=== PATIENT | female | born 1940 | race African-American/Black ===

== ENCOUNTER 2016-09-25 19:53 | Observation (INO) ==
[2016-09-25] MEDS ORDERED: Ondansetron 4 MG/2 ML VIAL IV ONE (20:25)
[2016-09-25] MEDS ORDERED: *HR* Morphine 2 MG/ML SYRINGE IV ONE (20:25)
--- NOTE | 2016-09-25 22:15 | Emergency Department Note ---
Disposition Clinical Impression: Syncope Qualifiers: Syncope type: unspecified Qualified Code(s): R55 - Syncope and collapse Closed head injury Qualifiers: Encounter type: initial encounter Qualified Code(s): S09.90XA - Unspecified injury of head, initial encounter Disposition: Admitted As Inpatient Condition: Good Time of Disposition: 00:51 General Adult HPI - General Chief complaint: ED Fall Stated complaint: Left Shoulder Pain / Freq Falls Time Seen by Provider: 09/25/16 19:55 Source: patient Limitations: no limitations Nursing Notes Reviewed: Yes Vital Signs Reviewed: Yes - History of Present Illness HPI Narrative: pt was at home today and had a syncopal event. She is walking through her house and does not remember anything after that. She fell and hit her left arm. There only complaint is pain in her left arm at this time. Pain radiates from her shoulder up into her neck. She has previous shoulder issues and has had shots over the last several weeks to months. She feels that it is much worse today secondary to this fall. She denies any other symptoms at this time except for pain in left shoulder. She does not remember any preceding symptoms prior to the event today. She has never done anything like this before. She has not been ill or had any other recent medical issues at this time Onset (ago): [employer] Location: head, neck, left, upper extremity Radiation: neck Pain Severity: severe Pain Scale: 10 Quality: aching Consistency: constant Improves with: nothing Worsens with: movement Associated symptoms: Reports: headaches Treatments Prior to Arrival: none - Related Data Home Medications Medication Instructions Recorded Confirmed Albuterol Sulfate [Ventolin Hfa] 2 puff IH Q4H PRN 09/26/16 09/26/16 Amlodipine Besylate 10 mg PO DAILY 09/26/16 09/26/16 Atorvastatin [Lipitor] 40 mg PO HS 09/26/16 09/26/16 Carvedilol [Coreg] 6.25 mg PO BIDWM 09/26/16 09/26/16 Levothyroxine [Synthroid] 112 mcg PO DAILY 09/26/16 09/26/16 Omeprazole [PriLOSEC] 20 mg PO BID 09/26/16 09/26/16 Spironolactone [Aldactone] 25 mg PO DAILY 09/26/16 09/26/16 TraZODone 50 mg PO HS 09/26/16 09/26/16 Valsartan/Hydrochlorothiazide 1 tab PO DAILY 09/26/16 09/26/16 [Diovan Hct 320-25 mg Tablet] Previous Rx's Medication Instructions Recorded Ondansetron [Zofran] 4 mg PO Q8HR PRN #21 tablet 04/02/15 Aspirin 81 mg PO DAILY #30 tab.chew 04/07/15 Clopidogrel [Plavix] 75 mg PO DAILY #30 tablet 04/07/15 Hydrocodone/Acetaminophen [[place]water 1 tab PO Q6H PRN #10 tab 04/12/15 5-325 Tablet] Nitroglycerin 0.4 mg SL Q5MIN #14 tab.subl 02/21/16 DiphenhydraMINE [Benadryl] 25 mg PO Q8HR PRN #20 capsule 09/20/16 Cyclobenzaprine [Flexeril] 10 mg PO BID PRN #10 tablet 09/28/16 Docusate [Colace] 100 mg PO BID #14 capsule 09/28/16 HYDROcodone/Acet 5/325 mg [[place] 1 tab PO Q6H PRN #20 tab 09/28/16 5-325 mg] Ondansetron HCl [Zofran] 4 mg PO Q8H PRN #30 tablet 09/28/16 PredniSONE 20 mg PO DAILY #5 tablet 09/28/16 Simvastatin [Zocor] 10 mg PO DAILY #60 tablet 09/28/16 Allergies Allergy/AdvReac Type Severity Reaction Status Date / Time Iodinated Contrast Media - Allergy Swelling Verified 09/20/16 13:35 Oral and of [Iodinated Contrast Media - Lip/Tongue/Throat IV Dye] metronidazole [From Flagyl] AdvReac See Verified 09/20/16 13:35 Comments All systems ED: reviewed and negative except as stated. Cardiovascular: Denies: palpitations, dyspnea on exertion Respiratory: Denies: cough Musculoskeletal: Reports: back pain, neck pain Neurological: Reports: headache Past Medical History - Past Medical History Attestation: Yes The following information was validated with the patient. Source: patient Medical history: Reports: coronary artery disease, GERD, hyperlipidemia, hypertension, thyroid disease Surgical history: Reports: angioplasty/stent, cholecystectomy, hysterectomy Psychiatric history: Reports: no psych history [employer] history: Reports: no [employer] history - Social History Smoking Status: Never smoker Smokeless Tobacco Status: No Alcohol use: Reports: none Drug use: Reports: none Physical Exam - General Limitations: no limitations General appearance: alert - Head Head exam: atraumatic, normocephalic, normal inspection - Eye Eye exam: Present: normal appearance, PERRL, EOMI. Absent: nystagmus, miosis, mydriasis - ENT ENT exam: normal exam, normal oropharynx, mucous membranes moist - Neck Neck exam: Present: normal inspection, full ROM, trachea midline, tenderness ( Mild midline tenderness no step-off or deformity noted at this time) - Chest Chest inspection: Present: normal inspection, symmetric chest wall rise - Respiratory Respiratory exam: Present: normal lung sounds bilaterally - Cardiovascular Cardiovascular exam: Present: regular rate, normal rhythm, normal heart sounds - Abdominal Exam Abdominal exam: Present: soft, Non-Tender. Absent: tenderness, distention, guarding, rebound, rigidity, normal bowel sounds, Zimmer's sign, Rovsing's sign , tenderness at McBurney's Point, mass - Extremities Exam Extremities exam: Present: normal inspection, full ROM, normal capillary refill. Absent: tenderness, pedal edema - Back Exam Back exam: Present: normal inspection - Neurological Exam Neurological exam: Present: alert, oriented X3, CN II-XII intact - Psychiatric Psychiatric exam: Present: normal affect - Skin Skin exam: Present: warm, dry, intact, normal color Course Course Narrative: Patient seen and examined the time of arrival by EMS. See history of present illness. 75-year-old female presents emergency room today with complaint of left shoulder pain. After further discussion she describes a syncopal event at home today for which she fell. She denies any symptoms leading up to that but does not remember any of the events during that timeframe. She woke up on the floor with pain in her left shoulder. She denies any bleeding or injuries during that event. She currently has no other symptoms except for the left shoulder pain and pain up into her neck. Patient is on Plavix for previous cardiac catheterization and stenting done approximately 3 months ago. Physical exam does not show any acute signs of head trauma. She has mild tenderness in the midline aspect of the posterior aspect of the cervical spine. C-collar was placed immediately. Lungs are clear heart is regular. Patient has tenderness of the left shoulder girdle but no gross deformity or injury. Neuro motor function is intact distally to that injury and the left extremity. Palpable radial pulses are intact bilaterally. 4 range of motion of the right shoulder is noted. Chest wall shows no acute signs of tenderness no crepitus or deformity noted. Bilateral breath sounds are noted. No tenderness midline in the thoracic or lumbar spine. Abdomen soft nontender nondistended no guarding no rigidity. Patient's pelvis is stable she moves her lower extremities without deficit. Patient is concerning for syncopal event here today at home. EKG chest x-ray CT of the head and neck ordered at this time as well as plain film of the left shoulder. Laboratory workup and urinalysis ordered. Glucose was taken interns and it was normal. Patient denies any recent medication changes trauma or injury. Disposition will most likely be admission to hospital for first time syncopal event at home with unknown etiology. We will continue monitoring in the emergency room his workup and treatment course are completed. - Reevaluation(s) Reevaluation #1: Patient has negative CT imaging of the head and cervical spine. Chest x-ray is negative for acute pathology left shoulder does not show any acute bony abnormalities or fractures. Labs are coming back stable at this time. She does have a mild elevated white count but no acute infectious etiology. Patient 's creatinine and sodium are both at baseline after reviewing. Patient was discussed with the hospitalist for admission syncopal event with no known or visualized abnormalities of this time. Patient is stable and resting comfortably in the bed. Vital signs are stable throughout the course of care. EKG shows sinus rhythm and no acute abnormalities at this time. Patient's family is comfortable with this plan. Patient is in no distress this point. Hospitalist Dr. Hitchcock and I reviewed the patient's presentation symptoms medical intervention in great detail. He had no other recommendations at this time. Patient be admitted to the hospital for definitive management of what appears to be a syncopal event at home it was unwitnessed with injury to her left shoulder. Time: 00:39 Vital Signs Temperature 98.7 F 09/25/16 19:54 Pulse Rate 55 09/25/16 19:54 Respiratory Rate 14 09/25/16 19:54 Blood Pressure 156/76 09/25/16 19:54 O2 Sat by Pulse Oximetry 99 09/25/16 19:54 Temperature 97.8 F 09/28/16 14:53 Pulse Rate 57 09/28/16 14:53 Respiratory Rate 16 09/28/16 14:53 Blood Pressure 138/51 09/28/16 14:53 O2 Sat by Pulse Oximetry 98 09/28/16 14:53 Oxygen Delivery Oxygen Delivery Room Air Medical Decision Making - MDM Narrative Medical decision making narrative: Syncope, closed head injury, left shoulder pain - Medical Records Medical records reviewed: Yes I reviewed the patient's medical records. - Lab Data Lab results reviewed: Yes I reviewed the patient's lab results. Result diagrams: 09/27/16 05:53 09/27/16 05:53 - Radiology Data Radiology results reviewed: Yes I reviewed the patient's radiology results. CT imaging of the head and neck are negative for acute pathology. Chest x-ray and left shoulder plain films were also negative for acute bony abnormality or pulmonary infiltrate - EKG Data EKG #1 EKG attestation: Yes I reviewed and interpreted this EKG. EKG shows normal: sinus rhythm, axis, intervals, QRS complexes, ST-T waves Rate: bradycardia Rhythm: NSR Munday/QRS: normal When compared to previous EKG there are: no significant changes Interpretation: no acute changes, unchanged when compared to prior tracing (date ) Attestation Statement - Attestation Attestation: I examined this patient and my medical decision-making was reviewed with the Resident Physician. I agree with the documented findings, disposition and treatment plan as described.
[2016-09-25 22:16] LABS: Basophils % 0.3 %; Eosinophils # 0.1 K/mcL (0.0-0.6); Eosinophils % 1.1 %; Hematocrit 38.5 % (35.3-44.9); Hemoglobin 12.9 g/dL (11.5-15.4); Immature Granulocytes % 0.7 % (0-4); Lymphocytes # 1.9 K/mcL (0.6-4.6); Lymphocytes % 15.3 %; Mean Corpuscular HGB Conc 33.5 g/dL (31.6-35.5); Mean Corpuscular Hemoglobin 29.1 pg (28.0-33.3); Mean Corpuscular Volume 86.9 fL (83.0-100.0); Mean Platelet Volume 8.3 fL (9.4-12.4); Platelet Count 542 K/mcL (140-400); Red Blood Count 4.43 M/mcL (3.82-4.97); Red Cell Distribution Width 12.9 % (11.5-14.5); Segmented Neutrophils % 74.6 %
[2016-09-25 22:18] LABS: Neutrophils # 9.2 K/mcL (1.6-8.9)
[2016-09-25 22:21] LABS: INR 1.1; Prothrombin Time 11.7 Seconds (9.4-12.1)
[2016-09-25 22:24] LABS: Activated Partial Thrombo Time 27.2 Seconds (26.0-36.0)
[2016-09-25 22:29] LABS: Calcium 9.1 mg/dL (8.6-10.8); Potassium 4.3 mEq/L (3.5-4.5)
[2016-09-25 23:08] LABS: Bilirubin,Urine Negative (Negative); Blood,Urine Negative (Negative); Clarity,Urine Clear (Clear); Color,Urine Yellow (Yellow); Glucose,Urine (UA) Normal (Normal); Ketones,Urine Negative (Negative); Leukocyte Esterase,Urine Moderate (Negative); Nitrite,Urine Negative (Negative); Protein,Urine Negative (Neg-Trace); Specific Gravity,Urine 1.021 (1.010-1.025); Urobilinogen,Urine Normal (Normal)
[2016-09-25 23:10] LABS: Bacteria,Urine None Seen per hpf (None-Few); Hyaline Casts,Urine Few per lpf (None-Few); RBC,Urine 0-3 per hpf (0-3); Squamous Epithelial Cell,Urine Many per lpf (None-Few); WBC,Urine 15-30 per hpf (0-3)
[2016-09-26] MEDS ORDERED: Naloxone 0.4 MG/ML INJ IVP PRN (01:59)
[2016-09-26] MEDS ORDERED: Acetaminophen 325 MG TABLET PO PRN (01:59)
[2016-09-26] MEDS ORDERED: Nitroglycerin 0.4 MG TAB.SUBL SL SCH (02:15)
--- NOTE | 2016-09-26 02:17 | Internal Med History&Physical ---
Date of Encounter: 09/26/16 Time of Encounter: 02:00 Assessment and Plan (1) Syncope and collapse Current visit: Yes Status: Acute . (2) Acute shoulder pain due to trauma Current visit: Yes Status: Acute . Qualifiers: Laterality: left Qualified Code(s): M25.512 - Pain in left shoulder; G89.11 - Acute pain due to trauma (3) Acute strain of neck muscle Current visit: Yes Status: Acute . Qualifiers: Encounter type: initial encounter Qualified Code(s): S16.1XXA - Strain of muscle, fascia and tendon at neck level, initial encounter (4) Anxiety as acute reaction to exceptional stress Current visit: Yes Status: Acute . (5) Anxiety about health Current visit: Yes Status: Acute . (6) DDD (degenerative disc disease), cervical Current visit: Yes Status: Chronic . (7) HTN (hypertension) Current visit: Yes Status: Chronic . Qualifiers: Hypertension type: essential hypertension Qualified Code(s): I10 - Essential (primary) hypertension (8) Hypothyroidism Current visit: Yes Status: Chronic . Qualifiers: Hypothyroidism type: acquired Qualified Code(s): E03.9 - Hypothyroidism, unspecified (9) CAD (coronary artery disease) Current visit: Yes Status: Chronic . Qualifiers: Coronary Disease-Associated Artery/Lesion type: [place] artery [place] vs. transplanted heart: [place] heart Associated angina: without angina Qualified Code(s): I25.10 - Atherosclerotic heart disease of [place] coronary artery without angina pectoris (10) Hx of right coronary artery stent placement Current visit: Yes Status: Chronic . (11) Orthostatic lightheadedness Current visit: Yes Status: Acute . (12) Closed head injury Current visit: Yes Status: Acute . Qualifiers: Encounter type: initial encounter Qualified Code(s): S09.90XA - Unspecified injury of head, initial encounter (13) Hyponatremia with decreased serum osmolality Current visit: Yes Status: Acute . (14) UTI (urinary tract infection) Current visit: Yes Status: Acute . Qualifiers: Urinary tract infection type: acute cystitis Hematuria presence: without hematuria Qualified Code(s): N30.00 - Acute cystitis without hematuria (15) Delirium due to conditions classified elsewhere Current visit: Yes Status: Acute . (16) Multiple falls Current visit: Yes Status: Chronic . (17) Osteoarthritis of left glenohumeral joint Current visit: Yes Status: Chronic . (18) DJD of left AC (acromioclavicular) joint Current visit: Yes Status: Chronic . (19) Degenerative joint disease of spine Current visit: Yes Status: Chronic . Qualifiers: Spinal region: unspecified Spinal osteoarthritis complication: unspecified spinal osteoarthritis Qualified Code(s): M47.9 - Spondylosis, unspecified (20) Obesity (BMI 30-39.9) Current visit: Yes Status: Chronic . (21) Bradycardia, unspecified Current visit: Yes Status: Acute . Internal Medicine - H&P: HPI Chief complaint: Loss of Consciousness. Fall. Neck and shoulder pain Admitted From: Emergency Dept Plans for Post Hospital Care: Home History of present illness: Ms. Glalardo is a 75 year old female admitted to [facility] the emergency department when she presented with the complaint of left shoulder pain following a fall. She describes a very emotional reason events the day prior to her emergency room presentation. Her son who had been addicted to narcotics for many years and was finally placed facility for another trial of rehabilitation. The stress of the morning she describes as preoccupying much of her thought. She was walking through her house after returning home and suffered a syncopal event. She does not remember anything after passing out. She did not experience any feelings of holding events, chest pain, shortness of air, unilateral weakness, tremor or myoclonus or headache. When she awakened she had realized that she had not hit her left shoulder and arm as she fell. She found arm and shoulder immediately to be painful and difficult to move because of the pain. Day the pain seemed to radiate from her shoulder up into her left neck. Knowledge of previous very long history of left shoulder problems requiring periodic steroid injection therapy last week within 2 weeks of her injury. She described her pain as being severe at 10 out of 10 severity primarily in the left upper arm shoulder neck. This was constant and nothing seemed to alleviate it but any movement with exacerbated. At the time of her presentation to the emergency department she also experienced a headache was generalized. The patient acknowledged ongoing compliance with her cardiovascular medicines which included aspirin and Plavix following a PTCA with stenting procedure performed ~6 months earlier. She denied current symptoms as being reminiscent of anything related to her heart. Preliminary impression suggested a neurocardiogenic or vasovagal event and syncope. Further evaluation to rule out ACS/UA/malignant arrhythmia/CVA/TIA et al. to be pursued. Complaints are concerning most for a structural injury either to neck with nerve root impingement and radicular pain left shoulder and arm versus primary shoulder joint insult with possible rotator cuff derangement or subluxation. Further investigation will be pursued. Treatments initiated. The patient was visited and interviewed and examined. Cumulative laboratory and radiographic data base was considered and discussed. Pertinent ancillary medical records including ECW and PCI documentation was reviewed and considered. Given the patient's presenting concerns, past medical history, clinical findings and symptoms, she is admitted at this time will undergo further evaluation and disposition. Orders were written as per the computerized physician parts order and stock clerk system.......................................................................... .................... Consultative opinions will be sought as clinical circumstances justify. Pain management needs will be addressed. Laboratory and radiographic data base will be updated as appropriate. Studies include: PT/INR, APTT, Ddimer, CPK, cardiac injury panel, BNP, metabolic/ hematologic panel, mag, phos, ionized fish, thyroid/ lipid profile, A1c/ C-pep, CRP/ sed rate, UA, B12, folate, vit D panel, blood gas, lactic acid, prolactin, serologies, etc. Precautions: Aspiration, fall, seizure, delirium protocol/surveillance initiated. Telemetry with continuous hemodynamic monitoring and pulse oximetry initiated. Orthostatic vital signs. Empiric antibiotic coverage: pending diagnostics/culture data. Special studies: CT head, CT cervical spine, MRI brain, MRI cervical spine, MRI shoulder, echocardiogram, chest x-ray, telemetry, EKG. Pulmonary toilet: Incentive spirometry. PRNaerosol bronchodilator, mucolytic, antitussive, Supplemental oxygen. Corticosteroid therapyPRN. CPAP/BiPAP supplemental oxygenPRN. Aerosol Mucomyst therapyPRN. Fluid and electrolyte repletion efforts will proceed. Careful attention to fluid balance and renal recovery will be emphasized. Avoidance of nephrotoxic exposure and adverse drug drug interaction in the setting of impaired renal function will be monitored closely. Acute coronary syndrome protocol/surveillance initiated. DVT and PUD prophylaxis initiated: PPI therapy, intermittent pneumatic cuffs. Subcutaneous heparin was held due to thrombocytopenia. Early ambulation will be encouraged. Immunization updates recommended. Influenza and pneumococcal vaccinations as part of ongoing preventative healthcare recommendations strongly recommended. Smoking cessation counseling briefly addressed. Patient is a nonsmoker. Advanced care directive discussion briefly addressed. Patient does not declare any healthcare restrictions at this time. Cardiovascular risk appraisal and cardiovascular risk reduction efforts will be emphasized. Physical and occupational therapy consulted to evaluate patient's functional capacity and progress mobility as circumstances permit. Nutrition/dietary education counseling may be considered as circumstances justify. Outpatient medication schedules will be reviewed, confirmed and facilitated as appropriate. Reconciliation of home treatments including adjustments, substitutions and reintroduction into the treatment regimen will address necessary maintenance therapies for chronic pre-existing medical conditions. Plan of care has been reviewed and discussed in detail with the patient. Questions addressed. Hospital course dictated by clinical findings, treatment response and potential consultative interventions. Patient is at risk for further acute clinical decline and morbidity due to her presenting chief complaints and comorbid conditions. Condition is serious. Prognosis is guarded. CODE STATUS is full. Past Med Surg Social Fam HX - Past Medical History Source: old records reviewed Medical history: arthritis, COPD (COLIN.), coronary artery disease, GERD, GI bleed (Diverticulosis coli.), hyperlipidemia, hypertension, osteoporosis, peripheral artery disease, renal disease, thyroid disease, other (Recurrent headaches; regional pain.) Psychiatric history: anxiety, other - Past Surgical History Surgical History: angioplasty/stent, cholecystectomy, hysterectomy, TELLO/BSO, other - Social History Smoking Status: Former smoker Smokeless Tobacco Status: No Alcohol use: none Drug use: none Occupational status: retired Current living situation: Home - Independent, Home Activity Level: Independent ambulation, Mostly sedentary Recent Out of Country Travel Within the Last 8 Weeks: No Exposure or Possible Exposure to Illness During Travel: No - Family History Mother Living Status: Age at : 19 Cause of : tuberculosis Hx Family Cardiac Disorders: No Hx Family Respiratory Disorders: Yes (Teburculosis) Hx Family Cancer: No Hx Family GI Disorders: No Hx Family Endocrine Disorder: No Hx Family Neuromuscular Disorders: No Hx Family Neurologic Disorders: No Hx Family HEENT Disorders: No Hx Family Autoimmune Disorders: No Father Living Status: Age at : 80 Cause of : NC Hx Family Cardiac Disorders: Yes (Heart Attack) Hx Family Respiratory Disorders: No Hx Family Cancer: No Hx Family GI Disorders: No Hx Family Endocrine Disorder: Yes (Diabetes) Hx Family Neuromuscular Disorders: No Hx Family Neurologic Disorders: Yes (BIPOLAR) Hx Family HEENT Disorders: No Hx Family Autoimmune Disorders: No Internal Medicine - H&P: Meds Ondansetron [Zofran] 4 mg PO Q8HR PRN #21 tablet 04/02/15 [Rx] Aspirin 81 mg PO DAILY #30 tab.chew 04/07/15 [Rx] Clopidogrel [Plavix] 75 mg PO DAILY #30 tablet 04/07/15 [Rx] Hydrocodone/Acetaminophen [[place] 5-325 Tablet] 1 tab PO Q6H PRN #10 tab [Rx] Nitroglycerin 0.4 mg SL Q5MIN #14 tab.subl 02/21/16 [Rx] Amoxicillin 875 mg PO BID #20 tablet 09/20/16 [Rx] DiphenhydraMINE [Benadryl] 25 mg PO Q8HR PRN #20 capsule 09/20/16 [Rx] Albuterol Sulfate [Ventolin Hfa] 2 puff IH Q4H PRN 09/26/16 [History] Amlodipine Besylate 10 mg PO DAILY 09/26/16 [History] Atorvastatin [Lipitor] 40 mg PO HS 09/26/16 [History] Carvedilol [Coreg] 6.25 mg PO BIDWM 09/26/16 [History] Levothyroxine [Synthroid] 112 mcg PO DAILY 09/26/16 [History] Omeprazole [PriLOSEC] 20 mg PO BID 09/26/16 [History] Spironolactone [Aldactone] 25 mg PO DAILY 09/26/16 [History] TraZODone 50 mg PO HS 09/26/16 [History] Valsartan/Hydrochlorothiazide [Diovan Hct 320-25 mg Tablet] 1 tab PO DAILY 09/26 [History] Allergies Iodinated Contrast Media - Oral and [Iodinated Contrast Media - IV Dye] Allergy (Verified 09/20/16 13:35) Swelling of Lip/Tongue/Throat metronidazole [From Flagyl] Adverse Reaction (Verified 09/20/16 13:35) See Comments All Systems PM: A 10-system review of systems was performed and is negative for pertinent findings except as documented above in the HPI. - Constitutional Constitutional: as per HPI, falls, malaise, no chills, no fever(s), no night sweats - EENT Eyes: as per HPI, no change in vision, no discharge, no pain, no photophobia Ears: as per HPI, no ear discharge, no ear pain, no tinnitus Nose, mouth and throat: as per HPI, no dysphagia, no nasal discharge, no neck pain, no sore throat - Cardiovascular Cardiovascular ROS IM: as per HPI, lightheadedness, syncope, no chest pain, no diaphoresis, no dyspnea, no palpitations - Respiratory Respiratory: as per HPI, no cough, no dyspnea, no wheezing, no excessive phlegm production - Gastrointestinal Gastrointestinal: as per HPI, no abdominal pain, no diarrhea, no hematemesis, no hematochezia, no melena, no nausea, no vomiting - Genitourinary Genitourinary: as per HPI, no change in urinary stream, no dysuria, no flank pain, no hematuria Menstruation: as per HPI, post hysterectomy - Musculoskeletal Musculoskeletal ROS IM: as per HPI, arthralgias, joint swelling, limited range of motion, neck pain, stiffness, no numbness, no tingling - Integumentary Integumentary IM: as per HPI, no rash, no unusual bruising - Neurological Neurological ROS: as per HPI, dizziness, headache(s), weakness, no confusion, no convulsions, no focal weakness, no numbness, no tingling, no tremor(s) - Psychiatric Psychiatric: as per HPI - Endocrine Endocrine IM: as per HPI - Hematologic/Lymphatic Hematologic/Lymphatic: as per HPI, no easy bruising - Allergic/Immunologic Allergic/Immunologic: as per HPI - Constitutional Vitals: Temp Pulse Resp BP Pulse Ox 98.7 F 55 16 115/88 98 09/25/16 19:54 09/26/16 00:26 09/26/16 00:52 09/26/16 00:52 09/26/16 00:26 Vital Signs Temp Pulse Resp BP Pulse Ox 09/26/16 00:52 16 115/88 09/26/16 00:26 55 114/65 98 09/25/16 23:39 49 16 122/70 95 09/25/16 22:44 51 119/79 99 09/25/16 21:48 49 22 132/66 99 09/25/16 20:51 59 147/88 100 09/25/16 19:54 98.7 F 55 14 156/76 99 Intake and Output 09/25/16 09/25/16 09/26/16 15:59 23:59 07:59 Other: Weight 84.822 kg General appearance: Present: mild distress, A&O X 3, obese, answers questions appropriately - Head Head exam: Present: atraumatic, normocephalic - Eye Eye exam: Present: EOMI, PERRL, conjuntiva pink, sclera anicteric Pupils: Present: normal accommodation, PERRL - ENT ENT exam: Present: mucous membranes moist, normal oropharynx - Neck Neck exam general surgery: Present: full ROM, tenderness, supple, trachea midline. Absent: lymphadenopathy, nuchal rigidity - Expanded Neck Exam Neck exam: Present: tenderness (Cervical paraspinal musculature tenderness lower left cervical spine extending into left anterior shoulder joint.). Absent : anterior neck swelling, carotid bruit, midline deformity - Respiratory Respiratory exam: Present: chest wall tenderness, decreased breath sounds, CTAB. Absent: accessory muscle use, rales, rhonchi, wheezes - Cardiovascular Cardiovascular exam: Present: bradycardia, distant heart sounds, RRR, +S1, +S2. Absent: diastolic murmur, gallop, rubs, systolic murmur - GI/Abdominal GI/Abdominal exam: Present: normal bowel sounds, soft, no peritoneal signs. Absent: distended, tenderness - Extremities Exam Extremities exam: Present: warm, radial pulses palpable and symetrical. Absent : calf tenderness, cyanotic, pedal edema - Expanded Upper Extremities Exam Shoulder exam: Present: swelling, tenderness, tenderness over AC joint. Absent : full ROM (Greatly diminished range of motion and function of left shoulder secondary to pain) Upper Arm exam: Present: tenderness. Absent: full ROM Vascular exam: Present: normal capillary refill, radial pulse right, radial pulse left. Absent: vascular compromise - Neurological Exam Neurological exam: Present: alert, altered, CN II-XII intact, motor sensory deficit (Left shoulder diminished range of motion and surgery deficits secondary to pain), oriented X3. Absent: pronater drift, facial droop, speech deficit - Expanded Neurological Exam Neurological exam expanded: Present: protecting the airway. Absent: expressive aphasia, receptive aphasia Patient oriented to: Present: person, place, time Speech: Present: fluid speech Cranial Nerves: EOM's intact PM: Normal, gag reflex PM: Normal, nystagmus PM: Normal, tongue deviation PM: Normal Coma Scale Eye Opening: Spontaneous Coma Scale Motor Response: Obeys Commands Coma Scale Verbal Response: Oriented Coma Scale Total: 15 - Psychiatric Psychiatric exam: Present: anxious, normal affect - Skin Skin exam: Present: dry, intact Internal Med - H&P Results - Labs CBC & Chem 7: 09/27/16 05:53 09/27/16 05:53 Labs: Short CBC 09/25/16 Range/Units 21:59 WBC 12.3 H D (4.3-11.1) K/mcL Hgb 12.9 (11.5-15.4) g/dL Hct 38.5 (35.3-44.9) % Plt Count 542 H (140-400) K/mcL Neutrophils # 9.2 H (1.6-8.9) K/mcL BMP 09/25/16 Range/Units 21:59 Sodium 125 L (136-145) mEq/L Potassium 4.3 (3.5-4.5) mEq/L Chloride 93 L (98-109) mEq/L Carbon Dioxide 25 (19-29) mEq/L BUN 29 H (7-20) mg/dL Creatinine 1.65 H (0.57-1.11) mg/dL Glucose 92 (70-99) mg/dL Calcium 9.1 (8.6-10.8) mg/dL Urine 09/25/16 Range/Units 22:54 Urine Color Yellow (Yellow) Urine Clarity Clear (Clear) Urine pH 6.0 (5.0-8.0) pH Units Ur Specific [place] 1.021 (1.010-1.025) Urine Protein Negative (Neg-Trace) mg/dL Urine Glucose (UA) Normal (Normal) mg/dL Abnormal lab results WBC 12.3 K/mcL (4.3-11.1) H D 09/25/16 21:59 Plt Count 542 K/mcL (140-400) H 09/25/16 21:59 MPV 8.3 fL (9.4-12.4) L 09/25/16 21:59 Neutrophils # 9.2 K/mcL (1.6-8.9) H 09/25/16 21:59 Sodium 125 mEq/L (136-145) L 09/25/16 21:59 Chloride 93 mEq/L (98-109) L 09/25/16 21:59 BUN 29 mg/dL (7-20) H 09/25/16 21:59 Creatinine 1.65 mg/dL (0.57-1.11) H 09/25/16 21:59 Est GFR ( Amer) 37 (> 60) L 09/25/16 21:59 Est GFR (Non-Af Amer) 30 (> 60) L 09/25/16 21:59 Calculated Osmolality 265 (280-300) L 09/25/16 21:59 Ur Leukocyte Esterase Moderate (Negative) H 09/25/16 22:54 Urine Microscopic WBC 15-30 per hpf (0-3) H 09/25/16 22:54 Ur Squamous Epith Cells Many per lpf (None-Few) H 09/25/16 22:54 Laboratory Last Values WBC 12.3 K/mcL (4.3-11.1) H D 09/25/16 21:59 RBC 4.43 M/mcL (3.82-4.97) 09/25/16 21:59 Hgb 12.9 g/dL (11.5-15.4) 09/25/16 21:59 Hct 38.5 % (35.3-44.9) 09/25/16 21:59 MCV 86.9 fL (83.0-100.0) 09/25/16 21:59 MCH 29.1 pg (28.0-33.3) 09/25/16 21:59 MCHC 33.5 g/dL (31.6-35.5) 09/25/16 21:59 RDW 12.9 % (11.5-14.5) 09/25/16 21:59 Plt Count 542 K/mcL (140-400) H 09/25/16 21:59 MPV 8.3 fL (9.4-12.4) L 09/25/16 21:59 Immature Gran % 0.7 % (0-4) 09/25/16 21:59 Seg Neutrophils % 74.6 % 09/25/16 21:59 Lymphocytes % 15.3 % 09/25/16 21:59 Monocytes % 8.0 % 09/25/16 21:59 Eosinophils % 1.1 % 09/25/16 21:59 Basophils % 0.3 % 09/25/16 21:59 Neutrophils # 9.2 K/mcL (1.6-8.9) H 09/25/16 21:59 Lymphocytes # 1.9 K/mcL (0.6-4.6) 09/25/16 21:59 Monocytes # 1.0 K/mcL (0.0-1.3) 09/25/16 21:59 Eosinophils # 0.1 K/mcL (0.0-0.6) 09/25/16 21:59 Basophils # 0.0 K/mcL (0.0-0.2) 09/25/16 21:59 PT 11.7 Seconds (9.4-12.1) 09/25/16 21:59 INR 1.1 09/25/16 21:59 APTT 27.2 Seconds (26.0-36.0) 09/25/16 21:59 Sodium 125 mEq/L (136-145) L 09/25/16 21:59 Potassium 4.3 mEq/L (3.5-4.5) 09/25/16 21:59 Chloride 93 mEq/L (98-109) L 09/25/16 21:59 Carbon Dioxide 25 mEq/L (19-29) 09/25/16 21:59 BUN 29 mg/dL (7-20) H 09/25/16 21:59 Creatinine 1.65 mg/dL (0.57-1.11) H 09/25/16 21:59 Est GFR ( Amer) 37 (> 60) L 09/25/16 21:59 Est GFR (Non-Af Amer) 30 (> 60) L 09/25/16 21:59 BUN/Creatinine Ratio 18 (6-26) 09/25/16 21:59 Glucose 92 mg/dL (70-99) 09/25/16 21:59 Calculated Osmolality 265 (280-300) L 09/25/16 21:59 Calcium 9.1 mg/dL (8.6-10.8) 09/25/16 21:59 Urine Color Yellow (Yellow) 09/25/16 22:54 Urine Clarity Clear (Clear) 09/25/16 22:54 Urine pH 6.0 pH Units (5.0-8.0) 09/25/16 22:54 Ur Specific [place] 1.021 (1.010-1.025) 09/25/16 22:54 Urine Protein Negative mg/dL (Neg-Trace) 09/25/16 22:54 Urine Glucose (UA) Normal mg/dL (Normal) 09/25/16 22:54 Urine Ketones Negative mg/dL (Negative) 09/25/16 22:54 Urine Blood Negative (Negative) 09/25/16 22:54 Urine Nitrite Negative (Negative) 09/25/16 22:54 Urine Bilirubin Negative (Negative) 09/25/16 22:54 Urine Urobilinogen Normal mg/dL (Normal) 09/25/16 22:54 Ur Leukocyte Esterase Moderate (Negative) H 09/25/16 22:54 Urine Microscopic RBC 0-3 per hpf (0-3) 09/25/16 22:54 Urine Microscopic WBC 15-30 per hpf (0-3) H 09/25/16 22:54 Ur Squamous Epith Cells Many per lpf (None-Few) H 09/25/16 22:54 Urine Bacteria None Seen per hpf (None-Few) 09/25/16 22:54 Hyaline Casts Few per lpf (None-Few) 09/25/16 22:54 - Impressions Chest X-Ray 09/25/16 20:24 IMPRESSION: No acute cardiopulmonary process. D/ / Stiven Whatley MD / Stiven Whatley MD Interpreting Provider: Stiven Whatley MD Head CT 09/25/16 20:24 IMPRESSION: No acute intracranial abnormality. D/ / Rory Santana MD / Rory Santana MD Interpreting Provider: Royr Santana MD Shoulder X-Ray 09/25/16 20:25 IMPRESSION: 1. No acute fracture or dislocation. D/ : / 09/25/2016 21:26:11 Rory Santana MD / wang Interpreting Provider: Rory Santana MD Cervical Spine CT 09/25/16 20:26 IMPRESSION: No acute abnormality of the cervical spine. Moderate multilevel degenerative changes. D/ / 09/25/2016 21:26:50 Stiven Whatley MD / wang Interpreting Provider: Stiven Whatley MD - Attending Attestation My signature below is to certify that this patient is under my care and that I, or nurse practitioner, or a physician's operating room assistant, or resident physician working with me, has had a [id number] encounter with this patient. Allergies Iodinated Contrast Media - Oral and [Iodinated Contrast Media - IV Dye] Allergy (Verified 09/20/16 13:35) Swelling of Lip/Tongue/Throat metronidazole [From Flagyl] Adverse Reaction (Verified 09/20/16 13:35) See Comments Home Medications Medication Instructions Recorded Confirmed Type Hydrochlorothiazide [Microzide] 12.5 mg PO DAILY 04/05/15 04/11/15 History Levothyroxine [Synthroid] 100 mcg PO DAILY #0 04/05/15 04/11/15 History I & O 09/23/16 09/24/16 09/25/16 09/26/16 23:59 23:59 23:59 23:59 Weight 84.822 kg Medications Acetaminophen (Tylenol) 650 mg PO Q6HR PRN PRN Reason: Mild Pain (1-3) Stop: 03/28/17 02:00 Aspirin (Aspirin) 81 mg PO DAILY MARCELINO Stop: 03/28/17 09:01 Clopidogrel Bisulfate (Plavix) 75 mg PO DAILY MARCELINO Stop: 03/28/17 09:01 Diphenhydramine HCl (Benadryl) 25 mg PO Q8HR PRN PRN Reason: Cold Symptoms Stop: 03/28/17 02:06 Docusate Sodium (Colace) 100 mg PO BID MARCELINO Stop: 03/28/17 09:01 Sodium Chloride (0.9 % Sodium Chloride) 1,000 mls @ 75 mls/hr IVC .[id number] [facility] Stop: 03/28/17 02:01 Ketorolac Tromethamine (Toradol) 15 mg IVP Q6HR PRN PRN Reason: Moderate Pain (4-6) Stop: 10/01/16 02:00 Levothyroxine Sodium (Synthroid) 100 mcg PO DAILY [facility] Stop: 03/28/17 09:01 Morphine Sulfate (Morphine Sulfate) 2 mg IVP Q4HR PRN PRN Reason: Severe Pain (7-10) Stop: 03/28/17 02:00 Naloxone HCl (Narcan) 0.4 mg IVP Q2MIN PRN PRN Reason: Opioid Reversal Stop: 03/28/17 02:00 Nitroglycerin (Nitroglycerin) 0.4 mg SL Q5MIN [facility] Stop: 03/28/17 02:16 Non-Formulary Medication (Hydrochlorothiazide [Microzide]) 12.5 mg PO DAILY [facility] Stop: 03/28/17 09:01 Non-Formulary Medication (Pravastatin Sodium [Pravastatin Sodium]) 10 mg PO DAILY [facility] Stop: 03/28/17 09:01 Omeprazole (Prilosec) 20 mg PO DAILY@0630 [facility] PRN Reason: Protocol Stop: 03/28/17 06:31 Ondansetron HCl (Zofran) 4 mg IVP Q8HR PRN PRN Reason: Nausea And Vomiting Stop: 03/28/17 02:00 Prednisone (Prednisone) 20 mg PO DAILY [facility] Stop: 03/28/17 09:01 Valsartan (Diovan) 320 mg PO DAILY [facility] Stop: 03/28/17 09:01 Discontinued Medications Morphine Sulfate (Morphine Sulfate) 2 mg IV ONCE ONE Stop: 09/25/16 20:26 Last Admin: 09/25/16 20:50 Dose: 2 mg Ondansetron HCl (Zofran) 4 mg IV ONCE ONE PRN Reason: Protocol Stop: 09/25/16 20:26 Last Admin: 09/25/16 20:50 Dose: 4 mg Nursing Notes 09/25/16 22:09 Nurse Note by Akil Floyd PT HAS NOT HAD LABS DRAWN @ THIS POINT. CALLED LAB AND MADE THEM AWARE TO HAVE PHLEBO DRAW IT JUSTINA. LABS WERE ORDERED @ 2023 Initialized on 09/25/16 22:09 - END OF NOTE 09/25/16 21:48 Nurse Note by Akil Floyd C-SPINE CLEARED PER DR BUENO. C-COLLAR REMOVED. Initialized on 09/25/16 21:48 - END OF NOTE 09/25/16 20:49 Transport Report by Zach Pina Date: 09/25/16 Transport Method: Ambulatory Iodinated Contrast Media - Oral and [Iodinated Contrast Media - IV Dye] Allergy (Verified 09/20/16 13:35) Swelling of Lip/Tongue/Throat metronidazole [From Flagyl] Adverse Reaction (Verified 09/20/16 13:35) See Comments Resuscitation Status 09/25/16 20:24 CT head/brain wo con [CT] Stat Mode Of Transportation: Ambulatory Reason For Exam: syncope Exam Performed At:: [facility] Allergic to Contrast: No XR chest 1V portable [XR] Stat Mode Of Transportation: Ambulatory Reason For Exam: syncope Exam Performed At:: [facility] Additional Notes/Special Instructions: 29 ECG 12 lead ECG [ECG] Stat Mode Of Transportation: Ambulatory Reason For Exam: syncope Exam Performed At:: [facility] 09/25/16 20:25 XR shoulder complete LT [XR] Stat Mode Of Transportation: Ambulatory Reason For Exam: fall Order Doctor: Len Bueno Exam Performed At:: [facility] 09/25/16 20:26 CT cervical spine wo con [CT] Stat Mode Of Transportation: Ambulatory Reason For Exam: fall Order Doctor: Len Bueno Exam Performed At:: [facility] Oxygen: Mental Status: Fall Risk: Isolation: Nurse Required for Transport: No ___ Yes Limb Restrictions: No ___ Yes Behavioral issue/Risk for Elopement: No ___ Yes Telemetry Room Notification: Destination: MRI XRAY STRESS ULTRASOUND CT DIALYSIS ENDO OTHER: Depart Time: Nurse: Transporter: Arrive Time: Received by: ___ Return Time: Nurse: Transporter: ] Initialized on 09/25/16 20:49 - END OF NOTE 09/25/16 20:46 Nurse Note by Akil Floyd C-COLLAR WAS PLACED ON THE PT. Initialized on 09/25/16 20:46 - END OF NOTE Orders 09/25/16 20:24 Vital Signs Assessment [RC] PROTOCOL CT head/brain wo con [CT] Stat Mode Of Transportation: Ambulatory Reason For Exam: syncope Exam Performed At:: [facility] Allergic to Contrast: No XR chest 1V portable [XR] Stat Mode Of Transportation: Ambulatory Reason For Exam: syncope Exam Performed At:: [facility] Additional Notes/Special Instructions: 29 ECG 12 lead ECG [ECG] Stat Mode Of Transportation: Ambulatory Reason For Exam: syncope Exam Performed At:: [facility] 09/25/16 20:25 XR shoulder complete LT [XR] Stat Mode Of Transportation: Ambulatory Reason For Exam: fall Order Doctor: Len Bueno Exam Performed At:: [facility] Morphine [Morphine Sulfate] 2 mg IV ONCE ONE Ondansetron [Zofran] 4 mg IV ONCE ONE 09/25/16 20:26 CT cervical spine wo con [CT] Stat Mode Of Transportation: Ambulatory Reason For Exam: fall Order Doctor: Len Bueno Exam Performed At:: [facility] 09/25/16 21:59 Activated Partial Thrombo Time [COAG] Stat Comment: Specimen: Send someone from the department to collect Basic Metabolic Panel Stat Comment: Specimen: Send someone from the department to collect Complete Blood Count [HEME] Stat Comment: Specimen: Send someone from the department to collect Prothrombin Time INR [COAG] Stat Comment: Specimen: Send someone from the department to collect 09/25/16 22:54 Urinalysis reflex Microscopic [URIN] Stat Comment: Specimen: Has been collected 09/25/16 23:[address] Stat Comment: Reason for Visit: syncope evaluation 09/26/16 01:59 Peripheral IV [RC] CONT Placement to Observation Routine Physician Instructions: Reason for Visit: Syncope. Posttraumatic left shoulder pain Is VTE Prophylaxis Indicated?: Yes Vital Signs Assessment [RC] Q4H Acetaminophen [Tylenol] 650 mg PO Q6HR PRN Ketorolac [Toradol] 15 mg IVP Q6HR PRN Morphine [Morphine Sulfate] 2 mg IVP Q4HR PRN Naloxone [Narcan] 0.4 mg IVP Q2MIN PRN Ondansetron [Zofran] 4 mg IVP Q8HR PRN Resuscitation Status: Active [RES] Routine Resuscitation Status: Full Code Comment: 09/26/16 02:00 0.9 % Sodium Chloride 1,000 ml IVC 75 mls/hr Up with Assist Daily Physician Instructions: Comment: 09/26/16 02:01 Bed rest [RC] .CONT Physician Instructions: Bed rest w/bedside commode [RC] .PRN Cardiac Monitoring Med/Surg [RC] .CONT Telemetry Reason: Stroke/Syncope/TIA Continuous pulse oximetry [RC] CONT Comment: Measure intake and output [RC] QSHIFT Measure weight [RC] DAILY RT has an order or consult [RC] NOW 09/26/16 02:02 Oxygen via nasal cannula Nasal Cannula 2 lpm Comment: Titrate O2 to main O2 sat greater than: 92% 09/26/16 02:04 Consult to Occupational Therapy [CONS] Routine Comment: Evaluate, develop and implement POC Consult to Physical Therapy [CONS] Routine Comment: Evaluate, develop and implement POC 09/26/16 02:05 DiphenhydraMINE [Benadryl] 25 mg PO Q8HR PRN 09/26/16 02:09 Orthostatic Vital Signs [RC] .ONCE MR cervical spine wo con [MR] Routine Mode Of Transportation: Stretcher Reason For Exam: Posttraumatic left shoulder and neck pain Order Doctor: Hayes Hitchcock Exam Performed At:: [facility] MR head/brain wo con [MR] Routine Mode Of Transportation: Stretcher Reason For Exam: Syncope. Order Doctor: Hayes Hitchcock Exam Performed At:: [facility] MR shoulder LT wo con [MR] Routine Mode Of Transportation: Stretcher Reason For Exam: Left shoulder pain, post traumatic Order Doctor: Hayes Hitchcock Exam Performed At:: [facility] 09/26/16 02:15 Troponin I Q6H Specimen: Send someone from the department to collect Comment: Nitroglycerin 0.4 mg SL Q5MIN 09/26/16 04:00 B-Type Natriuretic Peptide AM 0400 Specimen: Send someone from the department to collect Comment: C-Reactive Protein AM 0400 Specimen: Send someone from the department to collect Comment: Creatine Kinase AM 0400 Specimen: Send someone from the department to collect Comment: Hgb A1C AM 0400 Specimen: Send someone from the department to collect Comment: Ionized Calcium AM 0400 Specimen: Send someone from the department to collect Comment: Lipid Panel AM 0400 Specimen: Send someone from the department to collect Comment: Magnesium AM 0400 Specimen: Send someone from the department to collect Comment: Phosphorous AM 0400 Specimen: Send someone from the department to collect Comment: Prolactin AM 0400 Specimen: Send someone from the department to collect Comment: Thyroid Stimulating Hormone AM 0400 Specimen: Send someone from the department to collect Comment: Venous Blood Gas AM 0400 Specimen: Send someone from the department to collect Comment: 09/26/16 06:30 Omeprazole [PriLOSEC] 20 mg PO DAILY@0630 09/26/16 08:15 Troponin I Q6H Specimen: Send someone from the department to collect Comment: 09/26/16 09:00 Aspirin 81 mg PO DAILY Clopidogrel [Plavix] 75 mg PO DAILY Docusate [Colace] 100 mg PO BID Hydrochlorothiazide [Microzide] 12.5 mg PO DAILY How will this medication be supplied?: Pharmacy to Subsitute Levothyroxine [Synthroid] 100 mcg PO DAILY Pravastatin Sodium [Pravastatin Sodium] 10 mg PO DAILY How will this medication be supplied?: Pharmacy to Subsitute PredniSONE 20 mg PO DAILY Valsartan [Diovan] 320 mg PO DAILY 09/26/16 14:15 Troponin I Q6H Specimen: Send someone from the department to collect Comment: 09/26/16 Breakfast Cardiac Diet Diet Modifications: 09/27/16 02:00 Up with Assist Daily Physician Instructions: Comment: 09/28/16 02:00 Up with Assist Daily Physician Instructions: Comment: Patient Problems (Last Updated 09/26/16 @ 00:51 by Len Bueno DO) Syncope (Acute) Closed head injury (Acute) Vital Signs Temp Pulse Resp BP Pulse Ox 09/26/16 00:52 16 115/88 09/26/16 00:26 55 114/65 98 09/25/16 23:39 49 16 122/70 95 09/25/16 22:44 51 119/79 99 09/25/16 21:48 49 22 132/66 99 09/25/16 20:51 59 147/88 100 09/25/16 19:54 98.7 F 55 14 156/76 99 Laboratory Results 09/25/16 09/25/16 09/25/16 Range/Units 21:59 21:59 21:59 WBC 12.3 H D (4.3-11.1) K/mcL RBC 4.43 (3.82-4.97) M/mcL Hgb 12.9 (11.5-15.4) g/dL Hct 38.5 (35.3-44.9) % MCV 86.9 (83.0-100.0) fL MCH 29.1 (28.0-33.3) pg MCHC 33.5 (31.6-35.5) g/dL RDW 12.9 (11.5-14.5) % Plt Count 542 H (140-400) K/mcL MPV 8.3 L (9.4-12.4) fL Immature Gran % 0.7 (0-4) % Seg Neutrophils % 74.6 % Lymphocytes % 15.3 % Monocytes % 8.0 % Eosinophils % 1.1 % Basophils % 0.3 % Neutrophils # 9.2 H (1.6-8.9) K/mcL Lymphocytes # 1.9 (0.6-4.6) K/mcL Monocytes # 1.0 (0.0-1.3) K/mcL Eosinophils # 0.1 (0.0-0.6) K/mcL Basophils # 0.0 (0.0-0.2) K/mcL PT 11.7 (9.4-12.1) Seconds INR 1.1 APTT 27.2 (26.0-36.0) Seconds Sodium 125 L (136-145) mEq/L Potassium 4.3 (3.5-4.5) mEq/L Chloride 93 L (98-109) mEq/L Carbon Dioxide 25 (19-29) mEq/L BUN 29 H (7-20) mg/dL Creatinine 1.65 H (0.57-1.11) mg/dL Est GFR ( Amer) 37 L (> 60) Est GFR (Non-Af Amer) 30 L (> 60) BUN/Creatinine Ratio 18 (6-26) Glucose 92 (70-99) mg/dL Calculated Osmolality 265 L (280-300) Calcium 9.1 (8.6-10.8) mg/dL Urine Color (Yellow) Urine Clarity (Clear) Urine pH (5.0-8.0) pH Units Ur Specific [place] (1.010-1.025) Urine Protein (Neg-Trace) mg/dL Urine Glucose (UA) (Normal) mg/dL Urine Ketones (Negative) mg/dL Urine Blood (Negative) Urine Nitrite (Negative) Urine Bilirubin (Negative) Urine Urobilinogen (Normal) mg/dL Ur Leukocyte Esterase (Negative) Urine Microscopic RBC (0-3) per hpf Urine Microscopic WBC (0-3) per hpf Ur Squamous Epith Cells (None-Few) per lpf Urine Bacteria (None-Few) per hpf Hyaline Casts (None-Few) per lpf 09/25/16 Range/Units 22:54 WBC (4.3-11.1) K/mcL RBC (3.82-4.97) M/mcL Hgb (11.5-15.4) g/dL Hct (35.3-44.9) % MCV (83.0-100.0) fL MCH (28.0-33.3) pg MCHC (31.6-35.5) g/dL RDW (11.5-14.5) % Plt Count (140-400) K/mcL MPV (9.4-12.4) fL Immature Gran % (0-4) % Seg Neutrophils % % Lymphocytes % % Monocytes % % Eosinophils % % Basophils % % Neutrophils # (1.6-8.9) K/mcL Lymphocytes # (0.6-4.6) K/mcL Monocytes # (0.0-1.3) K/mcL Eosinophils # (0.0-0.6) K/mcL Basophils # (0.0-0.2) K/mcL PT (9.4-12.1) Seconds INR APTT (26.0-36.0) Seconds Sodium (136-145) mEq/L Potassium (3.5-4.5) mEq/L Chloride (98-109) mEq/L Carbon Dioxide (19-29) mEq/L BUN (7-20) mg/dL Creatinine (0.57-1.11) mg/dL Est GFR ( Amer) (> 60) Est GFR (Non-Af Amer) (> 60) BUN/Creatinine Ratio (6-26) Glucose (70-99) mg/dL Calculated Osmolality (280-300) Calcium (8.6-10.8) mg/dL Urine Color Yellow (Yellow) Urine Clarity Clear (Clear) Urine pH 6.0 (5.0-8.0) pH Units Ur Specific [place] 1.021 (1.010-1.025) Urine Protein Negative (Neg-Trace) mg/dL Urine Glucose (UA) Normal (Normal) mg/dL Urine Ketones Negative (Negative) mg/dL Urine Blood Negative (Negative) Urine Nitrite Negative (Negative) Urine Bilirubin Negative (Negative) Urine Urobilinogen Normal (Normal) mg/dL Ur Leukocyte Esterase Moderate H (Negative) Urine Microscopic RBC 0-3 (0-3) per hpf Urine Microscopic WBC 15-30 H (0-3) per hpf Ur Squamous Epith Cells Many H (None-Few) per lpf Urine Bacteria None Seen (None-Few) per hpf Hyaline Casts Few (None-Few) per lpf Assessments/Treatments 12 lead ECG assessment Start: 09/25/16 19: 54 Freq: Status: Complete Document 03/19/17 20:01 RB (Rec: 09/25/16 20:02 RB [id number]) EKG Time EKG Completed 20:00 EKG performed by EDT EKG shown to and signed by Dr. Bueno ED Discharge Assessment Start: 09/25/16 19: 54 Freq: Status: Active Document 09/26/16 00:52 DLW (Rec: 09/26/16 00:53 DLW [id number]) ED Discharge Assessment ED Discharge Disposition Admitted ED Condition on Discharge Good Med Rec/Patient Pharmacy Completed? Yes Admitted to 3B Bed assigned 3B-54 Transported by telecommunications technician Transported with monitor oxygen IV pulse oximetry Report given to Nurse Care transferred to (name/credentials) DON RN Information relayed patient's care treatments medications given condition recent/anticipated changes Clinical Documentation Summary Provided Yes Pain Scale 0 Pain Scale Used Standard (1-10) Blood Pressure (mm Hg) 115/88 Heart rate 58 Respiratory Rate (breaths/min) 16 Oxygen Delivery Room Air Oxygen Saturation 100 Critical Care Minutes 0 ED Fall Assessment Start: 09/25/16 19: 54 Freq: Status: Complete Document 09/25/16 20:02 RB (Rec: 09/25/16 20:06 RB [id number]) Fall Assessment 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 Fall From Standing Fall Witnessed No Place Fall Occurred Home Loss of Consciousness Unknown Prolonged Down Time Unclear Symptoms Prior to Fall None Context Unknown Associated Symptoms Denies Level Of Consciousness Awake Alert Appropriate Follows Commands Patient Orientation Person Place Time Name Age Date of Day of Month Day of Week Month Year Time of Day Skin Temperature Warm Skin Moisture Dry Skin Turgor Elastic Capillary Refill < 3 Seconds Respiratory Depth Normal Respiratory Effort Normal for Patient Respiratory Pattern Regular Left Shoulder Pain Description Sharp Intensity 10 Scale Used Numeric (1 - 10) Coma Scale Eye Opening Spontaneous Coma Scale Motor Response Obeys Commands Coma Scale Verbal Response Oriented Left Arm Movement Description +4 - Full ROM, Less Than Normal Strength. Fall Precautions Acute Start: 09/26/16 01: 28 Freq: Q12H Status: Active Document 09/26/16 01:59 [id number] (Rec: 09/26/16 02:00 [id number]) [facility] Fall Risk Assessment Tool Age 70-79 years (2 points) Fall History One fall within the last 6 months before admission (5 points) Elimination, Bowel, and Urine N/A (0 pts) Medications: Includes SOLAR SALES ASSESSOR/opiates, On 1 high fall risk drug (3 antivulsants, ant-hypertensives, points) diuretics, hypnotics, Patient Care Equipment: Any equipment One present (1 point) that tethers patient (e.g. IV infusions, chest tube, indwelling Mobility Requires assistance or supervision for transfer/ ambulation (2 points) Unsteady gait (2 points) Cognition N/A (0 points) Total Fall Risk Score 15 Fall Risk Category High Risk (Greater than 13) Fall Risk Interventions Low Risk Interventions Bed in lowest position Top side rails up x 2 Secure brake on bed Use properly fitting non-skid footwear Call light and frequently needed objects within reach Encourage patients/families to call for assistance when needed Fall education including risk assessment, injury risk and routine/ Inspect environment for safety and communication risk Supervise and assist with toileting/ADLs as needed Moderate Risk Interventions Institue fall-risk tooklit ( yellow flag, yellow non-skid socks and Frequent reorientation for confused patients High Risk Interventions Remain with patient while toileting Activate bed/chair exit Move patient to room with best visual access Obtain pharmacy consult for review of medications Obtain PT consult, if pat Family History-Meaningful Use Start: 09/26/16 01: 28 Freq: .Once Status: Active Document 09/26/16 01:57 [id number] (Rec: 09/26/16 01:59 [id number] [facility] Family History-Meaningful Use Father Race Living Status Age at 80 Cause of NC Mother Living Status Age at 19 Cause of tuberculosis IV-Invasive Line Management Start: 09/26/16 01: 28 Freq: Q8H Status: Active Document 09/26/16 02:04 [id number] (Rec: 09/26/16 02:04 [id number] [facility] IV/Invasive Line Assessment Right Antecubital Date of Insertion 09/25/16 Reason for Line Insertion/Rationale for Provide Access for IV Insertion Medication(s) Provide Access for Emergency Gauge (gauge) 20 IV Catheter Type Peripheral IV Site Observation Patent Dressing Applied Dry/Intact Labs drawn from Line* No Observation Admission Assessment Start: 09/26/16 01: 28 Freq: .once Status: Active Document 09/26/16 01:49 [id number] (Rec: 09/26/16 01:55 [id number]) General Questions Date of Arrival on Unit 09/26/16 Time of Arrival on Unit 01:17 Admitted From Emergency Dept Chief Complaint syncope History Provided By Patient Orientation To Call Light Bed Phone TV Bathroom Smoking Policy Visiting Hours Procedures ID Bracelet On Emergency Contact Name Zach Gallardo Relationship to Patient Son Emergency Contact Bands applied ID band Allergy band Patient Health Portal Patient was provided information on Yes accessing patient portal Patient Requests Portal Enrollment No Reason No Portal Enrollment Patient Declines Advance Directives Advance Directives No Advance Directives Information Provided Yes Patient Rights Copy of Rights Given and Verbalizes Yes Understanding Tobacco Free [place]: Copy of AHS Yes Statement Given and Patient Verbalizes Understanding Communication Ability Preferred Language Maltese Ability to Follow Directions Excellent Able to Read Yes Able to Write Yes Learning Preferences Discussion Visual Assistive Devices Glasses Pain Assessment Do You Have Any Ongoing (Chronic) Pain Yes: l shoulder pain Problems What treatment or medications are you ibuprofen receiving for pain management Educated on Pain Scale Yes Past Medical History Medical history coronary artery disease GERD hyperlipidemia hypertension thyroid disease Female Surgical History angioplasty/stent cholecystectomy hysterectomy Psychiatric history no psych history Smoking Status Never smoker Smokeless Tobacco Status No Alcohol use none Drug use none Occupational status retired Current living situation Home - Independent Activity level Independent ambulation Recent Out of Country Travel Within the No Last 8 Weeks Exposure or Possible Exposure to Illness No During Travel Functional Assessment Employment Status Retired Eating (Feeding) Ability Independent Bathing Ability Independent Upper Body Dressing Ability Independent Lower Body Dressing Ability Independent Ambulation Ability Independent Toileting Ability Independent Bladder Continent Bowel Continent Normal Bowel Pattern Daily Date of Last Known Bowel Movement 09/25/16 Psychosocial Over Age 75 and Lives Alone or Over Age No 80 Developmentally Disabled or History of No Mental Health Problems Responsible for Care of Others No Financial Concerns No Suspected Abuse or Neglect No Patient Belongings Start: 09/26/16 01: 28 Freq: .ONCE Status: Active Document 09/26/16 01:55 [id number] (Rec: 09/26/16 01:56 [id number] [facility] Patient Belongings Patient Belongings Cell Phone Dentures, Partial Upper Pants Purse Shoes Undergarments Patient Rounding Start: 09/26/16 01: 28 Freq: Q1H Status: Active Document 09/26/16 02:03 [id number] (Rec: 09/26/16 02:03 [id number] [facility] Hourly Rounding Hourly Rounding Checked for Patient Positioning Patient Helped to Bathroom or Assisted with Bedpan or Urinal Patient Personal Items Placed Within Reach Checked Patient Pain Level Hourly Rounding Completed Yes Patient Awake Is family present? No Safety Call Light Within Reach Bed Position Low Fall Precautions Phone Within Reach Bed Brake On Side Rails Up X2 Are the Floors Free From Trip Hazards? Yes Is the Room Free From Clutter? Yes Turn and Postion Bedrest No Turn Q 2HR No Patient Position Back RT Continuous Pulse Oximetry Start: 09/25/16 19: 54 Freq: Status: Complete Document 09/25/16 20:14 DLW (Rec: 09/25/16 20:14 DLW [id number]) Saline lock insertion/management Start: 09/25/16 19: 54 Freq: Status: Complete Document 09/25/16 19:59 RB (Rec: 09/25/16 20:00 RB [id number]) IV Insertion/Site Assessment Right Antecubital IV Established SEARCH ENGINE MARKETING SPECIALIST Yes: [facility] Date of Insertion 09/25/16 Reason for IV Insertion Provide Access for IV Medication(s) Provide Access for Emergency IV Catheter Type Peripheral IV Gauge (gauge) 20 Site Observation Patent Dressing Applied Transparent Dressing Patient Tolerance Tolerated Well Sepsis Screening Start: 09/26/16 01: 28 Freq: Q8H Status: Active Document 09/26/16 02:04 [id number] (Rec: 09/26/16 02:04 [id number]) Sepsis Screening Sepsis Infection Criteria Present none Sepsis SIRS Criteria WBC > 12k or < 4k or bands > 10% Sepsis Screen No Definite Risk Sepsis Action Taken no action required Skin Risk Assessment Scale Start: 09/26/16 01: 28 Freq: Q12H Status: Active Document 09/26/16 02:05 [id number] (Rec: 09/26/16 02:05 [id number]) Skin Risk Assessment Scale Moisture Risk Rarely Moist Sensory Perception No Impairment Activity Risk Walks Frequently Mobility Risk Slightly Limited Nutrition Risk Adequate Friction & Shear Risk No Apparent Problem Skin Risk Total Score (points) 21 Triage Start: 09/25/16 19: 54 Freq: Status: Complete Document 09/25/16 19:54 RB (Rec: 09/25/16 19:59 RB [id number]) Triage Chief Complaint triage ED Fall Patient Stated Complaint Freq Falls / Left Shoulder Pain [place] 3 Onset (ago) Just 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 No Mode of arrival EMS Arrival via EMS [facility] Source patient Limitations no limitations Ebola Risk: Travel/Contact With Anyone No From Affected Area/s Has Patient Experienced Ebola Symptoms No Temperature (97.6 F-99.6 F) 98.7 F Temperature Source Oral Pulse Rate (beats/min) 55 Respiratory Rate (breaths/min) 14 Blood Pressure (mm Hg) 156/76 O2 Sat by Pulse Oximetry (95-100 %) 99 Oxygen Delivery Room Air Height 1.63 m Weight 84.822 kg Weight Measurement Method Stated by Patient Pain Scale 10 Pain Scale Used Standard (1-10) Medical history coronary artery disease GERD hyperlipidemia hypertension thyroid disease Female surgical history angioplasty/stent cholecystectomy hysterectomy Additional surgical history PMH cardiac cath with stent placement Apr 08, 2015 Psychiatric history no psych history Smoking Status Never smoker Smokeless Tobacco Status No Alcohol Use none Drug Use none Patient resides with/at Alone Safety Concerns Feels Safe At This Time Do you currently feel hopless, have No thoughts of self harm, or thoughts of harming others History of fall in last 14 days? Yes Hx Now No ASSOCIATE JUSTICE history no ASSOCIATE JUSTICE history Coma Scale Eye Opening Spontaneous Coma Scale Motor Response Obeys Commands Coma Scale Verbal Response Oriented Coma Scale Total 15 Father Family Member Living Status Hx Family Cardiac Disorders Yes: Heart Attack Hx Family Respiratory Disorders No Hx Family Cancer No Hx Family GI Disease No Hx Family Endocrine Disorder Yes: Diabetes Hx Family Neuromuscular Dysfunction No Hx Family Neurologic Problems Yes: BIPOLAR Hx Family HEENT Problems No Hx Family Autoimmune Disease Problems No Mother Family Member Living Status Hx Family Cardiac Disorders No Hx Family Respiratory Disorders Yes: Teburculosis Hx Family Cancer No Hx Family GI Disease No Hx Family Endocrine Disorder No Hx Family Neuromuscular Dysfunction No Hx Family Neurologic Problems No Hx Family HEENT Problems No Hx Family Autoimmune Disease Problems No Vital Signs Assessment Start: 09/25/16 20: 24 Freq: PROTOCOL Status: Active Document 09/25/16 20:51 DLW (Rec: 09/25/16 20:51 DLW [id number]) ED Vital Signs Pain Reported Pain Reported Pain Scale 10 Pain Scale Used Standard (1-10) Blood Pressure (mm Hg) 147/88 Pulse Rate (beats/min) 59 Pulse Oximetry (95-100 %) 100 Oxygen Delivery Room Air Document 09/25/16 21:48 DLW (Rec: 09/25/16 21:48 DLW [id number]) ED Vital Signs Pain Reported Pain Reported Pain Scale 2 Pain Scale Used Standard (1-10) Blood Pressure (mm Hg) 132/66 Pulse Rate (beats/min) 49 Respiratory Rate (breaths/min) 22 Pulse Oximetry (95-100 %) 99 Document 09/25/16 22:44 DLW (Rec: 09/25/16 22:44 DLW [id number]) ED Vital Signs Pain Reported Pain Reported Pain Scale 1 Pain Scale Used Standard (1-10) Blood Pressure (mm Hg) 119/79 Pulse Rate (beats/min) 51 Pulse Oximetry (95-100 %) 99 Oxygen Delivery Room Air Document 09/25/16 23:39 DLW (Rec: 09/25/16 23:39 DLW [id number]) ED Vital Signs Pain Reported No Pain Reported Pain Scale 0 Pain Scale Used Standard (1-10) Blood Pressure (mm Hg) 122/70 Pulse Rate (beats/min) 49 Respiratory Rate (breaths/min) 16 Pulse Oximetry (95-100 %) 95 Oxygen Delivery Room Air Document 09/26/16 00:26 DLW (Rec: 09/26/16 00:26 DLW [id number]) ED Vital Signs Pain Reported No Pain Reported Pain Scale 0 Pain Scale Used Standard (1-10) Blood Pressure (mm Hg) 114/65 Pulse Rate (beats/min) 55 Pulse Oximetry (95-100 %) 98 Oxygen Delivery Room Air Discharge Information ED Provider: Tio Jones Status: Departed Time Seen by Provider: 09/25/16 19:55 Condition: Good Triaged At: 09/25/16 19:54 Emergency Discharge Date/Time: 09/26/16 01:09 Emergency Discharge Disposition: Admitted As Inpatient Clinical Impression Syncope Closed head injury Emergency Discharge Comment: Admit Intervention Last Done ED Fall Assessment 09/25/16 20:02 Query Result Fall 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 Fall 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 Fall From Standing Fall Witnessed No Place Fall Occurred Home Fall Loss of Consciousness Unknown Fall Prolonged Down Time Unclear Symptoms Prior to Fall None Fall Context Unknown Fall Associated Symptoms Denies Level Of Consciousness Awake Alert Appropriate Follows Commands Patient Orientation Person Place Time Name Age Date of Day of Month Day of Week Month Year Time of Day Skin Temperature Warm Skin Moisture Dry Skin Turgor Elastic Capillary Refill < 3 Seconds Respiratory Depth Normal Respiratory Effort Normal for Patient Respiratory Pattern Regular Left Shoulder -Pain Description Sharp -Pain Intensity 10 -Pain Scale Used Numeric (1 - 10) Coma Scale Eye Opening Spontaneous Coma Scale Motor Response Obeys Commands Coma Scale Verbal Response Oriented Left Arm -Movement Description +4 ED Discharge Assessment 09/26/16 00:52 Query Result ED Discharge Disposition Admitted ED Condition on Discharge Good Med Rec/Patient Phamracy completed? Yes ED Admit to 3B Bed assigned 3B-54 Transported by telecommunications technician Transported with monitor oxygen IV pulse oximetry Report given to Nurse Care transferred to DON RN Information relayed patient's care treatments medications given condition recent/anticipated change Clinical Documentation Summary Provided Yes Severity scale (1-10) 0 Pain Scale Used Standard (1-10) Blood Pressure 115/88 Heart rate 58 Respiratory Rate 16 Oxygen Delivery Room Air Pulse Oximetry Reading 100 Critical Care Minutes 0 Observation Discharge Date/Time: Observation Discharge Disposition: Observation Discharge Comment: Instructions: Stand-Alone Forms: Prescriptions: Visit Report - Forms: - Referrals: Radiology Results Chest X-Ray 09/25/16 20:24 IMPRESSION: No acute cardiopulmonary process. D/ / Stiven Whatley MD / Stiven Whatley MD Interpreting Provider: Stiven Whatley MD Head CT 09/25/16 20:24 IMPRESSION: No acute intracranial abnormality. D/ / Rory Santana MD / Rory Santana MD Interpreting Provider: Rory Santana MD Shoulder X-Ray 09/25/16 20:25 IMPRESSION: 1. No acute fracture or dislocation. D/ / 09/25/2016 21:26:11 Rory Santana MD / wang Interpreting Provider: Rory Santana MD Cervical Spine CT 09/25/16 20:26
[2016-09-26] MEDS: *HR* Morphine 2 MG/ML SYRINGE IVP PRN ×4 (02:26→17:59)
[2016-09-26] MEDS: 0.9 % Sodium Chloride 1,000 ML IVC SCH ×2 (02:35→21:50)
[2016-09-26] MEDS ORDERED: Nitroglycerin 0.4 MG TAB.SUBL SL PRN (03:19)
[2016-09-26] MEDS ORDERED: Ketorolac 15 MG/ML VIAL IVP STA (03:27)
[2016-09-26 04:46] LABS: VBG HCO3 25.9 mEq/L (21-27); VBG PH 7.35 pH Units (7.32-7.42)
[2016-09-26 04:52] LABS: Ionized Calcium 1.12 mmol/L (1.15-1.35)
[2016-09-26 05:04] LABS: Chol/HDL Ratio 2.5 (0-4.9); Magnesium 2.2 mg/dL (1.6-2.6); Phosphorous 3.6 mg/dL (2.3-4.7)
[2016-09-26 05:24] LABS: Thyroid Stimulating Hormone 1.803 mcIU/mL (0.350-4.840)
[2016-09-26 06:12] LABS: Prolactin 12.33 ng/mL (5.18-26.53)
[2016-09-26] MEDS: Melatonin 3 MG TABLET PO SCH ×2 (06:30→20:53)
[2016-09-26] MEDS ORDERED: hydroCHLOROthiazide 25 MG TABLET PO SCH (09:00)
[2016-09-26] MEDS: Aspirin 81 MG TAB.CHEW PO SCH (09:54)
[2016-09-26] MEDS: Valsartan 160 MG TABLET PO SCH (09:54)
[2016-09-26] MEDS: predniSONE 20 MG TABLET PO SCH (09:54)
--- NOTE | 2016-09-26 13:05 | Electrocardiograph Report ---
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
--- NOTE | 2016-09-26 15:53 | Internal Med Progress Note ---
Date of Encounter: 09/26/16 Time of Encounter: 10:15 - Assessment and plan (1) Syncope Current Visit: Yes Status: Acute Assessment and plan: She states she was walking through Her house early in the morning plus morning and has syncopal episode. She is insistent that she passed out due to the pain in her left shoulder. She reports her only injury from her syncopal episode is pain to her right shoulder which is just worse now than it was before. Her C- spine spine CT shows no acute abnormality and chronic C1-2 advanced degenerative changes. Her head CT showed no acute intracranial abnormalities. Her MRI of her head and MR a of her head and neck are still pending as is her echocardiogram. Patient EKG showed sinus bradycardia with a rate of 55, [place] int 162, QRS 110, QTc 434. Patient denies chest pain dizziness shortness of breath. She has no history of syncope or hypotension. Echo, MRI brain, MRA brain and neck still pending Media Consultant Outside Sales labs Monitor VS Qualifiers: Syncope type: unspecified Qualified Code(s): R55 - Syncope and collapse (2) Left shoulder pain Current Visit: Yes Status: Chronic Assessment and plan: Patient reports 8-9 month history of left shoulder pain. She denies any injury. 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 Patient reports her pain is primarily over humeral head with radiation into her left lateral neck. She says the pain is constant throbbing with intermittent sharp pain. She states that she cannot lift her arm above her head, nothing makes it better, and she states that the weather actually makes it worse. She states that she has never looked out before despite continuing pain for 8-9 months, in the ED her left shoulder x-ray was negative for any acute fracture or dislocation. Patient denied to discuss outpatient orthopedic consult with Dr. Cheng, whom she prefers. PT/OT consults Out pt referral to Dr. Cheng, whom she prefers Pain control Qualifiers: Chronicity: chronic Qualified Code(s): M25.512 - Pain in left shoulder; G89.29 - Other chronic pain (3) CAD (coronary artery disease) Current Visit: Yes Status: Chronic Assessment and plan: Patient's last echo was in 2014, showed an ejection fraction of 60%. Patient was also bradycardic at that time the rate in the 40s. It appears at that time she had a heart catheter and had a drug-eluting stent placed in the mid RCA. Telemetry Continue home medications Echo still pending Pt currently denies chest pain Qualifiers: Coronary Disease-Associated Artery/Lesion type: [place] artery [place] vs. transplanted heart: [place] heart Associated angina: without angina Qualified Code(s): I25.10 - Atherosclerotic heart disease of [place] coronary artery without angina pectoris (4) DDD (degenerative disc disease), cervical Current Visit: Yes Status: Chronic Assessment and plan: Chronic. Patient's C-spine CT in the emergency department showed C1-2 advanced degenerative changes. Pain control Continue home medications (5) Obesity (BMI 30-39.9) Current Visit: Yes Status: Chronic Assessment and plan: Chronic. Lifestyle changes. (6) Hyperlipidemia Current Visit: Yes Status: Chronic Assessment and plan: Chronic. Continue home medications. Qualifiers: Hyperlipidemia type: unspecified Qualified Code(s): E78.5 - Hyperlipidemia , unspecified (7) Hypothyroidism Current Visit: Yes Status: Chronic Assessment and plan: Chronic. Continue home medications. Qualifiers: Hypothyroidism type: acquired Qualified Code(s): E03.9 - Hypothyroidism, unspecified (8) HTN (hypertension) Current Visit: No Status: Chronic Assessment and plan: Chronic. Well controlled. Continue home medications. Qualifiers: Hypertension type: essential hypertension Qualified Code(s): I10 - Essential (primary) hypertension - Time Spent With Patient less than 15 minutes - Subjective Interval history: Patient states she was walking through her house started having sharp pain in her left shoulder and does not remember anything else after that. She says she fell and hit her left arm. She has had the left shoulder pain for at least 8-9 months. Denies known injury. The only thing she remembers is the sharp pain in her shoulder. She denies feeling dizzy, chest pain, headache, nausea, or vomiting. - Constitutional Vitals: Temp Pulse Resp BP Pulse Ox 97.9 F 54 16 114/65 99 09/26/16 14:38 09/26/16 14:38 09/26/16 14:38 09/26/16 14:38 09/26/16 14:38 General appearance: Present: cooperative, mild distress, A&O X 3, pleasant, obese, answers questions appropriately - Head Head exam: Present: normal inspection - Eye Eye exam: Present: normal appearance, conjuntiva pink. Absent: nystagmus - ENT ENT exam: Present: mucous membranes moist, normal exam - Neck Neck exam general surgery: Present: normal inspection. Absent: lymphadenopathy , tenderness - Respiratory Respiratory exam: Present: CTAB. Absent: rales, rhonchi, stridor, wheezes - Cardiovascular Cardiovascular exam: Present: RRR, +S1, +S2. Absent: diastolic murmur, systolic murmur - Expanded Cardiovascular Exam Peripheral pulses: 2+: Dorsalis Pedis (L) PM, Dorsalis Pedis (R) PM - GI/Abdominal GI/Abdominal exam: Present: normal bowel sounds, soft. Absent: distended, tenderness - Extremities Exam Extremities exam: Present: normal capillary refill, tenderness, warm, radial pulses palpable and symetrical. Absent: cyanotic, full ROM, joint swelling, pedal edema - Expanded Upper Extremities Exam Shoulder exam: Present: tenderness. Absent: full ROM, normal inspection, swelling - Neurological Exam Neurological exam: Present: alert, oriented X3. Absent: no focal deficits, strengths equal and symetr throughout, facial droop, speech deficit Internal Medicine: Result - Labs CBC & Chem 7: 09/25/16 21:59 09/25/16 21:59 Labs: Cardiac Enzymes 09/26/16 09/26/16 Range/Units 04:21 11:12 Troponin I 0.01 0.01 (0-0.03) ng/mL - ABG Interpretation ABG results: PT/INR, D-dimer PT 11.7 Seconds (9.4-12.1) 09/25/16 21:59 Consult Discharge Plan - Plan Referrals: Torsten Delgado MD [Primary Care Provider] -
[2016-09-26] MEDS ORDERED: *HR* LORazepam 2 MG/ML VIAL IVP ONE (17:21)
[2016-09-26] MEDS: Ketorolac 30 MG/ML VIAL IVP PRN (21:25)
[2016-09-27] MEDS: *HR* Morphine 2 MG/ML SYRINGE IVP PRN ×4 (03:34→14:27)
[2016-09-27] MEDS: Ketorolac 30 MG/ML VIAL IVP PRN (03:45)
[2016-09-27 06:42] LABS: Basophils % 0.2 %; Eosinophils # 0.1 K/mcL (0.0-0.6); Eosinophils % 1.1 %; Hematocrit 34.4 % (35.3-44.9); Immature Granulocytes % 0.5 % (0-4); Lymphocytes # 2.3 K/mcL (0.6-4.6); Lymphocytes % 23.1 %; Mean Corpuscular HGB Conc 32.8 g/dL (31.6-35.5); Mean Corpuscular Hemoglobin 28.8 pg (28.0-33.3); Mean Corpuscular Volume 87.5 fL (83.0-100.0); Mean Platelet Volume 8.5 fL (9.4-12.4); Monocytes # 0.8 K/mcL (0.0-1.3); Monocytes % 7.4 %; Neutrophils # 6.9 K/mcL (1.6-8.9); Platelet Count 473 K/mcL (140-400); Red Blood Count 3.93 M/mcL (3.82-4.97); Red Cell Distribution Width 13.4 % (11.5-14.5); Segmented Neutrophils % 67.7 %
[2016-09-27 06:48] LABS: Hemoglobin 11.3 g/dL (11.5-15.4)
[2016-09-27] MEDS: 0.9 % Sodium Chloride 1,000 ML IVC SCH ×3 (06:51→17:37)
[2016-09-27 07:07] LABS: Calcium 8.3 mg/dL (8.6-10.8); Potassium 4.3 mEq/L (3.5-4.5)
[2016-09-27] MEDS: predniSONE 20 MG TABLET PO SCH (08:30)
[2016-09-27] MEDS: Aspirin 81 MG TAB.CHEW PO SCH (08:30)
[2016-09-27] MEDS: Valsartan 160 MG TABLET PO SCH (08:30)
--- NOTE | 2016-09-27 09:08 | ECHO - Doppler Report ---
Echocardiogram Name: Izabela Gallardo Date of Study: 09/26/2016 Date: 1940 Ht: 64.0 in Medical Record#: [id number] Age: 75 Wt: 187.0 lb Gender: Female BSA: 1.9 Order #: [id number] Location: [facility] Room #: 3B54 Reading Physician: Ivon Hudson DO Experimental Electronics Developer: Sharonda San Ordering Physician: Akilah Richey CNP Primary Physician: Torsten Delgado MD Indications: Syncope Impressions: LVEF 60%. There is evidence of mild diastolic dysfunction of the left ventricle. Asymmetric septal hypertrophy. Normal right ventricular size and function. Mild tricuspid regurgitation. Mild pulmonic regurgitation. Mild pulmonary hypertension. Left Ventricular Wall Motion: Rest Echo Findings All wall segments showed normal motion. Findings: Study Quality * Technically adequate exam. ECG Findings * Sinus bradycardia. Left Ventricle * LVEF 60%. * Asymmetric septal hypertrophy. * Mild left ventricular diastolic dysfunction. Left Atrium * Normal left atrial size. Aortic Valve * No aortic regurgitation. * Trileaflet aortic valve. * Normal aortic valve structure. * No aortic stenosis. Mitral Valve * Normal mitral valve structure. * No mitral stenosis. * Trace mitral regurgitation. Tricuspid Valve * Tricuspid valve not well visualized. * Mild tricuspid regurgitation. * Estimated RA pressure is 3 mmHg. * Estimated RVSP is 41 mmHg. * Mild pulmonary hypertension. Pulmonic Valve * Normal pulmonic valve structure. * No pulmonic stenosis. * Mild pulmonic regurgitation. Pulmonary Artery * Pulmonary artery not well visualized. Right Ventricle * Normal right ventricular structure and function. Right Atrium * Normal right atrial size. Interatrial Septum * No evidence of PFO with agitated saline contrast. Pericardium * There is no pericardial effusion present. IVC * Normal IVC dimensions and inspiratory collapse. Aorta * Normally sized aortic root. History Hypertension Hypercholesteremia Years 36 Packs 1 Family History of CAD 04/06/2015 a Previous Echo was performed. Measurements: BP: 114/ 65 2D Normal Values IVSd: 1.50 cm 0.6 - 1.0 cm LVIDd: 4.10 cm 3.7 - 5.6 cm LVPWd: 1.20 cm 0.6 - 1.1 cm LVIDs: 2.60 cm 1.5 - 3.6 cm AO: 3.10 cm < 4.0 cm LA: 4.10 cm 2.0 - 4.0cm %FS: 36.60 cm >25 % LA volume: 53 Mitral Valve Peak E:.62 m/sec Peak A:.90 m/sec E/A Ratio:0.7 Peak E' Lat Clark:7.7 cm/s Peak E' Med Clark:4 cm/s E/E' Lat Ratio:8.1 E/E' Med Ratio:15.6 Tricuspid Valve TV Regurg Peak Grad: 38.00mmHg TV Regurg Peak Clark: 3.08m/sec Updated by Ivon Hudson on 09/27/2016 9:03:31 AM electronically signed on 09/27/2016 9:05:35 AM with status of Final Wall Motion Dickerson: 1=Normal, 2=Hypokinesis, 3=Akinesis, 4=Dyskinesis, 5=Aneurysmal, 6=Hyperkinetic, X=Not Visualized (Blank)=Missing
[2016-09-27] MEDS: Ondansetron 4 MG/2 ML VIAL IVP PRN (17:36)
[2016-09-27] MEDS: *HR* OxyCODONE/APAP 5/325 TABLET PO PRN ×2 (17:36→21:50)
--- NOTE | 2016-09-27 19:11 | Internal Med Progress Note ---
Date of Encounter: 09/27/16 Time of Encounter: 20:57 - Assessment and plan (1) Syncope and collapse Current Visit: Yes Status: Acute (2) UTI (urinary tract infection) Current Visit: Yes Status: Acute Qualifiers: Urinary tract infection type: acute cystitis Hematuria presence: without hematuria Qualified Code(s): N30.00 - Acute cystitis without hematuria (3) Degenerative joint disease of spine Current Visit: Yes Status: Chronic Qualifiers: Spinal region: unspecified Spinal osteoarthritis complication: unspecified spinal osteoarthritis Qualified Code(s): M47.9 - Spondylosis, unspecified (4) Obesity (BMI 30-39.9) Current Visit: Yes Status: Chronic (5) Bradycardia, unspecified Current Visit: Yes Status: Acute (6) Left shoulder pain Current Visit: Yes Status: Chronic Qualifiers: Chronicity: chronic Qualified Code(s): M25.512 - Pain in left shoulder; G89.29 - Other chronic pain (7) Hyperlipidemia Current Visit: Yes Status: Chronic Assessment and plan: 75 y/o femlae admitted to the hospital following a syncopal episode. Patient relates this episode to shoulder pain whichhas been excruciating on the day prior to the syncopal episode. see # Syncopal episode: Orthostatic work up negative. Pt related episode to excruciating shoulder pain. Work up for ischemia negative. Echo shows LVH, no significant valvular defects. Noted to have sinus bradycardic episodes on monitor with HR in high 40's to 50's, not associated with any symptoms. Her head CT showed no acute intracranial abnormalities. Her MRI of her head and MR a of her head negative. Had cardiology f/u appointment this as outpt. # Acute left shoulder pain: Pt has c/r degenerative disease of left shoulder due to overuse. Her C-spine spine CT shows no acute abnormality and chronic C1- 2 advanced degenerative changes.Has received steroid injections without much help. Suggested ortho consult. However pt would like to f/u with her orthopedician as outpt. # Essential HYpertension: continue home meds, BP fairly controlled # Sinus bradycardia: Asymptomatic during these episodes, more when sleeping. Could be COLIN. Has cardio follow up in 2 days as outpt. # Generalied anxiety: continue home meds # h/o CAD s/p stent placement to RCA: No acute issues, continue home meds aspirin, statin, plavix, ARB # UTI: UA positive. Pt on tx with ceftriaxone. Day 2/3. Qualifiers: Hyperlipidemia type: unspecified Qualified Code(s): E78.5 - Hyperlipidemia , unspecified - Time Spent With Patient 25 - 35 minutes - Subjective Interval history: seen and examined at bedside. Reports having severe shoulder pain with minimal movement. Denies any chest pain, palpitatations.No further syncopal episodes since admission. - Constitutional Vitals: Temp Pulse Resp BP Pulse Ox 98.2 F 64 15 112/67 96 09/27/16 15:37 09/27/16 15:37 09/27/16 15:37 09/27/16 15:37 09/27/16 15:37 General appearance: Present: cooperative, mild distress, A&O X 3, pleasant, obese, answers questions appropriately - Head Head exam: Present: atraumatic, normocephalic - Eye Eye exam: Present: PERRL, conjuntiva pink, sclera anicteric Pupils: Present: PERRL - Respiratory Respiratory exam: Present: CTAB. Absent: accessory muscle use, rales, rhonchi, wheezes - Cardiovascular Cardiovascular exam: Present: RRR, +S1, +S2. Absent: diastolic murmur, gallop, rubs, systolic murmur - GI/Abdominal GI/Abdominal exam: Present: normal bowel sounds, soft, no peritoneal signs. Absent: distended, tenderness - Extremities Exam Extremities exam: Present: joint swelling (left shoulder pain, tenderness on palpation), warm, radial pulses palpable and symetrical. Absent: calf tenderness, cyanotic, pedal edema - Skin Skin exam: Present: dry, intact Internal Medicine: Result - Labs CBC & Chem 7: 09/27/16 05:53 09/27/16 05:53 Labs: Short CBC 09/27/16 Range/Units 05:53 WBC 10.1 (4.3-11.1) K/mcL Hgb 11.3 L D (11.5-15.4) g/dL Hct 34.4 L (35.3-44.9) % Plt Count 473 H (140-400) K/mcL Neutrophils # 6.9 (1.6-8.9) K/mcL BMP 09/27/16 05:53 Sodium 127 L Potassium 4.3 Chloride 98 Carbon Dioxide 21 BUN 27 H Creatinine 1.57 H Glucose 90 Calcium 8.3 L - ABG Interpretation ABG results: PT/INR, D-dimer PT 11.7 Seconds (9.4-12.1) 09/25/16 21:59 - Impressions Impressions Brain MRI 09/26/16 02:09 IMPRESSION: Mild chronic white matter microvascular ischemic change. D/ / Gavino Herrera MD / Gavino Herrera MD Interpreting Provider: Gavino Herrera MD Cervical Spine MRI 09/26/16 02:09 IMPRESSION: Multilevel degenerative thecal sac narrowing and neural foraminal stenosis as detailed above. No acute fracture or traumatic subluxation identified. Probable Modic type 1 degenerative endplate signal changes at C7-T1. D/ / Gavino Herrera MD / Gavino Herrera MD Interpreting Provider: Gavino Herrera MD Shoulder MRI 09/26/16 02:09 IMPRESSION: 1. Partial thickness articular sided tearing of the infraspinatus tendon measuring approximately 0.6 x 0.6 cm superimposed on severe tendinosis of the supraspinatus and infraspinatus tendons. 2. Partial-thickness tearing of the subscapularis tendon superimposed on tendinosis. The intact long head biceps tendon is subluxed medially into the partially torn subscapularis tendon. 3. Tenosynovitis of the long head biceps tendon. 4. Severe osteoarthritis of the glenohumeral joint. 5. Small glenohumeral joint effusion and synovitis. 6. Mild subacromial/subdeltoid bursitis. D/ / Jovi Beckman MD / Jovi Beckman MD Interpreting Provider: Jovi Beckman MD Consult Discharge Plan - Plan Referrals: [facility],Torsten Still MD [Primary Care Provider] -
[2016-09-27] MEDS: Melatonin 3 MG TABLET PO SCH (21:50)
[2016-09-28] MEDS: Ondansetron 4 MG/2 ML VIAL IVP PRN ×2 (03:35→11:49)
[2016-09-28] MEDS: *HR* OxyCODONE/APAP 5/325 TABLET PO PRN ×2 (03:35→11:46)
[2016-09-28] MEDS: 0.9 % Sodium Chloride 1,000 ML IVC SCH (07:47)
[2016-09-28] MEDS: Aspirin 81 MG TAB.CHEW PO SCH (08:00)
[2016-09-28] MEDS: Valsartan 160 MG TABLET PO SCH (08:00)
[2016-09-28] MEDS: predniSONE 20 MG TABLET PO SCH (08:01)
--- NOTE | 2016-09-28 14:17 | Discharge Summary ---
Date of Encounter: 09/29/16 Time of Encounter: 09:53 - Discharge Diagnosis (1) Syncope and collapse Priority: Primary Status: Acute (2) UTI (urinary tract infection) Priority: Primary Status: Acute Qualifiers: Urinary tract infection type: acute cystitis Hematuria presence: without hematuria Qualified Code(s): N30.00 - Acute cystitis without hematuria (3) Degenerative joint disease of spine Priority: Secondary Status: Chronic Qualifiers: Spinal region: unspecified Spinal osteoarthritis complication: unspecified spinal osteoarthritis Qualified Code(s): M47.9 - Spondylosis, unspecified (4) Obesity (BMI 30-39.9) Priority: Secondary Status: Chronic (5) Bradycardia, unspecified Priority: Primary Status: Acute (6) Left shoulder pain Priority: Primary Status: Chronic Qualifiers: Chronicity: chronic Qualified Code(s): M25.512 - Pain in left shoulder; G89.29 - Other chronic pain (7) Hyperlipidemia Priority: Secondary Status: Chronic Qualifiers: Hyperlipidemia type: unspecified Qualified Code(s): E78.5 - Hyperlipidemia , unspecified - Discharge Medications Prescriptions: Cyclobenzaprine [Flexeril] 10 mg PO BID PRN #10 tablet PRN Reason: pain Docusate [Colace] 100 mg PO BID #14 capsule HYDROcodone/Acet 5/325 mg [[place] 5-325 mg] 1 tab PO Q6H PRN #20 tab PRN Reason: Pain Ondansetron HCl [Zofran] 4 mg PO Q8H PRN #30 tablet PRN Reason: Nausea PredniSONE 20 mg PO DAILY #5 tablet Simvastatin [Zocor] 10 mg PO DAILY #60 tablet Home Medications: Ondansetron [Zofran] 4 mg PO Q8HR PRN #21 tablet 04/02/15 [Rx] Aspirin 81 mg PO DAILY #30 tab.chew 04/07/15 [Rx] Clopidogrel [Plavix] 75 mg PO DAILY #30 tablet 04/07/15 [Rx] Hydrocodone/Acetaminophen [[place] 5-325 Tablet] 1 tab PO Q6H PRN #10 tab [Rx] Nitroglycerin 0.4 mg SL Q5MIN #14 tab.subl 02/21/16 [Rx] DiphenhydraMINE [Benadryl] 25 mg PO Q8HR PRN #20 capsule 09/20/16 [Rx] Albuterol Sulfate [Ventolin Hfa] 2 puff IH Q4H PRN 09/26/16 [History] Amlodipine Besylate 10 mg PO DAILY 09/26/16 [History] Atorvastatin [Lipitor] 40 mg PO HS 09/26/16 [History] Carvedilol [Coreg] 6.25 mg PO BIDWM 09/26/16 [History] Levothyroxine [Synthroid] 112 mcg PO DAILY 09/26/16 [History] Omeprazole [PriLOSEC] 20 mg PO BID 09/26/16 [History] Spironolactone [Aldactone] 25 mg PO DAILY 09/26/16 [History] TraZODone 50 mg PO HS 09/26/16 [History] Valsartan/Hydrochlorothiazide [Diovan Hct 320-25 mg Tablet] 1 tab PO DAILY 09/26 [History] Cyclobenzaprine [Flexeril] 10 mg PO BID PRN #10 tablet 09/28/16 [Rx] Docusate [Colace] 100 mg PO BID #14 capsule 09/28/16 [Rx] HYDROcodone/Acet 5/325 mg [[place] 5-325 mg] 1 tab PO Q6H PRN #20 tab 09/28/16 [Rx ] Ondansetron HCl [Zofran] 4 mg PO Q8H PRN #30 tablet 09/28/16 [Rx] PredniSONE 20 mg PO DAILY #5 tablet 09/28/16 [Rx] Simvastatin [Zocor] 10 mg PO DAILY #60 tablet 09/28/16 [Rx] Allergies/Adverse Reactions: Allergies Iodinated Contrast Media - Oral and [Iodinated Contrast Media - IV Dye] Allergy (Verified 09/20/16 13:35) Swelling of Lip/Tongue/Throat metronidazole [From Flagyl] Adverse Reaction (Verified 09/20/16 13:35) See Comments Procedures/tests Complete & Pending: Procedures Performed prior 72 hours Category Date Time Status MR cervical spine wo con [MR] Routine MRI 09/26/16 02:09 Completed MR head/brain wo con [MR] Routine MRI 09/26/16 02:09 Completed MR shoulder LT wo con [MR] Routine MRI 09/26/16 02:09 Completed EV echocardiogram Routine Y 09/26/16 08:48 Completed Date of admission: 09/26/16 00:52 Primary care physician: Torsten Delgado MD Consults: 09/26/16 02:04 Consult to Occupational Therapy [CONS] Routine Comment: Evaluate, develop and implement POC Consult to Physical Therapy [CONS] Routine Comment: Evaluate, develop and implement POC 09/27/16 12:12 Consult to Chip Machine Operator [CONS] Routine Reason for SW Consult: PT/OT recommend SNF. - Patient Status Disposition: Home, Self-Care Condition: Good Overall status at discharge: patient is progressing back to baseline - Discharge Instructions Follow Up With: Gabino Le MD [Partnered Physician] - 09/30/16 2:40 pm Torsten Delgado MD [Primary Care Provider] - 10/05/16 8:30 am Kirsten Dickson PAC [Physician Methods Examiner] - 10/14/16 2:00 pm - Diet and Activity Activity: increase activity as tolerated Diet: advance to your usual diet Interval History: 75 y/o femlae admitted to the hospital following a syncopal episode. Patient relates this episode to shoulder pain whichhas been excruciating on the day prior to the syncopal episode. Orthostatic work up has been negative. Noted to have sinus bradycardic episodes on monitor with HR in high 40's to 50's, not associated with any symptoms. Her head CT showed no acute intracranial abnormalities. Her MRI of her head and MR a of her head negative. Had cardiology f/u appointment this as outpt Patient was evaluated for acute shoulder pain with MRI of the shoulder which shows degenerative changes and tendon tear. Patient was advised orthopedic referral, but she prefers to f/u with her orthopedician as outpt. Patient contined on her home meds for her other chronic medical problems. Hospital course: Ms. Gallardo is a 75 year old female - Time Spent with Patient Total time spent providing and/or coordinating discharge services: Greater than 30 minutes - Constitutional Vitals: Temp Pulse Resp BP Pulse Ox 97.5 F L 61 16 132/75 97 09/28/16 11:04 09/28/16 11:04 09/28/16 11:04 09/28/16 11:04 09/28/16 11:04 General appearance: Present: mild distress, A&O X 3, obese, answers questions appropriately - Head Head exam: Present: atraumatic, normocephalic - Eye Eye exam: Present: PERRL, conjuntiva pink, sclera anicteric Pupils: Present: PERRL - Neck Neck exam general surgery: Present: supple, trachea midline. Absent: lymphadenopathy - Respiratory Respiratory exam: Present: CTAB. Absent: accessory muscle use, rales, rhonchi, wheezes - Cardiovascular Cardiovascular exam: Present: RRR, +S1, +S2. Absent: diastolic murmur, gallop, rubs, systolic murmur - GI/Abdominal GI/Abdominal exam: Present: normal bowel sounds, soft, no peritoneal signs. Absent: distended, tenderness - Extremities Exam Extremities exam: Present: warm, radial pulses palpable and symetrical. Absent : calf tenderness, cyanotic, normal inspection (right shoulder pain, restricted ROM), pedal edema - Neurological Exam Neurological exam: Present: CN II-XII intact, oriented X3, no focal deficits. Absent: pronater drift, facial droop, speech deficit - Skin Skin exam: Present: dry, intact
[2016-09-28 14:53] VITALS: BP 138/51
== END 2016-09-28 15:55 | disposition home or self-care (01) ==
LOC: EMEROO 19:53 → 3BNU 19:53
PROVIDERS: ADMIT Internal Medicine; ATTEND Registered Nurse

== ENCOUNTER 2016-12-16 14:32 | Observation (INO) ==
--- NOTE | 2016-12-16 14:53 | Emergency Department Note ---
Disposition Clinical Impression: Trichomonas vaginitis Fever Qualifiers: Fever type: unspecified Qualified Code(s): R50.9 - Fever, unspecified UTI (urinary tract infection) Qualifiers: Urinary tract infection type: acute cystitis Hematuria presence: without hematuria Qualified Code(s): N30.00 - Acute cystitis without hematuria Disposition: Admitted As Inpatient Condition: Fair Referrals: NO,PCP [Non-Partnered Physician] - Forms: ED Satisfaction Letter Time of Disposition: 16:58 Fever HPI - General Chief Complaint: ED Fever Stated Complaint: Fever, N/V Time Seen by Provider: 12/16/16 14:39 Source: patient, EMS Limitations: no limitations Nursing Notes Reviewed: Yes Vital Signs Reviewed: Yes - History of Present Illness HPI Narrative: 76-year-old who is status post left shoulder arthroscopy for a "clean out" who has had nausea vomiting and fever for the last couple of days. She denies significant pain in that shoulder says it actually feels better. Some cough. She complains of some suprapubic discomfort. The patient was intubated for her surgery she is not sure whether she had a Lewis or not. Context: recent procedure/surgery Associated symptoms: Reports: chills, cough, nausea, vomiting Improves with: nothing Worsens with: nothing - Related Data Home Medications Medication Instructions Recorded Confirmed Albuterol Sulfate [Ventolin Hfa] 2 puff IH Q4H PRN 09/26/16 09/26/16 Amlodipine Besylate 10 mg PO DAILY 09/26/16 09/26/16 Atorvastatin [Lipitor] 40 mg PO HS 09/26/16 09/26/16 Carvedilol [Coreg] 6.25 mg PO BIDWM 09/26/16 09/26/16 Levothyroxine [Synthroid] 112 mcg PO DAILY 09/26/16 09/26/16 Omeprazole [PriLOSEC] 20 mg PO BID 09/26/16 09/26/16 Spironolactone [Aldactone] 25 mg PO DAILY 09/26/16 09/26/16 Valsartan/Hydrochlorothiazide 1 tab PO DAILY 09/26/16 09/26/16 [Diovan Hct 320-25 mg Tablet] traZODone [TraZODone] 50 mg PO HS 09/26/16 09/26/16 Previous Rx's Medication Instructions Recorded Ondansetron [Zofran] 4 mg PO Q8HR PRN #21 tablet 04/02/15 Aspirin 81 mg PO DAILY #30 tab.chew 04/07/15 Clopidogrel [Plavix] 75 mg PO DAILY #30 tablet 04/07/15 Hydrocodone/Acetaminophen [[place] 1 tab PO Q6H PRN #10 tab 04/12/15 5-325 Tablet] Nitroglycerin 0.4 mg SL Q5MIN #14 tab.subl 02/21/16 DiphenhydraMINE [Benadryl] 25 mg PO Q8HR PRN #20 capsule 09/20/16 Cyclobenzaprine [Flexeril] 10 mg PO BID PRN #10 tablet 09/28/16 Docusate [Colace] 100 mg PO BID #14 capsule 09/28/16 HYDROcodone/Acet 5/325 mg [[place] 1 tab PO Q6H PRN #20 tab 09/28/16 5-325 mg] Ondansetron HCl [Zofran] 4 mg PO Q8H PRN #30 tablet 09/28/16 Simvastatin [Zocor] 10 mg PO DAILY #60 tablet 09/28/16 predniSONE [PredniSONE] 20 mg PO DAILY #5 tablet 09/28/16 Meclizine HCl [Verticalm] 25 mg PO Q6HR #25 tablet 10/13/16 Allergies Allergy/AdvReac Type Severity Reaction Status Date / Time Iodinated Contrast- Oral and Allergy Swelling Verified 09/20/16 13:35 IV Dye of [Iodinated Contrast Media - Lip/Tongue/Throat IV Dye] metronidazole [From Flagyl] AdvReac See Verified 09/20/16 13:35 Comments All systems ED: reviewed and negative except as stated. Constitutional: Reports: fever. Denies: chills, weakness, weight change Eyes: Denies: eye pain, eye discharge, vision change ENT ED: Denies: ear pain, throat pain, dental pain, hearing loss, epistaxis, congestion, dysphagia Cardiovascular: Denies: chest pain, palpitations, dyspnea on exertion, edema, syncope Respiratory: Reports: cough. Denies: dyspnea, wheezes, hemoptysis, stridor Gastrointestinal: Denies: abdominal pain, nausea, vomiting, diarrhea, constipation, hematemesis, melena, hematochezia Genitourinary: Denies: dysuria, frequency, hematuria, discharge Musculoskeletal: Denies: back pain, neck pain, arthralgia, myalgia Integumentary: Denies: rash, abrasion, lesions Neurological: Denies: headache, weakness, numbness, paresthesias, confusion, abnormal gait, vertigo Psychiatric: Denies: anxiety, depression, suicidal thoughts, homicidal thoughts , auditory hallucinations, visual hallucinations Endocrine: Denies: fatigue Hematological/Lymphatic: Denies: easy bleeding, easy bruising Allergic/Immunologic: Denies: facial swelling, urticaria Fever PMH - Past Medical History Medical history: Reports: coronary artery disease, DVT, hyperlipidemia, hypertension Surgical history: Reports: angioplasty/stent, cholecystectomy, hysterectomy Psychiatric history: Reports: no psych history MANAGER PRODUCTION history: Reports: no MANAGER PRODUCTION history - Social History Smoking Status: Never smoker Alcohol use: Reports: none Drug use: Reports: none Physical Exam - General Limitations: no limitations General appearance: alert, in no apparent distress - Head Head exam: atraumatic, normocephalic, normal inspection - Eye Eye exam: Present: normal appearance, PERRL, EOMI - ENT ENT exam: normal exam, normal oropharynx, mucous membranes moist - Neck Neck exam: Present: normal inspection, full ROM, trachea midline - Chest Chest inspection: Present: normal inspection, symmetric chest wall rise - Respiratory Respiratory exam: Present: normal lung sounds bilaterally - Cardiovascular Cardiovascular exam: Present: regular rate, normal rhythm, normal heart sounds - Abdominal Exam Abdominal exam: Present: soft, Non-Tender. Absent: tenderness, distention, guarding, rebound, rigidity - Expanded Upper Extremity Exam Shoulder exam: Absent: tenderness, swelling, erythema - Expanded Lower Extremity Exam Neurovascular/Tendon exam: Absent: motor deficit, sensory deficit, tendon deficit Gait: observed and normal - Back Exam Back exam: Present: normal inspection, full ROM. Absent: tenderness - Neurological Exam Neurological exam: Present: alert, oriented X3 - Psychiatric Psychiatric exam: Present: normal affect, normal mood - Skin Skin exam: Present: warm, dry, intact, normal color Course - Reevaluation(s) Reevaluation #1: 76-year-old who comes in post surgery 3 days with nausea, vomiting not feeling well. Does have some suprapubic discomfort on exam. Urine does show too numerous to count white cells in her urine along with trichomonas. She will be admitted for further evaluation and treatment. 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 Time: 17:21 Vital Signs Temperature 102.8 F H 12/16/16 14:34 Pulse Rate 98 12/16/16 14:34 Respiratory Rate 18 12/16/16 14:34 Blood Pressure 165/84 12/16/16 14:34 O2 Sat by Pulse Oximetry 97 12/16/16 14:34 Temperature 99.1 F 12/16/16 16:38 Pulse Rate 83 12/16/16 16:38 Respiratory Rate 17 12/16/16 16:38 Blood Pressure 145/65 12/16/16 16:38 O2 Sat by Pulse Oximetry 96 12/16/16 16:38 Oxygen Delivery Oxygen Delivery Room Air Fever - Lab Data Result diagrams: 12/16/16 14:58 12/16/16 14:58 Lab Results 12/16/16 12/16/16 12/16/16 Range/Units 14:58 14:58 15:23 WBC 10.7 (4.3-11.1) K/mcL RBC 3.77 L (3.82-4.97) M/mcL Hgb 11.0 L (11.5-15.4) g/dL Hct 33.0 L (35.3-44.9) % MCV 87.5 (83.0-100.0) fL MCH 29.2 (28.0-33.3) pg MCHC 33.3 (31.6-35.5) g/dL RDW 13.1 (11.5-14.5) % Plt Count 463 H (140-400) K/mcL MPV 9.1 L (9.4-12.4) fL Immature Gran % 0.5 (0-4) % Seg Neutrophils % 83.1 % Lymphocytes % 6.1 % Monocytes % 9.4 % Eosinophils % 0.5 % Basophils % 0.4 % Neutrophils # 8.9 (1.6-8.9) K/mcL Lymphocytes # 0.7 (0.6-4.6) K/mcL Monocytes # 1.0 (0.0-1.3) K/mcL Eosinophils # 0.1 (0.0-0.6) K/mcL Basophils # 0.0 (0.0-0.2) K/mcL Sodium 130 L (136-145) mEq/L Potassium 3.7 (3.5-4.5) mEq/L Chloride 95 L (98-109) mEq/L Carbon Dioxide 25 (19-29) mEq/L BUN 32 H (7-20) mg/dL Creatinine 2.06 H (0.57-1.11) mg/dL Est GFR ( Amer) 28 L (> 60) Est GFR (Non-Af Amer) 23 L (> 60) BUN/Creatinine Ratio 16 (6-26) Glucose 110 H (70-99) mg/dL Calculated Osmolality 278 L (280-300) Lactic Acid 1.1 (0.5-2.2) mmol/L Calcium 9.5 (8.6-10.8) mg/dL Total Bilirubin 1.1 (0.2-1.2) mg/dL Direct Bilirubin 0.6 H (0.0-0.5) mg/dL Indirect Bilirubin 0.5 (0.0-1.2) mg/dL AST 36 H (5-34) Units/L ALT 27 (0-55) Units/L Alkaline Phosphatase 71 (38-126) Units/L Serum Total Protein 7.5 (6.0-8.3) g/dL Albumin 3.0 L (3.5-5.0) g/dL Globulin 4.5 H (2.4-3.5) g/dL Albumin/Globulin Ratio 0.7 L (1.1-2.2) Amylase 34 (25-125) Units/L Lipase < 4 L (8-78) Units/L Urine Color (Yellow) Urine Clarity (Clear) Urine pH (5.0-8.0) pH Units Ur Specific [place] (1.010-1.025) Urine Protein (Neg-Trace) mg/dL Urine Glucose (UA) (Normal) mg/dL Urine Ketones (Negative) mg/dL Urine Blood (Negative) Urine Nitrite (Negative) Urine Bilirubin (Negative) Urine Urobilinogen (Normal) mg/dL Ur Leukocyte Esterase (Negative) Urine Microscopic RBC (0-3) per hpf Urine Microscopic WBC (0-3) per hpf Ur Squamous Epith Cells (None-Few) per lpf Urine Bacteria (None-Few) per hpf Hyaline Casts (None-Few) per lpf Urine Trichomonas (None Seen) Urine Yeast Ur Culture Indicated? (NO) 12/16/16 Range/Units 16:20 WBC (4.3-11.1) K/mcL RBC (3.82-4.97) M/mcL Hgb (11.5-15.4) g/dL Hct (35.3-44.9) % MCV (83.0-100.0) fL MCH (28.0-33.3) pg MCHC (31.6-35.5) g/dL RDW (11.5-14.5) % Plt Count (140-400) K/mcL MPV (9.4-12.4) fL Immature Gran % (0-4) % Seg Neutrophils % % Lymphocytes % % Monocytes % % Eosinophils % % Basophils % % Neutrophils # (1.6-8.9) K/mcL Lymphocytes # (0.6-4.6) K/mcL Monocytes # (0.0-1.3) K/mcL Eosinophils # (0.0-0.6) K/mcL Basophils # (0.0-0.2) K/mcL Sodium (136-145) mEq/L Potassium (3.5-4.5) mEq/L Chloride (98-109) mEq/L Carbon Dioxide (19-29) mEq/L BUN (7-20) mg/dL Creatinine (0.57-1.11) mg/dL Est GFR ( Amer) (> 60) Est GFR (Non-Af Amer) (> 60) BUN/Creatinine Ratio (6-26) Glucose (70-99) mg/dL Calculated Osmolality (280-300) Lactic Acid (0.5-2.2) mmol/L Calcium (8.6-10.8) mg/dL Total Bilirubin (0.2-1.2) mg/dL Direct Bilirubin (0.0-0.5) mg/dL Indirect Bilirubin (0.0-1.2) mg/dL AST (5-34) Units/L ALT (0-55) Units/L Alkaline Phosphatase (38-126) Units/L Serum Total Protein (6.0-8.3) g/dL Albumin (3.5-5.0) g/dL Globulin (2.4-3.5) g/dL Albumin/Globulin Ratio (1.1-2.2) Amylase (25-125) Units/L Lipase (8-78) Units/L Urine Color Yellow (Yellow) Urine Clarity Turbid A (Clear) Urine pH 6.0 (5.0-8.0) pH Units Ur Specific [place] 1.015 (1.010-1.025) Urine Protein 100 H (Neg-Trace) mg/dL Urine Glucose (UA) Normal (Normal) mg/dL Urine Ketones Negative (Negative) mg/dL Urine Blood Moderate H (Negative) Urine Nitrite Positive A (Negative) Urine Bilirubin Negative (Negative) Urine Urobilinogen Normal (Normal) mg/dL Ur Leukocyte Esterase Large H (Negative) Urine Microscopic RBC 0-3 (0-3) per hpf Urine Microscopic WBC TNTC H (0-3) per hpf Ur Squamous Epith Cells Many H (None-Few) per lpf Urine Bacteria Many H (None-Few) per hpf Hyaline Casts None Seen (None-Few) per lpf Urine Trichomonas Present A (None Seen) Urine Yeast Test Not Performed Ur Culture Indicated? YES A (NO)
[2016-12-16] MEDS ORDERED: Ondansetron 4 MG/2 ML VIAL IVP ONE (15:05)
[2016-12-16 15:10] LABS: Basophils % 0.4 %; Eosinophils # 0.1 K/mcL (0.0-0.6); Eosinophils % 0.5 %; Immature Granulocytes % 0.5 % (0-4); Lymphocytes # 0.7 K/mcL (0.6-4.6); Lymphocytes % 6.1 %; Mean Corpuscular HGB Conc 33.3 g/dL (31.6-35.5); Mean Corpuscular Hemoglobin 29.2 pg (28.0-33.3); Mean Corpuscular Volume 87.5 fL (83.0-100.0); Mean Platelet Volume 9.1 fL (9.4-12.4); Monocytes % 9.4 %; Neutrophils # 8.9 K/mcL (1.6-8.9); Platelet Count 463 K/mcL (140-400); Red Blood Count 3.77 M/mcL (3.82-4.97); Red Cell Distribution Width 13.1 % (11.5-14.5); Segmented Neutrophils % 83.1 %
[2016-12-16 15:26] LABS: Alanine Aminotransferase 27 Units/L (0-55); Albumin/Globulin Ratio 0.7 (1.1-2.2); Alkaline Phosphatase 71 Units/L (38-126); Amylase 34 Units/L (25-125); Aspartate Amino Transferase 36 Units/L (5-34); BUN/Creatinine Ratio 16 (6-26); Bilirubin,Direct 0.6 mg/dL (0.0-0.5); Bilirubin,Indirect 0.5 mg/dL (0.0-1.2); Bilirubin,Total 1.1 mg/dL (0.2-1.2); Blood Urea Nitrogen 32 mg/dL (7-20); Calcium 9.5 mg/dL (8.6-10.8); Carbon Dioxide 25 mEq/L (19-29); Chloride 95 mEq/L (98-109); Globulin 4.5 g/dL (2.4-3.5); Glucose 110 mg/dL (70-99); Osmolality,Calculated 278 (280-300); Potassium 3.7 mEq/L (3.5-4.5); Sodium 130 mEq/L (136-145); Total Protein 7.5 g/dL (6.0-8.3); eGFR For African Americans 28 (> 60); eGFR For Non-African Americans 23 (> 60)
[2016-12-16 15:27] LABS: Lipase < 4 Units/L (8-78)
[2016-12-16] MEDS ORDERED: 0.9 % Sodium Chloride 1,000 ML IVC ONE (15:34)
[2016-12-16 16:31] LABS: Bilirubin,Urine Negative (Negative); Blood,Urine Moderate (Negative); Clarity,Urine Turbid (Clear); Color,Urine Yellow (Yellow); Glucose,Urine (UA) Normal (Normal); Ketones,Urine Negative (Negative); Leukocyte Esterase,Urine Large (Negative); Nitrite,Urine Positive (Negative); Protein,Urine 100 mg/dL (Neg-Trace); Specific Gravity,Urine 1.015 (1.010-1.025); Urobilinogen,Urine Normal (Normal)
[2016-12-16 16:34] LABS: Bacteria,Urine Many per hpf (None-Few); Hyaline Casts,Urine None Seen per lpf (None-Few); RBC,Urine 0-3 per hpf (0-3); Squamous Epithelial Cell,Urine Many per lpf (None-Few); WBC,Urine TNTC per hpf (0-3)
[2016-12-16 16:46] LABS: Trichomonas,Urine Present (None Seen)
[2016-12-16] MEDS ORDERED: Naloxone 0.4 MG/ML INJ IVP PRN (18:19)
--- NOTE | 2016-12-16 18:43 | Internal Med History&Physical ---
<Betancur,Polina J - Last Filed: 12/16/16 19:07> Date of Encounter: 12/16/16 Time of Encounter: 18:40 Assessment and Plan (1) UTI (urinary tract infection) Current visit: Yes Status: Acute Symptomatic with fevers at home. Tax 102.8 in the ED. UA with leuk esterase and gross pyuria. Continue IV Rocephin started in the ED. Urine culture pending Qualifiers: Urinary tract infection type: acute cystitis Hematuria presence: without hematuria Qualified Code(s): N30.00 - Acute cystitis without hematuria (2) STEVEN (acute kidney injury) Current visit: Yes Status: Acute Cr 2.06, baseline appears to be around 1.5. Likely secondary to UTI. IV fluids , renal US pending (3) Trichomonas vaginitis Current visit: Yes Status: Acute UA positive for Trichomonas. Still sexually active. Unable to treat as she has Flagyl allergy (throat swelling). Discussed with Dr. Bella; would trial tinidazole (effective in refractory cases) however medication not available. Will need to be referred for Metronidazole desensitization at discharge. Chlamydia, gonorrhea and HIV pending (4) HTN (hypertension) Current visit: No Status: Chronic Per history. Holding home are/HCTZ with STEVEN and hyponatremia. Add when necessary hydralazine monitor BP and resume medications when if able; may be more appropriate for a calcium channel torres Qualifiers: Hypertension type: essential hypertension Qualified Code(s): I10 - Essential (primary) hypertension (5) CAD (coronary artery disease) Current visit: Yes Status: Acute per hx. Symptomatic denies chest pain. Cont home Plavix, statin Qualifiers: Qualified Code(s): I25.10 - Atherosclerotic heart disease of [place] coronary artery without angina pectoris (6) DVT prophylaxis Current visit: Yes Status: Acute Internal Medicine - H&P: HPI Chief complaint: fever Admitted From: Home Plans for Post Hospital Care: Home History of present illness: Ms. Gallardo is a 76 year old female with past medical history CAD, hypothyroidism and recent left shoulder surgery who presented to [facility] on 12/15/2016 with complaints of fevers at home. She was found to have a UTI, AK I and Trichomonas. She was placed in observation status for IV antibiotics and fluids. Information obtained from chart review and patient report. Patient reports feeling warm and febrile at home so she came to the ER reports temperatures up 1O2 at home. She has no known history of kidney disease and reports taking in adequate by mouth. Regarding the Trichomonas, she is sexually active and reports similar issue in the past. Discussed her allergy to Flagyl and unable to give due to throat swelling. She denies chest pain no abdominal pain and nausea vomiting or diarrhea Past Med Surg Social Fam HX - Past Medical History Medical history: coronary artery disease, DVT, hyperlipidemia, hypertension Psychiatric history: no psych history - Past Surgical History Surgical History: angioplasty/stent, cholecystectomy, hysterectomy - Social History Smoking Status: Never smoker Smokeless Tobacco Status: No Alcohol use: none Drug use: none - Family History Mother Living Status: Hx Family Cardiac Disorders: No Hx Family Respiratory Disorders: Yes (Teburculosis) Hx Family Cancer: No Hx Family GI Disorders: No Hx Family Endocrine Disorder: No Hx Family Neuromuscular Disorders: No Hx Family Neurologic Disorders: No Hx Family HEENT Disorders: No Hx Family Autoimmune Disorders: No Father Living Status: Hx Family Cardiac Disorders: Yes (Heart Attack) Hx Family Respiratory Disorders: No Hx Family Cancer: No Hx Family GI Disorders: No Hx Family Endocrine Disorder: Yes (Diabetes) Hx Family Neuromuscular Disorders: No Hx Family Neurologic Disorders: Yes (BIPOLAR) Hx Family HEENT Disorders: No Hx Family Autoimmune Disorders: No Internal Medicine - H&P: Meds Clopidogrel [Plavix] 75 mg PO DAILY #30 tablet 04/07/15 [Rx] Atorvastatin [Lipitor] 40 mg PO HS 09/26/16 [History] Levothyroxine [Synthroid] 112 mcg PO Q48H 09/26/16 [History] Esomeprazole Magnesium [Nexium] 40 mg PO DAILY 12/16/16 [History] Fenofibrate Nanocrystallized [Tricor] 48 mg PO DAILY 12/16/16 [History] Levothyroxine [Synthroid] 100 mcg PO Q48H 12/16/16 [History] Valsartan/Hydrochlorothiazide [Diovan Hct 320-12.5 mg Tab] 1 each PO DAILY 12/16 [History] Allergies Iodinated Contrast- Oral and IV Dye [Iodinated Contrast Media - IV Dye] Allergy (Verified 09/20/16 13:35) Swelling of Lip/Tongue/Throat metronidazole [From Flagyl] Adverse Reaction (Verified 09/20/16 13:35) See Comments All Systems PM: A 10-system review of systems was performed and is negative for pertinent findings except as documented above in the HPI. - Constitutional Constitutional: fever(s), no chills, no night sweats - EENT Eyes: no change in vision, no discharge, no pain, no photophobia Ears: no ear discharge, no ear pain, no tinnitus Nose, mouth and throat: no dysphagia, no nasal discharge, no neck pain, no sore throat - Cardiovascular Cardiovascular ROS IM: no chest pain, no diaphoresis, no dyspnea, no lightheadedness, no palpitations, no syncope - Respiratory Respiratory: no cough, no dyspnea, no wheezing, no excessive phlegm production - Gastrointestinal Gastrointestinal: no abdominal pain, no diarrhea, no hematemesis, no hematochezia, no melena, no nausea, no vomiting - Genitourinary Genitourinary: no change in urinary stream, no dysuria, no flank pain, no hematuria - Musculoskeletal Musculoskeletal ROS IM: no numbness, no tingling - Integumentary Integumentary IM: no rash, no unusual bruising - Neurological Neurological ROS: no confusion, no convulsions, no focal weakness, no numbness, no tingling, no tremor(s) - Hematologic/Lymphatic Hematologic/Lymphatic: no easy bruising - Constitutional Vitals: Temp Pulse Resp BP Pulse Ox 99.1 F 74 16 160/71 96 12/16/16 16:38 12/16/16 17:56 12/16/16 18:17 12/16/16 18:17 12/16/16 17:56 General appearance: Present: A&O X 3, no acute distress - Head Head exam: Present: atraumatic, normocephalic - Eye Eye exam: Present: PERRL, conjuntiva pink, sclera anicteric Pupils: Present: PERRL - Neck Neck exam general surgery: Present: supple, trachea midline. Absent: lymphadenopathy - Respiratory Respiratory exam: Present: CTAB. Absent: accessory muscle use, rales, rhonchi, wheezes - Cardiovascular Cardiovascular exam: Present: RRR, +S1, +S2. Absent: diastolic murmur, gallop, rubs, systolic murmur - GI/Abdominal GI/Abdominal exam: Present: normal bowel sounds, soft, no peritoneal signs. Absent: distended, tenderness - Extremities Exam Extremities exam: Present: warm, radial pulses palpable and symetrical. Absent : calf tenderness, cyanotic, pedal edema - Neurological Exam Neurological exam: Present: CN II-XII intact, oriented X3, no focal deficits. Absent: pronater drift, facial droop, speech deficit - Skin Skin exam: Present: dry, intact Internal Med - H&P Results - Labs CBC & Chem 7: 12/16/16 14:58 12/16/16 14:58 <Carlee Anna E - Last Filed: 12/17/16 08:58> Date of Encounter: 12/17/16 Internal Medicine - H&P: HPI History of present illness: Ms. Gallardo is a 76 year old female All Systems PM: A 10-system review of systems was performed and is negative for pertinent findings except as documented above in the HPI. - Constitutional Vitals: Temp Pulse Resp BP Pulse Ox 100.1 F H 71 18 133/68 97 12/17/16 07:46 12/17/16 07:46 12/17/16 07:46 12/17/16 07:46 12/17/16 07:46 Internal Med - H&P Results - Labs CBC & Chem 7: 12/17/16 03:14 12/17/16 03:14 Labs: Short CBC 12/17/16 Range/Units 03:14 WBC 7.0 (4.3-11.1) K/mcL Hgb 10.5 L (11.5-15.4) g/dL Hct 32.3 L (35.3-44.9) % Plt Count 454 H (140-400) K/mcL Neutrophils # 5.2 (1.6-8.9) K/mcL BMP 12/17/16 03:14 Sodium 134 L Potassium 3.5 Chloride 101 Carbon Dioxide 24 BUN 29 H Creatinine 1.86 H Glucose 100 H Calcium 9.0 Liver Function 12/17/16 Range/Units 03:14 Total Bilirubin 0.7 (0.2-1.2) mg/dL AST 39 H (5-34) Units/L ALT 25 (0-55) Units/L Alkaline Phosphatase 63 (38-126) Units/L Albumin 2.7 L (3.5-5.0) g/dL - Impressions ITS Impressions Retroperitoneum Ultrasound 12/16/16 21:00 IMPRESSION: Normal ultrasound of the kidneys and urinary bladder. D/ / Jose Cardoso MD / Jose Cardoso MD Interpreting Provider: Jose Cardoso MD - Attending Attestation This is a late entry for a patient I examined and reviewed laboratory, imaging and all diagnostic data on 12/16/16. My medical decision-making was reviewed with Polina Betancur - FRANCIA. I agree with the documented findings, disposition and treatment plan as described above. History and exam by me shows: fever. urinary symptoms. UTI positive for infection and trichomonas. Patient with severe allergy to metronidazole, had angioedema. Continue IV fluids, Ceftriaxone. May need outpatient desentization for metronidazole in the allergy clinic but if systemic symptoms persist consider transfer patient for inpatient Allergy consultation.
[2016-12-16] MEDS: Acetaminophen 325 MG TABLET PO PRN (20:03)
[2016-12-16] MEDS: *HR* Heparin 5,000 UNIT/ML VIAL SQ SCH (21:48)
[2016-12-16] MEDS: 0.9 % Sodium Chloride 1,000 ML IVC SCH (21:53)
[2016-12-16] MEDS ORDERED: *HR* OxyCODONE/APAP 5/325 TABLET PO ONE (22:04)
[2016-12-17 04:01] LABS: Basophils % 0.4 %; Eosinophils # 0.3 K/mcL (0.0-0.6); Eosinophils % 3.9 %; Hematocrit 32.3 % (35.3-44.9); Hemoglobin 10.5 g/dL (11.5-15.4); Immature Granulocytes % 0.4 % (0-4); Lymphocytes # 0.8 K/mcL (0.6-4.6); Lymphocytes % 11.9 %; Mean Corpuscular HGB Conc 32.5 g/dL (31.6-35.5); Mean Corpuscular Hemoglobin 28.7 pg (28.0-33.3); Mean Corpuscular Volume 88.3 fL (83.0-100.0); Mean Platelet Volume 9.2 fL (9.4-12.4); Monocytes # 0.6 K/mcL (0.0-1.3); Monocytes % 9.2 %; Neutrophils # 5.2 K/mcL (1.6-8.9); Platelet Count 454 K/mcL (140-400); Red Blood Count 3.66 M/mcL (3.82-4.97); Red Cell Distribution Width 13.1 % (11.5-14.5); Segmented Neutrophils % 74.2 %
[2016-12-17 04:13] LABS: Albumin 2.7 g/dL (3.5-5.0); Albumin/Globulin Ratio 0.6 (1.1-2.2); Bilirubin,Total 0.7 mg/dL (0.2-1.2); Globulin 4.5 g/dL (2.4-3.5); Total Protein 7.2 g/dL (6.0-8.3)
[2016-12-17 04:16] LABS: Potassium 3.5 mEq/L (3.5-4.5)
[2016-12-17] MEDS: *HR* Heparin 5,000 UNIT/ML VIAL SQ SCH ×3 (05:55→21:09)
[2016-12-17] MEDS: 0.9 % Sodium Chloride 1,000 ML IVC SCH (10:37)
[2016-12-17] MEDS: Acetaminophen 325 MG TABLET PO PRN (11:39)
--- NOTE | 2016-12-17 14:03 | Internal Med Progress Note ---
Date of Encounter: 12/17/16 Time of Encounter: 14:01 - Assessment and plan (1) UTI (urinary tract infection) Current Visit: Yes Status: Acute Assessment and plan: Patient with findings concerning for urinary tract infection. No leukocytosis. Max temperature since admission 100.3. Continue with IV fluids and IV Rocephin. Reevaluate with urine culture. Acute kidney injury as well, continue with IV fluids. Avoid nephrotoxic agents. Qualifiers: Urinary tract infection type: acute cystitis Hematuria presence: without hematuria Qualified Code(s): N30.00 - Acute cystitis without hematuria (2) STEVEN (acute kidney injury) Current Visit: Yes Status: Acute Assessment and plan: Acute kidney injury, we will continue with IV fluids. Avoid nephrotoxic agents. Etiology likely prerenal in the setting of dehydration, poor oral intake with concomitant infection. (3) DVT prophylaxis Current Visit: Yes Status: Acute (4) Left shoulder pain Current Visit: No Status: Chronic Qualifiers: Chronicity: chronic Qualified Code(s): M25.512 - Pain in left shoulder; G89.29 - Other chronic pain - Subjective Interval history: The patient was seen and examined in rounds. She states that he is feeling weak, she lives by herself at home. She has been febrile and weak in the last few days. Denies dysuria, however is complaining of pelvic pain. Patient denies history of prior urinary tract infections - Constitutional Vitals: Temp Pulse Resp BP Pulse Ox 100.3 F H 76 17 135/69 95 12/17/16 10:47 12/17/16 10:47 12/17/16 10:47 12/17/16 10:47 12/17/16 10:47 General appearance: Present: A&O X 3, no acute distress - Head Head exam: Present: atraumatic, normocephalic - Eye Eye exam: Present: PERRL, conjuntiva pink, sclera anicteric Pupils: Present: PERRL - Neck Neck exam general surgery: Present: supple, trachea midline. Absent: lymphadenopathy - Respiratory Respiratory exam: Present: CTAB. Absent: accessory muscle use, rales, rhonchi, wheezes - Cardiovascular Cardiovascular exam: Present: RRR, +S1, +S2. Absent: diastolic murmur, gallop, rubs, systolic murmur - GI/Abdominal GI/Abdominal exam: Present: normal bowel sounds, soft, no peritoneal signs. Absent: distended, tenderness (Left lower quadrant.) - Extremities Exam Extremities exam: Present: warm, radial pulses palpable and symetrical. Absent : calf tenderness, cyanotic, pedal edema - Neurological Exam Neurological exam: Present: CN II-XII intact, oriented X3, no focal deficits. Absent: pronater drift, facial droop, speech deficit - Skin Skin exam: Present: dry, intact Internal Medicine: Result - Labs CBC & Chem 7: 12/17/16 03:14 12/17/16 03:14 Labs: Short CBC 12/17/16 Range/Units 03:14 WBC 7.0 (4.3-11.1) K/mcL Hgb 10.5 L (11.5-15.4) g/dL Hct 32.3 L (35.3-44.9) % Plt Count 454 H (140-400) K/mcL Neutrophils # 5.2 (1.6-8.9) K/mcL BMP 12/17/16 03:14 Sodium 134 L Potassium 3.5 Chloride 101 Carbon Dioxide 24 BUN 29 H Creatinine 1.86 H Glucose 100 H Calcium 9.0 Liver Function 12/17/16 Range/Units 03:14 Total Bilirubin 0.7 (0.2-1.2) mg/dL AST 39 H (5-34) Units/L ALT 25 (0-55) Units/L Alkaline Phosphatase 63 (38-126) Units/L Albumin 2.7 L (3.5-5.0) g/dL - Impressions Impressions Retroperitoneum Ultrasound 12/16/16 21:00 IMPRESSION: Normal ultrasound of the kidneys and urinary bladder. D/ / Jose Cardoso MD / Jose Cardoso MD Interpreting Provider: Jose Cardoso MD Consult Discharge Plan - Plan Referrals: cyrus,Torsten Still MD [Primary Care Provider] -
[2016-12-18] MEDS: 0.9 % Sodium Chloride 1,000 ML IVC SCH ×2 (00:25→13:08)
[2016-12-18 03:30] LABS: Basophils % 0.6 %; Eosinophils # 0.2 K/mcL (0.0-0.6); Eosinophils % 3.3 %; Hematocrit 28.1 % (35.3-44.9); Hemoglobin 9.2 g/dL (11.5-15.4); Immature Granulocytes % 0.5 % (0-4); Lymphocytes # 1.5 K/mcL (0.6-4.6); Lymphocytes % 23.7 %; Mean Corpuscular HGB Conc 32.7 g/dL (31.6-35.5); Mean Corpuscular Hemoglobin 28.6 pg (28.0-33.3); Mean Corpuscular Volume 87.3 fL (83.0-100.0); Mean Platelet Volume 8.9 fL (9.4-12.4); Monocytes % 15.4 %; Neutrophils # 3.6 K/mcL (1.6-8.9); Platelet Count 461 K/mcL (140-400); Red Blood Count 3.22 M/mcL (3.82-4.97); Red Cell Distribution Width 13.3 % (11.5-14.5); Segmented Neutrophils % 56.5 %
[2016-12-18 03:40] LABS: Calcium 8.3 mg/dL (8.6-10.8); Potassium 3.5 mEq/L (3.5-4.5)
[2016-12-18] MEDS: Acetaminophen 325 MG TABLET PO PRN ×3 (04:38→21:42)
[2016-12-18] MEDS: *HR* Heparin 5,000 UNIT/ML VIAL SQ SCH ×3 (06:32→21:43)
[2016-12-18 07:04] LABS: Enterococcus by PCR Not Detected (Not Detect); Staphylococcus aureus by PCR Not Detected (Not Detect); Streptococcus agalactiae(B)PCR Not Detected (Not Detect); Streptococcus by PCR Not Detected (Not Detect); blaKPC Carbapenem-Resist Gene Not Detected (Not Detect); mecA Methicillin-Resist Gene Not Detected (Not Detect); vanA/B Vancomycin-Resist Genes Not Detected (Not Detect)
[2016-12-18 07:05] LABS: Acinetobacter baumannii by PCR Not Detected (Not Detect); Candida albicans by PCR Not Detected (Not Detect); Candida glabrata by PCR Not Detected (Not Detect); Candida krusei by PCR Not Detected (Not Detect); Candida parapsilosis by PCR Not Detected (Not Detect); Candida tropicalis by PCR Not Detected (Not Detect); Escherichia coli by PCR ***DETECTED*** (Not Detect); Klebsiella oxytoca by PCR Not Detected (Not Detect); Klebsiella pneumoniae by PCR Not Detected (Not Detect); Pseudomonas aeruginosa by PCR Not Detected (Not Detect); Serratia marcescens by PCR Not Detected (Not Detect); Streptococcus pneumoniae PCR Not Detected (Not Detect); Streptococcus pyogenes (A) PCR Not Detected (Not Detect)
--- NOTE | 2016-12-18 09:00 | Internal Med Progress Note ---
Date of Encounter: 12/18/16 Time of Encounter: 08:57 - Assessment and plan (1) UTI (urinary tract infection) Current Visit: Yes Status: Acute Assessment and plan: Patient with findings concerning for urinary tract infection. No leukocytosis. Max temperature since admission 100.3. Continue with IV fluids and IV Rocephin. Reevaluate with urine culture, so far gram-negative rods in urine. Additionally , patient has bacteremia due to gram-negative rods, continue with IV Rocephin. Clinically getting better. Will continue monitoring closely. Acute kidney injury as well, improving, continue with IV fluids. Avoid nephrotoxic agents. Qualifiers: Urinary tract infection type: acute cystitis Hematuria presence: without hematuria Qualified Code(s): N30.00 - Acute cystitis without hematuria (2) STEVEN (acute kidney injury) Current Visit: Yes Status: Acute Assessment and plan: Acute kidney injury, getting better, we will continue with IV fluids. Avoid nephrotoxic agents. Etiology likely prerenal in the setting of dehydration, poor oral intake with concomitant infection. (3) DVT prophylaxis Current Visit: Yes Status: Acute (4) Left shoulder pain Current Visit: No Status: Chronic Qualifiers: Chronicity: chronic Qualified Code(s): M25.512 - Pain in left shoulder; G89.29 - Other chronic pain (5) Bacteremia due to Gram-negative bacteria Current Visit: Yes Status: Acute Assessment and plan: Continue with IV Rocephin, follow cultures. Today I ordered a second set of blood cultures. Will follow second set to make sure bacteremia is resolving. - Subjective Interval history: The patient was seen and examined in rounds. Patient denies fever, is feeling better today, still has poor appetite. She is drinking fluids. Denies dysuria. Blood culture positive for gram-negative rods today. - Constitutional Vitals: Temp Pulse Resp BP Pulse Ox 98.1 F 63 17 148/68 95 12/18/16 07:15 12/18/16 07:15 12/18/16 07:15 12/18/16 07:15 12/18/16 07:15 General appearance: Present: A&O X 3, no acute distress - Head Head exam: Present: atraumatic, normocephalic - Eye Eye exam: Present: PERRL, conjuntiva pink, sclera anicteric Pupils: Present: PERRL - Neck Neck exam general surgery: Present: supple, trachea midline. Absent: lymphadenopathy - Respiratory Respiratory exam: Present: CTAB. Absent: accessory muscle use, rales, rhonchi, wheezes - Cardiovascular Cardiovascular exam: Present: RRR, +S1, +S2. Absent: diastolic murmur, gallop, rubs, systolic murmur - GI/Abdominal GI/Abdominal exam: Present: normal bowel sounds, soft, no peritoneal signs. Absent: distended, tenderness - Extremities Exam Extremities exam: Present: warm, radial pulses palpable and symetrical. Absent : calf tenderness, cyanotic, pedal edema - Neurological Exam Neurological exam: Present: CN II-XII intact, oriented X3, no focal deficits. Absent: pronater drift, facial droop, speech deficit - Skin Skin exam: Present: dry, intact Internal Medicine: Result - Labs CBC & Chem 7: 12/18/16 03:09 12/18/16 03:09 Labs: Short CBC 12/18/16 Range/Units 03:09 WBC 6.3 (4.3-11.1) K/mcL Hgb 9.2 L (11.5-15.4) g/dL Hct 28.1 L (35.3-44.9) % Plt Count 461 H (140-400) K/mcL Neutrophils # 3.6 (1.6-8.9) K/mcL BMP 12/18/16 03:09 Sodium 137 Potassium 3.5 Chloride 107 Carbon Dioxide 22 BUN 19 D Creatinine 1.51 H Glucose 129 H Calcium 8.3 L Consult Discharge Plan - Plan Referrals: Torsten Delgado MD [Primary Care Provider] -
[2016-12-18] MEDS ORDERED: *HR* OxyCODONE/APAP 5/325 TABLET PO ONE (13:05)
[2016-12-18] MEDS ORDERED: Melatonin 3 MG TABLET PO SCH (21:30)
[2016-12-19] MEDS: 0.9 % Sodium Chloride 1,000 ML IVC SCH ×2 (02:54→13:17)
[2016-12-19 03:44] LABS: Basophils # 0.1 K/mcL (0.0-0.2); Basophils % 0.7 %; Eosinophils # 0.4 K/mcL (0.0-0.6); Eosinophils % 4.6 %; Hematocrit 26.8 % (35.3-44.9); Hemoglobin 8.8 g/dL (11.5-15.4); Immature Granulocytes % 0.9 % (0-4); Lymphocytes # 1.6 K/mcL (0.6-4.6); Lymphocytes % 20.5 %; Mean Corpuscular HGB Conc 32.8 g/dL (31.6-35.5); Mean Corpuscular Hemoglobin 28.7 pg (28.0-33.3); Mean Corpuscular Volume 87.3 fL (83.0-100.0); Mean Platelet Volume 9.1 fL (9.4-12.4); Monocytes # 0.9 K/mcL (0.0-1.3); Monocytes % 12.5 %; Neutrophils # 4.6 K/mcL (1.6-8.9); Platelet Count 460 K/mcL (140-400); Red Blood Count 3.07 M/mcL (3.82-4.97); Red Cell Distribution Width 13.6 % (11.5-14.5); Segmented Neutrophils % 60.8 %
[2016-12-19 04:03] LABS: Calcium 8.3 mg/dL (8.6-10.8); Potassium 3.5 mEq/L (3.5-4.5)
[2016-12-19] MEDS: *HR* Heparin 5,000 UNIT/ML VIAL SQ SCH ×2 (05:39→12:08)
--- NOTE | 2016-12-19 06:57 | Electrocardiograph Report ---
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
[2016-12-19] MEDS: Acetaminophen 325 MG TABLET PO PRN (08:09)
[2016-12-19] MEDS ORDERED: *HR* OxyCODONE/APAP 5/325 TABLET PO ONE (09:23)
--- NOTE | 2016-12-19 10:57 | Discharge Summary ---
<FlorindaJon - Last Filed: 12/19/16 10:55> Date of Encounter: 12/19/16 Time of Encounter: 08:20 - Discharge Diagnosis (1) UTI (urinary tract infection) Priority: Primary Status: Acute Qualifiers: Urinary tract infection type: acute cystitis Hematuria presence: without hematuria Qualified Code(s): N30.00 - Acute cystitis without hematuria (2) STEVEN (acute kidney injury) Priority: Primary Status: Acute (3) Bacteremia due to Gram-negative bacteria Priority: Primary Status: Acute (4) DVT prophylaxis Priority: Secondary Status: Acute (5) Left shoulder pain Priority: Primary Status: Chronic Qualifiers: Chronicity: chronic Qualified Code(s): M25.512 - Pain in left shoulder; G89.29 - Other chronic pain - Discharge Medications Prescriptions: amLODIPine [Norvasc] 2.5 mg PO DAILY #30 tablet Cefdinir [Omnicef] 300 mg PO BID 3 Days Home Medications: Clopidogrel [Plavix] 75 mg PO DAILY #30 tablet 04/07/15 [Rx] Atorvastatin [Lipitor] 40 mg PO HS 09/26/16 [History] Levothyroxine [Synthroid] 112 mcg PO Q48H 09/26/16 [History] Esomeprazole Magnesium [Nexium] 40 mg PO DAILY 12/16/16 [History] Fenofibrate Nanocrystallized [Tricor] 48 mg PO DAILY 12/16/16 [History] Levothyroxine [Synthroid] 100 mcg PO Q48H 12/16/16 [History] Valsartan/Hydrochlorothiazide [Diovan Hct 320-12.5 mg Tab] 1 each PO DAILY 12/16 [History] Cefdinir [Omnicef] 300 mg PO BID 3 Days 12/19/16 [Rx] amLODIPine [Norvasc] 2.5 mg PO DAILY #30 tablet 12/19/16 [Rx] Allergies/Adverse Reactions: Allergies metronidazole [From Flagyl] Allergy (Severe, Verified 12/19/16 12:08) Swelling of Lip/Tongue/Throat Iodinated Contrast- Oral and IV Dye [Iodinated Contrast Media - IV Dye] Allergy (Verified 09/20/16 13:35) Swelling of Lip/Tongue/Throat Labs on day of discharge: Labs from last 24 hours 12/19/16 12/19/16 02:40 02:40 WBC 7.6 RBC 3.07 L Hgb 8.8 L Hct 26.8 L MCV 87.3 MCH 28.7 MCHC 32.8 RDW 13.6 Plt Count 460 H MPV 9.1 L Immature Gran % 0.9 Seg Neutrophils % 60.8 Lymphocytes % 20.5 Monocytes % 12.5 Eosinophils % 4.6 Basophils % 0.7 Neutrophils # 4.6 Lymphocytes # 1.6 Monocytes # 0.9 Eosinophils # 0.4 Basophils # 0.1 Sodium 139 Potassium 3.5 Chloride 111 H Carbon Dioxide 21 BUN 14 Creatinine 1.24 H Est GFR ( Amer) 51 L Est GFR (Non-Af Amer) 42 L BUN/Creatinine Ratio 11 Glucose 115 H Calculated Osmolality 289 Calcium 8.3 L - Impressions ITS Impressions Retroperitoneum Ultrasound 12/16/16 21:00 IMPRESSION: Normal ultrasound of the kidneys and urinary bladder. D/ / Jose Cardoso MD / Jose Cardoso MD Interpreting Provider: Jose Cardoso MD Date of admission: 12/16/16 17:30 Primary care physician: Torsten Delgado MD Consults: 12/17/16 09:28 Consult to Occupational Therapy [CONS] Routine Comment: Evaluate, develop and implement POC Reason for Consult: physical decondiitoning Consult to Physical Therapy [CONS] Routine Comment: Evaluate, develop and implement POC Reason for Consult: physicalc deconditionig Consult to Woodworking Machine Operator [CONS] Routine Reason for SW Consult: possible need of home services upon discharge Discharging clinician: Jon Neely Anticipated date of discharge: 12/19/16 - Patient Status Disposition: Home, Self-Care Condition: Good Functional capacity at discharge: independent ambulation Overall status at discharge: patient is progressing back to baseline - Discharge Instructions Follow Up With: Torsten Delgado MD [Primary Care Provider] - 12/28/16 2:00 pm Additional Instructions: Take all medications as prescribed: Omnicef (cefdinir) 300 mg twice a day for 3 days <- antibiotic Follow-up with your PCP 1-2 weeks for reevaluation of urinary tract infection discussed treatment options for trichomonas Return to emergency department if return of fevers, development of shortness of breath, or involvement of abdominal pain - Diet and Activity Activity: increase activity as tolerated Diet: advance to your usual diet - Hospital Course Hospital course: Ms. Gallardo is a 76 year old female with prior medical history significant for CAD, DVT, HTN, hyperlipidemia, hypothyroidism and recent left shoulder surgery who was originally admitted to [facility] on 12/16/16 after suffering from fevers at home. She is found to have UTI, pansensitive Escherichia coli, acute kidney injury, and trichomonas. She received IV Rocephin and fluid repletion. The treatment for trichomonas is metronidazole or tinidazole, but given her allergy to metronidazole and lack of tinidazole on formulary, patient will likely need metronidazole desensitization therapy as treatment for trichomonas. Over the course of the next 3 days the patient slowly improved, she was afebrile and had returned to her baseline renal function. As of today, patient is safe/stable for discharge with close follow-up with her PCP for reevaluation of UTI in consideration of treatment options for trichomonas. - Time Spent with Patient Total time spent providing and/or coordinating discharge services: Physical Examination Vital Signs: Vital Signs, Last 4 Hours Temp Pulse Resp BP Pulse Ox 12/19/16 07:47 98.1 F 54 18 144/64 96 General appearance: no acute distress, alert Eyes: nonicteric ENT: oropharynx moist Effort: normal Inspection: normal Auscultation: bilateral: clear Cardiovascular: regular rate and rhythm Gastrointestinal: normoactive bowel sounds, soft, non-tender, non-distended Integumentary: normal Extremities: no cyanosis, no edema, no clubbing, pink and warm Musculoskeletal: no deformities normal mental status, non-focal exam, pupils equal and round mood appropriate, affect normal <Ludin Olmos - Last Filed: 12/19/16 15:02> Date of Encounter: 12/19/16 - Discharge Diagnosis (1) UTI (urinary tract infection) Status: Acute Qualifiers: Urinary tract infection type: acute cystitis Hematuria presence: without hematuria Qualified Code(s): N30.00 - Acute cystitis without hematuria (2) STEVEN (acute kidney injury) Status: Acute (3) DVT prophylaxis Status: Acute (4) Left shoulder pain Status: Chronic Qualifiers: Chronicity: chronic Qualified Code(s): M25.512 - Pain in left shoulder; G89.29 - Other chronic pain (5) Bacteremia due to Gram-negative bacteria Status: Acute Labs on day of discharge: Labs from last 24 hours 12/19/16 12/19/16 02:40 02:40 WBC 7.6 RBC 3.07 L Hgb 8.8 L Hct 26.8 L MCV 87.3 MCH 28.7 MCHC 32.8 RDW 13.6 Plt Count 460 H MPV 9.1 L Immature Gran % 0.9 Seg Neutrophils % 60.8 Lymphocytes % 20.5 Monocytes % 12.5 Eosinophils % 4.6 Basophils % 0.7 Neutrophils # 4.6 Lymphocytes # 1.6 Monocytes # 0.9 Eosinophils # 0.4 Basophils # 0.1 Sodium 139 Potassium 3.5 Chloride 111 H Carbon Dioxide 21 BUN 14 Creatinine 1.24 H Est GFR ( Amer) 51 L Est GFR (Non-Af Amer) 42 L BUN/Creatinine Ratio 11 Glucose 115 H Calculated Osmolality 289 Calcium 8.3 L - Impressions ITS Impressions Retroperitoneum Ultrasound 12/16/16 21:00 IMPRESSION: Normal ultrasound of the kidneys and urinary bladder. D/ / Jose Cardoso MD / Jose Cardoso MD Interpreting Provider: Jose Cardoso MD Date of admission: 12/16/16 17:30 Primary care physician: Torsten Delgado MD Consults: 12/17/16 09:28 Consult to Occupational Therapy [CONS] Routine Comment: Evaluate, develop and implement POC Reason for Consult: physical decondiitoning Consult to Physical Therapy [CONS] Routine Comment: Evaluate, develop and implement POC Reason for Consult: physicalc deconditionig Consult to Woodworking Machine Operator [CONS] Routine Reason for SW Consult: possible need of home services upon discharge - Hospital Course Hospital course: Ms. Gallardo is a 76 year old female - Time Spent with Patient Total time spent providing and/or coordinating discharge services: Physical Examination Vital Signs: Vital Signs, Last 4 Hours Temp Pulse Resp BP Pulse Ox 12/19/16 11:39 97.9 F 52 18 169/56 98 - Attending Attestation I examined this patient and my medical decision-making was reviewed with the PHYSICIAN GYNECOLOGIST/PA/Advanced Practice Nurse/Resident Physician. I agree with the documented findings, disposition and treatment plan as described except to the extent set forth below. This is an Internal Medicine Discharge Summary. Agree with Dr. Neely, patient with uti and bacteremia sensitive to rocephin, continue with po omnicef.
[2016-12-19 11:40] VITALS: BP 169/56
[2016-12-19] MEDS ORDERED: amLODIPine 5 MG TABLET PO ONE (11:52)
== END 2016-12-19 16:55 | disposition home or self-care (01) ==
LOC: 3ANU 14:32 → EMEROO 14:32 → 3ANU 18:24
PROVIDERS: ADMIT Registered Nurse; ATTEND Internal Medicine Endocrinology, Diabetes & Metabolism

== ENCOUNTER 2017-05-09 14:54 | Inpatient (IN) ==
--- NOTE | 2017-05-09 15:14 | Emergency Department Note ---
Disposition Clinical Impression: Community acquired pneumonia Qualifiers: Laterality: left Lung location: lower lobe of lung Qualified Code(s): J18.1 - Lobar pneumonia, unspecified organism Dyspnea Qualifiers: Dyspnea type: unspecified Qualified Code(s): R06.00 - Dyspnea, unspecified Disposition: Admitted As Inpatient Condition: Fair Referrals: Homa Mary CNP [Primary Care Provider] - Forms: ED Satisfaction Letter Time of Disposition: 15:40 General Adult HPI - General Chief complaint: ED Fever Stated complaint: Fever Time Seen by Provider: 05/09/17 14:59 Source: patient Mode of arrival: ambulatory Limitations: no limitations Nursing Notes Reviewed: Yes Vital Signs Reviewed: Yes - History of Present Illness HPI Narrative: 76-year-old female who comes in complaining of fever for 3 days with a cough. She's been short of breath. She is concerned that she does have a pneumonia. Pt Subjective Complaint: congestion fever Onset (ago): day(s) (3) Location: chest Radiation: non-radiation Pain Scale: 0 Improves with: nothing Worsens with: nothing Associated symptoms: Reports: cough Treatments Prior to Arrival: none - Related Data Home Medications Medication Instructions Recorded Confirmed Levothyroxine [Synthroid] 112 mcg PO DAILY 09/26/16 05/09/17 Fenofibrate Nanocrystallized 48 mg PO DAILY 12/16/16 05/09/17 [Tricor] Valsartan/Hydrochlorothiazide 1 each PO DAILY 12/16/16 05/09/17 [Diovan Hct 320-12.5 mg Tab] Atorvastatin [Lipitor] 40 mg PO HS 03/20/17 05/09/17 Docusate Sodium [Dok] 100 mg PO DAILY PRN 03/20/17 05/09/17 Esomeprazole Magnesium [Nexium] 40 mg PO DAILY 03/20/17 05/09/17 cloNIDine HCl [CloNIDine HCl] 0.1 mg PO BID 03/20/17 05/09/17 Amitriptyline [Elavil] 25 mg PO HS 05/09/17 05/09/17 Carvedilol 3.125 mg PO BID 05/09/17 05/09/17 Cyclobenzaprine HCl 5 mg PO BID PRN 05/09/17 05/09/17 Previous Rx's Medication Instructions Recorded Clopidogrel [Plavix] 75 mg PO DAILY #30 tablet 04/07/15 amLODIPine [Norvasc] 10 mg PO DAILY #30 tab 03/23/17 Allergies Allergy/AdvReac Type Severity Reaction Status Date / Time metronidazole [From Flagyl] Allergy Severe Swelling Verified 03/19/17 23:19 of Lip/Tongue/Throat Iodinated Contrast- Oral and Allergy Swelling Verified 03/19/17 23:19 IV Dye of [Iodinated Contrast Media - Lip/Tongue/Throat IV Dye] All systems ED: reviewed and negative except as stated. Constitutional: Reports: fever. Denies: chills, weakness, weight change Eyes: Denies: eye pain, eye discharge, vision change ENT ED: Denies: ear pain, throat pain, dental pain, hearing loss, epistaxis, congestion, dysphagia Cardiovascular: Denies: chest pain, palpitations, dyspnea on exertion, edema, syncope Respiratory: Reports: cough. Denies: dyspnea, wheezes, hemoptysis, stridor Gastrointestinal: Denies: abdominal pain, nausea, vomiting, diarrhea, constipation, hematemesis, melena, hematochezia Genitourinary: Denies: dysuria, frequency, hematuria, discharge Musculoskeletal: Denies: back pain, neck pain, arthralgia, myalgia Integumentary: Denies: rash, abrasion, lesions Neurological: Denies: headache, weakness, numbness, paresthesias, confusion, abnormal gait, vertigo Psychiatric: Denies: anxiety, depression, suicidal thoughts, homicidal thoughts , auditory hallucinations, visual hallucinations Endocrine: Denies: fatigue Hematological/Lymphatic: Denies: easy bleeding, easy bruising Allergic/Immunologic: Denies: facial swelling, urticaria Past Medical History - Past Medical History Medical history: Reports: aortic aneurysm, coronary artery disease, hyperlipidemia, hypertension Surgical history: Reports: angioplasty/stent, cholecystectomy, hysterectomy Psychiatric history: Reports: no psych history WALKING DRAGLINE OILER history: Reports: no WALKING DRAGLINE OILER history - Social History Smoking Status: Former smoker Smokeless Tobacco Status: No Alcohol use: Reports: none Drug use: Reports: none Physical Exam - General General appearance: alert, in no apparent distress - Head Head exam: atraumatic, normocephalic, normal inspection - Eye Eye exam: Present: normal appearance, PERRL, EOMI - ENT ENT exam: normal exam, normal oropharynx, mucous membranes moist - Neck Neck exam: Present: normal inspection, full ROM, trachea midline - Chest Chest inspection: Present: normal inspection, symmetric chest wall rise - Respiratory Respiratory exam: Present: normal lung sounds bilaterally - Cardiovascular Cardiovascular exam: Present: regular rate, normal rhythm, normal heart sounds - Abdominal Exam Abdominal exam: Present: soft, Non-Tender. Absent: tenderness, distention, guarding, rebound, rigidity - Extremities Exam Extremities exam: Present: normal inspection, full ROM. Absent: tenderness, pedal edema - Expanded Lower Extremity Exam Neurovascular/Tendon exam: Absent: motor deficit, sensory deficit, tendon deficit Gait: observed and normal - Back Exam Back exam: Present: normal inspection, full ROM. Absent: tenderness - Neurological Exam Neurological exam: Present: alert, oriented X3 - Psychiatric Psychiatric exam: Present: normal affect, normal mood - Skin Skin exam: Present: warm, dry, intact, normal color Course - Reevaluation(s) Reevaluation #1: 76-year-old with history of cough and fever. Chest x-ray shows pneumonia. Will be admitted for IV antibiotics. Time: 16:36 - Consultations Consultation #1: Discussed with , admit. Time: 16:36 Vital Signs Temperature 100.7 F H 05/09/17 14:55 Pulse Rate 89 05/09/17 14:55 Respiratory Rate 18 05/09/17 14:55 Blood Pressure 122/83 05/09/17 14:55 O2 Sat by Pulse Oximetry 90 05/09/17 14:55 Temperature 100.7 F H 05/09/17 14:55 Pulse Rate 89 05/09/17 14:55 Respiratory Rate 18 05/09/17 14:55 Blood Pressure 122/83 05/09/17 14:55 O2 Sat by Pulse Oximetry 90 05/09/17 14:55 Oxygen Delivery Oxygen Delivery Room Air Medical Decision Making - Lab Data Lab results reviewed: Yes I reviewed the patient's lab results. Result diagrams: 05/09/17 15:10 05/09/17 15:10 Lab Results 05/09/17 05/09/17 05/09/17 Range/Units 15:10 15:10 15:10 WBC 10.7 (4.3-11.1) K/mcL RBC 4.00 (3.82-4.97) M/mcL Hgb 11.2 L (11.5-15.4) g/dL Hct 33.4 L (35.3-44.9) % MCV 83.5 (83.0-100.0) fL MCH 28.0 (28.0-33.3) pg MCHC 33.5 (31.6-35.5) g/dL RDW 14.4 (11.5-14.5) % Plt Count 401 H (140-400) K/mcL MPV 9.2 L (9.4-12.4) fL Immature Gran % 0.6 (0-4) % Seg Neutrophils % 79.3 % Lymphocytes % 8.9 % Monocytes % 10.6 % Eosinophils % 0.4 % Basophils % 0.2 % Neutrophils # 8.5 (1.6-8.9) K/mcL Lymphocytes # 1.0 (0.6-4.6) K/mcL Monocytes # 1.1 (0.0-1.3) K/mcL Eosinophils # 0.0 (0.0-0.6) K/mcL Basophils # 0.0 (0.0-0.2) K/mcL Sodium 131 L (136-145) mEq/L Potassium 3.9 (3.5-4.5) mEq/L Chloride 98 (98-109) mEq/L Carbon Dioxide 21 (19-29) mEq/L BUN 47 H (7-20) mg/dL Creatinine 2.70 H (0.57-1.11) mg/dL Est GFR ( Amer) 21 L (> 60) Est GFR (Non-Af Amer) 17 L (> 60) BUN/Creatinine Ratio 17 (6-26) Glucose 146 H (70-99) mg/dL Calculated Osmolality 287 (280-300) Lactic Acid 1.9 (0.5-2.2) mmol/L Calcium 9.1 (8.6-10.8) mg/dL Troponin I (0-0.03) ng/mL 05/09/17 Range/Units 15:10 WBC (4.3-11.1) K/mcL RBC (3.82-4.97) M/mcL Hgb (11.5-15.4) g/dL Hct (35.3-44.9) % MCV (83.0-100.0) fL MCH (28.0-33.3) pg MCHC (31.6-35.5) g/dL RDW (11.5-14.5) % Plt Count (140-400) K/mcL MPV (9.4-12.4) fL Immature Gran % (0-4) % Seg Neutrophils % % Lymphocytes % % Monocytes % % Eosinophils % % Basophils % % Neutrophils # (1.6-8.9) K/mcL Lymphocytes # (0.6-4.6) K/mcL Monocytes # (0.0-1.3) K/mcL Eosinophils # (0.0-0.6) K/mcL Basophils # (0.0-0.2) K/mcL Sodium (136-145) mEq/L Potassium (3.5-4.5) mEq/L Chloride (98-109) mEq/L Carbon Dioxide (19-29) mEq/L BUN (7-20) mg/dL Creatinine (0.57-1.11) mg/dL Est GFR ( Amer) (> 60) Est GFR (Non-Af Amer) (> 60) BUN/Creatinine Ratio (6-26) Glucose (70-99) mg/dL Calculated Osmolality (280-300) Lactic Acid (0.5-2.2) mmol/L Calcium (8.6-10.8) mg/dL Troponin I 0.02 (0-0.03) ng/mL - Radiology Data Radiology results reviewed: Yes I reviewed the patient's radiology results. Chest X-Ray 05/09/17 15:00 IMPRESSION: Mild left basilar airspace disease could represent atelectasis or pneumonia. D/ / Andrew Manzano MD / Andrew Manzano MD Interpreting Provider: Andrew Manzano MD - EKG Data EKG #1 EKG attestation: Yes I reviewed and interpreted this EKG. EKG shows normal: sinus rhythm Rate: normal Rhythm: NSR Benge/QRS: RBBB Interpretation: no acute changes
[2017-05-09 15:38] LABS: Basophils % 0.2 %; Eosinophils % 0.4 %; Hematocrit 33.4 % (35.3-44.9); Hemoglobin 11.2 g/dL (11.5-15.4); Immature Granulocytes % 0.6 % (0-4); Lymphocytes % 8.9 %; Mean Corpuscular HGB Conc 33.5 g/dL (31.6-35.5); Mean Corpuscular Volume 83.5 fL (83.0-100.0); Mean Platelet Volume 9.2 fL (9.4-12.4); Monocytes # 1.1 K/mcL (0.0-1.3); Monocytes % 10.6 %; Neutrophils # 8.5 K/mcL (1.6-8.9); Platelet Count 401 K/mcL (140-400); Red Cell Distribution Width 14.4 % (11.5-14.5); Segmented Neutrophils % 79.3 %
[2017-05-09 16:06] LABS: Calcium 9.1 mg/dL (8.6-10.8); Potassium 3.9 mEq/L (3.5-4.5)
[2017-05-09] MEDS ORDERED: Acetaminophen 325 MG TABLET PO ONE (16:06)
[2017-05-09] MEDS ORDERED: Azithromycin 500 MG in D5% in Water 250 ML IVPB ONE (16:35)
[2017-05-09] MEDS ORDERED: Ondansetron 4 MG/2 ML VIAL IVP PRN (20:18)
[2017-05-09] MEDS ORDERED: Naloxone 0.4 MG/ML INJ IVP PRN (20:18)
[2017-05-09] MEDS ORDERED: Albuterol 2.5 MG/3 ML NEBULIZER IH PRN (20:23)
--- NOTE | 2017-05-09 20:31 | Internal Med History&Physical ---
Date of Encounter: 05/09/17 Time of Encounter: 19:50 Assessment and Plan (1) Pneumonia Current visit: Yes Status: Acute 1. Blood cultures have been drawn. 2. Will continue IV Rocephin and Zithromax. 3. Albuterol and oxygen as needed for support. 4. Convert to oral antibiotics when clinically appropriate and as oxygen requirement improves. Qualifiers: Pneumonia type: due to unspecified organism Laterality: left Lung location: lower lobe of lung Qualified Code(s): J18.1 - Lobar pneumonia, unspecified organism (2) Acute kidney injury superimposed on CKD Current visit: Yes Status: Acute 1. Will hold diuretic/ARB combo. 2. Will hydrate with IV fluids and monitor I/O and renal function. 3. Consult Dr. Jamil (notified) for assistance with her kidney dysfunction. 4. Will order U/A with reflex culture as well given her oliguria. (3) Dehydration Current visit: Yes Status: Acute 1. Patient looks clinically dry and has been on a diuretic. 2. Will hold diuretic and hydrate orally and with IVF. 3. Monitor I/O and wean IVF once tolerating PO fluids well. (4) DVT prophylaxis Current visit: Yes Status: Acute 1. Heparin SQ. Internal Medicine - H&P: HPI Chief complaint: fever; cough; SOB Admitted From: Emergency Dept Plans for Post Hospital Care: Home History of present illness: Ms. Gallardo is a 76 year old female who presents to the ER today with complaints of fevers, cough, shortness of breath, and malaise. Symptoms started about 3-4 days ago and have progressively worsened. Today, she fell a couple times due to significant fatigue and weakness and cough associated with worsening dyspnea. She denies any vomiting or diarrhea. She has had fevers up to 103 degrees Fahrenheit. She denies any chest pain or headaches. She has noticed significant decrease in urine output. In the ER, she was found to have findings consistent with pneumonia. She was subsequently admitted to the hospitalist service. She also had an oxygen requirement in the Emergency Department. I reviewed her records and her labs and noted that she has a significant decline in her renal function. She is not diabetic, but she does have known CKD. 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 She has been taking her medications, one of which includes a diuretic. Given her pneumonia, dehydration, and decreased urine output, I suspect her kidney dysfunction is likely due to prerenal azotemia. Past Med Surg Social Fam HX - Past Medical History Attestation: Yes The following information was validated with the patient. Source: patient, old records reviewed Medical history: aortic aneurysm, coronary artery disease, hyperlipidemia, hypertension Psychiatric history: no psych history - Past Surgical History Surgical History: angioplasty/stent, cholecystectomy, hysterectomy - Social History Smoking Status: Former smoker (quit 40 years ago) Smokeless Tobacco Status: No Alcohol use: none, occasionally Drug use: none Current living situation: Home - Independent Activity Level: Independent ambulation Recent Out of Country Travel Within the Last 8 Weeks: No - Family History Mother Living Status: Hx Family Cardiac Disorders: No Hx Family Respiratory Disorders: Yes Hx Family Cancer: No Hx Family GI Disorders: No Hx Family Endocrine Disorder: No Hx Family Neuromuscular Disorders: No Hx Family Neurologic Disorders: No Hx Family HEENT Disorders: No Hx Family Autoimmune Disorders: No Father Living Status: Hx Family Cardiac Disorders: Yes Hx Family Respiratory Disorders: No Hx Family Cancer: No Hx Family GI Disorders: No Hx Family Endocrine Disorder: Yes (Diabetes) Hx Family Neuromuscular Disorders: No Hx Family Neurologic Disorders: Yes (BIPOLAR) Hx Family HEENT Disorders: No Hx Family Autoimmune Disorders: No Grandmother Hx Family Cardiac Disorders: Yes Internal Medicine - H&P: Meds Clopidogrel [Plavix] 75 mg PO DAILY #30 tablet 04/07/15 [Rx] Levothyroxine [Synthroid] 112 mcg PO DAILY 09/26/16 [History] Fenofibrate Nanocrystallized [Tricor] 48 mg PO DAILY 12/16/16 [History] Valsartan/Hydrochlorothiazide [Diovan Hct 320-12.5 mg Tab] 1 each PO DAILY 12/16 [History] Atorvastatin [Lipitor] 40 mg PO HS 03/20/17 [History] Docusate Sodium [Dok] 100 mg PO DAILY PRN 03/20/17 [History] Esomeprazole Magnesium [Nexium] 40 mg PO DAILY 03/20/17 [History] cloNIDine HCl [CloNIDine HCl] 0.1 mg PO BID 03/20/17 [History] amLODIPine [Norvasc] 10 mg PO DAILY #30 tab 03/23/17 [Rx] Amitriptyline [Elavil] 25 mg PO HS 05/09/17 [History] Carvedilol 3.125 mg PO BID 05/09/17 [History] Cyclobenzaprine HCl 5 mg PO BID PRN 05/09/17 [History] 3 Allergy/AdvReac Type Severity Reaction Status Date / Time metronidazole [From Flagyl] Allergy Severe Swelling Verified 03/19/17 23:19 of Lip/Tongue/Throat Iodinated Contrast- Oral and Allergy Swelling Verified 03/19/17 23:19 IV Dye of [Iodinated Contrast Media - Lip/Tongue/Throat IV Dye] - Constitutional Constitutional: chills, fever(s), malaise, weakness, no night sweats - EENT Eyes: no blurry vision, no change in vision Ears: no ear pain, no tinnitus Nose, mouth and throat: no nasal congestion, no sinus pressure, no sore throat, no throat swelling - Cardiovascular Cardiovascular ROS IM: dyspnea, no chest pain, no diaphoresis, no edema, no lightheadedness, no palpitations, no syncope - Respiratory Respiratory: cough, dyspnea, chest congestion, excessive phlegm production, change in phlegm color, no hemoptysis, no wheezing, no pain on inspiration, no pain with cough - Gastrointestinal Gastrointestinal: no abdominal pain, no diarrhea, no heartburn, no hematemesis, no hematochezia, no melena, no nausea, no vomiting - Genitourinary Genitourinary: no dysuria, no flank pain, no hematuria - Musculoskeletal Musculoskeletal ROS IM: no back pain, no muscle cramps - Integumentary Integumentary IM: no rash, no jaundice - Neurological Neurological ROS: no dizziness, no focal weakness, no headache(s) - Psychiatric Psychiatric: no anxiety, no depression - Endocrine Endocrine IM: no polydipsia, no polyphagia, no polyuria - Hematologic/Lymphatic Hematologic/Lymphatic: no easy bruising - Allergic/Immunologic Allergic/Immunologic: no wheezing, no GI upset with certain foods - Constitutional Vitals: Temp Pulse Resp BP Pulse Ox 98.0 F 68 16 116/66 99 05/09/17 20:15 05/09/17 20:15 05/09/17 20:15 05/09/17 20:15 05/09/17 20:15 General appearance: Present: cooperative, A&O X 3, pleasant, no acute distress - Head Head exam: Present: atraumatic, normal inspection - Eye Eye exam: Present: EOMI, normal appearance, PERRL. Absent: scleral icterus Pupils: Present: normal accommodation - ENT ENT exam: Present: mucous membranes dry, normal exam, normal oropharynx - Neck Neck exam general surgery: Present: full ROM, supple. Absent: lymphadenopathy, tenderness, nuchal rigidity, thyromegaly - Expanded Neck Exam Neck exam: Absent: carotid bruit - Respiratory Respiratory exam: Present: decreased breath sounds (left base), rales (faint crackles left base). Absent: chest wall tenderness, respiratory distress, rhonchi, wheezes - Cardiovascular Cardiovascular exam: Present: RRR, +S1, +S2. Absent: diastolic murmur, systolic murmur - GI/Abdominal GI/Abdominal exam: Present: normal bowel sounds, soft. Absent: guarding, hepatomegaly, mass, rebound, splenomegaly, tenderness - Extremities Exam Extremities exam: Present: full ROM, warm, radial pulses palpable and symmetrical. Absent: calf tenderness, joint swelling, pedal edema - Back Exam Back exam: Absent: CVA tenderness (L), CVA tenderness (R) - Neurological Exam Neurological exam: Present: alert, CN II-XII intact, oriented X3, no focal deficits, strengths equal and symetr throughout - Psychiatric Psychiatric exam: Present: normal affect, normal mood - Skin Skin exam: Present: dry, warm. Absent: rash Additional comments: + skin tenting Internal Med - H&P Results - Labs CBC & Chem 7: 05/09/17 15:10 05/09/17 15:10 - EKG Data -: EKG Interpreted by Myself - EKG Data Prior EKG available for review: no EKG comments: 05/09/17 20:36 NSR; RBBB; no acute ST-T changes - Diagnostic Studies Chest x-ray Status: image reviewed by me (left basilar infiltrate)
[2017-05-09] MEDS: 0.9 % Sodium Chloride 1,000 ML IVC SCH (22:09)
[2017-05-09] MEDS: cloNIDine HCl 0.1 MG TABLET PO SCH (22:10)
[2017-05-09] MEDS ORDERED: CefTRIAXone 1,000 MG VIAL ONE (22:12)
[2017-05-09] MEDS ORDERED: D5% in Water 100 ML ONE (22:16)
[2017-05-10 03:37] LABS: Bilirubin,Urine Negative (Negative); Blood,Urine Moderate (Negative); Clarity,Urine Cloudy (Clear); Color,Urine Yellow (Yellow); Glucose,Urine (UA) Normal (Normal); Ketones,Urine Negative (Negative); Leukocyte Esterase,Urine Large (Negative); Nitrite,Urine Negative (Negative); Protein,Urine 30 mg/dL (Neg-Trace); Specific Gravity,Urine 1.019 (1.010-1.025); Urobilinogen,Urine Normal (Normal)
[2017-05-10 03:38] LABS: Hyaline Casts,Urine None Seen per lpf (None-Few); RBC,Urine 0-3 per hpf (0-3); Squamous Epithelial Cell,Urine Moderate per lpf (None-Few); WBC,Urine TNTC per hpf (0-3)
[2017-05-10 03:54] LABS: Bacteria,Urine Moderate per hpf (None-Few)
[2017-05-10 05:27] LABS: Acinetobacter baumannii by PCR Not Detected (Not Detect); Candida albicans by PCR Not Detected (Not Detect); Candida glabrata by PCR Not Detected (Not Detect); Candida krusei by PCR Not Detected (Not Detect); Candida parapsilosis by PCR Not Detected (Not Detect); Candida tropicalis by PCR Not Detected (Not Detect); Enterococcus by PCR Not Detected (Not Detect); Escherichia coli by PCR ***DETECTED*** (Not Detect); Klebsiella oxytoca by PCR Not Detected (Not Detect); Klebsiella pneumoniae by PCR Not Detected (Not Detect); Pseudomonas aeruginosa by PCR Not Detected (Not Detect); Serratia marcescens by PCR Not Detected (Not Detect); Staphylococcus aureus by PCR Not Detected (Not Detect); Streptococcus agalactiae(B)PCR Not Detected (Not Detect); Streptococcus by PCR Not Detected (Not Detect); Streptococcus pneumoniae PCR Not Detected (Not Detect); Streptococcus pyogenes (A) PCR Not Detected (Not Detect); blaKPC Carbapenem-Resist Gene Not Detected (Not Detect)
[2017-05-10 05:41] LABS: Basophils % 0.3 %; Eosinophils # 0.1 K/mcL (0.0-0.6); Eosinophils % 0.7 %; Hematocrit 30.1 % (35.3-44.9); Hemoglobin 10.2 g/dL (11.5-15.4); Immature Granulocytes % 0.6 % (0-4); Lymphocytes % 9.7 %; Mean Corpuscular HGB Conc 33.9 g/dL (31.6-35.5); Mean Corpuscular Hemoglobin 27.9 pg (28.0-33.3); Mean Corpuscular Volume 82.5 fL (83.0-100.0); Mean Platelet Volume 9.2 fL (9.4-12.4); Monocytes # 1.1 K/mcL (0.0-1.3); Monocytes % 11.1 %; Neutrophils # 7.9 K/mcL (1.6-8.9); Platelet Count 356 K/mcL (140-400); Red Blood Count 3.65 M/mcL (3.82-4.97); Red Cell Distribution Width 14.6 % (11.5-14.5); Segmented Neutrophils % 77.6 %
[2017-05-10 05:59] LABS: Albumin 2.3 g/dL (3.5-5.0); Albumin/Globulin Ratio 0.5 (1.1-2.2); Bilirubin,Total 0.6 mg/dL (0.2-1.2); Calcium 8.6 mg/dL (8.6-10.8); Globulin 4.5 g/dL (2.4-3.5); Magnesium 2.5 mg/dL (1.6-2.6); Potassium 3.7 mEq/L (3.5-4.5); Total Protein 6.8 g/dL (6.0-8.3)
[2017-05-10] MEDS: *HR* Heparin 5,000 UNIT/ML VIAL SQ SCH ×2 (06:00→17:08)
--- NOTE | 2017-05-10 08:14 | Electrocardiograph Report ---
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
--- NOTE | 2017-05-10 08:30 | Nephrology Consult Note ---
Date of Encounter: 05/10/17 Time of Encounter: 08:28 Assessment and Plan (1) Acute kidney injury superimposed on CKD Current Visit: Yes Status: Acute The patient presents with a clinical picture of acute kidney injury superimposed on chronic kidney disease in the setting of possible pneumonia as well as gram-negative bacteremia. Her renal function is improving with IV fluid administration. Based on her history it sounds as though she had a component of volume depletion at home because she was feeling so poorly and had decreased oral intake. I would continue the IV fluids. Continue with empiric antibiotics. She will require renal ultrasound. Nephrotoxins should be avoided. (2) Bacteremia due to Gram-negative bacteria Current Visit: No Status: Acute (3) CKD (chronic kidney disease) stage 3, GFR 30-59 ml/min Current Visit: No Status: Acute History of Present Illness - History of Present Illness This is a 76-year-old female who is followed as an outpatient for stage III chronic kidney disease with a baseline creatinine of 1.2-1.6. Patient presented to emergency room last night with a several day history of cough, shortness of breath, sputum production, fevers and chills. Chest x-ray suggested a left basilar opacity possibly representing pneumonia. Currently blood cultures are growing gram-negative rods readmitted serum creatinine on admission was 2.70. Following IV hydration overnight creatinine is improved down to 2.36. Patient reports at home she had decreased oral intake. She was having some nausea. She says she was falling frequently and felt dizzy and unsteady on her feet. The hospital temperature has peaked as high as 101.4. Blood pressure 108/65. Patient denies any urinary frequency or dysuria. Past Med Surg Social Fam HX - Past Medical History Medical history: aortic aneurysm, coronary artery disease, hyperlipidemia, hypertension Psychiatric history: no psych history - Past Surgical History Surgical History: angioplasty/stent, cholecystectomy, hysterectomy - Social History Smoking Status: Former smoker (quit 40 years ago) Smokeless Tobacco Status: No Alcohol use: none, occasionally Drug use: none - Family History Mother Living Status: Hx Family Cardiac Disorders: No Hx Family Respiratory Disorders: Yes Hx Family Cancer: No Hx Family GI Disorders: No Hx Family Endocrine Disorder: No Hx Family Neuromuscular Disorders: No Hx Family Neurologic Disorders: No Hx Family HEENT Disorders: No Hx Family Autoimmune Disorders: No Father Living Status: Hx Family Cardiac Disorders: Yes Hx Family Respiratory Disorders: No Hx Family Cancer: No Hx Family GI Disorders: No Hx Family Endocrine Disorder: Yes (Diabetes) Hx Family Neuromuscular Disorders: No Hx Family Neurologic Disorders: Yes (BIPOLAR) Hx Family HEENT Disorders: No Hx Family Autoimmune Disorders: No Grandmother Hx Family Cardiac Disorders: Yes Medications and Allergies Clopidogrel [Plavix] 75 mg PO DAILY #30 tablet 04/07/15 [Rx] Levothyroxine [Synthroid] 112 mcg PO DAILY 09/26/16 [History] Fenofibrate Nanocrystallized [Tricor] 48 mg PO DAILY 12/16/16 [History] Valsartan/Hydrochlorothiazide [Diovan Hct 320-12.5 mg Tab] 1 each PO DAILY 12/16 [History] Atorvastatin [Lipitor] 40 mg PO HS 03/20/17 [History] Docusate Sodium [Dok] 100 mg PO DAILY PRN 03/20/17 [History] Esomeprazole Magnesium [Nexium] 40 mg PO DAILY 03/20/17 [History] cloNIDine HCl [CloNIDine HCl] 0.1 mg PO BID 03/20/17 [History] amLODIPine [Norvasc] 10 mg PO DAILY #30 tab 03/23/17 [Rx] Amitriptyline [Elavil] 25 mg PO HS 05/09/17 [History] Carvedilol 3.125 mg PO BID 05/09/17 [History] Cyclobenzaprine HCl 5 mg PO BID PRN 05/09/17 [History] 3 Allergy/AdvReac Type Severity Reaction Status Date / Time metronidazole [From Flagyl] Allergy Severe Swelling Verified 03/19/17 23:19 of Lip/Tongue/Throat Iodinated Contrast- Oral and Allergy Swelling Verified 03/19/17 23:19 IV Dye of [Iodinated Contrast Media - Lip/Tongue/Throat IV Dye] Review of Systems Constitutional: as per HPI, chills, fever(s), frequent falls, weakness Eyes: bilateral: blurred vision (patient denies), diplopia (patient denies) Cardiovascular: dyspnea, dyspnea on exertion Respiratory: cough, dyspnea, dyspnea on exertion, excessive phlegm production, change in phlegm color Gastrointestinal: nausea, no abdominal pain, no change in bowel habits Genitourinary Female: as per HPI Musculoskeletal: no muscle weakness, no numbness Integumentary: no hirsutism, no striae Neurological: as per HPI, weakness Psychiatric: no depression, no difficulty concentrating Endocrine: as per HPI Hematologic/Lymphatic: no easy bruising, no lymphadenopathy Exam - Vital Signs Vital signs: Initial Vital Signs Temp Pulse Resp BP Pulse Ox 100.7 F H 89 18 122/83 90 05/09/17 14:55 05/09/17 14:55 05/09/17 14:55 05/09/17 14:55 05/09/17 14:55 Vital Signs - Last 8 Hours Temp Pulse Resp BP Pulse Ox 05/10/17 07:29 98.6 F 73 20 108/65 98 05/10/17 03:11 100.1 F H 83 18 110/70 98 Intake and Output 05/09/17 05/10/17 05/10/17 23:59 07:59 15:59 Intake Total 0 / 0 Output Total 200 / 200 Balance 0 / 0 -200 / -200 Intake: Oral 0 / 0 Output: Urine 200 / 200 Other: Weight 86.636 kg Patient Weight 05/10/17 23:59 Weight 86.636 kg - General Appearance Exam: Patient is alert and oriented. She is in no acute distress. Lungs coarse breath sounds. Heart regular in rhythm with a 2/6 soft ejection murmur. Abdomen shows a mobile sounds or bruits masses or megaly or tenderness. Examination of peripheral edema. Results - Lab Results 05/10/17 05:10 05/10/17 05:10 Most recent lab results Calcium 8.6 mg/dL (8.6-10.8) 05/10/17 05:10 Magnesium 2.5 mg/dL (1.6-2.6) 05/10/17 05:10 Consult Discharge Plan - Plan Referrals: H[facility] Mary, SPECIAL INVESTIGATION UNIT INVESTIGATOR [Primary Care Provider] -
[2017-05-10] MEDS ORDERED: cefTRIAXone 1,000 MG in Water for inj. (sterile) 10 ML IVP SCH (09:00)
[2017-05-10] MEDS: Fenofibrate 54 MG TABLET PO SCH (09:51)
[2017-05-10] MEDS: cefTRIAXone 2,000 MG in Water for inj. (sterile) 20 ML IVP SCH (09:52)
[2017-05-10] MEDS: cloNIDine HCl 0.1 MG TABLET PO SCH ×2 (09:52→21:44)
[2017-05-10] MEDS: amLODIPine 5 MG TABLET PO SCH (09:52)
[2017-05-10] MEDS: Azithromycin 500 MG in D5% in Water 250 ML IVPB SCH (09:53)
[2017-05-10] MEDS: 0.9 % Sodium Chloride 1,000 ML IVC SCH ×2 (09:53→21:44)
--- NOTE | 2017-05-10 10:53 | Internal Med Progress Note ---
Date of Encounter: 05/10/17 Time of Encounter: 10:52 - Assessment and plan (1) Bacteremia Current Visit: Yes Status: Acute Assessment and plan: Secondary to E.coli Continue ceftriaxone 2g daily Repeat blood culture 11/2 a.m (2) Sepsis Current Visit: Yes Status: Acute Assessment and plan: Secondary to E.Coli UTI and suspected pneumonia Patient met sepsis criteria with fever, tachycardia >90 on presentation as well as a source being UTI/Pneumonia She also has STEVEN on CKD, an end organ dysfunction She is maintaining her blood pressure on current IVF hydration, continue same Follow urine and blood culture, continue Ceftriaoxone 2g daily PLT is WNL Qualifiers: Sepsis type: Escherichia coli Qualified Code(s): A41.51 - Sepsis due to Escherichia coli [E. coli] (3) HTN (hypertension) Current Visit: Yes Status: Chronic Assessment and plan: Controlled, continue IVF hydration, BP is acceptable Continue Norvasc, Coreg and Clonidine Hold ARB/HCTZ Qualifiers: Hypertension type: essential hypertension Qualified Code(s): I10 - Essential (primary) hypertension (4) Hypothyroidism Current Visit: Yes Status: Chronic Assessment and plan: Resume home dose of synthroid Qualifiers: Hypothyroidism type: acquired Qualified Code(s): E03.9 - Hypothyroidism, unspecified (5) CAD (coronary artery disease) Current Visit: Yes Status: Chronic Assessment and plan: No chest pain, continue Statin, Plavix Qualifiers: Coronary Disease-Associated Artery/Lesion type: [place] artery [place] vs. transplanted heart: [place] heart Associated angina: without angina Qualified Code(s): I25.10 - Atherosclerotic heart disease of [place] coronary artery without angina pectoris (6) CKD (chronic kidney disease) stage 3, GFR 30-59 ml/min Current Visit: Yes Status: Chronic Assessment and plan: As in STEVEN on CKD (7) Pneumonia Current Visit: Yes Status: Acute Assessment and plan: Suspected per CXR Continue ceftriaxone and azithromycin Possibly due to streptococcus, patient has no sputum production at this time Qualifiers: Pneumonia type: due to unspecified organism Laterality: left Lung location: lower lobe of lung Qualified Code(s): J18.1 - Lobar pneumonia, unspecified organism (8) Acute kidney injury superimposed on CKD Current Visit: Yes Status: Acute Assessment and plan: Secondary to dehydration Continue IVF hydration Obtain renal USS Monitor Chem Avoid nephrotoxins Nephrology input appreciated - Subjective Interval history: Seen and evaluated at bedside Complaining of RLQ pain, states 04/18, constant, non-radiating She is being managed for UTI, GNR bacteremia, STEVEN on CKD Tmax is 101.4 at 05/10 0004 - Constitutional Vitals: Temp Pulse Resp BP Pulse Ox 98.6 F 73 20 108/65 98 05/10/17 07:29 05/10/17 07:29 05/10/17 07:29 05/10/17 07:29 05/10/17 07:29 General appearance: Present: cooperative, A&O X 3, pleasant, no acute distress - Head Head exam: Present: atraumatic, normocephalic - Eye Eye exam: Present: PERRL, conjuntiva pink, sclera anicteric Pupils: Present: PERRL - Neck Neck exam general surgery: Present: supple, trachea midline. Absent: lymphadenopathy - Respiratory Respiratory exam: Present: CTAB. Absent: accessory muscle use, rales, rhonchi, wheezes - Cardiovascular Cardiovascular exam: Present: RRR, +S1, +S2. Absent: diastolic murmur, gallop, rubs, systolic murmur - GI/Abdominal GI/Abdominal exam: Present: normal bowel sounds, soft, tenderness (RLQ tenderness, no rebound, no gaurding), no peritoneal signs. Absent: distended - Extremities Exam Extremities exam: Present: warm, radial pulses palpable and symmetrical. Absent : calf tenderness, cyanotic, pedal edema - Back Exam Back exam: Absent: CVA tenderness (L), CVA tenderness (R) - Neurological Exam Neurological exam: Present: alert, CN II-XII intact, oriented X3, no focal deficits. Absent: pronater drift, facial droop, speech deficit - Skin Skin exam: Present: dry, intact Internal Medicine: Result - Labs CBC & Chem 7: 05/10/17 05:10 05/10/17 05:10 Labs: Short CBC 05/10/17 Range/Units 05:10 WBC 10.1 (4.3-11.1) K/mcL Hgb 10.2 L (11.5-15.4) g/dL Hct 30.1 L (35.3-44.9) % Plt Count 356 (140-400) K/mcL Neutrophils # 7.9 (1.6-8.9) K/mcL BMP 05/10/17 05:10 Sodium 133 L Potassium 3.7 Chloride 101 Carbon Dioxide 23 BUN 40 H Creatinine 2.36 H Glucose 123 H Calcium 8.6 Liver Function 05/10/17 Range/Units 05:10 Total Bilirubin 0.6 (0.2-1.2) mg/dL AST 72 H (5-34) Units/L ALT 64 H (0-55) Units/L Alkaline Phosphatase 64 (38-126) Units/L Albumin 2.3 L (3.5-5.0) g/dL Urine 05/10/17 Range/Units 03:21 Urine Color Yellow (Yellow) Urine Clarity Cloudy A (Clear) Urine pH 6.0 (5.0-8.0) pH Units Ur Specific [place] 1.019 (1.010-1.025) Urine Protein 30 H (Neg-Trace) mg/dL Urine Glucose (UA) Normal (Normal) mg/dL Consult Discharge Plan - Plan Referrals: [facility] HEAVY EQUIPMENT SALES MANAGER [Primary Care Provider] - 05/18/17 2:00 pm (please follow up as schedule..)
[2017-05-10] MEDS: Acetaminophen 325 MG TABLET PO PRN (16:03)
[2017-05-11 05:59] LABS: Basophils % 0.4 %; Eosinophils # 0.2 K/mcL (0.0-0.6); Eosinophils % 2.3 %; Hematocrit 28.6 % (35.3-44.9); Hemoglobin 9.6 g/dL (11.5-15.4); Immature Granulocytes % 0.7 % (0-4); Lymphocytes # 0.9 K/mcL (0.6-4.6); Lymphocytes % 11.5 %; Mean Corpuscular HGB Conc 33.6 g/dL (31.6-35.5); Mean Corpuscular Hemoglobin 27.7 pg (28.0-33.3); Mean Corpuscular Volume 82.4 fL (83.0-100.0); Mean Platelet Volume 9.1 fL (9.4-12.4); Monocytes # 0.7 K/mcL (0.0-1.3); Monocytes % 9.1 %; Neutrophils # 6.2 K/mcL (1.6-8.9); Platelet Count 335 K/mcL (140-400); Red Blood Count 3.47 M/mcL (3.82-4.97); Red Cell Distribution Width 14.9 % (11.5-14.5)
[2017-05-11] MEDS: *HR* Heparin 5,000 UNIT/ML VIAL SQ SCH ×2 (06:12→17:31)
[2017-05-11] MEDS: Acetaminophen 325 MG TABLET PO PRN ×2 (06:12→15:50)
[2017-05-11 06:13] LABS: Albumin/Globulin Ratio 0.4 (1.1-2.2); Bilirubin,Total 0.5 mg/dL (0.2-1.2); Calcium 8.2 mg/dL (8.6-10.8); Globulin 4.3 g/dL (2.4-3.5); Potassium 3.7 mEq/L (3.5-4.5); Total Protein 6.2 g/dL (6.0-8.3)
[2017-05-11 06:17] LABS: Albumin 1.9 g/dL (3.5-5.0)
[2017-05-11] MEDS: amLODIPine 5 MG TABLET PO SCH (09:11)
[2017-05-11] MEDS: cloNIDine HCl 0.1 MG TABLET PO SCH ×2 (09:11→20:33)
[2017-05-11] MEDS: 0.9 % Sodium Chloride 1,000 ML IVC SCH ×2 (09:45→16:09)
[2017-05-11] MEDS: cefTRIAXone 2,000 MG in Water for inj. (sterile) 20 ML IVP SCH (09:46)
[2017-05-11] MEDS: Fenofibrate 54 MG TABLET PO SCH (09:46)
[2017-05-11] MEDS: Azithromycin 500 MG in D5% in Water 250 ML IVPB SCH (10:30)
--- NOTE | 2017-05-11 10:54 | Internal Med Progress Note ---
Date of Encounter: 05/11/17 Time of Encounter: 10:53 - Assessment and plan (1) Bacteremia Current Visit: Yes Status: Acute Assessment and plan: Secondary to E.coli Continue ceftriaxone 2g daily Repeat blood culture sent today to establish clearance Source is urinary (2) Sepsis Current Visit: Yes Status: Acute Assessment and plan: Secondary to E.Coli UTI and suspected pneumonia Patient met sepsis criteria with fever, tachycardia >90 on presentation as well as a source being UTI/Pneumonia She also has STEVEN on CKD, an end organ dysfunction She is maintaining her blood pressure on current IVF hydration, IVF can be discontinued Urine culture , no growth, however, imaging evidence of bilateral pylonephritis Repeat blood culture sent today 05/11 Blood culture on admission showed 2 bottles with E.coli Qualifiers: Sepsis type: Escherichia coli Qualified Code(s): A41.51 - Sepsis due to Escherichia coli [E. coli] (3) Pyelonephritis, acute Current Visit: Yes Status: Acute Assessment and plan: As in sepsis (4) HTN (hypertension) Current Visit: Yes Status: Chronic Assessment and plan: Controlled Continue Norvasc, Coreg and Clonidine Hold ARB/HCTZ Qualifiers: Hypertension type: essential hypertension Qualified Code(s): I10 - Essential (primary) hypertension (5) Hypothyroidism Current Visit: Yes Status: Chronic Assessment and plan: Continue home dose of synthroid Qualifiers: Hypothyroidism type: acquired Qualified Code(s): E03.9 - Hypothyroidism, unspecified (6) CAD (coronary artery disease) Current Visit: Yes Status: Chronic Assessment and plan: No chest pain, continue Statin, Plavix Qualifiers: Coronary Disease-Associated Artery/Lesion type: [place] artery [place] vs. transplanted heart: [place] heart Associated angina: without angina Qualified Code(s): I25.10 - Atherosclerotic heart disease of [place] coronary artery without angina pectoris (7) CKD (chronic kidney disease) stage 3, GFR 30-59 ml/min Current Visit: Yes Status: Chronic Assessment and plan: As in STEVEN on CKD (8) Pneumonia Current Visit: Yes Status: Acute Assessment and plan: Suspected per CXR Continue ceftriaxone and azithromycin Possibly due to streptococcus, patient has no sputum production at this time Qualifiers: Pneumonia type: due to unspecified organism Laterality: left Lung location: lower lobe of lung Qualified Code(s): J18.1 - Lobar pneumonia, unspecified organism (9) Acute kidney injury superimposed on CKD Current Visit: Yes Status: Acute Assessment and plan: Secondary to dehydration Improving D/C IVF Encourage liberal fluid intake Renal USS unremarkable Avoid nephrotoxins Nephrology input appreciated - Subjective Interval history: 76 F admitted and being managed for Sepsis secondary to E.coli bacteremia secondary to UTI Seen and evaluated at bedside She denies new complains and actually states her RLQ pain has resolved Her Renal USS showed stable renal cysts Abdomen and Pelvis CT without contrast showed Bilateral pyelonephritis, diverticulosis without diverticulitis, and abdominal aortic aneurysm - Constitutional Vitals: Temp Pulse Resp BP Pulse Ox 97.6 F 62 18 111/65 99 05/11/17 08:45 05/11/17 09:00 05/11/17 08:45 05/11/17 09:00 05/11/17 08:45 General appearance: Present: cooperative, A&O X 3, pleasant, no acute distress - Head Head exam: Present: atraumatic, normocephalic - Eye Eye exam: Present: PERRL, conjuntiva pink, sclera anicteric Pupils: Present: PERRL - Neck Neck exam general surgery: Present: supple, trachea midline. Absent: lymphadenopathy - Respiratory Respiratory exam: Present: CTAB. Absent: accessory muscle use, rales, rhonchi, wheezes - Cardiovascular Cardiovascular exam: Present: RRR, +S1, +S2. Absent: diastolic murmur, gallop, rubs, systolic murmur - GI/Abdominal GI/Abdominal exam: Present: normal bowel sounds, soft, no peritoneal signs. Absent: distended, tenderness - Extremities Exam Extremities exam: Present: warm, radial pulses palpable and symmetrical. Absent : calf tenderness, cyanotic, pedal edema - Neurological Exam Neurological exam: Present: alert, CN II-XII intact, oriented X3, no focal deficits. Absent: pronater drift, facial droop, speech deficit - Skin Skin exam: Present: dry, intact Internal Medicine: Result - Labs CBC & Chem 7: 05/11/17 05:42 05/11/17 05:42 Labs: Short CBC 05/11/17 Range/Units 05:42 WBC 8.2 (4.3-11.1) K/mcL Hgb 9.6 L (11.5-15.4) g/dL Hct 28.6 L (35.3-44.9) % Plt Count 335 (140-400) K/mcL Neutrophils # 6.2 (1.6-8.9) K/mcL BMP 05/11/17 05:42 Sodium 138 Potassium 3.7 Chloride 108 Carbon Dioxide 22 BUN 37 H Creatinine 1.97 H Glucose 110 H Calcium 8.2 L Liver Function 05/11/17 Range/Units 05:42 Total Bilirubin 0.5 (0.2-1.2) mg/dL AST 77 H (5-34) Units/L ALT 71 H (0-55) Units/L Alkaline Phosphatase 72 (38-126) Units/L Albumin 1.9 L (3.5-5.0) g/dL - Impressions Impressions Retroperitoneum Ultrasound 05/10/17 14:00 IMPRESSION: No hydronephrosis. 4.3 cm right renal cyst, stable in the interval. No follow-up is recommended. D/ / Maxwell Singh MD / Maxwell Singh MD Interpreting Provider: Maxwell Singh MD Consult Discharge Plan - Plan Referrals: Homa Mary, BRASS BURNISHER [Primary Care Provider] - 05/18/17 2:00 pm (please follow up as schedule..)
--- NOTE | 2017-05-11 11:41 | Nephrology Progress Note ---
Date of Encounter: 05/11/17 Time of Encounter: 11:30 - Assessment and Plan (1) STEVEN (acute kidney injury) Current Visit: No Status: Acute STEVEN superimposed on CKD in setting possible pneumonia as well as gram-negative bacteremia. Renal US negative for hydronephrosis. CT abd/pelvis- New bilateral perinephric stranding and proximal right periureteral stranding possibly due to bilateral pyelonephritis and proximal right ureteritis. Renal fct improving. Creat 1.97, documented urine output 700cc. Subjective Interval history: Laying quietly in bed, watching TV. States abdominal pain improved. States eating better. Denies emesis. States breathing easier. Objective - Vital Signs Vital signs: Vital Signs Temp Pulse Resp BP Pulse Ox 05/11/17 11:20 98.0 F 61 20 123/72 97 05/11/17 09:00 62 111/65 05/11/17 08:45 97.6 F 64 18 121/54 99 05/11/17 07:21 97.7 F 56 20 112/64 96 05/11/17 04:42 98.7 F 77 16 109/63 98 05/10/17 23:40 97.8 F 49 16 130/71 100 05/10/17 21:43 47 109/60 05/10/17 19:13 97.7 F 52 16 105/57 99 05/10/17 16:41 98.3 F 59 18 94/53 98 05/10/17 11:55 98.4 F 64 18 92/55 99 Intake and Output 05/10/17 05/11/17 05/11/17 23:59 07:59 15:59 Intake Total 1240 / 1240 1240 / 1240 Output Total 300 / 300 300 / 300 Balance 940 / 940 940 / 940 Intake: IV Fluids 1000 / 1000 920 / 920 0.9 % Sodium Chloride 1,000 ML 1000 / 1000 900 / 900 @ 100 mls/hr IVC .Q10H MARCELINO Rx#: [id number] Rocephin 2,000 MG In Water for / inj. (sterile) 20 ML @ 600 mls/ hr IVP Q24H MARCELINO Rx#:[id number] Oral 240 / 240 320 / 320 Output: Urine 300 / 300 300 / 300 Other: Meal Dinner Breakfast Percent of Meal Consumed 50% 95% Weight 86.7 kg Patient Weight 05/11/17 23:59 Weight 86.7 kg - General Appearance General appearance: Present: well-developed, well-nourished, appears started age EENT: Present: mucous membranes moist Neck: Present: no JVD Respiratory: Present: clear Cardiology: Present: no edema, regular rate, regular rhythm Gastrointestinal: Present: hypoactive bowel sounds, no tenderness Integumentary: Present: warm and dry Neurologic: Present: alert and oriented x3 Psychiatric: Present: mood/affect appropriate, cooperative - Lab 05/11/17 05:42 05/11/17 05:42 Most recent lab results Calcium 8.2 mg/dL (8.6-10.8) L 05/11/17 05:42 Magnesium 2.5 mg/dL (1.6-2.6) 05/10/17 05:10 Consult Discharge Plan - Plan Referrals: Homa Mary, [facility] [Primary Care Provider] - 05/18/17 2:00 pm (please follow up as schedule..)
[2017-05-11] MEDS ORDERED: traZODone 50 MG TABLET PO ONE (21:00)
[2017-05-12 04:15] LABS: Hematocrit 27.6 % (35.3-44.9); Hemoglobin 9.3 g/dL (11.5-15.4); Mean Corpuscular HGB Conc 33.7 g/dL (31.6-35.5); Mean Corpuscular Hemoglobin 28.1 pg (28.0-33.3); Mean Corpuscular Volume 83.4 fL (83.0-100.0); Mean Platelet Volume 9.2 fL (9.4-12.4); Platelet Count 402 K/mcL (140-400); Red Blood Count 3.31 M/mcL (3.82-4.97)
[2017-05-12 04:28] LABS: Calcium 8.6 mg/dL (8.6-10.8); Potassium 3.7 mEq/L (3.5-4.5)
[2017-05-12 05:32] LABS: Large Platelets Present (Not Present); Lymphocytes # 1.8 K/mcL (0.6-4.6); Monocytes # 0.5 K/mcL (0.0-1.3); Neutrophils # 5.3 K/mcL (1.6-8.9); Reactive Lymphocytes Present (Not Present); Toxic Granulation Present (Not Present)
[2017-05-12] MEDS: *HR* Heparin 5,000 UNIT/ML VIAL SQ SCH (06:22)
[2017-05-12] MEDS: cloNIDine HCl 0.1 MG TABLET PO SCH (08:31)
[2017-05-12] MEDS: Fenofibrate 54 MG TABLET PO SCH (08:32)
[2017-05-12] MEDS: amLODIPine 5 MG TABLET PO SCH (08:32)
[2017-05-12] MEDS: cefTRIAXone 2,000 MG in Water for inj. (sterile) 20 ML IVP SCH (08:32)
[2017-05-12] MEDS: Azithromycin 500 MG in D5% in Water 250 ML IVPB SCH (08:34)
--- NOTE | 2017-05-12 08:53 | Nephrology Progress Note ---
Date of Encounter: 05/12/17 Time of Encounter: 08:45 - Assessment and Plan (1) STEVEN (acute kidney injury) Current Visit: No Status: Acute STEVEN superimposed on CKD in setting possible pneumonia as well as gram-negative bacteremia. Renal US negative for hydronephrosis. CT abd/pelvis- New bilateral perinephric stranding and proximal right periureteral stranding possibly due to bilateral pyelonephritis and proximal right ureteritis. Renal fct improving. Creat 1.59, documented urine output 1100cc. Will follow in office. Subjective Interval history: Sitting on edge of bed. States feels good, wants to go home. Objective - Vital Signs Vital signs: Vital Signs Temp Pulse Resp BP Pulse Ox 05/12/17 07:22 98.3 F 62 17 135/73 92 05/12/17 04:16 98.8 F 65 18 126/71 94 05/11/17 23:23 98.0 F 53 17 116/62 96 05/11/17 20:33 61 123/65 05/11/17 19:57 97.6 F 63 17 112/67 95 05/11/17 15:56 98.3 F 72 16 149/74 96 05/11/17 11:20 98.0 F 61 20 123/72 97 05/11/17 09:00 62 111/65 Intake and Output 05/11/17 05/12/17 05/12/17 23:59 07:59 15:59 Intake Total 240 / 240 1040 / 1040 Output Total 500 / 500 Balance -260 / -260 1040 / 1040 Intake: Oral 240 / 240 1040 / 1040 Output: Urine 500 / 500 Other: Meal Dinner Percent of Meal Consumed 20% Weight 86.137 kg Patient Weight 05/12/17 23:59 Weight 86.137 kg - General Appearance General appearance: Present: well-developed, well-nourished, appears started age EENT: Present: mucous membranes moist Neck: Present: no JVD Respiratory: Present: clear Cardiology: Present: no edema, regular rate, regular rhythm Gastrointestinal: Present: normoactive bowel sounds, no tenderness Integumentary: Present: warm and dry Neurologic: Present: alert and oriented x3 Psychiatric: Present: mood/affect appropriate, cooperative - Lab 05/12/17 03:46 05/12/17 03:46 Most recent lab results Calcium 8.6 mg/dL (8.6-10.8) 05/12/17 03:46 Magnesium 2.5 mg/dL (1.6-2.6) 05/10/17 05:10 Consult Discharge Plan - Plan Referrals: Homa Mary, LOBITO [Primary Care Provider] - 05/18/17 2:00 pm (please follow up as schedule..)
[2017-05-12 10:45] VITALS: BP 118/71
--- NOTE | 2017-05-12 12:25 | Discharge Summary ---
Date of Encounter: 05/12/17 Time of Encounter: 12:24 - Discharge Diagnosis (1) Bacteremia Priority: Primary Status: Resolved (2) Sepsis Priority: Primary Status: Resolved Qualifiers: Sepsis type: Escherichia coli Qualified Code(s): A41.51 - Sepsis due to Escherichia coli [E. coli] (3) Pyelonephritis, acute Priority: Primary Status: Acute (4) HTN (hypertension) Priority: Secondary Status: Chronic Qualifiers: Hypertension type: essential hypertension Qualified Code(s): I10 - Essential (primary) hypertension (5) Hypothyroidism Priority: Secondary Status: Chronic Qualifiers: Hypothyroidism type: acquired Qualified Code(s): E03.9 - Hypothyroidism, unspecified (6) CAD (coronary artery disease) Priority: Secondary Status: Chronic Qualifiers: Coronary Disease-Associated Artery/Lesion type: [place] artery [place] vs. transplanted heart: [place] heart Associated angina: without angina Qualified Code(s): I25.10 - Atherosclerotic heart disease of [place] coronary artery without angina pectoris (7) CKD (chronic kidney disease) stage 3, GFR 30-59 ml/min Priority: Secondary Status: Chronic (8) Pneumonia Priority: Primary Status: Acute Qualifiers: Pneumonia type: due to unspecified organism Laterality: left Lung location: lower lobe of lung Qualified Code(s): J18.1 - Lobar pneumonia, unspecified organism (9) Acute kidney injury superimposed on CKD Priority: Primary Status: Acute - Discharge Medications Prescriptions: Azithromycin [Zithromax] 500 mg PO Q24H #1 tablet Cefdinir [Omnicef] 300 mg PO DAILY #7 capsule Home Medications: Clopidogrel [Plavix] 75 mg PO DAILY #30 tablet 04/07/15 [Rx] Levothyroxine [Synthroid] 112 mcg PO DAILY 09/26/16 [History] Fenofibrate Nanocrystallized [Tricor] 48 mg PO DAILY 12/16/16 [History] Valsartan/Hydrochlorothiazide [Diovan Hct 320-12.5 mg Tab] 1 each PO DAILY 12/16 [History] Atorvastatin [Lipitor] 40 mg PO HS 03/20/17 [History] Docusate Sodium [Dok] 100 mg PO DAILY PRN 03/20/17 [History] Esomeprazole Magnesium [Nexium] 40 mg PO DAILY 03/20/17 [History] cloNIDine HCl [CloNIDine HCl] 0.1 mg PO BID 03/20/17 [History] amLODIPine [Norvasc] 10 mg PO DAILY #30 tab 03/23/17 [Rx] Amitriptyline [Elavil] 25 mg PO HS 05/09/17 [History] Carvedilol 3.125 mg PO BID 05/09/17 [History] Cyclobenzaprine HCl 5 mg PO BID PRN 05/09/17 [History] Azithromycin [Zithromax] 500 mg PO Q24H #1 tablet 05/12/17 [Rx] Cefdinir [Omnicef] 300 mg PO DAILY #7 capsule 05/12/17 [Rx] Allergies/Adverse Reactions: 3 Allergy/AdvReac Type Severity Reaction Status Date / Time metronidazole [From Flagyl] Allergy Severe Swelling Verified 03/19/17 23:19 of Lip/Tongue/Throat Iodinated Contrast- Oral and Allergy Swelling Verified 03/19/17 23:19 IV Dye of [Iodinated Contrast Media - Lip/Tongue/Throat IV Dye] Procedures/tests Complete & Pending: Procedures Performed prior 72 hours Category Date Time Status CT abd pelvis wo no iv no oral [CT] Stat Cat Scan 05/11/17 10:15 Completed Retroperitoneal Ultrasound - Complete [US Exams 05/10/17 14:00 Completed retroperitoneal comp] [US] Routine Date of admission: 05/09/17 20:19 Primary care physician: Homa Mary CNP Discharging clinician: Cole Doll Anticipated date of discharge: 05/12/17 - Patient Status Disposition: Home, Self-Care Condition: Good Functional capacity at discharge: independent ambulation Overall status at discharge: patient is back to baseline - Discharge Instructions Follow Up With: Homa Mary CNP [Primary Care Provider] - 05/18/17 2:00 pm (please follow up as schedule..) - Diet and Activity Activity: resume usual activities as tolerated Diet: low fat, low cholesterol, low salt diet Interval History: See below Hospital course: Ms. Gallardo is a 76 year old female , history of coronary artery disease, hypothyroidism, hypertension, CKD stage III. She was admitted and managed for sepsis secondary to Escherichia coli bacteremia and pyelonephritis secondary to Escherichia coli. She also had acute kidney injury on chronic kidney disease. She was seen and evaluated at bedside this morning, her abdominal pain has resolved, sepsis and bacteremia has resolved. Chemistry is back to baseline. Intravenous fluids have been discontinued in the past 24 hours. Admitting blood culture pansensitive Escherichia coli. Repeat blood culture done on May 11 resulted today as preliminary negative. Urine culture had no growth. Her kidney function is back to baseline. She was treated with ceftriaxone 2 g daily and intravenous fluid hydration. Renal ultrasound was unremarkable for obstructive uropathy. Her CAT scan showed bilateral pyelonephritis, diverticulosis without diverticulitis, and stable abdominal aortic aneurysm.. Safe to be discharged home on Omnicef daily for 7 more days to complete therapy Follow-up with nephrology, and primary care physician. - Time Spent with Patient Total time spent providing and/or coordinating discharge services: Greater than 30 minutes - Constitutional Vitals: Temp Pulse Resp BP Pulse Ox 98.2 F 61 17 118/71 98 05/12/17 10:42 05/12/17 10:42 05/12/17 10:42 05/12/17 10:42 05/12/17 10:42 General appearance: Present: cooperative, A&O X 3, pleasant, no acute distress - Head Head exam: Present: atraumatic, normocephalic - Eye Eye exam: Present: PERRL, conjuntiva pink, sclera anicteric Pupils: Present: PERRL - Neck Neck exam general surgery: Present: supple, trachea midline. Absent: lymphadenopathy - Respiratory Respiratory exam: Present: CTAB. Absent: accessory muscle use, rales, rhonchi, wheezes - Cardiovascular Cardiovascular exam: Present: RRR, +S1, +S2. Absent: diastolic murmur, gallop, rubs, systolic murmur - GI/Abdominal GI/Abdominal exam: Present: normal bowel sounds, soft, no peritoneal signs. Absent: distended, tenderness - Extremities Exam Extremities exam: Present: warm, radial pulses palpable and symmetrical. Absent : calf tenderness, cyanotic, pedal edema - Back Exam Back exam: Absent: CVA tenderness (L), CVA tenderness (R) - Neurological Exam Neurological exam: Present: alert, CN II-XII intact, normal gait, oriented X3, no focal deficits. Absent: pronater drift, facial droop, speech deficit - Skin Skin exam: Present: dry, intact
[2017-05-12] MEDS ORDERED: FLUARIX QUAD 2017-18 36MOS UP/PF 0.5 ML SYRINGE IM ONE (12:33)
[2017-05-13] MEDS ORDERED: Azithromycin 250 MG TABLET PO SCH (09:00)
== END 2017-05-12 13:24 | disposition home or self-care (01) | DRG 871 ==
LOC: 2ANU 14:54 → EMEROO 14:54 → 2ANU 17:39
PROVIDERS: ADMIT Family Medicine; ATTEND Internal Medicine

== ENCOUNTER 2017-08-20 21:52 | Observation (INO) ==
[2017-08-20] MEDS ORDERED: 0.9 % Sodium Chloride 1,000 ML IVC ONE (22:17)
--- NOTE | 2017-08-20 22:21 | Emergency Department Note ---
Disposition Clinical Impression: Near syncope, STEVEN (acute kidney injury) UTI (urinary tract infection) Qualifiers: Urinary tract infection type: site unspecified Hematuria presence: with hematuria Qualified Code(s): N39.0 - Urinary tract infection, site not specified GI bleed Qualifiers: GI bleed type/associated pathology: unspecified gastrointestinal hemorrhage type Qualified Code(s): K92.2 - Gastrointestinal hemorrhage, unspecified Disposition: Admitted As Inpatient Condition: Good Referrals: Homa Mary, WRAPPER COUNTER [Primary Care Provider] - Forms: Work/School Release, ED Satisfaction Letter General Adult HPI - General Chief complaint: ED Fever Stated complaint: Can't Get Warm Time Seen by Provider: 08/20/17 22:00 Source: patient Mode of arrival: ambulatory Nursing Notes Reviewed: Yes Vital Signs Reviewed: Yes - History of Present Illness HPI Narrative: Patient has a history of vascular disease, hypertension, hyperlipidemia presenting for evaluation of multiple complaints. Patient states she has had dizziness over the last several days that is worse with standing. Patient feels like she is going to pass out. Patient has had associated fevers and chills and inability to "get warm". She has had associated abdominal pain starting today. Left lower quadrant suprapubic in nature. Mild tenderness to palpation. Patient states concern for aortic aneurysm. Her last known aneurysm size was 3.3 cm per her. Patient's abdominal pain is not midline or supraumbilical. Patient states nausea but no vomiting. She has had several episodes of loose stool and describes intermittent episodes of blood mixed in best described as streaks of bright red blood. Rectal exam does not show any gross blood. Initial heart rate of 110 with blood pressure of 99 systolic. Labs, imaging, EKG, fluids ordered. Pain Scale: 0 - Related Data Home Medications Medication Instructions Recorded Confirmed Levothyroxine [Synthroid] 112 mcg PO DAILY 09/26/16 05/09/17 Fenofibrate Nanocrystallized 48 mg PO DAILY 12/16/16 05/09/17 [Tricor] Valsartan/Hydrochlorothiazide 1 each PO DAILY 12/16/16 05/09/17 [Diovan Hct 320-12.5 mg Tab] Atorvastatin [Lipitor] 40 mg PO HS 03/20/17 05/09/17 Docusate Sodium [Dok] 100 mg PO DAILY PRN 03/20/17 05/09/17 Esomeprazole Magnesium [Nexium] 40 mg PO DAILY 03/20/17 05/09/17 cloNIDine HCl [CloNIDine HCl] 0.1 mg PO BID 03/20/17 05/09/17 Amitriptyline [Elavil] 25 mg PO HS 05/09/17 05/09/17 Carvedilol 3.125 mg PO BID 05/09/17 05/09/17 Cyclobenzaprine HCl 5 mg PO BID PRN 05/09/17 05/09/17 Previous Rx's Medication Instructions Recorded Clopidogrel [Plavix] 75 mg PO DAILY #30 tablet 04/07/15 amLODIPine [Norvasc] 10 mg PO DAILY #30 tab 03/23/17 Azithromycin [Zithromax] 500 mg PO Q24H #1 tablet 05/12/17 Cefdinir [Omnicef] 300 mg PO DAILY #7 capsule 05/12/17 Allergies Allergy/AdvReac Type Severity Reaction Status Date / Time metronidazole [From Flagyl] Allergy Severe Swelling Verified 08/20/17 21:57 of Lip/Tongue/Throat Iodinated Contrast- Oral and Allergy Swelling Verified 08/20/17 21:57 IV Dye of [Iodinated Contrast Media - Lip/Tongue/Throat IV Dye] All systems ED: reviewed and negative except as stated. Constitutional: Reports: fever, chills, weakness Cardiovascular: Reports: dyspnea on exertion. Denies: chest pain, palpitations Respiratory: Reports: cough, wheezes. Denies: dyspnea Gastrointestinal: Reports: abdominal pain, nausea, diarrhea, hematochezia. Denies: vomiting Genitourinary: Reports: urgency, frequency. 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 - Social History Smoking Status: Former smoker Smokeless Tobacco Status: No Alcohol use: Reports: none, occasionally Drug use: Reports: none Physical Exam General: Well appearing, nontoxic, no acute distress Head: Normocephalic Atraumatic Eyes: PERRL, EOMI ENT: Airway patent, no stridor Neck: supple, no meningismus Chest: Lungs clear to auscultation bilateral Cardiac: Regular rate and rhythm, no murmurs, rubs or gallops Abdomen: soft, mild tenderness left lower quadrant and suprapubic region nondistended; no guarding, rebound, or tenderness to percussion Rectal exam: Small external hemorrhoid. No gross blood Musculoskeletal: Calves symmetric, nontender, no palpable cord Skin: No rash, normal skin tone Neuro: Alert and Oriented to person, place, and time; No focal deficit, CN 2-12 symmetric and intact - General General appearance: alert, in no apparent distress Course - Reevaluation(s) Reevaluation #1: Patient has significant urinary tract infection. AK I. Hemoccult stools positive. Was not grossly positive but Hemoccult positive. Near syncope. Patient does not have significantly low hemoglobin. Patient will need further antibiotics. Previous cultures evaluated and Escherichia coli that is sensitive to cephalosporins. Patient's blood pressure has improved during her stay. Patient is stable at this time. - Consultations Consultation #1: Discussed with hospitalist. Patient accepted for admission. Vital Signs Temperature 98.9 F 08/20/17 21:53 Pulse Rate 101 08/20/17 21:53 Respiratory Rate 16 08/20/17 21:53 Blood Pressure 139/81 08/20/17 21:53 O2 Sat by Pulse Oximetry 97 08/20/17 21:53 Temperature 98.9 F 08/20/17 21:53 Pulse Rate 88 08/20/17 22:56 Respiratory Rate 18 08/20/17 22:56 Blood Pressure 110/65 08/20/17 22:56 O2 Sat by Pulse Oximetry 94 08/20/17 22:56 Oxygen Delivery Oxygen Delivery Room Air Medical Decision Making - Medical Records Medical records reviewed: Yes I reviewed the patient's medical records. - Lab Data Result diagrams: 08/20/17 22:35 08/20/17 22:35 Lab Results 08/20/17 08/20/17 08/20/17 Range/Units 22:13 22:35 22:35 WBC 11.0 (4.3-11.1) K/mcL RBC 4.01 (3.82-4.97) M/mcL Hgb 11.6 (11.5-15.4) g/dL Hct 35.6 (35.3-44.9) % MCV 88.8 (83.0-100.0) fL MCH 28.9 (28.0-33.3) pg MCHC 32.6 (31.6-35.5) g/dL RDW 13.4 (11.5-14.5) % Plt Count 542 H (140-400) K/mcL MPV 8.9 L (9.4-12.4) fL Immature Gran % 0.5 (0-4) % Seg Neutrophils % 82.9 % Lymphocytes % 6.9 % Monocytes % 7.9 % Eosinophils % 1.4 % Basophils % 0.4 % Neutrophils # 9.1 H (1.6-8.9) K/mcL Lymphocytes # 0.8 (0.6-4.6) K/mcL Monocytes # 0.9 (0.0-1.3) K/mcL Eosinophils # 0.2 (0.0-0.6) K/mcL Basophils # 0.0 (0.0-0.2) K/mcL PT (9.4-12.1) Seconds INR Sodium 133 L (136-145) mEq/L Potassium 4.4 (3.5-5.1) mEq/L Chloride 100 (98-107) mEq/L Carbon Dioxide 25 (23-29) mEq/L BUN 27 H (8-23) mg/dL Creatinine 2.09 H (0.60-1.20) mg/dL Est GFR ( Amer) 28 L (> 60) Est GFR (Non-Af Amer) 23 L (> 60) BUN/Creatinine Ratio 13 (6-26) Glucose 128 H (70-105) mg/dL Calculated Osmolality 283 (280-300) Lactic Acid (0.5-2.2) mmol/L Calcium 9.4 (8.6-10.3) mg/dL Total Bilirubin 0.7 (0.3-1.0) mg/dL Direct Bilirubin 0.3 H (0.0-0.2) mg/dL Indirect Bilirubin 0.4 (0.0-1.2) mg/dL AST 25 (13-39) Units/L ALT 23 (7-52) Units/L Alkaline Phosphatase 51 (34-104) Units/L Troponin I (< 0.04) ng/mL Serum Total Protein 7.1 (6.4-8.9) g/dL Albumin 3.9 (3.5-5.7) g/dL Globulin 3.2 (2.4-3.5) g/dL Albumin/Globulin Ratio 1.2 (1.1-2.2) TSH (0.340-5.600) mcIU/mL Urine Color (Yellow) Urine Clarity (Clear) Urine pH (5.0-8.0) pH Units Ur Specific [place] (1.010-1.025) Urine Protein (Neg-Trace) mg/dL Urine Glucose (UA) (Normal) mg/dL Urine Ketones (Negative) mg/dL Urine Blood (Negative) Urine Nitrite (Negative) Urine Bilirubin (Negative) Urine Urobilinogen (Normal) mg/dL Ur Leukocyte Esterase (Negative) Urine Microscopic RBC (0-3) per hpf Urine Microscopic WBC (0-3) per hpf Ur Squamous Epith Cells (None-Few) per lpf Urine Bacteria (None-Few) per hpf Hyaline Casts (None-Few) per lpf Ur Culture Indicated? (NO) Stool Occult Blood Positive A (Negative) Blood Type Antibody Screen 08/20/17 08/20/17 08/20/17 Range/Units 22:35 22:35 22:35 WBC (4.3-11.1) K/mcL RBC (3.82-4.97) M/mcL Hgb (11.5-15.4) g/dL Hct (35.3-44.9) % MCV (83.0-100.0) fL MCH (28.0-33.3) pg MCHC (31.6-35.5) g/dL RDW (11.5-14.5) % Plt Count (140-400) K/mcL MPV (9.4-12.4) fL Immature Gran % (0-4) % Seg Neutrophils % % Lymphocytes % % Monocytes % % Eosinophils % % Basophils % % Neutrophils # (1.6-8.9) K/mcL Lymphocytes # (0.6-4.6) K/mcL Monocytes # (0.0-1.3) K/mcL Eosinophils # (0.0-0.6) K/mcL Basophils # (0.0-0.2) K/mcL PT 13.1 H (9.4-12.1) Seconds INR 1.2 Sodium (136-145) mEq/L Potassium (3.5-5.1) mEq/L Chloride (98-107) mEq/L Carbon Dioxide (23-29) mEq/L BUN (8-23) mg/dL Creatinine (0.60-1.20) mg/dL Est GFR ( Amer) (> 60) Est GFR (Non-Af Amer) (> 60) BUN/Creatinine Ratio (6-26) Glucose (70-105) mg/dL Calculated Osmolality (280-300) Lactic Acid 1.7 (0.5-2.2) mmol/L Calcium (8.6-10.3) mg/dL Total Bilirubin (0.3-1.0) mg/dL Direct Bilirubin (0.0-0.2) mg/dL Indirect Bilirubin (0.0-1.2) mg/dL AST (13-39) Units/L ALT (7-52) Units/L Alkaline Phosphatase (34-104) Units/L Troponin I < 0.03 (< 0.04) ng/mL Serum Total Protein (6.4-8.9) g/dL Albumin (3.5-5.7) g/dL Globulin (2.4-3.5) g/dL Albumin/Globulin Ratio (1.1-2.2) TSH (0.340-5.600) mcIU/mL Urine Color (Yellow) Urine Clarity (Clear) Urine pH (5.0-8.0) pH Units Ur Specific [place] (1.010-1.025) Urine Protein (Neg-Trace) mg/dL Urine Glucose (UA) (Normal) mg/dL Urine Ketones (Negative) mg/dL Urine Blood (Negative) Urine Nitrite (Negative) Urine Bilirubin (Negative) Urine Urobilinogen (Normal) mg/dL Ur Leukocyte Esterase (Negative) Urine Microscopic RBC (0-3) per hpf Urine Microscopic WBC (0-3) per hpf Ur Squamous Epith Cells (None-Few) per lpf Urine Bacteria (None-Few) per hpf Hyaline Casts (None-Few) per lpf Ur Culture Indicated? (NO) Stool Occult Blood (Negative) Blood Type Antibody Screen 08/20/17 08/20/17 08/20/17 Range/Units 22:35 22:35 23:50 WBC (4.3-11.1) K/mcL RBC (3.82-4.97) M/mcL Hgb (11.5-15.4) g/dL Hct (35.3-44.9) % MCV (83.0-100.0) fL MCH (28.0-33.3) pg MCHC (31.6-35.5) g/dL RDW (11.5-14.5) % Plt Count (140-400) K/mcL MPV (9.4-12.4) fL Immature Gran % (0-4) % Seg Neutrophils % % Lymphocytes % % Monocytes % % Eosinophils % % Basophils % % Neutrophils # (1.6-8.9) K/mcL Lymphocytes # (0.6-4.6) K/mcL Monocytes # (0.0-1.3) K/mcL Eosinophils # (0.0-0.6) K/mcL Basophils # (0.0-0.2) K/mcL PT (9.4-12.1) Seconds INR Sodium (136-145) mEq/L Potassium (3.5-5.1) mEq/L Chloride (98-107) mEq/L Carbon Dioxide (23-29) mEq/L BUN (8-23) mg/dL Creatinine (0.60-1.20) mg/dL Est GFR ( Amer) (> 60) Est GFR (Non-Af Amer) (> 60) BUN/Creatinine Ratio (6-26) Glucose (70-105) mg/dL Calculated Osmolality (280-300) Lactic Acid (0.5-2.2) mmol/L Calcium (8.6-10.3) mg/dL Total Bilirubin (0.3-1.0) mg/dL Direct Bilirubin (0.0-0.2) mg/dL Indirect Bilirubin (0.0-1.2) mg/dL AST (13-39) Units/L ALT (7-52) Units/L Alkaline Phosphatase (34-104) Units/L Troponin I (< 0.04) ng/mL Serum Total Protein (6.4-8.9) g/dL Albumin (3.5-5.7) g/dL Globulin (2.4-3.5) g/dL Albumin/Globulin Ratio (1.1-2.2) TSH 0.304 L (0.340-5.600) mcIU/mL Urine Color Yellow (Yellow) Urine Clarity Cloudy A (Clear) Urine pH 7.0 (5.0-8.0) pH Units Ur Specific [place] 1.016 (1.010-1.025) Urine Protein 100 H (Neg-Trace) mg/dL Urine Glucose (UA) Normal (Normal) mg/dL Urine Ketones Negative (Negative) mg/dL Urine Blood Trace H (Negative) Urine Nitrite Positive A (Negative) Urine Bilirubin Negative (Negative) Urine Urobilinogen Normal (Normal) mg/dL Ur Leukocyte Esterase Large H (Negative) Urine Microscopic RBC 5-15 H (0-3) per hpf Urine Microscopic WBC TNTC H (0-3) per hpf Ur Squamous Epith Cells Many H (None-Few) per lpf Urine Bacteria Many H (None-Few) per hpf Hyaline Casts None Seen (None-Few) per lpf Ur Culture Indicated? NO. (NO) Stool Occult Blood (Negative) Blood Type A POSITIVE Antibody Screen NEGATIVE - EKG Data EKG #1 EKG attestation: Yes I reviewed and interpreted this EKG. EKG results narrative: EKG shows ventricular rate of 99. VT 145. QRS 109. QTC 399. Patient has no significant ST elevations or depressions. Attestation Statement - Attestation Attestation: I Dr Ravi examined this patient and my medical decision-making was reviewed with the Resident Physician. I agree with the documented findings, disposition and treatment plan as described except to the extent set forth below. pt will be admitted for near syncope, abd pain, weakness. she looks well at this time. no distress. taking po fine.
[2017-08-20 22:45] LABS: Basophils % 0.4 %; Eosinophils # 0.2 K/mcL (0.0-0.6); Eosinophils % 1.4 %; Hematocrit 35.6 % (35.3-44.9); Hemoglobin 11.6 g/dL (11.5-15.4); Immature Granulocytes % 0.5 % (0-4); Lymphocytes # 0.8 K/mcL (0.6-4.6); Lymphocytes % 6.9 %; Mean Corpuscular HGB Conc 32.6 g/dL (31.6-35.5); Mean Corpuscular Hemoglobin 28.9 pg (28.0-33.3); Mean Corpuscular Volume 88.8 fL (83.0-100.0); Mean Platelet Volume 8.9 fL (9.4-12.4); Monocytes # 0.9 K/mcL (0.0-1.3); Monocytes % 7.9 %; Neutrophils # 9.1 K/mcL (1.6-8.9); Platelet Count 542 K/mcL (140-400); Red Blood Count 4.01 M/mcL (3.82-4.97); Red Cell Distribution Width 13.4 % (11.5-14.5); Segmented Neutrophils % 82.9 %
[2017-08-20 22:50] LABS: INR 1.2; Prothrombin Time 13.1 Seconds (9.4-12.1)
[2017-08-20 23:07] LABS: Albumin 3.9 g/dL (3.5-5.7); Albumin/Globulin Ratio 1.2 (1.1-2.2); Bilirubin,Direct 0.3 mg/dL (0.0-0.2); Bilirubin,Indirect 0.4 mg/dL (0.0-1.2); Bilirubin,Total 0.7 mg/dL (0.3-1.0); Calcium 9.4 mg/dL (8.6-10.3); Globulin 3.2 g/dL (2.4-3.5); Potassium 4.4 mEq/L (3.5-5.1); Total Protein 7.1 g/dL (6.4-8.9)
[2017-08-21 00:06] LABS: Bilirubin,Urine Negative (Negative); Blood,Urine Trace (Negative); Clarity,Urine Cloudy (Clear); Color,Urine Yellow (Yellow); Glucose,Urine (UA) Normal (Normal); Ketones,Urine Negative (Negative); Leukocyte Esterase,Urine Large (Negative); Nitrite,Urine Positive (Negative); Protein,Urine 100 mg/dL (Neg-Trace); Specific Gravity,Urine 1.016 (1.010-1.025); Urobilinogen,Urine Normal (Normal)
[2017-08-21 00:13] LABS: Bacteria,Urine Many per hpf (None-Few); Hyaline Casts,Urine None Seen per lpf (None-Few); Squamous Epithelial Cell,Urine Many per lpf (None-Few); WBC,Urine TNTC per hpf (0-3)
[2017-08-21] MEDS ORDERED: cefTRIAXone 1,000 MG in Water for inj. (sterile) 10 ML IVP STA (00:18)
[2017-08-21] MEDS ORDERED: Naloxone 0.4 MG/ML INJ IVP PRN (01:37)
[2017-08-21] MEDS ORDERED: Acetaminophen 325 MG TABLET PO PRN (01:37)
[2017-08-21] MEDS ORDERED: Ipratropium/Albuterol Neb 3 ML IH PRN (01:40)
--- NOTE | 2017-08-21 01:45 | Internal Med History&Physical ---
Date of Encounter: 08/21/17 Time of Encounter: 02:01 Assessment and Plan (1) UTI (urinary tract infection) Current visit: Yes Status: Acute empiric rocephin IV commenced in the ED will add urine cx, does not appear to have been sent in the ED IVF further antibiotics management pending urine, blood cx Qualifiers: Urinary tract infection type: site unspecified Hematuria presence: with hematuria Qualified Code(s): N39.0 - Urinary tract infection, site not specified; R31.9 - Hematuria, unspecified; R31.9 - Hematuria, unspecified (2) Fever Current visit: No Status: Acute send RVP given prodromal symptoms of cough blood and urine cx pend Qualifiers: Fever type: due to other condition Qualified Code(s): R50.81 - Fever presenting with conditions classified elsewhere (3) Acute bronchitis Current visit: Yes Status: Acute duonebs decongestants as she is feeling congested Qualifiers: Qualified Code(s): J20.9 - Acute bronchitis, unspecified (4) Blood per rectum Current visit: Yes Status: Acute suspect related to constipation and hemorrhoid. Close monitoring inpatient. Consider anusol suppositories if recurrent Optimize PO agents against constipation follow clinically recheck Hb tomorrow (5) HTN (hypertension) Current visit: No Status: Chronic continue med Qualifiers: Hypertension type: essential hypertension Qualified Code(s): I10 - Essential (primary) hypertension (6) Hypothyroidism Current visit: No Status: Chronic continue med Qualifiers: Hypothyroidism type: acquired Qualified Code(s): E03.9 - Hypothyroidism, unspecified (7) CKD (chronic kidney disease) stage 3, GFR 30-59 ml/min Current visit: Yes Status: Acute watch for now (8) CAD (coronary artery disease) Current visit: No Status: Acute Qualifiers: Coronary Disease-Associated Artery/Lesion type: [place] artery Qualified Code(s): I25.10 - Atherosclerotic heart disease of [place] coronary artery without angina pectoris Internal Medicine - H&P: HPI Chief complaint: fever/chills, left side abdo discomfort, URI History of present illness: Ms. Gallardo is a 76 year old female who is presenting with non-specific symptoms of fever all day to 101.7 with chills. This was associated with some left side abdominal discomfort and constipation with red blood CO after 2nd episode of painful BM this morning - she reports a hx of hemorrhoid had has chronic constipation. She also reports prodromal 1 week hx of URI symptoms with coughing productive of yellow sputum and nausea associated with cough. On review, she reports chronic urinary frequency and denies overt dysuria. She tells me she visits the hospital at least once every month. Due to fever, sepsis screen in the ED was suggestive of possible UTI although patient does not have overt LUTs which may be confounded by her early presentation. EKG personally reviewed with rate 99, NSR, incomplete RBBB CT/CT abd pelvis wo no iv no oral IMPRESSION: 1. Persistent but decreased nonspecific right greater than left perinephric stranding. Findings are nonspecific. Additional nonspecific bladder wall thickening. Correlation for cystitis/pyelonephritis with urinalysis recommended. No hydronephrosis or nephrolithiasis. 2. Otherwise no acute findings. 3. Sigmoid diverticulosis without evidence of diverticulitis. 4. The appendix is not visualized. No significant inflammatory changes in the right lower quadrant to suggest acute appendicitis. 5. Stable fusiform infrarenal aortic aneurysm measuring 3.8 x 4.2 cm. XR/XR chest 1V portable IMPRESSION: No acute cardiopulmonary abnormality. Past Med Surg Social Fam HX - Past Medical History Medical history: aortic aneurysm, coronary artery disease, hyperlipidemia, hypertension Psychiatric history: no psych history - Past Surgical History Surgical History: angioplasty/stent, cholecystectomy, hysterectomy - Social History Smoking Status: Former smoker Smokeless Tobacco Status: No Alcohol use: none, occasionally Drug use: none - Family History Mother Living Status: Hx Family Cardiac Disorders: No Hx Family Respiratory Disorders: Yes Hx Family Cancer: No Hx Family GI Disorders: No Hx Family Endocrine Disorder: No Hx Family Neuromuscular Disorders: No Hx Family Neurologic Disorders: No Hx Family HEENT Disorders: No Hx Family Autoimmune Disorders: No Father Living Status: Hx Family Cardiac Disorders: Yes Hx Family Respiratory Disorders: No Hx Family Cancer: No Hx Family GI Disorders: No Hx Family Endocrine Disorder: Yes (Diabetes) Hx Family Neuromuscular Disorders: No Hx Family Neurologic Disorders: Yes (BIPOLAR) Hx Family HEENT Disorders: No Hx Family Autoimmune Disorders: No Grandmother Hx Family Cardiac Disorders: Yes Internal Medicine - H&P: Meds Clopidogrel [Plavix] 75 mg PO DAILY #30 tablet 04/07/15 [Rx] Levothyroxine [Synthroid] 112 mcg PO DAILY 09/26/16 [History] Fenofibrate Nanocrystallized [Tricor] 48 mg PO DAILY 12/16/16 [History] Valsartan/Hydrochlorothiazide [Diovan Hct 320-12.5 mg Tab] 1 each PO DAILY 12/16 [History] Atorvastatin [Lipitor] 40 mg PO HS 03/20/17 [History] Docusate Sodium [Dok] 100 mg PO DAILY PRN 03/20/17 [History] Esomeprazole Magnesium [Nexium] 40 mg PO DAILY 03/20/17 [History] cloNIDine HCl [CloNIDine HCl] 0.1 mg PO BID 03/20/17 [History] amLODIPine [Norvasc] 10 mg PO DAILY #30 tab 03/23/17 [Rx] Amitriptyline [Elavil] 25 mg PO HS 05/09/17 [History] Carvedilol 3.125 mg PO BID 05/09/17 [History] Cyclobenzaprine HCl 5 mg PO BID PRN 05/09/17 [History] Azithromycin [Zithromax] 500 mg PO Q24H #1 tablet 05/12/17 [Rx] Cefdinir [Omnicef] 300 mg PO DAILY #7 capsule 05/12/17 [Rx] 3 Allergy/AdvReac Type Severity Reaction Status Date / Time metronidazole [From Flagyl] Allergy Severe Swelling Verified 08/20/17 21:57 of Lip/Tongue/Throat Iodinated Contrast- Oral and Allergy Swelling Verified 08/20/17 21:57 IV Dye of [Iodinated Contrast Media - Lip/Tongue/Throat IV Dye] All Systems PM: A 10-system review of systems was performed and is negative for pertinent findings except as documented above in the HPI. - Constitutional Vitals: Temp Pulse Resp BP Pulse Ox 98.9 F 75 18 110/64 98 08/20/17 21:53 08/21/17 00:56 08/21/17 00:56 08/21/17 00:56 08/21/17 00:56 Internal Med - H&P Results - Labs CBC & Chem 7: 08/20/17 22:35 08/20/17 22:35 Labs: Short CBC 08/20/17 Range/Units 22:35 WBC 11.0 (4.3-11.1) K/mcL Hgb 11.6 (11.5-15.4) g/dL Hct 35.6 (35.3-44.9) % Plt Count 542 H (140-400) K/mcL Neutrophils # 9.1 H (1.6-8.9) K/mcL BMP 08/20/17 22:35 Sodium 133 L Potassium 4.4 Chloride 100 Carbon Dioxide 25 BUN 27 H Creatinine 2.09 H Glucose 128 H Calcium 9.4 Cardiac Enzymes 08/20/17 Range/Units 22:35 Troponin I < 0.03 (< 0.04) ng/mL Liver Function 08/20/17 Range/Units 22:35 Total Bilirubin 0.7 (0.3-1.0) mg/dL Direct Bilirubin 0.3 H (0.0-0.2) mg/dL AST 25 (13-39) Units/L ALT 23 (7-52) Units/L Alkaline Phosphatase 51 (34-104) Units/L Albumin 3.9 (3.5-5.7) g/dL Urine 08/20/17 Range/Units 23:50 Urine Color Yellow (Yellow) Urine Clarity Cloudy A (Clear) Urine pH 7.0 (5.0-8.0) pH Units Ur Specific [place] 1.016 (1.010-1.025) Urine Protein 100 H (Neg-Trace) mg/dL Urine Glucose (UA) Normal (Normal) mg/dL - Impressions ITS Impressions Chest X-Ray 08/20/17 22:00 IMPRESSION: No acute cardiopulmonary abnormality. D/ / Jose Cardoso / Jose Cardoso Interpreting Provider: Jose Cardoso Abdomen/Pelvis CT 08/20/17 22:15 IMPRESSION: 1. Persistent but decreased nonspecific right greater than left perinephric stranding. Findings are nonspecific. Additional nonspecific bladder wall thickening. Correlation for cystitis/pyelonephritis with urinalysis recommended. No hydronephrosis or nephrolithiasis. 2. Otherwise no acute findings. 3. Sigmoid diverticulosis without evidence of diverticulitis. 4. The appendix is not visualized. No significant inflammatory changes in the right lower quadrant to suggest acute appendicitis. 5. Stable fusiform infrarenal aortic aneurysm measuring 3.8 x 4.2 cm. RECOMMENDATIONS: Managing Abdominal Aortic Aneurysms 2.6-2.9 cm: Every 5 years* 3.0-3.4 cm: Every 3 years. 3.5-3.9 cm: Every 1 year. 4.0-4.4 cm: Every 1 year. Recommend vascular consultation. 4.5-5.4 cm: Every 6 months. Recommend vascular consultation. Greater than or equal to 5.5 cm: Referral to vascular surgeon. *For abdominal aortas with maximum diameter of 2.6-2.9 cm meeting criteria for AAA (>50% of proximal normal segment). Reference: J Vasc Surg. 2009 Apr;50(4 Suppl):S2-49 D/ / 08/20/2017 23:21:28 Jeromy Dominguez MD / laina Interpreting Provider: Jeromy Dominguez MD
[2017-08-21] MEDS: Ringers Solution, Lactated 1,000 ML IVC SCH ×2 (03:00→13:19)
[2017-08-21 06:06] LABS: Adenovirus Not Detected (Not Detect); Bordetella Pertussis Not Detected (Not Detect); Chlamydophila pneumoniae Not Detected (Not Detect); Coronavirus 229E Not Detected (Not Detect); Coronavirus HKU1 Not Detected (Not Detect); Coronavirus NL63 Not Detected (Not Detect); Coronavirus OC43 Not Detected (Not Detect); Human Metapneumovirus Not Detected (Not Detect); Human Rhinovirus/Enterovirus Not Detected (Not Detect); Influenza A Subtype 2009 H1 Not Detected (Not Detect); Influenza A Untypeable Not Detected (Not Detect); Influenza B Not Detected (Not Detect); Mycoplasma pneumoniae Not Detected (Not Detect); Parainfluenza Virus 1 Not Detected (Not Detect); Parainfluenza Virus 2 Not Detected (Not Detect); Parainfluenza Virus 3 Not Detected (Not Detect); Parainfluenza Virus 4 Not Detected (Not Detect); Respiratory Syncytial Virus Not Detected (Not Detect)
--- NOTE | 2017-08-21 07:50 | Electrocardiograph Report ---
[place] [id number] Test Date: 2017-08-20 Pat Name: Izabela Gallardo Department: 104 Room: 3B Gender: F Heeler Machine: : 1940 Requested By: Wilfredo Ravi Order Number: [id number] Reading MD: Jw Post MD Measurements Intervals [place] Rate: 99 P: 18 PA: 145 QRS: -68 QRSD: 109 T: 44 QT: 343 QTc: 399 Interpretive Statements SINUS RHYTHM INCOMPLETE RIGHT BUNDLE BRANCH BLOCK LEFT ANTERIOR FASCICULAR BLOCK Electronically Signed On 08-21-2017 7:49:00 EST by Jw Post MD
[2017-08-21] MEDS: GuaiFENesin/Dextromethorphan TABLET PO SCH ×3 (08:01→20:58)
[2017-08-21] MEDS: Ipratropium/Albuterol Neb 3 ML IH SCH ×4 (08:01→22:16)
[2017-08-21] MEDS: cloNIDine HCl 0.1 MG TABLET PO SCH ×2 (08:21→20:58)
[2017-08-21] MEDS: Valsartan 160 MG TABLET PO SCH (08:21)
[2017-08-21] MEDS: amLODIPine 5 MG TABLET PO SCH (08:21)
[2017-08-21] MEDS: Fenofibrate 54 MG TABLET PO SCH (08:21)
[2017-08-21] MEDS: *HR* Heparin 5,000 UNIT/ML VIAL SQ SCH ×3 (08:22→20:58)
[2017-08-21] MEDS: hydroCHLOROthiazide 25 MG TABLET PO SCH (08:23)
[2017-08-21] MEDS ORDERED: NON-FORMULARY MEDICATION 1 EACH EACH (Valsartan/Hydrochlorothiazide [Diovan Hct 320-12.5 M PO SCH (09:00)
--- NOTE | 2017-08-21 15:02 | Event Note ---
Date of Encounter: 08/21/17 Time of Encounter: 10:30 Pt seen and examined at bedside. Agree w H&P per hospitalist likely UTI - continue rocephin . follow cultures. Pt does endorse multiple Ecoli UTIs in past Blood on tissue after wiping post a BM- indicative of fissure vs hemorrhoid . now ceased Rest as in H&P
[2017-08-21] MEDS: Melatonin 3 MG TABLET PO SCH (22:22)
[2017-08-22] MEDS: Ipratropium/Albuterol Neb 3 ML IH SCH ×4 (03:54→23:33)
[2017-08-22] MEDS: cefTRIAXone 1,000 MG in Water for inj. (sterile) 20 ML 10 ML IVPB SCH (04:15)
[2017-08-22] MEDS: *HR* Heparin 5,000 UNIT/ML VIAL SQ SCH ×3 (05:40→22:14)
[2017-08-22 06:14] LABS: Basophils % 0.4 %; Eosinophils # 0.1 K/mcL (0.0-0.6); Eosinophils % 1.3 %; Hematocrit 30.4 % (35.3-44.9); Hemoglobin 9.9 g/dL (11.5-15.4); Immature Granulocytes % 0.4 % (0-4); Lymphocytes # 1.5 K/mcL (0.6-4.6); Lymphocytes % 19.3 %; Mean Corpuscular HGB Conc 32.6 g/dL (31.6-35.5); Mean Corpuscular Hemoglobin 28.7 pg (28.0-33.3); Mean Corpuscular Volume 88.1 fL (83.0-100.0); Mean Platelet Volume 9.2 fL (9.4-12.4); Monocytes % 12.8 %; Neutrophils # 5.2 K/mcL (1.6-8.9); Platelet Count 439 K/mcL (140-400); Red Blood Count 3.45 M/mcL (3.82-4.97); Red Cell Distribution Width 13.6 % (11.5-14.5); Segmented Neutrophils % 65.8 %
[2017-08-22 06:30] LABS: Magnesium 2.1 mg/dL (1.6-2.6); Potassium 3.8 mEq/L (3.5-5.1)
[2017-08-22] MEDS: Fenofibrate 54 MG TABLET PO SCH (09:44)
[2017-08-22] MEDS: hydroCHLOROthiazide 25 MG TABLET PO SCH (09:44)
[2017-08-22] MEDS: GuaiFENesin/Dextromethorphan TABLET PO SCH ×2 (09:44→20:04)
[2017-08-22] MEDS: amLODIPine 5 MG TABLET PO SCH (09:44)
[2017-08-22] MEDS: Valsartan 160 MG TABLET PO SCH (09:44)
[2017-08-22] MEDS: cloNIDine HCl 0.1 MG TABLET PO SCH ×2 (09:44→20:04)
--- NOTE | 2017-08-22 14:31 | Internal Med Progress Note ---
Date of Encounter: 08/22/17 Time of Encounter: 11:00 - Assessment and plan (1) Acute on chronic renal failure Current Visit: Yes Status: Acute Assessment and plan: Acute or chronic kidney disease stage III Improving w IVF Continue Hydration and monitor BMP tomorrow Qualifiers: Acute renal failure type: unspecified Chronic kidney disease stage: stage 3 (moderate) Qualified Code(s): N17.9 - Acute kidney failure, unspecified; N18.3 - Chronic kidney disease, stage 3 (moderate); N18.3 - Chronic kidney disease, stage 3 (moderate) (2) Blood per rectum Current Visit: Yes Status: Resolved Assessment and plan: Most likely from fissure vs hemorrhoidal- resolved now. Hgb mildly decreased to 9.9 but could be dilutional. (3) UTI (urinary tract infection) Current Visit: No Status: Acute Assessment and plan: UCx - > [id number] GNR C&S pending Blood Cx- NGTD on rocephin given she has had multiple UTIs w Ecoli, would need to closely follow Urine Cx to look for resistance pattern If chang sensitive, would recommend short ( 5 days total ) course upon DC Qualifiers: Urinary tract infection type: acute cystitis Hematuria presence: without hematuria Qualified Code(s): N30.00 - Acute cystitis without hematuria - Time Spent With Patient Greater than 35 minutes (More than 50% time for Face to face counselling) - Subjective Interval history: Feels very weak. noticing chills off and on - Constitutional Vitals: Temp Pulse Resp BP Pulse Ox 98.4 F 68 16 147/74 95 08/22/17 11:33 08/22/17 11:33 08/22/17 11:33 08/22/17 11:33 08/22/17 11:33 Exam: General , Alert , oriented, feels weak HEENT- PERRLA. EOMI CVS- S1S2 N, No Murmurs, Rubs, gallops, No JVD RS- CTA Bilaterally. No rales no Rhonchi heard Abdomen- Soft NT ND, bowel sounds heard across all 4 quadrants Neuro- No Focal deficits appreciated, CN 2-12 intact, Motors- power 5/5 UE, 5/5 LE Bilaterally, Sensations intact Extremeties- no Clubbing/ edema/ wounds seen Internal Medicine: Result - Labs CBC & Chem 7: 08/22/17 05:34 08/22/17 05:34 Labs: Short CBC 08/22/17 Range/Units 05:34 WBC 7.8 (4.3-11.1) K/mcL Hgb 9.9 L D (11.5-15.4) g/dL Hct 30.4 L (35.3-44.9) % Plt Count 439 H (140-400) K/mcL Neutrophils # 5.2 (1.6-8.9) K/mcL BMP 08/22/17 05:34 Sodium 134 L Potassium 3.8 Chloride 104 Carbon Dioxide 24 BUN 23 Creatinine 1.84 H Glucose 127 H Calcium 9.0 - ABG Interpretation ABG results: PT/INR, D-dimer PT 13.1 Seconds (9.4-12.1) H 08/20/17 22:35 Consult Discharge Plan - Plan Referrals: Homa Mary, LIQUID LOADER [Primary Care Provider] -
[2017-08-22] MEDS: Melatonin 3 MG TABLET PO SCH (22:14)
[2017-08-23] MEDS: cefTRIAXone 1,000 MG in Water for inj. (sterile) 20 ML 10 ML IVPB SCH (00:11)
[2017-08-23] MEDS: Ipratropium/Albuterol Neb 3 ML IH SCH ×4 (03:54→23:27)
[2017-08-23] MEDS: *HR* Heparin 5,000 UNIT/ML VIAL SQ SCH ×3 (05:27→20:40)
[2017-08-23] MEDS: cloNIDine HCl 0.1 MG TABLET PO SCH ×2 (08:17→20:37)
[2017-08-23] MEDS: Valsartan 160 MG TABLET PO SCH (08:17)
[2017-08-23] MEDS: hydroCHLOROthiazide 25 MG TABLET PO SCH (08:17)
[2017-08-23] MEDS: amLODIPine 5 MG TABLET PO SCH (08:18)
[2017-08-23] MEDS: Fenofibrate 54 MG TABLET PO SCH (08:18)
[2017-08-23] MEDS: GuaiFENesin/Dextromethorphan TABLET PO SCH ×2 (08:18→20:36)
[2017-08-23] MEDS ORDERED: GuaiFENesin Liq 200 MG/10 ML UDC PO PRN (14:57)
[2017-08-23 15:05] LABS: Basophils % 0.6 %; Eosinophils # 0.4 K/mcL (0.0-0.6); Eosinophils % 5.8 %; Hematocrit 33.8 % (35.3-44.9); Hemoglobin 10.8 g/dL (11.5-15.4); Immature Granulocytes % 0.3 % (0-4); Lymphocytes # 1.5 K/mcL (0.6-4.6); Lymphocytes % 22.6 %; Mean Corpuscular Hemoglobin 28.5 pg (28.0-33.3); Mean Corpuscular Volume 89.2 fL (83.0-100.0); Mean Platelet Volume 8.9 fL (9.4-12.4); Monocytes # 0.9 K/mcL (0.0-1.3); Monocytes % 14.2 %; Neutrophils # 3.7 K/mcL (1.6-8.9); Platelet Count 523 K/mcL (140-400); Red Blood Count 3.79 M/mcL (3.82-4.97); Red Cell Distribution Width 13.4 % (11.5-14.5); Segmented Neutrophils % 56.5 %
--- NOTE | 2017-08-23 17:18 | Internal Med Progress Note ---
Date of Encounter: 08/23/17 Time of Encounter: 13:15 - Assessment and plan (1) Acute on chronic renal failure Current Visit: Yes Status: Acute Assessment and plan: Serum creatinine 1.84, GFR 32. This appears to be patient's baseline. Avoid nephrotoxins. Qualifiers: Acute renal failure type: unspecified Chronic kidney disease stage: stage 3 (moderate) Qualified Code(s): N17.9 - Acute kidney failure, unspecified; N18.3 - Chronic kidney disease, stage 3 (moderate); N18.3 - Chronic kidney disease, stage 3 (moderate) (2) UTI (urinary tract infection) Current Visit: Yes Status: Acute Assessment and plan: Final urine culture was positive for Escherichia coli and enterococcus species. Patient was being treated with Rocephin 1 g IV daily. Switched to by mouth Macrobid 100 mg by mouth twice a day, both bacteria were susceptible. Patient reports low back pain, history of low-grade fever, chills, and body aches at home prior to admission. She says the symptoms have resolved. Qualifiers: Urinary tract infection type: site unspecified Hematuria presence: with hematuria Qualified Code(s): N39.0 - Urinary tract infection, site not specified; R31.9 - Hematuria, unspecified; R31.9 - Hematuria, unspecified (3) Blood per rectum Current Visit: Yes Status: Resolved Assessment and plan: Resolved. Hemoglobin has increased to 10.8 from yesterday. (4) DVT prophylaxis Current Visit: No Status: Acute Assessment and plan: Heparin subcutaneous 3 times a day. She is ambulatory in her room. - Time Spent With Patient less than 15 minutes - Subjective Interval history: Patient was seen and assessed at bedside at 1315. He is alert and oriented. She reports low-grade fever at home, chills, body aches, back pain. Reports dyspnea on exertion for last 2-3 months of a nonproductive cough. She denies any abdominal pain, nausea, vomiting, diarrhea, no bright red bleeding per rectum. Denies headache or dizziness, no chest pain or shortness of breath currently at rest. - Constitutional Vitals: Temp Pulse Resp BP Pulse Ox 98.1 F 87 16 163/83 98 08/23/17 15:17 08/23/17 15:17 08/23/17 16:24 08/23/17 15:17 08/23/17 16:24 General appearance: Present: cooperative, A&O X 3, pleasant, no acute distress, answers questions appropriately - Head Head exam: Present: atraumatic, normal inspection, normocephalic - Eye Eye exam: Present: normal appearance, conjuntiva pink, sclera anicteric - Neck Neck exam general surgery: Present: supple, trachea midline. Absent: lymphadenopathy - Respiratory Respiratory exam: Present: CTAB. Absent: accessory muscle use, rales, respiratory distress, rhonchi, wheezes - Cardiovascular Cardiovascular exam: Present: RRR, +S1, +S2. Absent: diastolic murmur, gallop, rubs, systolic murmur - GI/Abdominal GI/Abdominal exam: Present: normal bowel sounds, soft. Absent: distended, hepatomegaly, tenderness - Extremities Exam Extremities exam: Present: warm, radial pulses palpable and symmetrical. Absent : calf tenderness, cyanotic, pedal edema - Neurological Exam Neurological exam: Present: alert, oriented X3, no focal deficits. Absent: facial droop, speech deficit - Skin Skin exam: Present: dry, intact, normal color, warm. Absent: rash Internal Medicine: Result - Labs CBC & Chem 7: 08/23/17 14:44 08/22/17 05:34 Labs: Short CBC 08/23/17 Range/Units 14:44 WBC 6.6 (4.3-11.1) K/mcL Hgb 10.8 L (11.5-15.4) g/dL Hct 33.8 L (35.3-44.9) % Plt Count 523 H (140-400) K/mcL Neutrophils # 3.7 (1.6-8.9) K/mcL - ABG Interpretation ABG results: PT/INR, D-dimer PT 13.1 Seconds (9.4-12.1) H 08/20/17 22:35 Consult Discharge Plan - Plan Referrals: Homa Mary, CARTOGRAPHIC TECHNICIAN [Primary Care Provider] -
[2017-08-23] MEDS: Nitrofurantoin (BID) 100 MG CAPSULE PO SCH (17:59)
[2017-08-23] MEDS: Melatonin 3 MG TABLET PO SCH (20:37)
[2017-08-24] MEDS: Ipratropium/Albuterol Neb 3 ML IH SCH ×3 (04:49→16:16)
[2017-08-24] MEDS: *HR* Heparin 5,000 UNIT/ML VIAL SQ SCH (05:43)
[2017-08-24] MEDS: amLODIPine 5 MG TABLET PO SCH (08:58)
[2017-08-24] MEDS: cloNIDine HCl 0.1 MG TABLET PO SCH (08:58)
[2017-08-24] MEDS: Valsartan 160 MG TABLET PO SCH (08:58)
[2017-08-24] MEDS: Fenofibrate 54 MG TABLET PO SCH (08:59)
[2017-08-24] MEDS: GuaiFENesin/Dextromethorphan TABLET PO SCH (08:59)
[2017-08-24] MEDS: Nitrofurantoin (BID) 100 MG CAPSULE PO SCH ×2 (08:59→18:25)
[2017-08-24] MEDS: hydroCHLOROthiazide 25 MG TABLET PO SCH (09:00)
[2017-08-24 11:04] LABS: Basophils # 0.1 K/mcL (0.0-0.2); Basophils % 0.8 %; Eosinophils # 0.5 K/mcL (0.0-0.6); Eosinophils % 7.3 %; Hematocrit 34.5 % (35.3-44.9); Hemoglobin 10.9 g/dL (11.5-15.4); Immature Granulocytes % 0.8 % (0-4); Lymphocytes # 0.9 K/mcL (0.6-4.6); Lymphocytes % 13.8 %; Mean Corpuscular HGB Conc 31.6 g/dL (31.6-35.5); Mean Corpuscular Hemoglobin 28.2 pg (28.0-33.3); Mean Corpuscular Volume 89.1 fL (83.0-100.0); Mean Platelet Volume 9.2 fL (9.4-12.4); Monocytes # 0.7 K/mcL (0.0-1.3); Monocytes % 11.6 %; Neutrophils # 4.2 K/mcL (1.6-8.9); Platelet Count 544 K/mcL (140-400); Red Blood Count 3.87 M/mcL (3.82-4.97); Red Cell Distribution Width 13.3 % (11.5-14.5); Segmented Neutrophils % 65.7 %
[2017-08-24 11:16] VITALS: BP 133/86
[2017-08-24 11:28] LABS: Calcium 9.5 mg/dL (8.6-10.3); Potassium 3.8 mEq/L (3.5-5.1)
--- NOTE | 2017-08-24 17:37 | Discharge Summary ---
Date of Encounter: 08/24/17 Time of Encounter: 10:50 - Discharge Diagnosis (1) Acute on chronic renal failure Priority: Primary Status: Acute Comments: Improved. Serum creatinine 1.69, GFR 36. This appears to be at patient's baseline. Continue to avoid nephrotoxins and follow with primary care. Qualifiers: Acute renal failure type: unspecified Chronic kidney disease stage: stage 3 (moderate) Qualified Code(s): N17.9 - Acute kidney failure, unspecified; N18.3 - Chronic kidney disease, stage 3 (moderate); N18.3 - Chronic kidney disease, stage 3 (moderate) (2) UTI (urinary tract infection) Priority: Secondary Status: Acute Comments: Final urine culture was positive for Escherichia coli and enterococcus species. Patient was being treated with Rocephin 1 g IV daily. Switched to by mouth Macrobid 100 mg by mouth twice a day, both bacteria were susceptible. Patient reports low back pain, history of low-grade fever, chills, and body aches at home prior to admission. She says the symptoms have resolved. She is afebrile, normotensive, no tachycardia, no leukocytosis. Patient will be sent home with prescription for Macrobid. Qualifiers: Urinary tract infection type: site unspecified Hematuria presence: with hematuria Qualified Code(s): N39.0 - Urinary tract infection, site not specified; R31.9 - Hematuria, unspecified; R31.9 - Hematuria, unspecified (3) Blood per rectum Priority: Secondary Status: Resolved Comments: Resolved. Hemoglobin is stable. (4) DVT prophylaxis Priority: Secondary Status: Acute Comments: Heparin subcutaneous. Patient also has been ambulatory in her room. - Discharge Medications Prescriptions: Fluticasone Propionate Nasal [Flonase] 50 mcg NS DAILY #1 bottle GuaiFENesin/Dextromethorphan [Mucinex Dm] 1 each PO BID PRN #30 tab.er.12h PRN Reason: Cough Loratadine [Claritin] 10 mg PO DAILY #30 tablet Nitrofurantoin (BID) [Macrobid] 100 mg PO BIDWM #12 capsule Home Medications: Levothyroxine [Synthroid] 112 mcg PO DAILY 09/26/16 [History] Fenofibrate Nanocrystallized [Tricor] 48 mg PO DAILY 12/16/16 [History] Atorvastatin [Lipitor] 40 mg PO HS 03/20/17 [History] Docusate Sodium [Dok] 100 mg PO DAILY PRN 03/20/17 [History] Esomeprazole Magnesium [Nexium] 40 mg PO DAILY 03/20/17 [History] cloNIDine HCl [CloNIDine HCl] 0.1 mg PO BID 03/20/17 [History] amLODIPine [Norvasc] 10 mg PO DAILY #30 tab 03/23/17 [Rx] Amitriptyline [Elavil] 25 mg PO HS 05/09/17 [History] Carvedilol 3.125 mg PO BID 05/09/17 [History] Cyclobenzaprine HCl 5 mg PO BID PRN 05/09/17 [History] Valsartan/Hydrochlorothiazide [Diovan Hct 320-25 mg Tablet] 1 tab PO DAILY 08/21 [History] Clopidogrel [Plavix] 75 mg PO DAILY tablet 08/24/17 [Rx] Fluticasone Propionate Nasal [Flonase] 50 mcg NS DAILY #1 bottle 08/24/17 [Rx] GuaiFENesin/Dextromethorphan [Mucinex Dm] 1 each PO BID PRN #30 tab.er.12h 08/24 [Rx] Loratadine [Claritin] 10 mg PO DAILY #30 tablet 08/24/17 [Rx] Nitrofurantoin (BID) [Macrobid] 100 mg PO BIDWM #12 capsule 08/24/17 [Rx] hydroCHLOROthiazide [Hydrochlorothiazide] 12.5 mg PO DAILY tablet 08/24/17 [Rx] Allergies/Adverse Reactions: 3 Allergy/AdvReac Type Severity Reaction Status Date / Time metronidazole [From Flagyl] Allergy Severe Swelling Verified 08/20/17 21:57 of Lip/Tongue/Throat Iodinated Contrast- Oral and Allergy Swelling Verified 08/20/17 21:57 IV Dye of [Iodinated Contrast Media - Lip/Tongue/Throat IV Dye] Procedures/tests Complete & Pending: Procedures Performed prior 72 hours Category Date Time Status EV echocardiogram Routine Y 08/23/17 18:31 Completed Date of admission: 08/21/17 05:53 Primary care physician: Homa Mary CNP Consults: 08/23/17 18:33 Consult to Occupational Therapy [CONS] Routine Comment: Evaluate, develop and implement POC Reason for Consult: Evaluation, please. Consult to Physical Therapy [CONS] Routine Comment: Evaluate, develop and implement POC Reason for Consult: Evalutation 08/23/17 18:34 Consult to Hourly Shift [CONS] Routine Reason for SW Consult: Discharge planning. Pt lives alone at home and only has someone to help her for 2 hours/day. Pt states that her Hoverround in her room on [address] and she was unable to leave her room for 32 days. Pt is unable to ambulate or help herself in any way. Pt should be evaluated to go to [facility]. PT and OT have been consulted, as well. Discharging clinician: Akilah Richey Anticipated date of discharge: 08/24/17 - Patient Status Disposition: Home, Self-Care Condition: Good Functional capacity at discharge: independent ambulation Overall status at discharge: patient is back to baseline - Discharge Instructions Follow Up With: Homa Mary, LOBITO [Primary Care Provider] - Additional Instructions: Please follow up with primary care in the next 7-10 days for recheck. Return to the emergency department as needed for any other problems or concerns , or if symptoms return or worsen. I have sent your prescriptions in to your pharmacy. Return to normal diet and activities as tolerated. Resume your normal home medications. - Diet and Activity Activity: increase activity as tolerated Diet: advance to your usual diet Hospital course: Ms. Gallardo is a 76 year old female with past medical history significant for diverticulitis, AAA, hypothyroidism, hypertension, coronary artery disease, cardiac catheter, anxiety, degenerative disc disease, osteoarthritis, DJD of left AC joint, obesity. Patient presented to emergency room with fatigue, body aches, fever with a MAXIMUM TEMPERATURE of 101.7. She reports chills. She reported some left abdominal discomfort and constipation with bright red blood per rectum. Patient also reports one-week history of URI symptoms with coughing , productive cough with yellow sputum, nausea. She also reports chronic urinary frequency and denies overt dysuria. She was treated for urinary tract infection, enterococcus and Escherichia coli susceptible to Macrobid. She will be sent home with remainder of prescription to continue her corset was started here. She has been afebrile denies chills or any back pain beyond her normal degenerative disc disease pain. Patient denies any more bright red bleeding per rectum since prior to arrival. She also reports chronic cough for 2 months and dyspnea on exertion. Echocardiogram was ordered that showed LVEF of 60% with mild LVEDD, mild concentric LV hypertrophy no significant valvular dysfunction. Patient denies any chest pain and states after all the testing was completed she believes that it is from her URI. Patient will be given Claritin and Flonase for home. She has no fever or chills no leukocytosis noted tachycardia or hypotension. The patient is stable and appropriate for discharge. - Time Spent with Patient Total time spent providing and/or coordinating discharge services: Less than 30 minutes - Constitutional Vitals: Temp Pulse Resp BP Pulse Ox 98.7 F 78 16 133/86 97 08/24/17 11:15 08/24/17 11:15 08/24/17 16:16 08/24/17 11:15 08/24/17 16:16 General appearance: Present: cooperative, A&O X 3, pleasant, no acute distress, answers questions appropriately - Head Head exam: Present: atraumatic, normal inspection, normocephalic - Eye Eye exam: Present: conjuntiva pink, sclera anicteric - Neck Neck exam general surgery: Present: normal inspection, supple, trachea midline. Absent: lymphadenopathy, tenderness - Respiratory Respiratory exam: Present: CTAB. Absent: accessory muscle use, rales, respiratory distress, rhonchi, wheezes - Cardiovascular Cardiovascular exam: Present: RRR, +S1, +S2. Absent: diastolic murmur, gallop, rubs, systolic murmur - GI/Abdominal GI/Abdominal exam: Present: normal bowel sounds, soft. Absent: distended, hepatomegaly, tenderness - Extremities Exam Extremities exam: Present: normal capillary refill, normal inspection, warm, radial pulses palpable and symmetrical. Absent: calf tenderness, cyanotic, pedal edema - Neurological Exam Neurological exam: Present: alert, oriented X3, no focal deficits. Absent: facial droop, speech deficit - Skin Skin exam: Present: dry, intact, normal color, warm. Absent: rash
== END 2017-08-24 18:34 | disposition home or self-care (01) ==
LOC: EMEROO 21:52 → INTOOBSV 08-21 05:53 → 3BNU 08-21 05:53
PROVIDERS: ADMIT Internal Medicine; ATTEND Family Medicine

== ENCOUNTER 2017-11-25 12:09 | Observation (INO) ==
--- NOTE | 2017-11-25 13:01 | Emergency Department Note ---
Disposition Clinical Impression: Dyspnea Qualifiers: Dyspnea type: unspecified Qualified Code(s): R06.00 - Dyspnea, unspecified Disposition: Admitted As Inpatient Condition: Fair Referrals: Homa Mary, J2EE PROGRAMMER [Primary Care Provider] - Forms: ED Satisfaction Letter Time of Disposition: 15:58 SOB HPI - General Chief Complaint: ED Shortness of Breath/Dyspnea Stated Complaint: SUZY Time Seen by Provider: 11/25/17 12:55 Source: patient Mode of arrival: ambulatory Limitations: no limitations Nursing Notes Reviewed: Yes Vital Signs Reviewed: Yes - History of Present Illness 77-year-old who comes in from the urgent care she was being seen for knee injury and then said she felt a little short of breath one to be evaluated for that and she was sent out here for evaluation. Had trouble breathing for last 2 weeks she has no history of lung problems in the past. She has exertional dyspnea. Pt Subjective Complaint: shortness of breath, cough Onset (ago): week(s) (2) Context: recent illness Severity: moderate Consistency/Duration: intermittent Improves with: nothing Worsens with: exertion Associated symptoms: Reports: cough. Denies: chest pain, fever Treatment prior to arrival: none - Related Data Home Medications Medication Instructions Recorded Confirmed Levothyroxine [Synthroid] 112 mcg PO DAILY 09/26/16 08/21/17 Fenofibrate Nanocrystallized 48 mg PO DAILY 12/16/16 08/21/17 [Tricor] Atorvastatin [Lipitor] 40 mg PO HS 03/20/17 08/21/17 Docusate Sodium [Dok] 100 mg PO DAILY PRN 03/20/17 08/21/17 Esomeprazole Magnesium [Nexium] 40 mg PO DAILY 03/20/17 08/21/17 cloNIDine HCl [CloNIDine HCl] 0.1 mg PO BID 03/20/17 08/21/17 Amitriptyline [Elavil] 25 mg PO HS 05/09/17 08/21/17 Carvedilol 3.125 mg PO BID 05/09/17 08/21/17 Cyclobenzaprine HCl 5 mg PO BID PRN 05/09/17 08/21/17 Valsartan/Hydrochlorothiazide 1 tab PO DAILY 08/21/17 08/21/17 [Diovan Hct 320-25 mg Tablet] Previous Rx's Medication Instructions Recorded amLODIPine [Norvasc] 10 mg PO DAILY #30 tab 03/23/17 Clopidogrel [Plavix] 75 mg PO DAILY tablet 08/24/17 Fluticasone Propionate Nasal 50 mcg NS DAILY #1 bottle 08/24/17 [Flonase] GuaiFENesin/Dextromethorphan 1 each PO BID PRN #30 tab.er.12h 08/24/17 [Mucinex Dm] Loratadine [Claritin] 10 mg PO DAILY #30 tablet 08/24/17 Nitrofurantoin (BID) [Macrobid] 100 mg PO BIDWM #12 capsule 08/24/17 hydroCHLOROthiazide 12.5 mg PO DAILY tablet 08/24/17 [Hydrochlorothiazide] Allergies Allergy/AdvReac Type Severity Reaction Status Date / Time metronidazole [From Flagyl] Allergy Severe Swelling Verified 08/20/17 21:57 of Lip/Tongue/Throat Iodinated Contrast- Oral and Allergy Swelling Verified 08/20/17 21:57 IV Dye of [Iodinated Contrast Media - Lip/Tongue/Throat IV Dye] Past Medical History - Past Medical History Medical history: Reports: aortic aneurysm, coronary artery disease, hyperlipidemia, hypertension, myocardial infarction Surgical history: Reports: angioplasty/stent, cholecystectomy, hysterectomy Psychiatric history: Reports: no psych history MEDICAL SERVICE REPRESENTATIVE history: Reports: no MEDICAL SERVICE REPRESENTATIVE history - Social History Smoking Status: Former smoker Smokeless Tobacco Status: No Alcohol use: Reports: none Drug use: Reports: none Physical Exam - General Limitations: no limitations General appearance: alert Course - Reevaluation(s) Reevaluation #1: 77-year-old with dyspnea. She had elevated d-dimer. Her creatinines elevated and she has an allergy to IV dye. Were ordered a VQ scan. I did give her a shot of Lovenox weight-based adjusted for age to cover her until we get the VQ scan. Patient will be admitted for rule out and she says her symptoms are similar to what she had prior to her last stent. Time: 15:57 - Consultations Consultation #1: Discussed with Dr. Ellis, admit Time: 15:57 Vital Signs Temperature 98.8 F 11/25/17 12:11 Pulse Rate 93 11/25/17 12:11 Respiratory Rate 18 11/25/17 12:11 Blood Pressure 176/88 11/25/17 12:11 O2 Sat by Pulse Oximetry 96 11/25/17 12:11 Temperature 98.8 F 11/25/17 12:13 Pulse Rate 61 11/25/17 15:17 Respiratory Rate 20 11/25/17 15:17 Blood Pressure 167/93 11/25/17 15:17 O2 Sat by Pulse Oximetry 97 11/25/17 15:17 Oxygen Delivery Oxygen Delivery Room Air Shortness of Breath/Dyspnea - Lab Data Result diagrams: 11/25/17 13:28 11/25/17 12:59 Lab Results 11/25/17 11/25/17 11/25/17 Range/Units 12:59 12:59 12:59 WBC (4.3-11.1) K/mcL RBC (3.82-4.97) M/mcL Hgb (11.5-15.4) g/dL Hct (35.3-44.9) % MCV (83.0-100.0) fL MCH (28.0-33.3) pg MCHC (31.6-35.5) g/dL RDW (11.5-14.5) % Plt Count (140-400) K/mcL MPV (9.4-12.4) fL Immature Gran % (0-4) % Seg Neutrophils % % Lymphocytes % % Monocytes % % Eosinophils % % Basophils % % Neutrophils # (1.6-8.9) K/mcL Lymphocytes # (0.6-4.6) K/mcL Monocytes # (0.0-1.3) K/mcL Eosinophils # (0.0-0.6) K/mcL Basophils # (0.0-0.2) K/mcL D-Dimer (0-500) ng/mLFEU Sodium 133 L (136-145) mEq/L Potassium 4.1 (3.5-5.1) mEq/L Chloride 101 (98-107) mEq/L Carbon Dioxide 25 (23-29) mEq/L BUN 14 (8-23) mg/dL Creatinine 1.69 H (0.60-1.20) mg/dL Est GFR ( Amer) 36 L (> 60) Est GFR (Non-Af Amer) 29 L (> 60) BUN/Creatinine Ratio 8 (6-26) Glucose 107 H (70-105) mg/dL Calculated Osmolality 277 L (280-300) Lactic Acid 0.9 (0.5-2.2) mmol/L Calcium 9.4 (8.6-10.3) mg/dL Troponin I < 0.03 (< 0.04) ng/mL B-Natriuretic Peptide 162 H (Less than 100) pg/mL Specimen Rejected 11/25/17 11/25/17 11/25/17 Range/Units 12:59 13:28 15:00 WBC 5.9 (4.3-11.1) K/mcL RBC 3.54 L (3.82-4.97) M/mcL Hgb 10.5 L (11.5-15.4) g/dL Hct 31.2 L (35.3-44.9) % MCV 88.1 (83.0-100.0) fL MCH 29.7 (28.0-33.3) pg MCHC 33.7 (31.6-35.5) g/dL RDW 14.0 (11.5-14.5) % Plt Count 491 H (140-400) K/mcL MPV 8.8 L (9.4-12.4) fL Immature Gran % 0.3 (0-4) % Seg Neutrophils % 52.8 % Lymphocytes % 26.3 % Monocytes % 10.2 % Eosinophils % 9.7 % Basophils % 0.7 % Neutrophils # 3.1 (1.6-8.9) K/mcL Lymphocytes # 1.6 (0.6-4.6) K/mcL Monocytes # 0.6 (0.0-1.3) K/mcL Eosinophils # 0.6 (0.0-0.6) K/mcL Basophils # 0.0 (0.0-0.2) K/mcL D-Dimer 1676 H (0-500) ng/mLFEU Sodium (136-145) mEq/L Potassium (3.5-5.1) mEq/L Chloride (98-107) mEq/L Carbon Dioxide (23-29) mEq/L BUN (8-23) mg/dL Creatinine (0.60-1.20) mg/dL Est GFR ( Amer) (> 60) Est GFR (Non-Af Amer) (> 60) BUN/Creatinine Ratio (6-26) Glucose (70-105) mg/dL Calculated Osmolality (280-300) Lactic Acid (0.5-2.2) mmol/L Calcium (8.6-10.3) mg/dL Troponin I (< 0.04) ng/mL B-Natriuretic Peptide (Less than 100) pg/mL Specimen Rejected Clotted
[2017-11-25 13:41] LABS: BUN/Creatinine Ratio 8 (6-26); Blood Urea Nitrogen 14 mg/dL (8-23); Calcium 9.4 mg/dL (8.6-10.3); Carbon Dioxide 25 mEq/L (23-29); Chloride 101 mEq/L (98-107); Glucose 107 mg/dL (70-105); Osmolality,Calculated 277 (280-300); Potassium 4.1 mEq/L (3.5-5.1); Sodium 133 mEq/L (136-145); Troponin I < 0.03 ng/mL (< 0.04); eGFR For African Americans 36 (> 60); eGFR For Non-African Americans 29 (> 60)
[2017-11-25 13:51] LABS: Basophils % 0.7 %; Eosinophils # 0.6 K/mcL (0.0-0.6); Eosinophils % 9.7 %; Hematocrit 31.2 % (35.3-44.9); Hemoglobin 10.5 g/dL (11.5-15.4); Immature Granulocytes % 0.3 % (0-4); Lymphocytes # 1.6 K/mcL (0.6-4.6); Lymphocytes % 26.3 %; Mean Corpuscular HGB Conc 33.7 g/dL (31.6-35.5); Mean Corpuscular Hemoglobin 29.7 pg (28.0-33.3); Mean Corpuscular Volume 88.1 fL (83.0-100.0); Mean Platelet Volume 8.8 fL (9.4-12.4); Monocytes # 0.6 K/mcL (0.0-1.3); Monocytes % 10.2 %; Neutrophils # 3.1 K/mcL (1.6-8.9); Platelet Count 491 K/mcL (140-400); Red Blood Count 3.54 M/mcL (3.82-4.97); Segmented Neutrophils % 52.8 %
[2017-11-25] MEDS ORDERED: Furosemide 40 MG/4 ML VIAL IVP ONE (14:43)
--- NOTE | 2017-11-25 15:37 | Internal Med History&Physical ---
Date of Encounter: 11/25/17 Time of Encounter: 20:06 Internal Medicine - H&P: HPI Chief complaint: SOB History of present illness: Ms. Gallardo is a 77 year old female with PMH of HTN, CAD, [place] and Aortic aneurysm who comes in from the urgent care where she was evaluated for for knee injury and start c/o short of breath that worsened with exertion. She was evaluated by the ER staff her labs revealed elevated d-dimer. Given the H/O CKD and allergy to IV dye a VQ scan was ordered. She was treated empirically for DVT with Lovenox weight-based adjusted for age and was admitted for rule out of PE. At bed side the patient was very comfortable has no complaints eating fish and fries that she ordered form outside , wandering if she can go home. She stated that her symptoms completely resolved . Past Med Surg Social Fam HX - Past Medical History Medical history: aortic aneurysm, coronary artery disease, hyperlipidemia, hypertension, myocardial infarction Psychiatric history: no psych history - Past Surgical History Surgical History: angioplasty/stent, cholecystectomy, hysterectomy - Social History Smoking Status: Former smoker Smokeless Tobacco Status: No Alcohol use: none Drug use: none - Family History Mother Living Status: Hx Family Cardiac Disorders: No Hx Family Respiratory Disorders: No Hx Family Cancer: No Hx Family GI Disorders: No Hx Family Endocrine Disorder: No Hx Family Neuromuscular Disorders: No Hx Family Neurologic Disorders: No Hx Family HEENT Disorders: No Hx Family Autoimmune Disorders: No Father Living Status: Hx Family Cardiac Disorders: Yes (HTN) Hx Family Respiratory Disorders: No Hx Family Cancer: No Hx Family GI Disorders: No Hx Family Endocrine Disorder: No Hx Family Neuromuscular Disorders: No Hx Family Neurologic Disorders: No Hx Family HEENT Disorders: No Hx Family Autoimmune Disorders: No Grandmother Hx Family Cardiac Disorders: Yes Internal Medicine - H&P: Meds Levothyroxine [Synthroid] 112 mcg PO DAILY 09/26/16 [History] Fenofibrate Nanocrystallized [Tricor] 48 mg PO DAILY 12/16/16 [History] Atorvastatin [Lipitor] 40 mg PO HS 03/20/17 [History] Docusate Sodium [Dok] 100 mg PO DAILY PRN 03/20/17 [History] cloNIDine HCl [CloNIDine HCl] 0.1 mg PO BID 03/20/17 [History] amLODIPine [Norvasc] 10 mg PO DAILY #30 tab 03/23/17 [Rx] Carvedilol 6.25 mg PO BID 05/09/17 [History] Cyclobenzaprine HCl 5 mg PO BID PRN 05/09/17 [History] Aspirin [Lo-Dose Aspirin EC] 81 mg PO DAILY 11/25/17 [History] Omeprazole [PriLOSEC] 40 mg PO DAILY 11/25/17 [History] Amitriptyline [Elavil] 50 mg PO HS 11/27/17 [History] Beclomethasone Diprop 80mcg [QVAR 80 mcg] 1 puff IH BIDR #1 puff 11/27/17 [Rx] Furosemide [Lasix] 20 mg PO DAILY #30 tablet 11/27/17 [Rx] Spironolactone [Aldactone] 25 mg PO DAILY 11/27/17 [History] Valsartan [Diovan] 320 mg PO DAILY #30 tablet 11/27/17 [Rx] 3 Allergy/AdvReac Type Severity Reaction Status Date / Time metronidazole [From Flagyl] Allergy Severe Swelling Verified 08/20/17 21:57 of Lip/Tongue/Throat Iodinated Contrast- Oral and Allergy Swelling Verified 08/20/17 21:57 IV Dye of [Iodinated Contrast Media - Lip/Tongue/Throat IV Dye] All Systems PM: A 10-system review of systems was performed and is negative for pertinent findings except as documented above in the HPI. - Constitutional Constitutional: no chills, no fever(s), no night sweats - Cardiovascular Cardiovascular ROS IM: dyspnea, no chest pain, no diaphoresis, no lightheadedness, no palpitations, no syncope - Respiratory Respiratory: dyspnea on exertion, no cough, no dyspnea, no wheezing, no excessive phlegm production - Gastrointestinal Gastrointestinal: no abdominal pain, no diarrhea, no hematemesis, no hematochezia, no melena, no nausea, no vomiting - Neurological Neurological ROS: no confusion, no convulsions, no focal weakness, no numbness, no tingling, no tremor(s) - Constitutional Vitals: Temp Pulse Resp BP Pulse Ox 98.8 F 61 20 167/93 97 11/25/17 12:13 11/25/17 15:17 11/25/17 15:17 11/25/17 15:17 11/25/17 15:17 - Head Head exam: Present: atraumatic, normocephalic - Eye Eye exam: Present: PERRL, conjuntiva pink, sclera anicteric Pupils: Present: PERRL - Neck Neck exam general surgery: Present: supple, trachea midline. Absent: lymphadenopathy - Respiratory Respiratory exam: Present: CTAB. Absent: accessory muscle use, rales, rhonchi, wheezes - Cardiovascular Cardiovascular exam: Present: RRR, +S1, +S2. Absent: diastolic murmur, gallop, rubs, systolic murmur - GI/Abdominal GI/Abdominal exam: Present: normal bowel sounds, soft, no peritoneal signs. Absent: distended, tenderness - Extremities Exam Extremities exam: Present: warm, radial pulses palpable and symmetrical. Absent : calf tenderness, cyanotic, pedal edema - Neurological Exam Neurological exam: Present: CN II-XII intact, oriented X3, no focal deficits. Absent: pronater drift, facial droop, speech deficit Internal Med - H&P Results - Labs CBC & Chem 7: 11/26/17 02:30 11/26/17 02:30 Labs: Short CBC 11/25/17 Range/Units 13:28 WBC 5.9 (4.3-11.1) K/mcL Hgb 10.5 L (11.5-15.4) g/dL Hct 31.2 L (35.3-44.9) % Plt Count 491 H (140-400) K/mcL Neutrophils # 3.1 (1.6-8.9) K/mcL BMP 11/25/17 12:59 Sodium 133 L Potassium 4.1 Chloride 101 Carbon Dioxide 25 BUN 14 Creatinine 1.69 H Glucose 107 H Calcium 9.4 Cardiac Enzymes 11/25/17 Range/Units 12:59 Troponin I < 0.03 (< 0.04) ng/mL - Impressions ITS Impressions Chest X-Ray 11/25/17 12:14 IMPRESSION: No acute process. D/ / Jan Holder MD / Jan Holder MD Interpreting Provider: Jan Holder MD Knee X-Ray 11/25/17 13:01 IMPRESSION: 1. No acute bony or joint abnormality 2. Tricompartmental osteoarthritic changes D/ / Tio Pham MD / Tio Pham MD Interpreting Provider: Tio Pham MD - Assessment and plan (1) Dyspnea Status: Acute Assessment and plan: SOB DD *R/O ischemia vs PE *Bronchitis PLAN: - VQ scan was negative for PE, s/p one dose of therapeutic Lovenox - CPP x 1 more, 8 hr after the 1st one - EKG - ASA - O2 to keep SpO2 > 92% - UA - 2D Echo - CBCD, BMP in AM - Fasting lipids - Tylenol 650 mg PO q 4-6 hr PRN pain - Home meds - Heparin 5000 U SQ BID Qualifiers: Dyspnea type: dyspnea on exertion Qualified Code(s): R06.09 - Other forms of dyspnea (2) HTN (hypertension) Status: Chronic Assessment and plan: We will cont. Home meds Qualifiers: Hypertension type: essential hypertension Qualified Code(s): I10 - Essential (primary) hypertension (3) CAD (coronary artery disease) Status: Chronic Assessment and plan: We will cont. home meds, both ECGs and first set of cardiac enzymes are not suggestive of ACS Qualifiers: Coronary Disease-Associated Artery/Lesion type: [place] artery [place] vs. transplanted heart: [place] heart Associated angina: without angina Qualified Code(s): I25.10 - Atherosclerotic heart disease of [place] coronary artery without angina pectoris (4) Hyponatremia with decreased serum osmolality Status: Resolved Assessment and plan: Mild , most likely hypovolumic, we will repeat Na level and cont monitor. (5) Hyperlipidemia Status: Chronic Assessment and plan: We will cont statin and obtain FLP in Am Qualifiers: Hyperlipidemia type: mixed hyperlipidemia Qualified Code(s): E78.2 - Mixed hyperlipidemia (6) Anemia Status: Chronic Assessment and plan: Most likely 2/2 anemia of CKD, We will check iron studies, HGB target is 10-11 , no indication for ESAs Qualifiers: Anemia type: due to chronic kidney disease Chronic kidney disease stage: stage 3 (moderate) Qualified Code(s): N18.3 - Chronic kidney disease, stage 3 (moderate); D63.1 - Anemia in chronic kidney disease (7) Chronic kidney disease (CKD) Status: Chronic Assessment and plan: Cr at base line, Cont to monitor renal panel Qualifiers: Chronic kidney disease stage: stage 3 (moderate) Qualified Code(s): N18.3 - Chronic kidney disease, stage 3 (moderate) (8) Hypothyroidism Status: Chronic Assessment and plan: We will cont home meds. Qualifiers: Hypothyroidism type: unspecified Qualified Code(s): E03.9 - Hypothyroidism , unspecified (9) DVT prophylaxis Status: Acute Assessment and plan: We will start [place] heparin (10) Chronic kidney disease-mineral and bone disorder Status: Chronic Assessment and plan: We will obtain IPTH, Vit D leve as will as phosphorus, renal diet. - Time Spent With Patient Total time spent is greater than 50% in coordination of care (as documented) at patient's floor/unit and/or counseling patient:
[2017-11-25] MEDS ORDERED: *HR* Enoxaparin 80 MG/0.8 ML SYRINGE SQ STA (15:54)
[2017-11-25] MEDS ORDERED: Acetaminophen 325 MG TABLET PO PRN ×2 (19:23)
[2017-11-25] MEDS ORDERED: Naloxone 0.4 MG/ML INJ IVP PRN (19:23)
[2017-11-25] MEDS: *HR* HYDROcodone/Acet 5/325 mg TABLET PO PRN (21:16)
[2017-11-26 03:36] LABS: Hematocrit 32.1 % (35.3-44.9); Hemoglobin 10.6 g/dL (11.5-15.4); Mean Corpuscular Hemoglobin 28.8 pg (28.0-33.3); Mean Corpuscular Volume 87.2 fL (83.0-100.0); Mean Platelet Volume 9.1 fL (9.4-12.4); Platelet Count 492 K/mcL (140-400); Red Blood Count 3.68 M/mcL (3.82-4.97); Red Cell Distribution Width 14.2 % (11.5-14.5)
[2017-11-26 03:41] LABS: INR 1.1; Prothrombin Time 11.8 Seconds (9.4-12.1)
[2017-11-26 03:44] LABS: Activated Partial Thrombo Time 36.1 Seconds (26.0-36.0)
[2017-11-26 03:47] LABS: Bilirubin,Urine Negative (Negative); Blood,Urine Negative (Negative); Clarity,Urine Clear (Clear); Color,Urine Yellow (Yellow); Glucose,Urine (UA) Normal (Normal); Ketones,Urine Negative (Negative); Leukocyte Esterase,Urine Negative (Negative); Nitrite,Urine Negative (Negative); Protein,Urine Negative (Neg-Trace); Urobilinogen,Urine Normal (Normal)
[2017-11-26 04:00] LABS: Albumin 3.6 g/dL (3.5-5.7); Albumin/Globulin Ratio 1.2 (1.1-2.2); Bilirubin,Total 0.3 mg/dL (0.3-1.0); Calcium 9.2 mg/dL (8.6-10.3); Chol/HDL Ratio 3.8 (0-4.9); Globulin 2.9 g/dL (2.4-3.5); Magnesium 2.2 mg/dL (1.6-2.6); Phosphorous 4.7 mg/dL (2.7-4.5); Potassium 3.8 mEq/L (3.5-5.1); Total Protein 6.5 g/dL (6.4-8.9)
[2017-11-26] MEDS: *HR* Heparin 5,000 UNIT/ML VIAL SQ SCH ×2 (05:46→16:52)
[2017-11-26] MEDS: Aspirin Enteric Coated 81 MG Tablet PO SCH (07:56)
[2017-11-26] MEDS: amLODIPine 5 MG TABLET PO SCH (07:56)
[2017-11-26] MEDS: hydroCHLOROthiazide 25 MG TABLET PO SCH (07:56)
[2017-11-26] MEDS: Valsartan 160 MG TABLET PO SCH (07:57)
[2017-11-26] MEDS: cloNIDine HCl 0.1 MG TABLET PO SCH ×2 (07:57→21:36)
[2017-11-26] MEDS: Fenofibrate 54 MG TABLET PO SCH (07:57)
[2017-11-26 08:27] LABS: % Iron Saturation 14 % (15-50); Iron 44 mcg/dL (50-170); Transferrin 228 mg/dL (203-362)
--- NOTE | 2017-11-26 14:47 | Internal Med Progress Note ---
Date of Encounter: 11/26/17 Time of Encounter: 14:50 - Assessment and plan (1) Dyspnea Current Visit: Yes Status: Acute Assessment and plan: Etiology uncertain. VQ scan negative for PE. BNP only mildly elevated. No lower extremity edema. Awaiting 2-D echocardiogram. Qualifiers: Dyspnea type: dyspnea on exertion Qualified Code(s): R06.09 - Other forms of dyspnea (2) HTN (hypertension) Current Visit: Yes Status: Chronic Assessment and plan: Uncontrolled. Will increase Diovan dose to 320 mg. Continue to monitor blood pressure. Qualifiers: Hypertension type: essential hypertension Qualified Code(s): I10 - Essential (primary) hypertension (3) CAD (coronary artery disease) Current Visit: No Status: Chronic Assessment and plan: No chest pain at this time. Continue aspirin, statin and beta torres. Qualifiers: Coronary Disease-Associated Artery/Lesion type: [place] artery [place] vs. transplanted heart: [place] heart Associated angina: without angina Qualified Code(s): I25.10 - Atherosclerotic heart disease of [place] coronary artery without angina pectoris (4) Hyponatremia with decreased serum osmolality Current Visit: No Status: Resolved Assessment and plan: Improved (5) Anemia Current Visit: Yes Status: Chronic Assessment and plan: Blood counts are stable. Follow-up outpatient with PCP Qualifiers: Anemia type: due to chronic kidney disease Chronic kidney disease stage: stage 3 (moderate) Qualified Code(s): N18.3 - Chronic kidney disease, stage 3 (moderate); D63.1 - Anemia in chronic kidney disease (6) Chronic kidney disease (CKD) Current Visit: Yes Status: Chronic Assessment and plan: Stable renal function Qualifiers: Chronic kidney disease stage: stage 3 (moderate) Qualified Code(s): N18.3 - Chronic kidney disease, stage 3 (moderate) (7) Hypothyroidism Current Visit: Yes Status: Chronic Assessment and plan: Continue levothyroxin Qualifiers: Hypothyroidism type: unspecified Qualified Code(s): E03.9 - Hypothyroidism , unspecified (8) Chronic kidney disease-mineral and bone disorder Current Visit: Yes Status: Chronic Assessment and plan: Renal function stable. Creatinine 1.80. At baseline (9) DVT prophylaxis Current Visit: Yes Status: Acute Assessment and plan: With subcutaneous heparin (10) Hyperlipidemia Current Visit: No Status: Chronic Qualifiers: Hyperlipidemia type: mixed hyperlipidemia Qualified Code(s): E78.2 - Mixed hyperlipidemia - Time Spent With Patient Total time spent is greater than 50% in coordination of care (as documented) at patient's floor/unit and/or counseling patient: - Subjective Interval history: Patient seen earlier today. Currently does continue to report shortness of breath with minimal exertion. No lower extremity edema. No orthopnea or PND. No chest pain or palpitations. She is awaiting 2-D echocardiogram. - Constitutional Vitals: Temp Pulse Resp BP Pulse Ox 98.1 F 83 14 125/79 94 11/26/17 11:36 11/26/17 11:36 11/26/17 11:36 11/26/17 11:36 11/26/17 11:36 General appearance: Present: cooperative, A&O X 3, answers questions appropriately - Neck Neck exam general surgery: Present: supple, trachea midline. Absent: lymphadenopathy - Respiratory Respiratory exam: Present: CTAB. Absent: accessory muscle use, rales, rhonchi, wheezes - Cardiovascular Cardiovascular exam: Present: RRR, +S1, +S2. Absent: diastolic murmur, gallop, rubs, systolic murmur - GI/Abdominal GI/Abdominal exam: Present: normal bowel sounds, soft, no peritoneal signs. Absent: distended, tenderness - Extremities Exam Extremities exam: Present: warm, radial pulses palpable and symmetrical. Absent : calf tenderness, cyanotic, pedal edema Internal Medicine: Result - Labs CBC & Chem 7: 11/26/17 02:30 11/26/17 02:30 Labs: Short CBC 11/26/17 Range/Units 02:30 WBC 5.9 (4.3-11.1) K/mcL Hgb 10.6 L (11.5-15.4) g/dL Hct 32.1 L (35.3-44.9) % Plt Count 492 H (140-400) K/mcL BMP 11/26/17 02:30 Sodium 138 Potassium 3.8 Chloride 104 Carbon Dioxide 27 BUN 15 Creatinine 1.80 H Glucose 98 Calcium 9.2 Cardiac Enzymes 11/25/17 11/26/17 11/26/17 Range/Units 20:11 02:30 07:37 Troponin I < 0.03 < 0.03 < 0.03 (< 0.04) ng/mL Liver Function 11/26/17 Range/Units 02:30 Total Bilirubin 0.3 (0.3-1.0) mg/dL AST 21 (13-39) Units/L ALT 18 (7-52) Units/L Alkaline Phosphatase 41 (34-104) Units/L Albumin 3.6 (3.5-5.7) g/dL Urine 11/26/17 Range/Units 03:38 Urine Color Yellow (Yellow) Urine Clarity Clear (Clear) Urine pH 6.0 (5.0-8.0) pH Units Ur Specific [place] 1.010 (1.010-1.025) Urine Protein Negative (Neg-Trace) mg/dL Urine Glucose (UA) Normal (Normal) mg/dL - ABG Interpretation ABG results: PT/INR, D-dimer PT 11.8 Seconds (9.4-12.1) 11/26/17 02:30 D-Dimer 1676 ng/mLFEU (0-500) H 11/25/17 15:00 Consult Discharge Plan - Plan Referrals: Homa Mary, TOUR DIRECTOR [Primary Care Provider] -
[2017-11-26] MEDS ORDERED: Ipratropium/Albuterol Neb 3 ML IH PRN (14:53)
[2017-11-26] MEDS: Beclomethasone 80mcg MDI IH SCH ×2 (15:36→19:53)
[2017-11-26] MEDS ORDERED: Furosemide 20 MG/2 ML VIAL IVP ONE (15:48)
[2017-11-27] MEDS: *HR* Heparin 5,000 UNIT/ML VIAL SQ SCH (05:59)
[2017-11-27 07:28] VITALS: BP 135/85
[2017-11-27] MEDS: Beclomethasone 80mcg MDI IH SCH (07:49)
[2017-11-27] MEDS: Fenofibrate 54 MG TABLET PO SCH (08:20)
[2017-11-27] MEDS: hydroCHLOROthiazide 25 MG TABLET PO SCH (08:20)
[2017-11-27] MEDS: amLODIPine 5 MG TABLET PO SCH (08:21)
[2017-11-27] MEDS: cloNIDine HCl 0.1 MG TABLET PO SCH (08:21)
[2017-11-27] MEDS: Valsartan 160 MG TABLET PO SCH (08:21)
[2017-11-27] MEDS: Aspirin Enteric Coated 81 MG Tablet PO SCH (08:21)
[2017-11-27] MEDS: *HR* HYDROcodone/Acet 5/325 mg TABLET PO PRN (08:25)
--- NOTE | 2017-11-27 10:56 | Discharge Summary ---
- NOTES TO OUTPATIENT PROVIDER Notes to Outpatient Provider: Patient hospitalized here after presenting with dyspnea. She was also having some wheezing. Was recovering from bronchitis. VQ scan was negative for PE. Chest x-ray did not show any congestive changes. No clear etiology has ascertained in for her dyspnea but she has since improved. Could be related to bronchitis. She did have mild elevation in BNP. Echocardiogram shows mild left ventricular diastolic dysfunction. She received 1 dose of IV Lasix here. Will be discharged on low-dose Lasix. We will also discharge her on steroid inhaler in addition to bronchodilators to help with her wheezing. She will need follow up with pulmonology for lung function testing. Has normal ejection fraction of 60-65%. Will be discharged home today. Orders not resulted at time of discharge: Pending orders 11/26/17 07:37 Vitamin D 25 Hydroxy Routine Date of Encounter: 11/27/17 Time of Encounter: 10:54 - Discharge Diagnosis (1) Acute on chronic diastolic heart failure Priority: Primary Status: Acute (2) Dyspnea Priority: Secondary Status: Acute Qualifiers: Dyspnea type: dyspnea on exertion Qualified Code(s): R06.09 - Other forms of dyspnea (3) HTN (hypertension) Priority: Secondary Status: Chronic Qualifiers: Hypertension type: essential hypertension Qualified Code(s): I10 - Essential (primary) hypertension (4) CAD (coronary artery disease) Priority: Secondary Status: Chronic Qualifiers: Coronary Disease-Associated Artery/Lesion type: [place] artery [place] vs. transplanted heart: [place] heart Associated angina: without angina Qualified Code(s): I25.10 - Atherosclerotic heart disease of [place] coronary artery without angina pectoris (5) Hyponatremia with decreased serum osmolality Priority: Secondary Status: Resolved (6) Anemia Priority: Secondary Status: Chronic Qualifiers: Anemia type: due to chronic kidney disease Chronic kidney disease stage: stage 3 (moderate) Qualified Code(s): N18.3 - Chronic kidney disease, stage 3 (moderate); D63.1 - Anemia in chronic kidney disease (7) Chronic kidney disease (CKD) Priority: Secondary Status: Chronic Qualifiers: Chronic kidney disease stage: stage 3 (moderate) Qualified Code(s): N18.3 - Chronic kidney disease, stage 3 (moderate) (8) Hypothyroidism Priority: Secondary Status: Chronic Qualifiers: Hypothyroidism type: unspecified Qualified Code(s): E03.9 - Hypothyroidism , unspecified (9) Chronic kidney disease-mineral and bone disorder Priority: Secondary Status: Chronic (10) DVT prophylaxis Priority: Secondary Status: Acute (11) Hyperlipidemia Priority: Secondary Status: Chronic Qualifiers: Hyperlipidemia type: mixed hyperlipidemia Qualified Code(s): E78.2 - Mixed hyperlipidemia (12) Bronchitis Priority: Secondary Status: Acute Hospital course: Ms. Gallardo is a 77 year old female Patient with history of coronary artery disease, hypertension, hyperlipidemia, aortic aneurysm, [place] who was hospitalized here after presenting with dyspnea. She was also having some wheezing. She was recently treated for bronchitis. In the ER, a VQ scan was negative for PE. Chest x-ray did not show any congestive changes. No clear etiology has been ascertained for dyspnea but she has since improved. This could be due to recent bronchitis or related to diastolic heart failure. She did have mild elevation in BNP. Echocardiogram shows mild left ventricular diastolic dysfunction. She received 1 dose of IV Lasix here. She will be discharged on low-dose Lasix. We will also discharge her on steroid inhaler in addition to bronchodilators to help with her wheezing. She will need follow up with pulmonology for lung function testing. Has normal ejection fraction of 60-65%. Will be discharged home today. Discharge discussed with: patient, nurse - Time Spent with Patient Total time spent providing and/or coordinating discharge services: Less than 30 minutes (25 min) - Discharge Medications Prescriptions: Beclomethasone Diprop 80mcg [QVAR 80 mcg] 1 puff IH BIDR #1 puff Furosemide [Lasix] 20 mg PO DAILY #30 tablet Valsartan [Diovan] 320 mg PO DAILY #30 tablet Home Medications: Levothyroxine [Synthroid] 112 mcg PO DAILY 09/26/16 [History] Fenofibrate Nanocrystallized [Tricor] 48 mg PO DAILY 12/16/16 [History] Atorvastatin [Lipitor] 40 mg PO HS 03/20/17 [History] Docusate Sodium [Dok] 100 mg PO DAILY PRN 03/20/17 [History] cloNIDine HCl [CloNIDine HCl] 0.1 mg PO BID 03/20/17 [History] amLODIPine [Norvasc] 10 mg PO DAILY #30 tab 03/23/17 [Rx] Carvedilol 6.25 mg PO BID 05/09/17 [History] Cyclobenzaprine HCl 5 mg PO BID PRN 05/09/17 [History] Aspirin [Lo-Dose Aspirin EC] 81 mg PO DAILY 11/25/17 [History] Omeprazole [PriLOSEC] 40 mg PO DAILY 11/25/17 [History] Amitriptyline [Elavil] 50 mg PO HS 11/27/17 [History] Beclomethasone Diprop 80mcg [QVAR 80 mcg] 1 puff IH BIDR #1 puff 11/27/17 [Rx] Furosemide [Lasix] 20 mg PO DAILY #30 tablet 11/27/17 [Rx] Spironolactone [Aldactone] 25 mg PO DAILY 11/27/17 [History] Valsartan [Diovan] 320 mg PO DAILY #30 tablet 11/27/17 [Rx] Allergies/Adverse Reactions: 3 Allergy/AdvReac Type Severity Reaction Status Date / Time metronidazole [From Flagyl] Allergy Severe Swelling Verified 08/20/17 21:57 of Lip/Tongue/Throat Iodinated Contrast- Oral and Allergy Swelling Verified 08/20/17 21:57 IV Dye of [Iodinated Contrast Media - Lip/Tongue/Throat IV Dye] Date of admission: 11/25/17 19:23 Primary care physician: Homa Mary CNP Discharging clinician: Kirk Ventura Anticipated date of discharge: 11/27/17 - Constitutional Vitals: Temp Pulse Resp BP Pulse Ox 97.6 F 71 16 135/85 98 11/27/17 07:19 11/27/17 07:19 11/27/17 07:50 11/27/17 07:19 11/27/17 07:50 General appearance: Present: cooperative, A&O X 3, answers questions appropriately - Neck Neck exam general surgery: Present: supple, trachea midline. Absent: lymphadenopathy - Respiratory Respiratory exam: Present: CTAB. Absent: accessory muscle use, rales, rhonchi, wheezes - Cardiovascular Cardiovascular exam: Present: RRR, +S1, +S2. Absent: diastolic murmur, gallop, rubs, systolic murmur - GI/Abdominal GI/Abdominal exam: Present: normal bowel sounds, soft, no peritoneal signs. Absent: distended, tenderness - Extremities Exam Extremities exam: Present: warm, radial pulses palpable and symmetrical. Absent : calf tenderness, cyanotic, pedal edema - Patient Status Disposition: Home, Self-Care Condition: Good Functional capacity at discharge: independent ambulation Overall status at discharge: patient is progressing back to baseline - Discharge Instructions Instructions: Heart Failure (DC) Follow Up With: Homa Mary, WRITING TUTOR [Primary Care Provider] - 11/29/17 3:00 pm (in 1-2 weeks) Albert Ferro DO [Partnered Physician] - (in 1week for CHF Spoke with Rupali no appointments available at this time will call patient this week with an appointment. ) - Diet and Activity Activity: increase activity as tolerated Diet: low fat, low cholesterol, low salt diet
== END 2017-11-27 11:41 | disposition home or self-care (01) ==
LOC: 3ANU 12:09 → EMEROO 12:09 → 3ANU 18:15
PROVIDERS: ADMIT General Practice; ATTEND General Practice

== ENCOUNTER 2018-04-02 15:05 | Inpatient (IN) ==
[2018-04-02] MEDS ORDERED: Ipratropium/Albuterol Neb 3 ML IH ONE (15:33)
--- NOTE | 2018-04-02 15:36 | Emergency Department Note ---
Disposition Clinical Impression: Acute exacerbation of COPD with asthma Chest pain Qualifiers: Chest pain type: unspecified Qualified Code(s): R07.9 - Chest pain, unspecified Disposition: Still a Patient Condition: Fair Referrals: Homa Mary CNP [Primary Care Provider] - Forms: ED Satisfaction Letter Time of Disposition: 17:26 General Adult HPI - General Chief complaint: ED Chest Pain Stated complaint: "CP,SUZY,headache/dizzy" Time Seen by Provider: 04/02/18 15:18 Nursing Notes Reviewed: Yes Vital Signs Reviewed: Yes - History of Present Illness HPI Narrative: 77-year-old female presents from home for evaluation of a four-day history of progressive shortness of breath. She does have a cough which started with clear sputum and as now turned to yellow sputum. She has mild nausea after fits of coughing. She has dyspnea with exertion with mild dyspnea at rest. She does have orthopnea and has had to sleep in her chair last night or 2. Her symptoms are not improved with her home nebulizers. She does note that her ankles are swollen at the end of the day. Patient has pain in a belt-like distribution beneath her ribs at the subcostal margin which is worse with cough. She also notes a headache also worse with cough. Patient does have a history of pneumonia as well as CHF. She is not certain which of these her symptoms feel like. History of ACS with stent 1. No history of COPD or asthma however, patient does have home metered-dose inhaler and nebulizer. ROS: Positive: As above Negative: Fever, chills, vomiting, palpitations, diaphoresis, abdominal pain, changes in bowel or bladder habits. Pain Scale: 6 - Related Data Home Medications Medication Instructions Recorded Confirmed Levothyroxine [Synthroid] 112 mcg PO DAILY 09/26/16 11/26/17 Fenofibrate Nanocrystallized 48 mg PO DAILY 12/16/16 11/26/17 [Tricor] Atorvastatin [Lipitor] 40 mg PO HS 03/20/17 11/26/17 Docusate Sodium [Dok] 100 mg PO DAILY PRN 03/20/17 11/26/17 cloNIDine HCl [CloNIDine HCl] 0.1 mg PO BID 03/20/17 11/26/17 Carvedilol 6.25 mg PO BID 05/09/17 11/26/17 Cyclobenzaprine HCl 5 mg PO BID PRN 05/09/17 11/26/17 Aspirin [Lo-Dose Aspirin EC] 81 mg PO DAILY 11/25/17 11/26/17 Omeprazole [PriLOSEC] 40 mg PO DAILY 11/25/17 11/26/17 Amitriptyline [Elavil] 50 mg PO HS 11/27/17 11/27/17 Spironolactone [Aldactone] 25 mg PO DAILY 11/27/17 11/27/17 Previous Rx's Medication Instructions Recorded amLODIPine [Norvasc] 10 mg PO DAILY #30 tab 03/23/17 Beclomethasone Diprop 80mcg [QVAR 1 puff IH BIDR #1 puff 11/27/17 80 mcg] Furosemide [Lasix] 20 mg PO DAILY #30 tablet 11/27/17 Valsartan [Diovan] 320 mg PO DAILY #30 tablet 11/27/17 Allergies Allergy/AdvReac Type Severity Reaction Status Date / Time metronidazole [From Flagyl] Allergy Severe Swelling Verified 08/20/17 21:57 of Lip/Tongue/Throat Iodinated Contrast- Oral and Allergy Swelling Verified 08/20/17 21:57 IV Dye of [Iodinated Contrast Media - Lip/Tongue/Throat IV Dye] All systems ED: reviewed and negative except as stated. Review of Systems: As Per HPI Past Medical History - Past Medical History Medical history: Reports: aortic aneurysm, coronary artery disease, hyperlipidemia, hypertension, myocardial infarction Surgical history: Reports: angioplasty/stent, cholecystectomy, hysterectomy Psychiatric history: Reports: no psych history LONG WINDER TENDER history: Reports: no LONG WINDER TENDER history - Social History Smoking Status: Former smoker Smokeless Tobacco Status: No Alcohol use: Reports: none Drug use: Reports: none Physical Exam Vital Signs Reviewed General: Patient is alert, oriented, and in no acute distress. Head: atraumatic, normocephalic Eye: normal appearance, PERRL, no scleral icterus, no conjunctival injection ENT: mucous membranes moist, normal external ear exam Neck: normal inspection, trachea midline, full ROM Chest: normal inspection, symmetric chest rise Respiratory: Good respiratory effort. Bilateral breath sounds are equal with scattered wheeze. No crackles or rhonchi. Cardiovascular: Regular rate and rhythm. No clicks, rubs, gallops, or murmors. Normal heart sounds. Bilateral posterior tibial pulses 2/4 equal. No pedal edema the left ankle does appear slightly swollen versus right. No evidence of trauma. Abdomen: Bowel sounds present normoactive x-4 quadrants. Abdomen is soft, nondistended, and nontender. No guarding or rebound. No organomegaly noted. Musculoskeletal: Spontaneously moving all extremities. Skin: warm, dry, intact. Neuro: Alert and oriented x4. Sensation light touch intact. Psych: Patient's affect is appropriate for situation. Course Course Narrative: Clinical concern for ACS versus pneumonia versus CHF. EKG dated 04/02/20 10:15: 27 interpreted as sinus rhythm with a rate of 67. MT 142, QTC 40. Normal axis. Nonspecific ST-T changes. Compared to previous dated 08/20/2017 showing no acute ischemic changes or comparison. Chest x-ray shows no focal infiltrates. There is concern for prominent right hilum worse from comparison x-ray. CT chest as follow-up shows normal hilar vascular structures. Patient does have mild leukocytosis. She does have mild anemia however this is her baseline. She does have elevated creatinine however, this is her baseline. Normal troponin. Marginal elevation in BNP; no pedal edema. Will discuss this with the admitting hospitalist. Patient symptoms did not improve subjectively or on pulmonary auscultation after triple dose of DuoNeb's. Will follow-up with albuterol nebs. Also given 125/Medrol. Discussed the patient with the admitting hospitalist. He agrees to accept the patient for chest pain rule out ACS as well as continued pulmonary support for presumed acute exacerbation of COPD. Chest X-Ray 04/02/18 15:28 IMPRESSION: Prominent right hilum. Further evaluation with chest CT is recommended. No acute focal infiltrate is found. D/ / Akil Don MD / Akil Don MD Interpreting Provider: Akil Don MD Chest CT 04/02/18 16:08 IMPRESSION: 1. No acute pulmonary findings. 2. Questionable prominence of the right pulmonary hilum shows no correlate on CT. This appears to represent normal hilar vascular structures. 3. Mild secretions within left mainstem bronchus and left lower lobar bronchus. No peripheral mucous plugging. D/ / Andrew Santana MD / Andrew Santana MD Interpreting Provider: Andrew Santana MD Vital Signs Temperature 98.1 F 04/02/18 15:12 Pulse Rate 75 04/02/18 15:12 Respiratory Rate 18 04/02/18 15:12 Blood Pressure 165/50 04/02/18 15:12 O2 Sat by Pulse Oximetry 97 04/02/18 15:12 Temperature 98.1 F 04/02/18 15:30 Pulse Rate 79 04/02/18 15:30 Respiratory Rate 18 04/02/18 15:46 Blood Pressure 170/78 04/02/18 15:30 O2 Sat by Pulse Oximetry 98 04/02/18 15:46 Oxygen Delivery Oxygen Delivery Room Air Medical Decision Making - Lab Data Result diagrams: 04/02/18 15:36 04/02/18 15:36 Lab Results 04/02/18 04/02/18 04/02/18 Range/Units 15:36 15:36 15:36 WBC 14.6 H (4.3-11.1) K/mcL RBC 3.55 L (3.82-4.97) M/mcL Hgb 10.5 L (11.5-15.4) g/dL Hct 31.7 L (35.3-44.9) % MCV 89.3 (83.0-100.0) fL MCH 29.6 (28.0-33.3) pg MCHC 33.1 (31.6-35.5) g/dL RDW 13.9 (11.5-14.5) % Plt Count 562 H (140-400) K/mcL MPV 9.2 L (9.4-12.4) fL Immature Gran % 0.6 (0-4) % Seg Neutrophils % 89.2 % Lymphocytes % 6.3 % Monocytes % 3.8 % Eosinophils % 0.0 % Basophils % 0.1 % Neutrophils # 13.1 H (1.6-8.9) K/mcL Lymphocytes # 0.9 (0.6-4.6) K/mcL Monocytes # 0.6 (0.0-1.3) K/mcL Eosinophils # 0.0 (0.0-0.6) K/mcL Basophils # 0.0 (0.0-0.2) K/mcL Sodium 130 L (136-145) mEq/L Potassium 4.2 (3.5-5.1) mEq/L Chloride 101 (98-107) mEq/L Carbon Dioxide 23 (23-29) mEq/L BUN 20 (8-23) mg/dL Creatinine 1.85 H (0.60-1.20) mg/dL Est GFR ( Amer) 32 L (> 60) Est GFR (Non-Af Amer) 27 L (> 60) BUN/Creatinine Ratio 11 (6-26) Glucose 161 H (70-105) mg/dL Calculated Osmolality 276 L (280-300) Calcium 8.9 (8.6-10.3) mg/dL Troponin I < 0.03 (< 0.04) ng/mL B-Natriuretic Peptide 292 H (Less than 100) pg/mL
--- NOTE | 2018-04-02 15:40 | Emergency Department Note ---
Disposition Clinical Impression: Acute exacerbation of COPD with asthma Chest pain Qualifiers: Chest pain type: other chest pain Qualified Code(s): R07.89 - Other chest pain Disposition: Still a Patient Condition: Fair General Adult HPI - General Chief complaint: ED Chest Pain Stated complaint: "CP,SUZY,headache/dizzy" Time Seen by Provider: 04/02/18 15:18 - History of Present Illness Pain Scale: 6 - Related Data Home Medications Medication Instructions Recorded Confirmed Fenofibrate Nanocrystallized 48 mg PO DAILY 12/16/16 04/02/18 [Tricor] Atorvastatin [Lipitor] 40 mg PO HS 03/20/17 04/02/18 Docusate Sodium [Dok] 100 mg PO DAILY PRN 03/20/17 04/02/18 cloNIDine HCl [CloNIDine HCl] 0.1 mg PO BID 03/20/17 04/02/18 Aspirin [Lo-Dose Aspirin EC] 81 mg PO DAILY 11/25/17 04/02/18 Omeprazole [PriLOSEC] 40 mg PO DAILY 11/25/17 04/02/18 Spironolactone [Aldactone] 25 mg PO DAILY 11/27/17 04/02/18 Azithromycin [Azithromycin 6-Tab 250 mg PO PER PKG DI 04/02/18 04/02/18 Pack] Carvedilol [Coreg] 6.25 mg PO DAILY 04/02/18 04/02/18 Furosemide [Lasix] 40 mg PO DAILY 04/02/18 04/02/18 Levothyroxine Sodium 100 mcg PO DAILY 04/02/18 04/03/18 hydrALAZINE [HydrALAZINE] 25 mg PO BID 04/02/18 04/02/18 predniSONE [PredniSONE] 20 mg PO BID 04/02/18 04/02/18 Previous Rx's Medication Instructions Recorded amLODIPine [Norvasc] 10 mg PO DAILY #30 tab 03/23/17 Beclomethasone Diprop 80mcg [QVAR 1 puff IH BIDR #1 puff 11/27/17 80 mcg] Valsartan [Diovan] 320 mg PO DAILY #30 tablet 11/27/17 Allergies Allergy/AdvReac Type Severity Reaction Status Date / Time metronidazole [From Flagyl] Allergy Severe Swelling Verified 08/20/17 21:57 of Lip/Tongue/Throat Iodinated Contrast- Oral and Allergy Swelling Verified 08/20/17 21:57 IV Dye of [Iodinated Contrast Media - Lip/Tongue/Throat IV Dye] Past Medical History - Past Medical History Medical history: Reports: aortic aneurysm, coronary artery disease, hyperlipidemia, hypertension, myocardial infarction Surgical history: Reports: angioplasty/stent, cholecystectomy, hysterectomy Psychiatric history: Reports: no psych history REGULATOR TESTER history: Reports: no REGULATOR TESTER history - Social History Smoking Status: Former smoker Smokeless Tobacco Status: No Alcohol use: Reports: none Drug use: Reports: none Course Vital Signs Temperature 98.1 F 04/02/18 15:12 Pulse Rate 75 04/02/18 15:12 Respiratory Rate 18 04/02/18 15:12 Blood Pressure 165/50 04/02/18 15:12 O2 Sat by Pulse Oximetry 97 04/02/18 15:12 Temperature 98.6 F 04/05/18 23:22 Pulse Rate 57 04/05/18 23:22 Respiratory Rate 18 04/05/18 23:36 Blood Pressure 126/67 04/05/18 23:22 O2 Sat by Pulse Oximetry 96 04/05/18 23:36 Oxygen Delivery Oxygen Delivery Room Air Medical Decision Making - Lab Data Result diagrams: 04/05/18 04:47 04/05/18 04:47 Lab Results 04/02/18 04/02/18 04/02/18 Range/Units 15:36 15:36 15:36 WBC 14.6 H (4.3-11.1) K/mcL RBC 3.55 L (3.82-4.97) M/mcL Hgb 10.5 L (11.5-15.4) g/dL Hct 31.7 L (35.3-44.9) % MCV 89.3 (83.0-100.0) fL MCH 29.6 (28.0-33.3) pg MCHC 33.1 (31.6-35.5) g/dL RDW 13.9 (11.5-14.5) % Plt Count 562 H (140-400) K/mcL MPV 9.2 L (9.4-12.4) fL Immature Gran % 0.6 (0-4) % Seg Neutrophils % 89.2 % Lymphocytes % 6.3 % Monocytes % 3.8 % Eosinophils % 0.0 % Basophils % 0.1 % Neutrophils # 13.1 H (1.6-8.9) K/mcL Lymphocytes # 0.9 (0.6-4.6) K/mcL Monocytes # 0.6 (0.0-1.3) K/mcL Eosinophils # 0.0 (0.0-0.6) K/mcL Basophils # 0.0 (0.0-0.2) K/mcL Sodium 130 L (136-145) mEq/L Potassium 4.2 (3.5-5.1) mEq/L Chloride 101 (98-107) mEq/L Carbon Dioxide 23 (23-29) mEq/L BUN 20 (8-23) mg/dL Creatinine 1.85 H (0.60-1.20) mg/dL Est GFR ( Amer) 32 L (> 60) Est GFR (Non-Af Amer) 27 L (> 60) BUN/Creatinine Ratio 11 (6-26) Glucose 161 H (70-105) mg/dL Calculated Osmolality 276 L (280-300) Calcium 8.9 (8.6-10.3) mg/dL Troponin I < 0.03 (< 0.04) ng/mL B-Natriuretic Peptide 292 H (Less than 100) pg/mL Attestation Statement - Attestation Attestation: I examined this patient and my medical decision-making was reviewed with the Resident Physician. I agree with the documented findings, disposition and treatment plan as described except to the extent set forth below. 77-year-old female presents emergency room for chest pain, shortness of breath, nausea, diaphoresis, cough. She also feels dizzy. Onset 2 days ago. She admits to increasing cough. Possible pneumonia versus bronchitis versus ACS or a combination. EKG does not show any evidence of any ST elevation PA We will workup for ACS versus pneumonia as mentioned. Jim's as well.
[2018-04-02 15:56] LABS: Basophils % 0.1 %; Hematocrit 31.7 % (35.3-44.9); Hemoglobin 10.5 g/dL (11.5-15.4); Immature Granulocytes % 0.6 % (0-4); Lymphocytes # 0.9 K/mcL (0.6-4.6); Lymphocytes % 6.3 %; Mean Corpuscular HGB Conc 33.1 g/dL (31.6-35.5); Mean Corpuscular Hemoglobin 29.6 pg (28.0-33.3); Mean Corpuscular Volume 89.3 fL (83.0-100.0); Mean Platelet Volume 9.2 fL (9.4-12.4); Monocytes # 0.6 K/mcL (0.0-1.3); Monocytes % 3.8 %; Neutrophils # 13.1 K/mcL (1.6-8.9); Platelet Count 562 K/mcL (140-400); Red Blood Count 3.55 M/mcL (3.82-4.97); Red Cell Distribution Width 13.9 % (11.5-14.5); Segmented Neutrophils % 89.2 %
[2018-04-02 16:13] LABS: Troponin I < 0.03 ng/mL (< 0.04)
[2018-04-02 16:14] LABS: BUN/Creatinine Ratio 11 (6-26); Blood Urea Nitrogen 20 mg/dL (8-23); Calcium 8.9 mg/dL (8.6-10.3); Carbon Dioxide 23 mEq/L (23-29); Chloride 101 mEq/L (98-107); Glucose 161 mg/dL (70-105); Osmolality,Calculated 276 (280-300); Potassium 4.2 mEq/L (3.5-5.1); Sodium 130 mEq/L (136-145); eGFR For Non-African Americans 27 (> 60)
[2018-04-02] MEDS ORDERED: Albuterol 2.5 MG/3 ML NEBULIZER IH ONE (17:22)
[2018-04-02] MEDS ORDERED: methylPREDNISolone 125 MG/2 ML VIAL IVP ONE (17:22)
[2018-04-02] MEDS ORDERED: Albuterol 2.5 MG/3 ML NEBULIZER ONE (19:22)
[2018-04-02] MEDS: Menthol 9.1 MG LOZENGE PO PRN (23:07)
[2018-04-03] MEDS ORDERED: Ipratropium/Albuterol Neb 3 ML IH STA (02:16)
[2018-04-03] MEDS: Melatonin 3 MG TABLET PO PRN ×2 (02:43→22:48)
[2018-04-03] MEDS ORDERED: Naloxone 0.4 MG/ML INJ IVP PRN (03:19)
[2018-04-03] MEDS ORDERED: Albuterol 2.5 MG/3 ML NEBULIZER IH PRN (03:19)
[2018-04-03] MEDS ORDERED: Acetaminophen 325 MG TABLET PO PRN (03:19)
[2018-04-03] MEDS: Ipratropium/Albuterol Neb 3 ML IH SCH ×5 (03:52→20:18)
[2018-04-03] MEDS: 0.9 % Sodium Chloride 1,000 ML IVC SCH ×2 (04:21→17:42)
[2018-04-03] MEDS: Azithromycin 500 MG in D5% in Water 250 ML IVPB SCH (04:21)
--- NOTE | 2018-04-03 06:19 | Internal Med History&Physical ---
Date of Encounter: 04/03/18 Time of Encounter: 03:15 Internal Medicine - H&P: HPI Chief complaint: SOB; coughing; wheezing; chest tightness Admitted From: Emergency Dept Plans for Post Hospital Care: Home History of present illness: Ms. Gallardo is a 77 year old female who presents to the ER with a several day history of coughing, wheezing, shortness of breath, and chest tightness. She denies any fevers, chills, or night sweats. Her cough and wheeze and productive sputum have worsened, however. She came to the ER where she was evaluated. She was admitted to hospitalist service for presumptive COPD exacerbation. She did have recent pulmonary function tests within the last year which were negative, according to patient. When I assessed her, she was audibly wheezing and coughing and complaining of some chest tightness with harsh coughing. She did respond to some aerosols earlier and we will continue those. She has a remote smoking history and quit many years ago. She denies any acute ill contacts within respiratory illnesses amongst family members. 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 She denies any chest pain or anginal symptoms. She has a history of coronary disease, but she states the chest tightness seems to be due to her wheezing, coughing, and shortness of breath. She denies any weight gain, lower extremity edema, orthopnea, or paroxysmal nocturnal dyspnea. Past Med Surg Social Fam HX - Past Medical History Attestation: Yes The following information was validated with the patient. Source: patient, old records reviewed Medical history: aortic aneurysm, coronary artery disease, hyperlipidemia, hypertension, myocardial infarction Additional medical history: UPPER PARITAL DENTURE Psychiatric history: no psych history - Past Surgical History Surgical History: angioplasty/stent, cholecystectomy, hysterectomy Additional surgical history: cardiac cath with stent placement Apr 08, 2015, Left shoulder scope - Social History Smoking Status: Former smoker Smokeless Tobacco Status: No Alcohol use: none Drug use: none Current living situation: Home, With Family Activity Level: Independent ambulation Recent Out of Country Travel Within the Last 8 Weeks: No - Family History Mother Living Status: Hx Family Cardiac Disorders: No Hx Family Respiratory Disorders: No Hx Family Cancer: No Hx Family GI Disorders: No Hx Family Endocrine Disorder: No Hx Family Neuromuscular Disorders: No Hx Family Neurologic Disorders: No Hx Family HEENT Disorders: No Hx Family Autoimmune Disorders: No Father Living Status: Hx Family Cardiac Disorders: Yes (HTN) Hx Family Respiratory Disorders: No Hx Family Cancer: No Hx Family GI Disorders: No Hx Family Endocrine Disorder: No Hx Family Neuromuscular Disorders: No Hx Family Neurologic Disorders: No Hx Family HEENT Disorders: No Hx Family Autoimmune Disorders: No Grandmother Hx Family Cardiac Disorders: Yes Internal Medicine - H&P: Meds Fenofibrate Nanocrystallized [Tricor] 48 mg PO DAILY 12/16/16 [History] Atorvastatin [Lipitor] 40 mg PO HS 03/20/17 [History] Docusate Sodium [Dok] 100 mg PO DAILY PRN 03/20/17 [History] cloNIDine HCl [CloNIDine HCl] 0.1 mg PO BID 03/20/17 [History] amLODIPine [Norvasc] 10 mg PO DAILY #30 tab 03/23/17 [Rx] Aspirin [Lo-Dose Aspirin EC] 81 mg PO DAILY 11/25/17 [History] Omeprazole [PriLOSEC] 40 mg PO DAILY 11/25/17 [History] Beclomethasone Diprop 80mcg [QVAR 80 mcg] 1 puff IH BIDR #1 puff 11/27/17 [Rx] Spironolactone [Aldactone] 25 mg PO DAILY 11/27/17 [History] Valsartan [Diovan] 320 mg PO DAILY #30 tablet 11/27/17 [Rx] Azithromycin [Azithromycin 6-Tab Pack] 250 mg PO PER PKG DI 04/02/18 [History] Carvedilol [Coreg] 6.25 mg PO DAILY 04/02/18 [History] Furosemide [Lasix] 40 mg PO DAILY 04/02/18 [History] Levothyroxine Sodium 100 mcg PO DAILY 04/02/18 [History] hydrALAZINE [HydrALAZINE] 25 mg PO BID 04/02/18 [History] predniSONE [PredniSONE] 20 mg PO BID 04/02/18 [History] 3 Allergy/AdvReac Type Severity Reaction Status Date / Time metronidazole [From Flagyl] Allergy Severe Swelling Verified 08/20/17 21:57 of Lip/Tongue/Throat Iodinated Contrast- Oral and Allergy Swelling Verified 08/20/17 21:57 IV Dye of [Iodinated Contrast Media - Lip/Tongue/Throat IV Dye] - Constitutional Constitutional: no chills, no fever(s), no night sweats - EENT Eyes: no blurry vision, no change in vision Ears: no ear pain, no tinnitus Nose, mouth and throat: nasal congestion, no sinus pressure, no sore throat - Cardiovascular Cardiovascular ROS IM: no chest pain, no edema, no orthopnea, no paroxysmal nocturnal dyspnea - Respiratory Respiratory: cough, dyspnea, wheezing, chest congestion, no excessive phlegm production, no change in phlegm color, no pain with cough - Gastrointestinal Gastrointestinal: no abdominal pain, no diarrhea, no hematemesis, no hematochezia, no melena, no nausea, no vomiting - Genitourinary Genitourinary: no dysuria, no flank pain, no hematuria - Musculoskeletal Musculoskeletal ROS IM: no arthralgias, no back pain - Integumentary Integumentary IM: no rash, no jaundice - Neurological Neurological ROS: no dizziness, no focal weakness, no frequent falls, no headache(s) - Psychiatric Psychiatric: no anxiety, no depression - Endocrine Endocrine IM: no cold intolerance, no heat intolerance, no polydipsia, no polyuria - Allergic/Immunologic Allergic/Immunologic: wheezing, no GI upset with certain foods - Constitutional Vitals: Temp Pulse Resp BP Pulse Ox 97.6 F 66 18 154/74 93 04/03/18 03:47 04/03/18 03:47 04/03/18 03:52 04/03/18 03:47 04/03/18 03:52 General appearance: Present: cooperative, mild distress, A&O X 3, pleasant, answers questions appropriately Exam: audibly coughing and wheezing - Head Head exam: Present: atraumatic, normal inspection - Eye Eye exam: Present: EOMI, PERRL. Absent: scleral icterus Pupils: Present: normal accommodation - ENT ENT exam: Present: normal exam, normal oropharynx - Neck Neck exam general surgery: Present: full ROM, supple. Absent: tenderness, nuchal rigidity, thyromegaly - Respiratory Respiratory exam: Present: prolonged expiratory phase, respiratory distress ( mild ), rhonchi, wheezes, tachypnea. Absent: chest wall tenderness, rales - Cardiovascular Cardiovascular exam: Present: RRR, +S1, +S2. Absent: diastolic murmur, systolic murmur - GI/Abdominal GI/Abdominal exam: Present: normal bowel sounds, soft. Absent: guarding, hepatomegaly, rebound, splenomegaly, tenderness - Extremities Exam Extremities exam: Present: full ROM, normal capillary refill, warm, radial pulses palpable and symmetrical. Absent: calf tenderness, joint swelling, pedal edema, tenderness - Back Exam Back exam: Absent: CVA tenderness (L), CVA tenderness (R) - Neurological Exam Neurological exam: Present: alert, CN II-XII intact, oriented X3, no focal deficits, strengths equal and symetr throughout - Psychiatric Psychiatric exam: Present: normal affect, normal mood - Skin Skin exam: Present: dry, intact, warm Internal Med - H&P Results - Labs CBC & Chem 7: 04/02/18 15:36 04/02/18 15:36 - Diagnostic Studies CT scan - chest Status: image reviewed by me (negative) - Assessment and plan (1) Acute exacerbation of COPD with asthma Current Visit: Yes Status: Acute Assessment and plan: 1. Will treat with IV steroids, scheduled and PRN aerosols, oxygen, and antibiotics. 2. Will try to obtain sputum culture and gram stain. 3. Monitor clinically for improvement. (2) Chest pain Current Visit: Yes Status: Acute Assessment and plan: 1. Suspect this is due to COPD exacerbation. 2. Will trend troponins and EKG's nonetheless. Qualifiers: Chest pain type: other chest pain Qualified Code(s): R07.89 - Other chest pain; R07.8 - Other chest pain (3) CAD (coronary artery disease) Current Visit: Yes Status: Chronic Assessment and plan: 1. Continue home meds as appropriate. 2. Monitor for signs and symptoms of angina. 3. Consult cardiology, if necessary, in the event she develops ischemia/angina. Qualifiers: Coronary Disease-Associated Artery/Lesion type: [place] artery Qualified Code(s): I25.10 - Atherosclerotic heart disease of [place] coronary artery without angina pectoris (4) DVT prophylaxis Current Visit: Yes Status: Acute Assessment and plan: 1. Heparin SQ.
[2018-04-03 06:20] LABS: Calcium 8.9 mg/dL (8.6-10.3); Magnesium 2.3 mg/dL (1.6-2.6); Potassium 4.6 mEq/L (3.5-5.1)
[2018-04-03] MEDS: *HR* Heparin 5,000 UNIT/ML VIAL SQ SCH ×2 (06:31→17:17)
[2018-04-03] MEDS: Beclomethasone 80mcg MDI IH SCH ×2 (07:55→20:18)
[2018-04-03] MEDS: Aspirin Enteric Coated 81 MG Tablet PO SCH (08:18)
[2018-04-03] MEDS: Fenofibrate 54 MG TABLET PO SCH (08:18)
[2018-04-03] MEDS: amLODIPine 5 MG TABLET PO SCH (08:19)
[2018-04-03] MEDS: cefTRIAXone 1,000 MG in Water for inj. (sterile) 20 ML 10 ML IVP SCH (08:19)
[2018-04-03] MEDS: hydrALAZINE 25 MG TABLET PO SCH ×2 (08:19→19:32)
[2018-04-03] MEDS: methylPREDNISolone 125 MG/2 ML VIAL IVP SCH ×3 (08:20→22:48)
[2018-04-03] MEDS: cloNIDine HCl 0.1 MG TABLET PO SCH ×2 (08:22→19:33)
--- NOTE | 2018-04-03 09:57 | Event Note ---
Date of Encounter: 04/03/18 Time of Encounter: 09:55 Patient seen and examined earlier this am by hospitalist. Currently complains of dry nonproductive cough and wheezing. She was admitted with COPD exacerbation currently wheezing requiring oxygen supplementation Will cont with steroids bib mclaughlin and KURTIS Updated patient on plan of care who verbalized understanding
[2018-04-03] MEDS: *HR* HYDROcodone/Acet 5/325 mg TABLET PO PRN ×2 (10:35→17:17)
[2018-04-03] MEDS: Menthol 9.1 MG LOZENGE PO PRN (19:33)
[2018-04-04] MEDS: Ipratropium/Albuterol Neb 3 ML IH SCH ×6 (00:17→20:31)
[2018-04-04] MEDS: *HR* Heparin 5,000 UNIT/ML VIAL SQ SCH ×2 (04:51→16:28)
[2018-04-04] MEDS: Azithromycin 500 MG in D5% in Water 250 ML IVPB SCH (04:52)
[2018-04-04] MEDS: Menthol 9.1 MG LOZENGE PO PRN ×3 (04:58→21:39)
[2018-04-04] MEDS: Beclomethasone 80mcg MDI IH SCH ×2 (07:28→20:32)
[2018-04-04 08:44] LABS: Hematocrit 31.6 % (35.3-44.9); Hemoglobin 10.2 g/dL (11.5-15.4); Immature Granulocytes % 0.6 % (0-4); Lymphocytes # 0.9 K/mcL (0.6-4.6); Lymphocytes % 8.3 %; Mean Corpuscular HGB Conc 32.3 g/dL (31.6-35.5); Mean Corpuscular Hemoglobin 28.6 pg (28.0-33.3); Mean Corpuscular Volume 88.5 fL (83.0-100.0); Mean Platelet Volume 9.5 fL (9.4-12.4); Monocytes # 0.5 K/mcL (0.0-1.3); Monocytes % 4.9 %; Neutrophils # 9.4 K/mcL (1.6-8.9); Platelet Count 561 K/mcL (140-400); Red Blood Count 3.57 M/mcL (3.82-4.97); Red Cell Distribution Width 14.2 % (11.5-14.5); Segmented Neutrophils % 86.2 %
[2018-04-04] MEDS: amLODIPine 5 MG TABLET PO SCH (08:44)
[2018-04-04] MEDS: Aspirin Enteric Coated 81 MG Tablet PO SCH (08:44)
[2018-04-04] MEDS: Fenofibrate 54 MG TABLET PO SCH (08:46)
[2018-04-04] MEDS: cloNIDine HCl 0.1 MG TABLET PO SCH ×2 (08:46→20:15)
[2018-04-04] MEDS: cefTRIAXone 1,000 MG in Water for inj. (sterile) 20 ML 10 ML IVP SCH (08:48)
[2018-04-04] MEDS: methylPREDNISolone 125 MG/2 ML VIAL IVP SCH ×3 (08:48→23:55)
--- NOTE | 2018-04-04 08:53 | Internal Med Progress Note ---
Hospitalist Progress Note - Encounter Date of Encounter: 04/04/18 Time of Encounter: 08:53 - Subjective Interval History: Patient seen and examined at bedside Cont to have cough and wheezes O2 sats are stable occasional pain on cough - Exam Vitals: Temp Pulse Resp BP Pulse Ox 98.0 F 70 16 156/82 99 04/04/18 06:57 04/04/18 06:57 04/04/18 07:28 04/04/18 06:57 04/04/18 07:28 Exam: General appearance: Present: cooperative, mild distress, A&O X 3, pleasant, answers questions appropriately Exam: audibly coughing - Head Head exam: Present: atraumatic, normal inspection - Eye Eye exam: Present: EOMI, PERRL. Absent: scleral icterus Pupils: Present: normal accommodation - ENT ENT exam: Present: normal exam, normal oropharynx - Neck Neck exam general surgery: Present: full ROM, supple. Absent: tenderness, nuchal rigidity, thyromegaly - Respiratory Respiratory exam: Present: prolonged expiratory phase, rhonchi, wheezes,. Absent: chest wall tenderness, rales - Cardiovascular Cardiovascular exam: Present: RRR, +S1, +S2. Absent: diastolic murmur, systolic murmur - GI/Abdominal GI/Abdominal exam: Present: normal bowel sounds, soft. Absent: guarding, hepatomegaly, rebound, splenomegaly, tenderness - Extremities Exam Extremities exam: Present: full ROM, normal capillary refill, warm, radial pulses palpable and symmetrical. Absent: calf tenderness, joint swelling, pedal edema, tenderness - Back Exam Back exam: Absent: CVA tenderness (L), CVA tenderness (R) - Neurological Exam Neurological exam: Present: alert, CN II-XII intact, oriented X3, no focal deficits, strengths equal and symetr throughout - Psychiatric Psychiatric exam: Present: normal affect, normal mood - Skin Skin exam: Present: dry, intact, warm - Assessment and Plan (1) Acute exacerbation of COPD with asthma Current Visit: Yes Status: Acute Assessment and Plan: 1. Will treat with IV steroids, scheduled and PRN aerosols, oxygen, and antibiotics. 2. Will try to obtain sputum culture and gram stain. 3. Monitor clinically for improvement. 4 obtain resp panel 5 If no improvement by am consult pulmonary (2) DVT prophylaxis Current Visit: Yes Status: Acute Assessment and Plan: 1. Heparin SQ. (3) CAD (coronary artery disease) Current Visit: Yes Status: Chronic Assessment and Plan: 1. Continue home meds as appropriate. 2. Monitor for signs and symptoms of angina. 3. Consult cardiology, if necessary, in the event she develops ischemia/angina. (4) Chest pain Current Visit: Yes Status: Acute Assessment and Plan: 1. Suspect this is due to COPD exacerbation. describes pain worse with coughing improves with pain medication 2. Troponin negative - Time Spent with Patient Total time spent is greater than 50% in coordination of care (as documented) at patient's floor/unit and/or counseling patient: Internal Medicine: Result - Labs CBC & Chem 7: 04/04/18 08:09 04/04/18 08:09 Labs: Short CBC 04/04/18 Range/Units 08:09 WBC 10.9 (4.3-11.1) K/mcL Hgb 10.2 L (11.5-15.4) g/dL Hct 31.6 L (35.3-44.9) % Plt Count 561 H (140-400) K/mcL Neutrophils # 9.4 H (1.6-8.9) K/mcL Cardiac Enzymes 04/03/18 04/03/18 Range/Units 09:45 15:43 Troponin I < 0.03 < 0.03 (< 0.04) ng/mL Consult Discharge Plan - Plan Referrals: Homa Mary, LICENSED EMBALMER SUPERVISOR [Primary Care Provider] - 04/11/18 2:45 pm ( ) (3) CAD (coronary artery disease) Qualifiers: Coronary Disease-Associated Artery/Lesion type: [place] artery (4) Chest pain Qualifiers: Chest pain type: other chest pain Qualified Code(s): R07.89 - Other chest pain; R07.8 - Other chest pain
[2018-04-04] MEDS: *HR* HYDROcodone/Acet 5/325 mg TABLET PO PRN ×3 (08:55→21:38)
[2018-04-04 09:08] LABS: Calcium 8.8 mg/dL (8.6-10.3); Potassium 4.3 mEq/L (3.5-5.1)
[2018-04-04] MEDS: hydrALAZINE 25 MG TABLET PO SCH ×2 (09:09→20:15)
[2018-04-04] MEDS: Melatonin 3 MG TABLET PO PRN (21:38)
[2018-04-04 21:46] LABS: Adenovirus Not Detected (Not Detect); Bordetella Pertussis Not Detected (Not Detect); Chlamydophila pneumoniae Not Detected (Not Detect); Coronavirus 229E Not Detected (Not Detect); Coronavirus HKU1 Not Detected (Not Detect); Coronavirus NL63 Not Detected (Not Detect); Coronavirus OC43 Not Detected (Not Detect); Human Metapneumovirus Not Detected (Not Detect); Human Rhinovirus/Enterovirus DETECTED (Not Detect); Influenza A Subtype 2009 H1 Not Detected (Not Detect); Influenza A Untypeable Not Detected (Not Detect); Influenza B Not Detected (Not Detect); Mycoplasma pneumoniae Not Detected (Not Detect); Parainfluenza Virus 1 Not Detected (Not Detect); Parainfluenza Virus 2 Not Detected (Not Detect); Parainfluenza Virus 3 Not Detected (Not Detect); Parainfluenza Virus 4 Not Detected (Not Detect); Respiratory Syncytial Virus Not Detected (Not Detect)
[2018-04-04] MEDS: Saline Nasal Spray 44 ML BOTTLE NS PRN (23:55)
[2018-04-05] MEDS: Ipratropium/Albuterol Neb 3 ML IH SCH ×7 (00:30→23:36)
[2018-04-05] MEDS: Azithromycin 500 MG in D5% in Water 250 ML IVPB SCH (04:31)
[2018-04-05] MEDS: *HR* Heparin 5,000 UNIT/ML VIAL SQ SCH ×2 (04:32→17:57)
[2018-04-05] MEDS: *HR* HYDROcodone/Acet 5/325 mg TABLET PO PRN ×3 (04:57→17:57)
[2018-04-05 06:28] LABS: Hematocrit 32.6 % (35.3-44.9); Hemoglobin 10.5 g/dL (11.5-15.4); Immature Granulocytes % 0.9 % (0-4); Lymphocytes # 0.6 K/mcL (0.6-4.6); Lymphocytes % 6.3 %; Mean Corpuscular HGB Conc 32.2 g/dL (31.6-35.5); Mean Corpuscular Hemoglobin 28.9 pg (28.0-33.3); Mean Corpuscular Volume 89.8 fL (83.0-100.0); Mean Platelet Volume 9.8 fL (9.4-12.4); Monocytes # 0.3 K/mcL (0.0-1.3); Monocytes % 2.7 %; Platelet Count 587 K/mcL (140-400); Red Blood Count 3.63 M/mcL (3.82-4.97); Red Cell Distribution Width 14.1 % (11.5-14.5); Segmented Neutrophils % 90.1 %
[2018-04-05 06:58] LABS: Calcium 8.8 mg/dL (8.6-10.3); Potassium 4.4 mEq/L (3.5-5.1)
[2018-04-05] MEDS: Beclomethasone 80mcg MDI IH SCH ×2 (08:03→19:50)
[2018-04-05] MEDS: amLODIPine 5 MG TABLET PO SCH (08:36)
[2018-04-05] MEDS: cloNIDine HCl 0.1 MG TABLET PO SCH ×3 (08:36→20:33)
[2018-04-05] MEDS: hydrALAZINE 25 MG TABLET PO SCH ×2 (08:36→20:34)
[2018-04-05] MEDS: Aspirin Enteric Coated 81 MG Tablet PO SCH (08:36)
[2018-04-05] MEDS: Fenofibrate 54 MG TABLET PO SCH (08:37)
[2018-04-05] MEDS: methylPREDNISolone 125 MG/2 ML VIAL IVP SCH ×2 (08:38→14:57)
[2018-04-05] MEDS: cefTRIAXone 1,000 MG in Water for inj. (sterile) 20 ML 10 ML IVP SCH (08:40)
[2018-04-05] MEDS: Saline Nasal Spray 44 ML BOTTLE NS PRN (11:37)
--- NOTE | 2018-04-05 14:49 | Pulmonology Consult Note ---
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 Ceftriaxone can be de-escalate since it is induced by viral exacerbation she might have a prolonged hospital course. Adding diuresis to the current regimen might help in the recovery period low suspicion for pulmonary embolism. (2) Acute on chronic diastolic heart failure Current Visit: No Status: Acute Patient is diastolic heart failure which can be decompensated in this acute illness as the patient kidney function is at baseline to continue diuresis gently as tolerated. (3) Chronic kidney disease (CKD) Current Visit: No Status: Chronic Patient kidney function is at baseline to continue the diuresis. Qualifiers: Chronic kidney disease stage: stage 3 (moderate) Qualified Code(s): N18.3 - Chronic kidney disease, stage 3 (moderate) History of Present Illness Consult date: 04/05/18 Requesting physician: Mala Guzman Reason for consult: COPD (acute hypoxic respiratory failure ) Chief complaint: shortness of breadth History of present illness: 77-year-old female with past medical history significant for morbid obesity, diastolic heart failure chronic bronchitis even for her spirometry is normal she is most likely worsening his early stage COPD with a strong asthmatic component, former smoker comes here with a few days history of increased shortness of breath increased cough and sputum production found to have viral exacerbation of her obstructive lung disease denies any chest pain or chest tightness denies any hemoptysis denies any pedal edema has some orthopnea denies any PND denies any palpitation or syncope denies any abdominal symptoms or neuro symptoms denies any headache denies any skin symptoms or musculoskeletal symptoms patient is here for exacerbation of her COPD/asthma complicated by diastolic heart failure. Past Med Surg Social Fam HX - Past Medical History Medical history: aortic aneurysm, coronary artery disease, hyperlipidemia, hypertension, myocardial infarction Additional medical history: UPPER PARITAL DENTURE Psychiatric history: no psych history - Past Surgical History Surgical History: angioplasty/stent, cholecystectomy, hysterectomy Additional surgical history: cardiac cath with stent placement Apr 08, 2015, Left shoulder scope - Social History Smoking Status: Former smoker Smokeless Tobacco Status: No Alcohol use: none Drug use: none - Family History Mother Living Status: Hx Family Cardiac Disorders: No Hx Family Respiratory Disorders: No Hx Family Cancer: No Hx Family GI Disorders: No Hx Family Endocrine Disorder: No Hx Family Neuromuscular Disorders: No Hx Family Neurologic Disorders: No Hx Family HEENT Disorders: No Hx Family Autoimmune Disorders: No Father Living Status: Hx Family Cardiac Disorders: Yes (HTN) Hx Family Respiratory Disorders: No Hx Family Cancer: No Hx Family GI Disorders: No Hx Family Endocrine Disorder: No Hx Family Neuromuscular Disorders: No Hx Family Neurologic Disorders: No Hx Family HEENT Disorders: No Hx Family Autoimmune Disorders: No Grandmother Hx Family Cardiac Disorders: Yes Medications and Allergies Fenofibrate Nanocrystallized [Tricor] 48 mg PO DAILY 12/16/16 [History] Atorvastatin [Lipitor] 40 mg PO HS 03/20/17 [History] Docusate Sodium [Dok] 100 mg PO DAILY PRN 03/20/17 [History] cloNIDine HCl [CloNIDine HCl] 0.1 mg PO BID 03/20/17 [History] amLODIPine [Norvasc] 10 mg PO DAILY #30 tab 03/23/17 [Rx] Aspirin [Lo-Dose Aspirin EC] 81 mg PO DAILY 11/25/17 [History] Omeprazole [PriLOSEC] 40 mg PO DAILY 11/25/17 [History] Beclomethasone Diprop 80mcg [QVAR 80 mcg] 1 puff IH BIDR #1 puff 11/27/17 [Rx] Spironolactone [Aldactone] 25 mg PO DAILY 11/27/17 [History] Valsartan [Diovan] 320 mg PO DAILY #30 tablet 11/27/17 [Rx] Azithromycin [Azithromycin 6-Tab Pack] 250 mg PO PER PKG DI 04/02/18 [History] Carvedilol [Coreg] 6.25 mg PO DAILY 04/02/18 [History] Furosemide [Lasix] 40 mg PO DAILY 04/02/18 [History] Levothyroxine Sodium 100 mcg PO DAILY 04/02/18 [History] hydrALAZINE [HydrALAZINE] 25 mg PO BID 04/02/18 [History] predniSONE [PredniSONE] 20 mg PO BID 04/02/18 [History] 3 Allergy/AdvReac Type Severity Reaction Status Date / Time metronidazole [From Flagyl] Allergy Severe Swelling Verified 08/20/17 21:57 of Lip/Tongue/Throat Iodinated Contrast- Oral and Allergy Swelling Verified 08/20/17 21:57 IV Dye of [Iodinated Contrast Media - Lip/Tongue/Throat IV Dye] All Systems: The remainder of the systems were reviewed and are negative Physical Examination Vital Signs: Vital Signs, Last 4 Hours Temp Pulse Resp BP Pulse Ox 04/05/18 10:53 97.9 F 64 17 174/67 99 Auscultation: bilateral: wheezes Results - Laboratory Findings CBC and BMP: 04/05/18 04:47 04/05/18 04:47 Abnormal lab findings: Abnormal lab results RBC 3.63 M/mcL (3.82-4.97) L 04/05/18 04:47 Hgb 10.5 g/dL (11.5-15.4) L 04/05/18 04:47 Hct 32.6 % (35.3-44.9) L 04/05/18 04:47 Plt Count 587 K/mcL (140-400) H 04/05/18 04:47 Neutrophils # 9.0 K/mcL (1.6-8.9) H 04/05/18 04:47 Sodium 129 mEq/L (136-145) L 04/05/18 04:47 Carbon Dioxide 21 mEq/L (23-29) L 04/05/18 04:47 BUN 32 mg/dL (8-23) H 04/05/18 04:47 Creatinine 1.63 mg/dL (0.60-1.20) H 04/05/18 04:47 Est GFR ( Amer) 37 (> 60) L 04/05/18 04:47 Est GFR (Non-Af Amer) 31 (> 60) L 04/05/18 04:47 Glucose 172 mg/dL (70-105) H 04/05/18 04:47 Calculated Osmolality 279 (280-300) L 04/05/18 04:47 B-Natriuretic Peptide 292 pg/mL (Less than 100) H 04/02/18 15:36 Entero/Rhino (PCR) DETECTED (Not Detect) A 04/04/18 20:20 - Microbiology Findings Microbiology Findings: Microbiology, Last 48 Hours 04/03/18 19:49 Sputum Culture - Final Sputum - Clinical Findings Intake & Output: Intake & Output 04/04/18 04/05/1804/05/18 23:59 07:59 15:59 Intake Total 550 / 550 600 / 600 750 / 750 Output Total 1000 / 1000 300 / 300 Balance -450 / -450 300 / 300 750 / 750 Weight 93.6 kg Consult Discharge Plan - Plan Referrals: Homa Mary, HOISTING MACHINE OPERATOR [Primary Care Provider] - 04/11/18 2:45 pm ( )
[2018-04-05] MEDS ORDERED: Furosemide 40 MG/4 ML VIAL IVP ONE (15:02)
--- NOTE | 2018-04-05 15:10 | Internal Med Progress Note ---
Hospitalist Progress Note - Encounter Date of Encounter: 04/05/18 Time of Encounter: 15:10 - Subjective Interval History: Patient seen and examined at bedside Cont to have cough and wheezes O2 sats are stable occasional pain on cough - Exam Vitals: Temp Pulse Resp BP Pulse Ox 97.9 F 64 17 174/67 99 04/05/18 10:53 04/05/18 10:53 04/05/18 10:53 04/05/18 10:53 04/05/18 10:53 Exam: General appearance: Present: cooperative, mild distress, A&O X 3, pleasant, answers questions appropriately Exam: audibly coughing - Head Head exam: Present: atraumatic, normal inspection - Eye Eye exam: Present: EOMI, PERRL. Absent: scleral icterus Pupils: Present: normal accommodation - ENT ENT exam: Present: normal exam, normal oropharynx - Neck Neck exam general surgery: Present: full ROM, supple. Absent: tenderness, nuchal rigidity, thyromegaly - Respiratory Respiratory exam: Present: prolonged expiratory phase, rhonchi, wheezes,. Absent: chest wall tenderness, rales-has moist nonproductive cough - Cardiovascular Cardiovascular exam: Present: RRR, +S1, +S2. Absent: diastolic murmur, systolic murmur - GI/Abdominal GI/Abdominal exam: Present: normal bowel sounds, soft. Absent: guarding, hepatomegaly, rebound, splenomegaly, tenderness - Extremities Exam Extremities exam: Present: full ROM, normal capillary refill, warm, radial pulses palpable and symmetrical. Absent: calf tenderness, joint swelling, pedal edema, tenderness - Back Exam Back exam: Absent: CVA tenderness (L), CVA tenderness (R) - Neurological Exam Neurological exam: Present: alert, CN II-XII intact, oriented X3, no focal deficits, strengths equal and symetr throughout - Psychiatric Psychiatric exam: Present: normal affect, normal mood - Skin Skin exam: Present: dry, intact, warm - Assessment and Plan (1) Acute exacerbation of COPD with asthma Current Visit: Yes Status: Acute Assessment and Plan: 1. Will treat with IV steroids, scheduled and PRN aerosols, oxygen, and antibiotics. 2. Will try to obtain sputum culture and gram stain. 3. Monitor clinically for improvement. 4 resp panel-did show Enterrovirus/ rhinovirus 5 pulmonology consulted Patient has received 2 days of high steroids as well as Rocephin and Zithromax. Duo nebs every 4 hours with little improvement. Sats are stable however airway is very tight and wheezy. I did consult pulmonology we will continue with oxygen support titrated to maintain SPO2 greater than 92%. Patient does not normally wear oxygen at home (2) DVT prophylaxis Current Visit: Yes Status: Acute Assessment and Plan: 1. Heparin SQ. (3) CAD (coronary artery disease) Current Visit: Yes Status: Chronic Assessment and Plan: 1. Continue home meds as appropriate.-Aspirin statin beta torres 2. Monitor for signs and symptoms of angina. 3. Consult cardiology, if necessary, in the event she develops ischemia/angina. (4) Chest pain Current Visit: Yes Status: Acute Assessment and Plan: 1. Suspect this is due to COPD exacerbation. describes pain worse with coughing improves with pain medication 2. Troponin negative 3 continuous cardiac monitoring - Time Spent with Patient Total time spent is greater than 50% in coordination of care (as documented) at patient's floor/unit and/or counseling patient: Internal Medicine: Result - Labs CBC & Chem 7: 04/05/18 04:47 04/05/18 04:47 Labs: Short CBC 04/05/18 Range/Units 04:47 WBC 10.0 (4.3-11.1) K/mcL Hgb 10.5 L (11.5-15.4) g/dL Hct 32.6 L (35.3-44.9) % Plt Count 587 H (140-400) K/mcL Neutrophils # 9.0 H (1.6-8.9) K/mcL BMP 04/05/18 04:47 Sodium 129 L Potassium 4.4 Chloride 99 Carbon Dioxide 21 L BUN 32 H Creatinine 1.63 H Glucose 172 H Calcium 8.8 Consult Discharge Plan - Plan Referrals: Homa Mary, BUSINESS SERVICES ADMINISTRATOR [Primary Care Provider] - 04/11/18 2:45 pm ( ) (3) CAD (coronary artery disease) Qualifiers: Coronary Disease-Associated Artery/Lesion type: [place] artery (4) Chest pain Qualifiers: Chest pain type: other chest pain Qualified Code(s): R07.89 - Other chest pain; R07.8 - Other chest pain
[2018-04-05] MEDS: Menthol 9.1 MG LOZENGE PO PRN ×2 (15:41→18:06)
[2018-04-05] MEDS: MethylPREDNISolone 40 MG/ML VIAL IVP SCH (19:51)
[2018-04-05] MEDS: Melatonin 3 MG TABLET PO PRN (21:48)
[2018-04-06] MEDS: *HR* HYDROcodone/Acet 5/325 mg TABLET PO PRN ×2 (00:08→12:11)
[2018-04-06] MEDS: MethylPREDNISolone 40 MG/ML VIAL IVP SCH ×2 (00:08→08:33)
[2018-04-06 04:26] LABS: Basophils % 0.1 %; Hemoglobin 10.7 g/dL (11.5-15.4); Immature Granulocytes % 1.1 % (0-4); Lymphocytes # 0.6 K/mcL (0.6-4.6); Lymphocytes % 6.4 %; Mean Corpuscular HGB Conc 33.4 g/dL (31.6-35.5); Mean Corpuscular Hemoglobin 29.2 pg (28.0-33.3); Mean Corpuscular Volume 87.4 fL (83.0-100.0); Mean Platelet Volume 9.6 fL (9.4-12.4); Monocytes # 0.5 K/mcL (0.0-1.3); Neutrophils # 8.5 K/mcL (1.6-8.9); Platelet Count 580 K/mcL (140-400); Red Blood Count 3.66 M/mcL (3.82-4.97); Red Cell Distribution Width 14.1 % (11.5-14.5); Segmented Neutrophils % 87.4 %
[2018-04-06] MEDS: Ipratropium/Albuterol Neb 3 ML IH SCH ×5 (04:37→20:03)
[2018-04-06 04:48] LABS: Calcium 8.7 mg/dL (8.6-10.3); Potassium 4.2 mEq/L (3.5-5.1)
[2018-04-06] MEDS: Azithromycin 500 MG in D5% in Water 250 ML IVPB SCH (06:10)
[2018-04-06] MEDS: *HR* Heparin 5,000 UNIT/ML VIAL SQ SCH ×2 (06:10→17:57)
[2018-04-06] MEDS: Beclomethasone 80mcg MDI IH SCH ×2 (08:15→20:03)
[2018-04-06] MEDS: Menthol 9.1 MG LOZENGE PO PRN ×3 (08:30→21:22)
[2018-04-06] MEDS: hydrALAZINE 25 MG TABLET PO SCH ×2 (08:33→21:21)
[2018-04-06] MEDS: amLODIPine 5 MG TABLET PO SCH (08:33)
[2018-04-06] MEDS: cloNIDine HCl 0.1 MG TABLET PO SCH ×3 (08:33→21:21)
[2018-04-06] MEDS: Fenofibrate 54 MG TABLET PO SCH (08:33)
[2018-04-06] MEDS: Aspirin Enteric Coated 81 MG Tablet PO SCH (08:33)
--- NOTE | 2018-04-06 13:35 | Internal Med Progress Note ---
Hospitalist Progress Note - Encounter Date of Encounter: 04/06/18 Time of Encounter: 13:32 - Subjective Interval History: Pt seen and examined in the room. she reported improved sob and cough. No fever , chills, or night sweats. - Exam Vitals: Temp Pulse Resp BP Pulse Ox 97.5 F L 62 17 151/75 100 04/06/18 07:04 04/06/18 07:04 04/06/18 07:04 04/06/18 07:04 04/06/18 07:04 Exam: PHYSICAL EXAMINATION: GENERAL APPEARANCE: The patient is alert, oriented and in no acute distress. HEENT: Head is normocephalic. The sinuses are nontender. Pupils are equal and reactive. The nares are patent. Oropharynx clear without lesions. NECK: Supple without lymphadenopathy. HEART: Regular rate and rhythm. LUNGS: No crackles or wheezes are heard. ABDOMEN: Soft, nontender, nondistended with good bowel sounds heard. Inguinal area is normal. EXTREMITIES: Without cyanosis, clubbing or edema. NEUROLOGICAL: Gross nonfocal. SKIN: Warm and dry without any rash. - Assessment and Plan (1) Acute exacerbation of COPD with asthma Current Visit: Yes Status: Acute Assessment and Plan: Patient has a history of cough and shortness of breath, she has undergone extensive workup in the near past including echocardiogram, PFTs, stress test, and a left heart catheter. Stress test was reportedly abnormal. LHC revealed a 70% stenosis of RCA, she received 1 stent. Echocardiogram revealed preserved ejection fraction with mild LV DD. PFT showed normal FEV1/FVC ratio abnormal diffusion studies, suggestive for moderate reduction of functional alveolar capillary service. A V/Q study performed today showed low possibility of PE. - Patient has a history of smoking, however she quit about 2 and half years ago. PFT study is suggestive for emphysema. - Ups revealed a slightly elevated BNP, Diastolic heart failure was suspected, however, patient does not have obvious fluid overload on the physical exam. - Respiratory panel positive for rhinal virus. - Schmid symptoms is more consistent with reactive airway disease on the top of chronic emphysema. She resides she is responsive to bronchodilators and steroid , we will continue current treatment. DC IV antibiotics since there is no signs of infection/pneumonia. - Plan to discharge patient tomorrow if permits. (2) CAD (coronary artery disease) Current Visit: Yes Status: Chronic Assessment and Plan: Hx of CAD with RCA stent. Continue home meds as appropriate.-Aspirin statin beta torres Monitor for signs and symptoms of angina. (3) Chest pain Current Visit: Yes Status: Acute Assessment and Plan: 1. Suspect this is due to COPD exacerbation. describes pain worse with coughing improves with pain medication 2. Troponin negative 3 continuous cardiac monitoring (4) DVT prophylaxis Current Visit: Yes Status: Acute Assessment and Plan: 1. Heparin SQ. - Time Spent with Patient Total time spent is greater than 50% in coordination of care (as documented) at patient's floor/unit and/or counseling patient: Greater than 35 minutes Plan of Care Discussed with: patient Internal Medicine: Result - Labs CBC & Chem 7: 04/06/18 03:42 04/06/18 03:42 Labs: Short CBC 04/06/18 Range/Units 03:42 WBC 9.8 (4.3-11.1) K/mcL Hgb 10.7 L (11.5-15.4) g/dL Hct 32.0 L (35.3-44.9) % Plt Count 580 H (140-400) K/mcL Neutrophils # 8.5 (1.6-8.9) K/mcL BMP 04/06/18 03:42 Sodium 133 L Potassium 4.2 Chloride 101 Carbon Dioxide 27 BUN 35 H Creatinine 1.69 H Glucose 167 H Calcium 8.7 - Impressions Impressions Chest X-Ray 04/06/18 00:00 IMPRESSION: 1. No active pulmonary disease. D/ / Jose Coleman MD / Jose Coleman MD Interpreting Provider: Jose Coleman MD Pulmonary Perfusion Imaging 04/06/18 08:57 IMPRESSION: Low probability for pulmonary embolus. D/ / 04/06/2018 13:01:40 Rory Santana MD / servando Interpreting Provider: Rory Santana MD Consult Discharge Plan - Plan Referrals: Homa Mary, BUTTON SPINDLER [Primary Care Provider] - 04/11/18 2:45 pm ( ) (2) CAD (coronary artery disease) Qualifiers: Coronary Disease-Associated Artery/Lesion type: [place] artery (3) Chest pain Qualifiers: Chest pain type: other chest pain Qualified Code(s): R07.89 - Other chest pain; R07.8 - Other chest pain
[2018-04-06] MEDS: Melatonin 3 MG TABLET PO PRN (21:21)
[2018-04-07] MEDS: Ipratropium/Albuterol Neb 3 ML IH SCH ×6 (00:01→20:44)
[2018-04-07 05:25] LABS: Basophils % 0.2 %; Eosinophils % 0.1 %; Hematocrit 31.2 % (35.3-44.9); Hemoglobin 10.4 g/dL (11.5-15.4); Immature Granulocytes % 1.2 % (0-4); Lymphocytes # 1.4 K/mcL (0.6-4.6); Lymphocytes % 12.7 %; Mean Corpuscular HGB Conc 33.3 g/dL (31.6-35.5); Mean Corpuscular Hemoglobin 28.9 pg (28.0-33.3); Mean Corpuscular Volume 86.7 fL (83.0-100.0); Mean Platelet Volume 9.7 fL (9.4-12.4); Monocytes % 9.8 %; Neutrophils # 8.1 K/mcL (1.6-8.9); Platelet Count 557 K/mcL (140-400)
[2018-04-07] MEDS: *HR* Heparin 5,000 UNIT/ML VIAL SQ SCH ×2 (05:41→17:47)
[2018-04-07 05:42] LABS: Calcium 8.4 mg/dL (8.6-10.3); Potassium 4.3 mEq/L (3.5-5.1)
[2018-04-07] MEDS: Beclomethasone 80mcg MDI IH SCH ×2 (07:18→20:44)
[2018-04-07] MEDS: Fenofibrate 54 MG TABLET PO SCH (08:34)
[2018-04-07] MEDS: predniSONE 20 MG TABLET PO SCH (08:34)
[2018-04-07] MEDS: cloNIDine HCl 0.1 MG TABLET PO SCH ×3 (08:34→20:15)
[2018-04-07] MEDS: hydrALAZINE 25 MG TABLET PO SCH ×2 (08:34→20:17)
[2018-04-07] MEDS: Aspirin Enteric Coated 81 MG Tablet PO SCH (08:34)
[2018-04-07] MEDS: amLODIPine 5 MG TABLET PO SCH (08:34)
[2018-04-07] MEDS: Menthol 9.1 MG LOZENGE PO PRN (09:42)
--- NOTE | 2018-04-07 11:40 | Electrocardiograph Report ---
[address] [place], [place] [address] Test Date: 2018-04-02 Pat Name: Izabela Gallardo Department: EXAM7 Room: 3B22 Gender: F Marketing Technology Specialist: : [id number] Requested By: Clark Polk Order Number: [id number] Reading MD: Albert Ferro Measurements Intervals [place] Rate: 67 P: 43 FL: 142 QRS: -1 QRSD: 112 T: 46 QT: 454 QTc: 480 Interpretive Statements Sinus rhythm Atrial premature complex Borderline intraventricular conduction delay Electronically Signed On 04-07-2018 11:38:44 EDT by Albert Ferro
--- NOTE | 2018-04-07 11:49 | Internal Med Progress Note ---
Hospitalist Progress Note - Encounter Date of Encounter: 04/07/18 Time of Encounter: 11:47 - Subjective Interval History: Pt seen and examined in the room. she reported improved sob and cough. No fever , chills, or night sweats. - Exam Vitals: Temp Pulse Resp BP Pulse Ox 97.7 F 63 16 136/80 98 04/07/18 11:15 04/07/18 11:15 04/07/18 11:15 04/07/18 11:15 04/07/18 11:15 Exam: PHYSICAL EXAMINATION: GENERAL APPEARANCE: The patient is alert, oriented and in no acute distress. HEENT: Head is normocephalic. The sinuses are nontender. Pupils are equal and reactive. The nares are patent. Oropharynx clear without lesions. NECK: Supple without lymphadenopathy. HEART: Regular rate and rhythm. LUNGS: No crackles or wheezes are heard. ABDOMEN: Soft, nontender, nondistended with good bowel sounds heard. Inguinal area is normal. EXTREMITIES: Without cyanosis, clubbing or edema. NEUROLOGICAL: Gross nonfocal. SKIN: Warm and dry without any rash. - Assessment and Plan (1) Acute exacerbation of COPD with asthma Current Visit: Yes Status: Acute Assessment and Plan: Patient has a history of cough and shortness of breath, she has undergone extensive workup in the near past including echocardiogram, PFTs, stress test, and a left heart catheter. Stress test was reportedly abnormal. LHC revealed a 70% stenosis of RCA, she received 1 stent. Echocardiogram revealed preserved ejection fraction with mild LV DD. PFT showed normal FEV1/FVC ratio abnormal diffusion studies, suggestive for moderate reduction of functional alveolar capillary service. A V/Q study performed today showed low possibility of PE. - Patient has a history of smoking, however she quit about 2 and half years ago. PFT study is suggestive for emphysema. - Ups revealed a slightly elevated BNP, Diastolic heart failure was suspected, however, patient does not have obvious fluid overload on the physical exam. - Respiratory panel positive for rhinal virus. - Schmid symptoms is more consistent with reactive airway disease on the top of chronic emphysema. She resides she is responsive to bronchodilators and steroid , we will continue current treatment. DC IV antibiotics since there is no signs of infection/pneumonia. - discussed dc plan with patient, she prefer rehab, will arrange. (2) CAD (coronary artery disease) Current Visit: Yes Status: Chronic Assessment and Plan: Hx of CAD with RCA stent. Continue home meds as appropriate.-Aspirin statin beta torres Monitor for signs and symptoms of angina. (3) Chest pain Current Visit: Yes Status: Acute Assessment and Plan: 1. Suspect this is due to COPD exacerbation. describes pain worse with coughing improves with pain medication 2. Troponin negative 3 continuous cardiac monitoring (4) DVT prophylaxis Current Visit: Yes Status: Acute Assessment and Plan: 1. Heparin SQ. - Time Spent with Patient Total time spent is greater than 50% in coordination of care (as documented) at patient's floor/unit and/or counseling patient: Greater than 35 minutes Plan of Care Discussed with: patient Internal Medicine: Result - Labs CBC & Chem 7: 04/07/18 04:13 04/07/18 04:13 Consult Discharge Plan - Plan Referrals: Homa Mary CNP [Primary Care Provider] - 04/11/18 2:45 pm ( ) (2) CAD (coronary artery disease) Qualifiers: Coronary Disease-Associated Artery/Lesion type: [place] artery (3) Chest pain Qualifiers: Chest pain type: other chest pain Qualified Code(s): R07.89 - Other chest pain; R07.8 - Other chest pain
[2018-04-07] MEDS: Melatonin 3 MG TABLET PO PRN (23:20)
[2018-04-08] MEDS: Ipratropium/Albuterol Neb 3 ML IH SCH ×3 (00:25→07:36)
[2018-04-08] MEDS: *HR* Heparin 5,000 UNIT/ML VIAL SQ SCH (05:27)
[2018-04-08] MEDS: *HR* HYDROcodone/Acet 5/325 mg TABLET PO PRN (05:31)
[2018-04-08 07:07] VITALS: BP 154/74
[2018-04-08] MEDS: Beclomethasone 80mcg MDI IH SCH (07:36)
[2018-04-08] MEDS: predniSONE 20 MG TABLET PO SCH (08:34)
[2018-04-08] MEDS: Fenofibrate 54 MG TABLET PO SCH (08:34)
[2018-04-08] MEDS: amLODIPine 5 MG TABLET PO SCH (08:34)
[2018-04-08] MEDS: cloNIDine HCl 0.1 MG TABLET PO SCH (08:35)
[2018-04-08] MEDS: hydrALAZINE 25 MG TABLET PO SCH (08:35)
[2018-04-08] MEDS: Aspirin Enteric Coated 81 MG Tablet PO SCH (08:35)
--- NOTE | 2018-04-08 09:00 | Discharge Summary ---
- NOTES TO OUTPATIENT PROVIDER Notes to Outpatient Provider: f/u with PCP within a week. Date of Encounter: 04/08/18 Time of Encounter: 08:54 - Discharge Diagnosis (1) Acute exacerbation of COPD with asthma Priority: Primary Status: Acute (2) CAD (coronary artery disease) Priority: Secondary Status: Chronic Qualifiers: Coronary Disease-Associated Artery/Lesion type: [place] artery [place] vs. transplanted heart: [place] heart Associated angina: without angina Qualified Code(s): I25.10 - Atherosclerotic heart disease of [place] coronary artery without angina pectoris (3) Chest pain Priority: Primary Status: Acute Qualifiers: Chest pain type: other chest pain Qualified Code(s): R07.89 - Other chest pain; R07.8 - Other chest pain (4) DVT prophylaxis Priority: Primary Status: Acute Hospital course: Ms. Gallardo is a 77 year old female presented with recurrent cough and shortness of breath, she has undergone extensive workup in the near past including echocardiogram, PFTs, stress test, and a left heart catheter. Stress test was reportedly abnormal. LHC revealed a 70% stenosis of RCA, she received 1 stent. Echocardiogram revealed preserved ejection fraction with mild LVDD. PFT showed normal FEV1/FVC ratio abnormal diffusion studies, suggestive for moderate reduction of functional alveolar capillary surface. A V/Q study performed on this admission showed low possibility of PE. Patient has a history of smoking, she quit about 2 and half years ago. lab tests revealed a slightly elevated BNP , Diastolic heart failure was suspected, however, patient does not have obvious fluid overload on the physical exam. Respiratory panel positive for rhinal virus. Pulmonology was consulted and COPD with asthma was suspected. She was treated with bronchodilators and steroid with improvement of symptoms. Pt will be discharged home today with f/u with PCP within a week. Discharge discussed with: patient Time spent discussing smoking cessation with patient: more than 10 minutes - Time Spent with Patient Total time spent providing and/or coordinating discharge services: Greater than 30 minutes - Discharge Medications Prescriptions: Ipratropium/Albuterol Neb [Duoneb] 3 ml IH [id number] PRN #30 inhsol PRN Reason: Dyspnea predniSONE [PredniSONE] 40 mg PO DAILY #22 tablet Home Medications: Fenofibrate Nanocrystallized [Tricor] 48 mg PO DAILY 12/16/16 [History] Atorvastatin [Lipitor] 40 mg PO HS 03/20/17 [History] Docusate Sodium [Dok] 100 mg PO DAILY PRN 03/20/17 [History] cloNIDine HCl [CloNIDine HCl] 0.1 mg PO BID 03/20/17 [History] amLODIPine [Norvasc] 10 mg PO DAILY #30 tab 03/23/17 [Rx] Aspirin [Lo-Dose Aspirin EC] 81 mg PO DAILY 11/25/17 [History] Omeprazole [PriLOSEC] 40 mg PO DAILY 11/25/17 [History] Beclomethasone Diprop 80mcg [QVAR 80 mcg] 1 puff IH BIDR #1 puff 11/27/17 [Rx] Spironolactone [Aldactone] 25 mg PO DAILY 11/27/17 [History] Valsartan [Diovan] 320 mg PO DAILY #30 tablet 11/27/17 [Rx] Carvedilol [Coreg] 6.25 mg PO DAILY 04/02/18 [History] Furosemide [Lasix] 40 mg PO DAILY 04/02/18 [History] Levothyroxine Sodium 100 mcg PO DAILY 04/02/18 [History] hydrALAZINE [HydrALAZINE] 25 mg PO BID 04/02/18 [History] Ipratropium/Albuterol Neb [Duoneb] 3 ml IH [id number] PRN #30 inhsol 04/08/18 [Rx] predniSONE [PredniSONE] 40 mg PO DAILY #22 tablet 04/08/18 [Rx] Allergies/Adverse Reactions: 3 Allergy/AdvReac Type Severity Reaction Status Date / Time metronidazole [From Flagyl] Allergy Severe Swelling Verified 08/20/17 21:57 of Lip/Tongue/Throat Iodinated Contrast- Oral and Allergy Swelling Verified 08/20/17 21:57 IV Dye of [Iodinated Contrast Media - Lip/Tongue/Throat IV Dye] Date of admission: 04/07/18 10:48 Primary care physician: Homa Mary CNP Consults: 04/07/18 15:25 PT [Consult to Physical Therapy] [CONS] Routine Comment: Evaluate, develop and implement POC Reason for Consult: discharge planning Does patient have active BEDREST order?: No Is patient medically & hemodynamically stable?: Yes Patient assessed for mobility or mobilized this visit?: No Anticipated date of discharge: 04/08/18 - Constitutional Vitals: Temp Pulse Resp BP Pulse Ox 98.1 F 64 16 154/74 97 04/08/18 07:06 04/08/18 07:06 04/08/18 07:36 04/08/18 07:06 04/08/18 07:36 General appearance: Present: cooperative, mild distress, A&O X 3, pleasant, answers questions appropriately Exam: PHYSICAL EXAMINATION: GENERAL APPEARANCE: The patient is alert, oriented and in no acute distress. HEENT: Head is normocephalic. The sinuses are nontender. Pupils are equal and reactive. The nares are patent. Oropharynx clear without lesions. NECK: Supple without lymphadenopathy. HEART: Regular rate and rhythm. LUNGS: No crackles or wheezes are heard. ABDOMEN: Soft, nontender, nondistended with good bowel sounds heard. Inguinal area is normal. EXTREMITIES: Without cyanosis, clubbing or edema. NEUROLOGICAL: Gross nonfocal. SKIN: Warm and dry without any rash. - Patient Status Disposition: Home, Self-Care Condition: Fair Functional capacity at discharge: independent ambulation Overall status at discharge: patient is back to baseline - Discharge Instructions Follow Up With: Homa Mary, [employer] SUPERVISOR [Primary Care Provider] - 04/11/18 2:45 pm ( ) - Diet and Activity Activity: increase activity as tolerated Diet: advance to your usual diet
== END 2018-04-08 10:44 | disposition home or self-care (01) | DRG 190 ==
LOC: EMEROOARM 15:05 → 3BNU 15:05
PROVIDERS: ADMIT Internal Medicine; ATTEND Internal Medicine

== ENCOUNTER 2018-07-25 12:38 | Observation (INO) ==
[2018-07-25] MEDS ORDERED: Ipratropium/Albuterol Neb 3 ML IH ONE (13:07)
--- NOTE | 2018-07-25 13:34 | Emergency Department Note ---
Disposition Clinical Impression: CKD (chronic kidney disease) stage 3, GFR 30-59 ml/min, Headache Chest pain Qualifiers: Chest pain type: unspecified Qualified Code(s): R07.9 - Chest pain, unspecified Disposition: Admitted As Inpatient Condition: Fair Referrals: Homa Mary, LOBITO [Primary Care Provider] - Forms: ED Satisfaction Letter Time of Disposition: 14:32 General Adult HPI - General Chief complaint: ED Shortness of Breath/Dyspnea Stated complaint: SUZY Time Seen by Provider: 07/25/18 12:41 Source: patient, EMS Limitations: no limitations Nursing Notes Reviewed: Yes Vital Signs Reviewed: Yes - History of Present Illness HPI Narrative: Patient presents with shortness of breath for the last month worse with exertion but also has chest heaviness which began just prior to arrival in the emergency department with associated dyspnea but no associated diaphoresis. Does radiate to her jaws. She denies radiation to the back. No pain or swelling of the lower extremities. She does have a nonproductive cough and no rhinorrhea or sneezing. No fever or blurred vision. No blood in the urine or stool. No pain or swelling or numbness of the extremities or skin rash or bruising of the skin. She does have a headache which began gradually with the last several days and is sharp and generalized but denies any localized numbness or weakness of extremities, slurred speech, facial droop or confusion. Social history: Stopped smoking about 30 years ago Pain Scale: 0 - Related Data Home Medications Medication Instructions Recorded Confirmed Fenofibrate Nanocrystallized 48 mg PO DAILY 12/16/16 04/02/18 [Tricor] Atorvastatin [Lipitor] 40 mg PO HS 03/20/17 04/02/18 Docusate Sodium [Dok] 100 mg PO DAILY PRN 03/20/17 04/02/18 cloNIDine HCl [CloNIDine HCl] 0.1 mg PO BID 03/20/17 04/02/18 Aspirin [Lo-Dose Aspirin EC] 81 mg PO DAILY 11/25/17 04/02/18 Omeprazole [PriLOSEC] 40 mg PO DAILY 11/25/17 04/02/18 Spironolactone [Aldactone] 25 mg PO DAILY 11/27/17 04/02/18 Carvedilol [Coreg] 6.25 mg PO DAILY 04/02/18 04/02/18 Furosemide [Lasix] 40 mg PO DAILY 04/02/18 04/02/18 Levothyroxine Sodium 100 mcg PO DAILY 04/02/18 04/03/18 hydrALAZINE [HydrALAZINE] 25 mg PO BID 04/02/18 04/02/18 Previous Rx's Medication Instructions Recorded amLODIPine [Norvasc] 10 mg PO DAILY #30 tab 03/23/17 Beclomethasone Diprop 80mcg [QVAR 1 puff IH BIDR #1 puff 11/27/17 80 mcg] Valsartan [Diovan] 320 mg PO DAILY #30 tablet 11/27/17 Ipratropium/Albuterol Neb [Duoneb] 3 ml IH [id number] PRN #30 inhsol 04/08/18 predniSONE [PredniSONE] 40 mg PO DAILY #22 tablet 04/08/18 Allergies Allergy/AdvReac Type Severity Reaction Status Date / Time metronidazole [From Flagyl] Allergy Severe Swelling Verified 08/20/17 21:57 of Lip/Tongue/Throat Iodinated Contrast- Oral and Allergy Swelling Verified 08/20/17 21:57 IV Dye of [Iodinated Contrast Media - Lip/Tongue/Throat IV Dye] All systems ED: reviewed and negative except as stated. 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 EYES: PERRL, no scleral icterus. NOSE: The nose is normal in appearance without rhinorrhea RESP: Normal chest excursion with respiration; breath sounds with coarse expiratory wheezing bilateral which is symmetric CARD: Regular rhythm, without murmurs, rub or gallop ABD: Non-distended; non-tender, soft,without rigidity, rebound or guarding SKIN: Normal for age and race; warm and dry; no apparent lesions EXTREMITIES: Pulses are 2 plus and equal times 4 extremities, no peripheral edema or calf muscle pain. NEUROLOGICAL: Patient is alert and oriented times three. Cranial nerves III- XII are intact. Sensory and motor functions are intact. Strength is 5/5 for flexion and extension in all 4 extremities. Patellar DTRS are equal and intact. Finger to nose testing is equal and normal bilaterally. - General Limitations: no limitations General appearance: alert, in no apparent distress Course Vital Signs Temperature 98.3 F 07/25/18 12:41 Pulse Rate 64 07/25/18 12:41 Respiratory Rate 22 07/25/18 12:41 Blood Pressure 167/73 07/25/18 12:41 O2 Sat by Pulse Oximetry 100 07/25/18 12:41 Temperature 98.3 F 07/25/18 12:41 Pulse Rate 56 07/25/18 13:54 Respiratory Rate 18 07/25/18 13:46 Blood Pressure 145/67 07/25/18 13:54 O2 Sat by Pulse Oximetry 100 07/25/18 13:54 Oxygen Delivery Oxygen Delivery Room Air Medical Decision Making - MDM Narrative Medical decision making narrative: Patient has multiple complaints but her shortness of breath couple of the chest heaviness are concerning for acute coronary syndrome, while further evaluation for congestive heart failure with a BNP level and chest x-ray, pneumonia seems less likely. I do not suspect pulmonary embolism or aortic dissection. Her headache is gradual and constant and with a normal neuro exam I do not suspect subarachnoid hemorrhage or meningitis or mass. Results pending. The patient will likely be admitted. 1334 I did review the EKG showing normal sinus rhythm with a rate of 67 without acute ischemic change. I did review the patient's lab test results. 1421 I did review the patient's labs with some anemia and minimal worsening in the patient's chronic renal failure and the troponin is negative as is the BNP. No signs of congestive heart failure. Due to recent onset of chest had the nose with the history of cardiac stent the patient will be admitted and I did speak with the hospitalist who accepts the patient for admission. She does take one aspirin per day. I will repeat her EKG to make sure there are no evolving changes. 1431 - Medical Records Medical records reviewed: Yes I reviewed the patient's medical records. - Lab Data Lab results reviewed: Yes I reviewed the patient's lab results. Result diagrams: 07/25/18 13:20 07/25/18 13:20 Lab Results 07/25/18 07/25/18 07/25/18 Range/Units 13:20 13:20 13:20 WBC 8.2 (4.3-11.1) K/mcL RBC 3.76 L (3.82-4.97) M/mcL Hgb 10.8 L (11.5-15.4) g/dL Hct 32.8 L (35.3-44.9) % MCV 87.2 (83.0-100.0) fL MCH 28.7 (28.0-33.3) pg MCHC 32.9 (31.6-35.5) g/dL RDW 14.2 (11.5-14.5) % Plt Count 517 H (140-400) K/mcL MPV 9.2 L (9.4-12.4) fL Immature Gran % 0.2 (0-4) % Seg Neutrophils % 64.0 % Lymphocytes % 19.1 % Monocytes % 7.2 % Eosinophils % 8.6 % Basophils % 0.9 % Neutrophils # 5.3 (1.6-8.9) K/mcL Lymphocytes # 1.6 (0.6-4.6) K/mcL Monocytes # 0.6 (0.0-1.3) K/mcL Eosinophils # 0.7 H (0.0-0.6) K/mcL Basophils # 0.1 (0.0-0.2) K/mcL Sodium 131 L (136-145) mEq/L Potassium 3.9 (3.5-5.1) mEq/L Chloride 101 (98-107) mEq/L Carbon Dioxide 23 (23-29) mEq/L BUN 11 (8-23) mg/dL Creatinine 1.87 H (0.60-1.20) mg/dL Est GFR ( Amer) 32 L (> 60) Est GFR (Non-Af Amer) 26 L (> 60) BUN/Creatinine Ratio 6 (6-26) Glucose 116 H (70-105) mg/dL Calculated Osmolality 272 L (280-300) Calcium 9.2 (8.6-10.3) mg/dL Troponin I < 0.03 (< 0.04) ng/mL B-Natriuretic Peptide 43 (Less than 100) pg/mL - Radiology Data Radiology results reviewed: Yes I reviewed the patient's radiology results.
[2018-07-25 13:47] LABS: Basophils # 0.1 K/mcL (0.0-0.2); Basophils % 0.9 %; Eosinophils # 0.7 K/mcL (0.0-0.6); Eosinophils % 8.6 %; Hematocrit 32.8 % (35.3-44.9); Hemoglobin 10.8 g/dL (11.5-15.4); Immature Granulocytes % 0.2 % (0-4); Lymphocytes # 1.6 K/mcL (0.6-4.6); Lymphocytes % 19.1 %; Mean Corpuscular HGB Conc 32.9 g/dL (31.6-35.5); Mean Corpuscular Hemoglobin 28.7 pg (28.0-33.3); Mean Corpuscular Volume 87.2 fL (83.0-100.0); Mean Platelet Volume 9.2 fL (9.4-12.4); Monocytes # 0.6 K/mcL (0.0-1.3); Monocytes % 7.2 %; Neutrophils # 5.3 K/mcL (1.6-8.9); Platelet Count 517 K/mcL (140-400); Red Blood Count 3.76 M/mcL (3.82-4.97); Red Cell Distribution Width 14.2 % (11.5-14.5)
[2018-07-25 14:00] LABS: BUN/Creatinine Ratio 6 (6-26); Blood Urea Nitrogen 11 mg/dL (8-23); Calcium 9.2 mg/dL (8.6-10.3); Carbon Dioxide 23 mEq/L (23-29); Chloride 101 mEq/L (98-107); Glucose 116 mg/dL (70-105); Osmolality,Calculated 272 (280-300); Potassium 3.9 mEq/L (3.5-5.1); Sodium 131 mEq/L (136-145); Troponin I < 0.03 ng/mL (< 0.04); eGFR For Non-African Americans 26 (> 60)
[2018-07-25] MEDS ORDERED: Naloxone 0.4 MG/ML INJ IVP PRN (16:36)
[2018-07-25] MEDS: Menthol 9.1 MG LOZENGE PO PRN ×2 (17:02→20:24)
--- NOTE | 2018-07-25 20:05 | Internal Med History&Physical ---
Date of Encounter: 07/25/18 Time of Encounter: 18:00 Internal Medicine - H&P: HPI Chief complaint: Chest pain Admitted From: Home Plans for Post Hospital Care: Home History of present illness: Patient is a 77-year-old female with past medical history significant for aortic aneurysm, ischemic cardiomyopathy, hyperlipidemia, hypertension chronic kidney disease stage III and COPD who presents to the ER on 07/25/18 due to chest pain. Patient reports of substernal chest pressure without any provoking or relieving factors and denies any radiation. She was concerned so decided to go to the ER for evaluation. In the ER patient she is first set of troponins were negative. Patient will be admitted to the observation unit for ACS rule out. Past Med Surg Social Fam HX - Past Medical History Medical history: aortic aneurysm, coronary artery disease, GERD, hyperlipidemia, hypertension, thyroid disease Additional medical history: UPPER PARITAL DENTURE Psychiatric history: no psych history - Past Surgical History Surgical History: angioplasty/stent, appendectomy, cholecystectomy, hysterectomy Additional surgical history: 1 cardiac cath with stent placement Apr 08, 2015, Left shoulder scope - Social History Smoking Status: Former smoker Smokeless Tobacco Status: No Alcohol use: none Drug use: none - Family History Mother Living Status: Hx Family Cardiac Disorders: No Hx Family Respiratory Disorders: No Hx Family Cancer: No Hx Family GI Disorders: No Hx Family Endocrine Disorder: No Hx Family Neuromuscular Disorders: No Hx Family Neurologic Disorders: No Hx Family HEENT Disorders: No Hx Family Autoimmune Disorders: No Father Living Status: Hx Family Cardiac Disorders: Yes (HTN) Hx Family Respiratory Disorders: No Hx Family Cancer: No Hx Family GI Disorders: No Hx Family Endocrine Disorder: No Hx Family Neuromuscular Disorders: No Hx Family Neurologic Disorders: No Hx Family HEENT Disorders: No Hx Family Autoimmune Disorders: No Grandmother Hx Family Cardiac Disorders: Yes Internal Medicine - H&P: Meds Fenofibrate Nanocrystallized [Tricor] 48 mg PO DAILY 12/16/16 [History] Atorvastatin [Lipitor] 40 mg PO HS 03/20/17 [History] Docusate Sodium [Dok] 100 mg PO DAILY PRN 03/20/17 [History] cloNIDine HCl [CloNIDine HCl] 0.1 mg PO BID 03/20/17 [History] Omeprazole [PriLOSEC] 40 mg PO DAILY 11/25/17 [History] Spironolactone [Aldactone] 25 mg PO DAILY 11/27/17 [History] Valsartan [Diovan] 320 mg PO DAILY #30 tablet 11/27/17 [Rx] Carvedilol [Coreg] 6.25 mg PO DAILY 04/02/18 [History] Furosemide [Lasix] 40 mg PO DAILY 04/02/18 [History] Levothyroxine Sodium 100 mcg PO DAILY 04/02/18 [History] hydrALAZINE [HydrALAZINE] 25 mg PO BID 04/02/18 [History] Ipratropium/Albuterol Neb [Duoneb] 3 ml IH [id number] PRN #30 inhsol 04/08/18 [Rx] Albuterol Sulfate [Albuterol Inhaler] 2 puff IH Q6HR PRN 07/25/18 [History] Allergy/AdvReac Type Severity Reaction Status Date / Time metronidazole [From Flagyl] Allergy Severe Swelling Verified 08/20/17 21:57 of Lip/Tongue/Throat Iodinated Contrast- Oral and Allergy Swelling Verified 08/20/17 21:57 IV Dye of [Iodinated Contrast Media - Lip/Tongue/Throat IV Dye] All Systems PM: A 10-system review of systems was performed and is negative for pertinent findings except as documented above in the HPI. - Constitutional Vitals: Temp Pulse Resp BP Pulse Ox 98.4 F 64 16 138/67 96 07/25/18 19:07 07/25/18 19:07 07/25/18 19:07 07/25/18 19:07 07/25/18 19:07 General appearance: Present: A&O X 3, no acute distress Exam: As above - Head Head exam: Present: normocephalic - Eye Eye exam: Present: normal appearance - ENT ENT exam: Present: mucous membranes moist - Respiratory Respiratory exam: Present: CTAB. Absent: accessory muscle use, rales, rhonchi, wheezes - Cardiovascular Cardiovascular exam: Present: RRR, +S1, +S2. Absent: diastolic murmur, gallop, rubs, systolic murmur - GI/Abdominal GI/Abdominal exam: Present: normal bowel sounds, soft, no peritoneal signs. Absent: distended, tenderness - Extremities Exam Extremities exam: Absent: pedal edema - Neurological Exam Neurological exam: Present: oriented X3 - Psychiatric Psychiatric exam: Present: normal mood - Skin Skin exam: Present: normal color Internal Med - H&P Results - Labs CBC & Chem 7: 07/25/18 13:20 07/25/18 13:20 Labs: Short CBC 07/25/18 Range/Units 13:20 WBC 8.2 (4.3-11.1) K/mcL Hgb 10.8 L (11.5-15.4) g/dL Hct 32.8 L (35.3-44.9) % Plt Count 517 H (140-400) K/mcL Neutrophils # 5.3 (1.6-8.9) K/mcL BMP 07/25/18 13:20 Sodium 131 L Potassium 3.9 Chloride 101 Carbon Dioxide 23 BUN 11 Creatinine 1.87 H Glucose 116 H Calcium 9.2 Cardiac Enzymes 07/25/18 07/25/18 Range/Units 13:20 19:12 Troponin I < 0.03 < 0.03 (< 0.04) ng/mL - Impressions ITS Impressions Chest X-Ray 07/25/18 13:07 IMPRESSION: No acute process. D/ / Jose Gomes MD / Jose Gomes MD Interpreting Provider: Jose Gomes MD - Assessment and plan (1) Chest pain Current Visit: Yes Status: Acute Assessment and plan: Patient for 24 hour history of substernal chest pressure First set of cardiac biomarkers negative Trend troponins and monitor on telemetry Will order nuclear medicine stress test Qualifiers: Chest pain type: unspecified Qualified Code(s): R07.9 - Chest pain, unspecified (2) Ischemic cardiomyopathy Current Visit: Yes Status: Acute Assessment and plan: Patient with history of coronary artery disease with a echocardiogram on 11/2017 that showed LVEF of 6065% with mild left ventricular diastolic dysfunction Continue home medications (3) CKD (chronic kidney disease) stage 3, GFR 30-59 ml/min Current Visit: Yes Status: Acute Assessment and plan: Creatinine appears to be at baseline; continue to monitor (4) DVT prophylaxis Current Visit: No Status: Acute Assessment and plan: Subcutaneous heparin - Time Spent With Patient Total time spent is greater than 50% in coordination of care (as documented) at patient's floor/unit and/or counseling patient:
[2018-07-25] MEDS: hydrALAZINE 25 MG TABLET PO SCH (20:23)
[2018-07-25] MEDS ORDERED: Melatonin 3 MG TABLET PO PRN (20:43)
[2018-07-25] MEDS: Ipratropium/Albuterol Neb 3 ML IH PRN (20:48)
[2018-07-26 01:32] LABS: Basophils # 0.1 K/mcL (0.0-0.2); Basophils % 0.7 %; Eosinophils # 0.9 K/mcL (0.0-0.6); Eosinophils % 10.1 %; Hematocrit 33.5 % (35.3-44.9); Hemoglobin 11.1 g/dL (11.5-15.4); Immature Granulocytes % 0.3 % (0-4); Lymphocytes % 22.5 %; Mean Corpuscular HGB Conc 33.1 g/dL (31.6-35.5); Mean Corpuscular Hemoglobin 28.9 pg (28.0-33.3); Mean Corpuscular Volume 87.2 fL (83.0-100.0); Mean Platelet Volume 9.1 fL (9.4-12.4); Monocytes # 0.8 K/mcL (0.0-1.3); Monocytes % 8.7 %; Neutrophils # 5.1 K/mcL (1.6-8.9); Platelet Count 530 K/mcL (140-400); Red Blood Count 3.84 M/mcL (3.82-4.97); Red Cell Distribution Width 14.2 % (11.5-14.5); Segmented Neutrophils % 57.7 %
[2018-07-26 01:45] LABS: Calcium 9.2 mg/dL (8.6-10.3); Potassium 3.9 mEq/L (3.5-5.1)
[2018-07-26] MEDS: Ipratropium/Albuterol Neb 3 ML IH PRN ×2 (04:28→10:04)
[2018-07-26] MEDS ORDERED: Regadenoson 0.4 MG/5 ML SYRINGE IVP ONE (05:55)
[2018-07-26] MEDS: Spironolactone 25 MG TABLET PO SCH (10:06)
[2018-07-26] MEDS: Valsartan 160 MG TABLET PO SCH (10:06)
[2018-07-26] MEDS: Furosemide 40 MG TABLET PO SCH (10:06)
[2018-07-26] MEDS: Fenofibrate 54 MG TABLET PO SCH (10:06)
[2018-07-26] MEDS: hydrALAZINE 25 MG TABLET PO SCH ×2 (10:06→20:23)
--- NOTE | 2018-07-26 11:04 | Electrocardiograph Report ---
[facility] [employer] Test Date: 2018-07-25 Pat Name: Izabela Gallardo Department: EXAMC3 Room: 3B44 Gender: F Rate Examiner: : 1940 Requested By: Tio Johnson Order Number: [id number] Reading MD: Davion Monge Measurements Intervals [place] Rate: 59 P: 23 MS: 150 QRS: -31 QRSD: 117 T: 50 QT: 462 QTc: 458 Interpretive Statements Sinus rhythm Atrial premature complex Nonspecific intraventricular conduction delay Electronically Signed On 07-26-2018 11:02:51 EST by Davion Monge
--- NOTE | 2018-07-26 12:53 | Electrocardiograph Report ---
[address] [place], [place] [address] Test Date: 2018-07-25 Pat Name: Izabela Gallardo Department: EXAMC3 Room: 3B44 Gender: F Chemist Pharmaceutical: : 1940 Requested By: Tio Johnson Order Number: [id number] Reading MD: Sourav Gamez Measurements Intervals [place] Rate: 52 P: 28 MA: 150 QRS: -31 QRSD: 120 T: 52 QT: 488 QTc: 454 Interpretive Statements Sinus rhythm Nonspecific intraventricular conduction delay Electronically Signed On 07-26-2018 12:51:53 EST by Sourav Gamez
[2018-07-26] MEDS: MethylPREDNISolone 40 MG/ML VIAL IVP SCH ×3 (12:54→23:27)
[2018-07-26] MEDS: Benzonatate 100 MG CAPSULE PO PRN ×2 (12:59→20:23)
--- NOTE | 2018-07-26 15:31 | Internal Med Progress Note ---
Hospitalist Progress Note - Encounter Date of Encounter: 07/26/18 Time of Encounter: 11:00 - Subjective Interval History: Patient was seen and examined at bedside currently denies any chest pain however does complain of a cough which she states has been ongoing for approximately one month. Cough is nonproductive states she was unable to sleep at all last night her chest hurts when she coughs. I did review treatment plan with the patient who verbalized understanding - Exam Vitals: Temp Pulse Resp BP Pulse Ox 98.7 F 62 16 161/91 95 07/26/18 15:26 07/26/18 15:26 07/26/18 15:26 07/26/18 15:26 07/26/18 15:26 Exam: Skin: Free of rash and discoloration. Musculoskeletal: There is mild tenderness at palpation of central anterior chest. Eyes: Sclera is white. There is no discharge from eyes. ENMT: Oral/pharyngeal mucosa is normal in appearance. There is no discharge from nose or ears. Respiratory: Diminished-scattered wheezes throughout CV: Heart is regular with no gallop or murmur. GI: Abdomen is flat and soft with no palpable mass or visceromegaly. : There is no tenderness in patient's flanks bilaterally. Neuro exam: He has good strength in upper and lower extremities. He has normal eye movements. Psychiatric: He has normal affect. His thought process is appropriate to the situation. - Assessment and Plan (1) DVT prophylaxis Current Visit: No Status: Acute Assessment and Plan: Subcutaneous heparin (2) CKD (chronic kidney disease) stage 3, GFR 30-59 ml/min Current Visit: Yes Status: Acute Assessment and Plan: Creatinine appears to be at baseline; continue to monitor 07/26/2018 Creatinine appears to be around baseline this time. Monitor intake and output daily weights. Avoid nephrotoxins. (3) Chest pain Current Visit: Yes Status: Acute Assessment and Plan: Patient for 24 hour history of substernal chest pressure First set of cardiac biomarkers negative Trend troponins and monitor on telemetry Will order nuclear medicine stress test 07/26/2018 Patient underwent cardiac stress test today which was negative for any ischemia or infarct Suspect that chest pain may be related to pleuritic pain she complains of pain when she is coughing Troponins are negative (4) Ischemic cardiomyopathy Current Visit: Yes Status: Acute Assessment and Plan: Patient with history of coronary artery disease with a echocardiogram on 11/2017 that showed LVEF of 6065% with mild left ventricular diastolic dysfunction Continue home medications 07/26/2018 History of CAD with EF of 60-65% Currently appears to be stable at this time we will continue home medications Continue with cardiac monitoring (5) Acute exacerbation of COPD with asthma Current Visit: No Status: Acute Assessment and Plan: 1 patient has been experiencing unproductive cough with wheezing. Currently she does have scattered wheezes throughout lung patel and found diminished. We will give her Solu-Medrol 60 mg IV every 6 hours Bronchodilators Tessalon Perles for cough Currently sats are stable on room air we will continue to monitor Azithromycin - Time Spent with Patient Total time spent is greater than 50% in coordination of care (as documented) at patient's floor/unit and/or counseling patient: Internal Medicine: Result - Labs CBC & Chem 7: 07/26/18 01:14 07/26/18 01:14 Labs: Short CBC 07/26/18 Range/Units 01:14 WBC 8.8 (4.3-11.1) K/mcL Hgb 11.1 L (11.5-15.4) g/dL Hct 33.5 L (35.3-44.9) % Plt Count 530 H (140-400) K/mcL Neutrophils # 5.1 (1.6-8.9) K/mcL BMP 07/26/18 01:14 Sodium 132 L Potassium 3.9 Chloride 101 Carbon Dioxide 23 BUN 11 Creatinine 1.89 H Glucose 108 H Calcium 9.2 Cardiac Enzymes 07/25/18 07/26/18 07/26/18 Range/Units 19:12 01:14 10:42 Troponin I < 0.03 < 0.03 < 0.03 (< 0.04) ng/mL Consult Discharge Plan - Plan Referrals: Jw Post MD [Partnered Physician] - 09/25/18 1:00 pm Torsten Sanderson MD [Partnered Physician] - 09/19/18 2:00 pm Homa Mary CNP [Primary Care Provider] - 08/03/18 3:00 pm (3) Chest pain Qualifiers: Chest pain type: unspecified Qualified Code(s): R07.9 - Chest pain, unspecified
[2018-07-26] MEDS: Ipratropium/Albuterol Neb 3 ML IH SCH ×2 (16:08→21:44)
[2018-07-26] MEDS: Azithromycin 250 MG TABLET PO SCH (16:55)
[2018-07-26] MEDS ORDERED: diazePAM 10 MG/2 ML SYRINGE IVP ONE (20:00)
[2018-07-26] MEDS: Menthol 9.1 MG LOZENGE PO PRN (22:10)
[2018-07-27] MEDS: Ipratropium/Albuterol Neb 3 ML IH SCH ×2 (03:49→10:14)
[2018-07-27] MEDS: MethylPREDNISolone 40 MG/ML VIAL IVP SCH ×3 (04:44→17:37)
[2018-07-27] MEDS: Menthol 9.1 MG LOZENGE PO PRN (04:46)
[2018-07-27] MEDS: Azithromycin 250 MG TABLET PO SCH (08:32)
[2018-07-27] MEDS: Spironolactone 25 MG TABLET PO SCH (08:33)
[2018-07-27] MEDS: Furosemide 40 MG TABLET PO SCH (08:33)
[2018-07-27] MEDS: hydrALAZINE 25 MG TABLET PO SCH ×2 (08:33→20:33)
[2018-07-27] MEDS: Fenofibrate 54 MG TABLET PO SCH (08:33)
[2018-07-27] MEDS: Valsartan 160 MG TABLET PO SCH (08:33)
[2018-07-27] MEDS ORDERED: Acetaminophen 325 MG TABLET PO PRN (09:39)
[2018-07-27] MEDS ORDERED: Ipratropium/Albuterol Neb 3 ML IH PRN (10:13)
[2018-07-27 11:20] LABS: Basophils % 0.1 %; Hematocrit 34.7 % (35.3-44.9); Hemoglobin 11.5 g/dL (11.5-15.4); Immature Granulocytes % 0.3 % (0-4); Lymphocytes % 6.6 %; Mean Corpuscular HGB Conc 33.1 g/dL (31.6-35.5); Mean Corpuscular Hemoglobin 28.6 pg (28.0-33.3); Mean Corpuscular Volume 86.3 fL (83.0-100.0); Mean Platelet Volume 9.3 fL (9.4-12.4); Monocytes # 0.3 K/mcL (0.0-1.3); Neutrophils # 13.7 K/mcL (1.6-8.9); Platelet Count 667 K/mcL (140-400); Red Blood Count 4.02 M/mcL (3.82-4.97); Red Cell Distribution Width 14.1 % (11.5-14.5)
[2018-07-27 11:39] LABS: Calcium 9.8 mg/dL (8.6-10.3); Potassium 4.3 mEq/L (3.5-5.1)
--- NOTE | 2018-07-27 11:53 | Consult Note ---
Date of Encounter: 07/27/18 Time of Encounter: 11:47 Assessment & Recommendation (1) Major depression Current visit: Yes Status: Acute Assessment & Recommendation: Client seems to be having genuine depression. Multiple recent stressors have piled up and made her realize she needs help. Admits to suicidal ideation at times but denies any intent or plan and is adamant she would not deliberately make an attempt on her life. Do not think she needs a sitter or inpatient admission. However, would recommend starting treatment for depression and having her follow up as an outpatient. Zoloft 25-50mg daily would be a good aneglika ce to start. Zoloft is commonly used in people with medical comorbidities and does not interfere too often with other medical meds. Client would benefit from counseling as well. Recommend a consult to [employer] to try and get her set up on an outpatient basis. Qualifiers: Major depression recurrence: recurrent Active/Remission status: currently active Major depression episode severity: moderate Qualified Code(s): F33.1 - Major depressive disorder, recurrent, moderate History of Present Illness Requesting Physician: Drake Richard Reason for consult: depression History of present illness: Ms. Gallardo is a 77 year old female who was admitted secondary to chest pain. Client made a comment to son about giving up and ending her life and psychiatry was consulted. On eval today client is pleasant but tearful. Regrets her comment. Admits to a passive wish but denies she is at risk for hurting herself. Thinks she has been depressed her entire life but never realized it. One suicide attempt at the age of [age] at which time she ingested rat poison and was apparently hospitalized in the ICU for a month. Considered suicide again at age 19y/o but never since. Has never had mental health care of any kind. Willing to accept treatment for depression now. States her medical issues are piling up and she is starting to recognize the need to treat her mood. Lives independently but her son checks on her daily. No evidence of psychosis or a thought disorder. No thoughts of hurting anyone else. Admits to suicidal ideation at times but denies any intent or plan and states she would never follow through on any act of self harm. CC: Drake Richard Past Med Surg Social Fam HX - Past Medical History Medical history: aortic aneurysm, coronary artery disease, GERD, hyperlipidemia, hypertension, thyroid disease - Past Psychiatric History Psychiatric history: Reports: no psych history Family psychiatric history: Unknown Family History of Suicide: Unknown - Past Surgical History Surgical History: angioplasty/stent, appendectomy, cholecystectomy, hysterectomy - Social History Smoking Status: Former smoker Smokeless Tobacco Status: No Alcohol use: none Drug use: none - Family History Mother Living Status: Hx Family Cardiac Disorders: No Hx Family Respiratory Disorders: No Hx Family Cancer: No Hx Family GI Disorders: No Hx Family Endocrine Disorder: No Hx Family Neuromuscular Disorders: No Hx Family Neurologic Disorders: No Hx Family HEENT Disorders: No Hx Family Autoimmune Disorders: No Father Living Status: Hx Family Cardiac Disorders: Yes (HTN) Hx Family Respiratory Disorders: No Hx Family Cancer: No Hx Family GI Disorders: No Hx Family Endocrine Disorder: No Hx Family Neuromuscular Disorders: No Hx Family Neurologic Disorders: No Hx Family HEENT Disorders: No Hx Family Autoimmune Disorders: No Grandmother Hx Family Cardiac Disorders: Yes Medications & Allergies Fenofibrate Nanocrystallized [Tricor] 48 mg PO DAILY 12/16/16 [History] Atorvastatin [Lipitor] 40 mg PO DAILY 03/20/17 [History] Docusate Sodium [Dok] 100 mg PO DAILY PRN 03/20/17 [History] cloNIDine HCl [CloNIDine HCl] 0.1 mg PO DAILY 03/20/17 [History] Omeprazole [PriLOSEC] 40 mg PO DAILY 11/25/17 [History] Spironolactone [Aldactone] 25 mg PO BID 11/27/17 [History] Valsartan [Diovan] 320 mg PO DAILY #30 tablet 11/27/17 [Rx] Carvedilol [Coreg] 6.25 mg PO DAILY 04/02/18 [History] Furosemide [Lasix] 40 mg PO DAILY 04/02/18 [History] Levothyroxine Sodium 100 mcg PO DAILY 04/02/18 [History] hydrALAZINE [HydrALAZINE] 25 mg PO DAILY 04/02/18 [History] Ipratropium/Albuterol Neb [Duoneb] 3 ml IH [id number] PRN #30 inhsol 04/08/18 [Rx] Albuterol Sulfate [Albuterol Inhaler] 2 puff IH Q6HR PRN 07/25/18 [History] Benzonatate 100 mg PO BID PRN 07/26/18 [History] Meclizine HCl [Verticalm] 25 mg PO Q8H PRN 07/26/18 [History] Allergy/AdvReac Type Severity Reaction Status Date / Time metronidazole [From Flagyl] Allergy Severe Swelling Verified 07/26/18 11:31 of Lip/Tongue/Throat Iodinated Contrast- Oral and Allergy Rash Verified 07/26/18 11:31 IV Dye [Iodinated Contrast Media - IV Dye] Review of Systems Constitutional: Denies: fever, chills, weakness, weight change Eyes: Denies: eye pain, vision change Ears, Nose, Throat: Denies: ear pain, throat pain, dental pain, hearing loss, congestion Cardiovascular: Denies: chest pain, palpitations, dyspnea on exertion Respiratory: Denies: cough, dyspnea, wheezes Gastrointestinal: Denies: abdominal pain, nausea, vomiting, diarrhea, constipation Genitourinary female: Denies: urgency, dysuria, frequency, abnormal menses, dyspareunia Musculoskeletal: Denies: joint swelling, joint pain Integumentary: Denies: rash, lesions, pruritus Neurological: Denies: headache, weakness, numbness, memory loss Endocrine: Denies: fatigue, heat or cold intolerance Hematologic/Lymphatic: Denies: easy bruising, lymphadenopathy Allergic/Immunologic: Denies: urticaria, itchy eyes Psychiatry Exam - Constitutional Vitals: Temp Pulse Resp BP Pulse Ox 97.7 F 87 17 181/83 95 07/27/18 07:18 07/27/18 07:18 07/27/18 07:18 07/27/18 07:18 07/27/18 08:30 General appearance: age & developmentally appropriate, well-groomed, well- nourished - Musculoskeletal Gait: other Station: relaxed Strength & Tone: normal for patient - Psychiatric Patient Orientation: Yes Person, Yes Time, Yes Place Level of alertness: Alert Behavior: calm, cooperative Psychomotor activity: Normal Eye Contact: Maintains Eye Contact Mood Description: Depressed Affect description: tearful Speech Volume: Normal Speech pattern: normal rate, normal rhythm, normal tone, fluent, spontaneous Language & Vocabulary: consistent with education Thought Process: Linear, Goal Oriented Thought Content: No Suicidal ideation, No Homicidal ideation, No Overt delusions Perceptual Disturbances: No Auditory hallucinations, No Visual hallucinations Attention Span Ability: Capable of Focused Attention Memory Description: Grossly Intact Patient Reliability: Reliable Historian Fund of knowledge: Yes abstraction ability, Yes aware of current events Intelligence Estimate: Average Judgment: Fair Insight: Partial Results - Labs Labs: Laboratory Last Values WBC 15.1 K/mcL (4.3-11.1) H D 07/27/18 11:04 RBC 4.02 M/mcL (3.82-4.97) 07/27/18 11:04 Hgb 11.5 g/dL (11.5-15.4) 07/27/18 11:04 Hct 34.7 % (35.3-44.9) L 07/27/18 11:04 MCV 86.3 fL (83.0-100.0) 07/27/18 11:04 MCH 28.6 pg (28.0-33.3) 07/27/18 11:04 MCHC 33.1 g/dL (31.6-35.5) 07/27/18 11:04 RDW 14.1 % (11.5-14.5) 07/27/18 11:04 Plt Count 667 K/mcL (140-400) H 07/27/18 11:04 MPV 9.3 fL (9.4-12.4) L 07/27/18 11:04 Immature Gran % 0.3 % (0-4) 07/27/18 11:04 Seg Neutrophils % 91.0 % 07/27/18 11:04 Lymphocytes % 6.6 % 07/27/18 11:04 Monocytes % 2.0 % 07/27/18 11:04 Eosinophils % 0.0 % 07/27/18 11:04 Basophils % 0.1 % 07/27/18 11:04 Neutrophils # 13.7 K/mcL (1.6-8.9) H 07/27/18 11:04 Lymphocytes # 1.0 K/mcL (0.6-4.6) 07/27/18 11:04 Monocytes # 0.3 K/mcL (0.0-1.3) 07/27/18 11:04 Eosinophils # 0.0 K/mcL (0.0-0.6) 07/27/18 11:04 Basophils # 0.0 K/mcL (0.0-0.2) 07/27/18 11:04 Sodium 129 mEq/L (136-145) L 07/27/18 11:04 Potassium 4.3 mEq/L (3.5-5.1) 07/27/18 11:04 Chloride 99 mEq/L (98-107) 07/27/18 11:04 Carbon Dioxide 19 mEq/L (23-29) L 07/27/18 11:04 BUN 20 mg/dL (8-23) 07/27/18 11:04 Creatinine 2.10 mg/dL (0.60-1.20) H 07/27/18 11:04 Est GFR ( Amer) 28 (> 60) L 07/27/18 11:04 Est GFR (Non-Af Amer) 23 (> 60) L 07/27/18 11:04 BUN/Creatinine Ratio 10 (6-26) 07/27/18 11:04 Glucose 211 mg/dL (70-105) H 07/27/18 11:04 Calculated Osmolality 277 (280-300) L 07/27/18 11:04 Calcium 9.8 mg/dL (8.6-10.3) 07/27/18 11:04 Troponin I < 0.03 ng/mL (< 0.04) 07/26/18 10:42 B-Natriuretic Peptide 43 pg/mL (Less than 100) 07/25/18 13:20 Consult Discharge Plan - Plan Referrals: Jw Post MD [Partnered Physician] - 09/25/18 1:00 pm Torsten Sanderson MD [Partnered Physician] - 09/19/18 2:00 pm Homa Mary CNP [Primary Care Provider] - 08/03/18 3:00 pm
[2018-07-27] MEDS ORDERED: 0.9 % Sodium Chloride 1,000 ML IVC SCH (14:15)
--- NOTE | 2018-07-27 14:23 | Internal Med Progress Note ---
Hospitalist Progress Note - Encounter Date of Encounter: 07/27/18 Time of Encounter: 14:23 - Subjective Interval History: Patient was seen and examined at bedside currently denies any chest pain however does complain of a cough which she states has improved some. According to nursing staff patient experienced an episode overnight where she became very agitated crying stating that she wanted to kill herself. She did call family member several times through the night saying that she wanted to end it all and she was tired of being sick. She was placed on suicide precautions and psychiatry has been consulted. - Exam Vitals: Temp Pulse Resp BP Pulse Ox 98.5 F 85 17 183/82 95 07/27/18 12:26 07/27/18 12:26 07/27/18 12:26 07/27/18 12:26 07/27/18 12:26 Exam: Skin: Free of rash and discoloration. Musculoskeletal: Range of motion of extremities Eyes: Sclera is white. There is no discharge from eyes. ENMT: Oral/pharyngeal mucosa is normal in appearance. There is no discharge from nose or ears. Respiratory: Lung sounds at this time CV: Heart is regular with no gallop or murmur. GI: Abdomen is flat and soft with no palpable mass or visceromegaly. : There is no tenderness in patient's flanks bilaterally. Neuro exam: He has good strength in upper and lower extremities. He has normal eye movements. Psychiatric: He has normal affect. His thought process is appropriate to the situation. - Assessment and Plan (1) DVT prophylaxis Current Visit: No Status: Acute Assessment and Plan: Subcutaneous heparin (2) CKD (chronic kidney disease) stage 3, GFR 30-59 ml/min Current Visit: Yes Status: Acute Assessment and Plan: Creatinine appears to be at baseline; continue to monitor 07/26/2018 Creatinine appears to be around baseline this time. Monitor intake and output daily weights. Avoid nephrotoxins. 07/27/2018 Slight elevation in creatinine today we will hold lisinopril and give gentle IV fluids overnight Monitor intake and output and daily weights avoid nephrotoxins (3) Chest pain Current Visit: Yes Status: Acute Assessment and Plan: Patient for 24 hour history of substernal chest pressure First set of cardiac biomarkers negative Trend troponins and monitor on telemetry Will order nuclear medicine stress test 07/26/2018 Patient underwent cardiac stress test today which was negative for any ischemia or infarct Suspect that chest pain may be related to pleuritic pain she complains of pain when she is coughing Troponins are negative 07/27/2018 He complains of pain when she is coughing cardiac workup has been negative (4) Ischemic cardiomyopathy Current Visit: Yes Status: Acute Assessment and Plan: Patient with history of coronary artery disease with a echocardiogram on 11/2017 that showed LVEF of 6065% with mild left ventricular diastolic dysfunction Continue home medications 07/26/2018 History of CAD with EF of 60-65% Currently appears to be stable at this time we will continue home medications Continue with cardiac monitoring 07/27/2018 We will get general IV hydration overnight due to a KI we will monitor for any fluid overload (5) Acute exacerbation of COPD with asthma Current Visit: No Status: Acute Assessment and Plan: 1 patient has been experiencing unproductive cough with wheezing. Currently she does have scattered wheezes throughout lung patel and found diminished. We will give her Solu-Medrol 60 mg IV every 6 hours Bronchodilators Tessalon Perles for cough Currently sats are stable on room air we will continue to monitor Azithromycin 07/27/2018 Much improved today and no wheezes noted we will continue with bronchodilators decrease steroids down to 40 mg IV every 12 hours Azithromycin (6) STEVEN (acute kidney injury) Current Visit: No Status: Acute Assessment and Plan: Elevation and creatinine 2.10 today -we will hold diuretics as well as lisinopril for now give gentle IV hydration overnight and monitor closely (7) Hyponatremia Current Visit: Yes Status: Acute Assessment and Plan: This appears to be chronic however she is a little lower than normal we will hold diuretics for now as well as give gentle IV hydration and check in the a.m. - Time Spent with Patient Total time spent is greater than 50% in coordination of care (as documented) at patient's floor/unit and/or counseling patient: Internal Medicine: Result - Labs CBC & Chem 7: 07/27/18 11:04 07/27/18 11:04 Labs: Short CBC 07/27/18 Range/Units 11:04 WBC 15.1 H D (4.3-11.1) K/mcL Hgb 11.5 (11.5-15.4) g/dL Hct 34.7 L (35.3-44.9) % Plt Count 667 H (140-400) K/mcL Neutrophils # 13.7 H (1.6-8.9) K/mcL BMP 07/27/18 11:04 Sodium 129 L Potassium 4.3 Chloride 99 Carbon Dioxide 19 L BUN 20 Creatinine 2.10 H Glucose 211 H Calcium 9.8 Consult Discharge Plan - Plan Referrals: Jw Post MD [Partnered Physician] - 09/25/18 1:00 pm Torsten Sanderson MD [Partnered Physician] - 09/19/18 2:00 pm Homa Mary CNP [Primary Care Provider] - 08/03/18 3:00 pm (3) Chest pain Qualifiers: Chest pain type: unspecified Qualified Code(s): R07.9 - Chest pain, unspecified
[2018-07-27] MEDS: *HR* LORazepam 0.5 MG TABLET PO PRN (17:37)
[2018-07-27 20:49] LABS: Adenovirus Not Detected (Not Detect); Bordetella Pertussis Not Detected (Not Detect); Chlamydophila pneumoniae Not Detected (Not Detect); Coronavirus 229E Not Detected (Not Detect); Coronavirus HKU1 Not Detected (Not Detect); Coronavirus NL63 Not Detected (Not Detect); Coronavirus OC43 Not Detected (Not Detect); Human Metapneumovirus Not Detected (Not Detect); Human Rhinovirus/Enterovirus Not Detected (Not Detect); Influenza A Subtype 2009 H1 Not Detected (Not Detect); Influenza A Untypeable Not Detected (Not Detect); Influenza B Not Detected (Not Detect); Mycoplasma pneumoniae Not Detected (Not Detect); Parainfluenza Virus 1 Not Detected (Not Detect); Parainfluenza Virus 2 Not Detected (Not Detect); Parainfluenza Virus 3 Not Detected (Not Detect); Parainfluenza Virus 4 Not Detected (Not Detect); Respiratory Syncytial Virus Not Detected (Not Detect)
[2018-07-28 04:55] LABS: Basophils % 0.1 %; Hematocrit 30.9 % (35.3-44.9); Hemoglobin 10.4 g/dL (11.5-15.4); Immature Granulocytes % 0.6 % (0-4); Lymphocytes % 7.4 %; Mean Corpuscular HGB Conc 33.7 g/dL (31.6-35.5); Mean Corpuscular Volume 86.1 fL (83.0-100.0); Mean Platelet Volume 9.5 fL (9.4-12.4); Monocytes # 0.7 K/mcL (0.0-1.3); Monocytes % 5.3 %; Neutrophils # 11.7 K/mcL (1.6-8.9); Platelet Count 631 K/mcL (140-400); Red Blood Count 3.59 M/mcL (3.82-4.97); Red Cell Distribution Width 14.4 % (11.5-14.5); Segmented Neutrophils % 86.6 %
[2018-07-28 05:08] LABS: Calcium 9.2 mg/dL (8.6-10.3); Potassium 4.5 mEq/L (3.5-5.1)
[2018-07-28] MEDS: MethylPREDNISolone 40 MG/ML VIAL IVP SCH (05:44)
[2018-07-28] MEDS ORDERED: 0.9 % Sodium Chloride 1,000 ML IVC SCH (08:15)
[2018-07-28] MEDS ORDERED: predniSONE 20 MG TABLET PO SCH (09:00)
[2018-07-28] MEDS: Fenofibrate 54 MG TABLET PO SCH (09:12)
[2018-07-28] MEDS: Azithromycin 250 MG TABLET PO SCH (09:12)
[2018-07-28] MEDS: *HR* LORazepam 0.5 MG TABLET PO PRN (09:12)
[2018-07-28] MEDS: hydrALAZINE 25 MG TABLET PO SCH (09:13)
[2018-07-28] MEDS: Valsartan 160 MG TABLET PO SCH (09:13)
[2018-07-28 12:19] LABS: Calcium 9.3 mg/dL (8.6-10.3); Potassium 4.6 mEq/L (3.5-5.1)
[2018-07-28] MEDS ORDERED: cloNIDine HCl 0.1 MG TABLET PO SCH (13:00)
--- NOTE | 2018-07-28 13:51 | Internal Med History&Physical ---
Date of Encounter: 07/28/18 Time of Encounter: 13:26 Internal Medicine - H&P: HPI Chief complaint: CP Admitted From: Emergency Dept Plans for Post Hospital Care: Home History of present illness: Ms. Gallardo is a 77 year old female PMH of CAD GERD HLD HTN CKD3 COPD, ischemic heart disease Presented to [facility] with complaints of CP Cardiac workup was negative Cardiac stress test negative for any ischemia or infarct - she did have wheezing and a cough She was steroid burst as well as azithromycin wheezing did improve. During admission patient did experience episodes of anxiety and stated that she wanted to kill herself she was placed on suicide precautions and was evaluated by psychiatry. Patient was placed on antidepressant advised to follow-up with psychiatry as an outpatient. She also had a slight increase in her creatinine and some hyponatremia. Her diuretics were held and she was given gentle IV fluids and her creatinine returned to baseline. Advised patient to follow-up with primary care provider since this provider knows her best and can adjust medications accordingly also advised to follow-up with mental health and she was given contact information. Patient was given a prescription for steroid azithromycin as well as Zoloft. She is hemodynamically stable this time and is ready for discharge. Past Med Surg Social Fam HX - Past Medical History Medical history: aortic aneurysm, coronary artery disease, GERD, hyperlipidemia, hypertension, thyroid disease Additional medical history: UPPER PARITAL DENTURE Psychiatric history: no psych history - Past Surgical History Surgical History: angioplasty/stent, appendectomy, cholecystectomy, hysterectomy Additional surgical history: 1 cardiac cath with stent placement Apr 08, 2015, Left shoulder scope - Social History Smoking Status: Former smoker Smokeless Tobacco Status: No Alcohol use: none Drug use: none - Family History Mother Living Status: Hx Family Cardiac Disorders: No Hx Family Respiratory Disorders: No Hx Family Cancer: No Hx Family GI Disorders: No Hx Family Endocrine Disorder: No Hx Family Neuromuscular Disorders: No Hx Family Neurologic Disorders: No Hx Family HEENT Disorders: No Hx Family Autoimmune Disorders: No Father Living Status: Hx Family Cardiac Disorders: Yes (HTN) Hx Family Respiratory Disorders: No Hx Family Cancer: No Hx Family GI Disorders: No Hx Family Endocrine Disorder: No Hx Family Neuromuscular Disorders: No Hx Family Neurologic Disorders: No Hx Family HEENT Disorders: No Hx Family Autoimmune Disorders: No Grandmother Hx Family Cardiac Disorders: Yes Internal Medicine - H&P: Meds Fenofibrate Nanocrystallized [Tricor] 48 mg PO DAILY 12/16/16 [History] Atorvastatin [Lipitor] 40 mg PO DAILY 03/20/17 [History] Docusate Sodium [Dok] 100 mg PO DAILY PRN 03/20/17 [History] cloNIDine HCl [CloNIDine HCl] 0.1 mg PO DAILY 03/20/17 [History] Omeprazole [PriLOSEC] 40 mg PO DAILY 11/25/17 [History] Spironolactone [Aldactone] 25 mg PO BID 11/27/17 [History] Valsartan [Diovan] 320 mg PO DAILY #30 tablet 11/27/17 [Rx] Carvedilol [Coreg] 6.25 mg PO DAILY 04/02/18 [History] Furosemide [Lasix] 40 mg PO DAILY 04/02/18 [History] Levothyroxine Sodium 100 mcg PO DAILY 04/02/18 [History] hydrALAZINE [HydrALAZINE] 25 mg PO DAILY 04/02/18 [History] Ipratropium/Albuterol Neb [Duoneb] 3 ml IH [id number] PRN #30 inhsol 04/08/18 [Rx] Albuterol Sulfate [Albuterol Inhaler] 2 puff IH Q6HR PRN 07/25/18 [History] Benzonatate 100 mg PO BID PRN 07/26/18 [History] Meclizine HCl [Verticalm] 25 mg PO Q8H PRN 07/26/18 [History] Allergy/AdvReac Type Severity Reaction Status Date / Time metronidazole [From Flagyl] Allergy Severe Swelling Verified 07/26/18 11:31 of Lip/Tongue/Throat Iodinated Contrast- Oral and Allergy Rash Verified 07/26/18 11:31 IV Dye [Iodinated Contrast Media - IV Dye] All Systems PM: A 10-system review of systems was performed and is negative for pertinent findings except as documented above in the HPI. - Constitutional Constitutional: no chills, no fever(s), no night sweats - EENT Eyes: no change in vision, no discharge, no pain, no photophobia Ears: no ear discharge, no ear pain, no tinnitus Nose, mouth and throat: no dysphagia, no nasal discharge, no neck pain, no sore throat - Cardiovascular Cardiovascular ROS IM: no chest pain, no diaphoresis, no dyspnea, no lightheadedness, no palpitations, no syncope - Respiratory Respiratory: cough, no dyspnea, no wheezing, no excessive phlegm production - Gastrointestinal Gastrointestinal: no abdominal pain, no diarrhea, no hematemesis, no hematochezia, no melena, no nausea, no vomiting - Genitourinary Genitourinary: no change in urinary stream, no dysuria, no flank pain, no hematuria - Musculoskeletal Musculoskeletal ROS IM: no numbness, no tingling - Integumentary Integumentary IM: no rash, no unusual bruising - Neurological Neurological ROS: no confusion, no convulsions, no focal weakness, no numbness, no tingling, no tremor(s) - Constitutional Vitals: Temp Pulse Resp BP Pulse Ox 97.6 F 82 16 181/92 96 07/28/18 11:14 07/28/18 11:14 07/28/18 11:14 07/28/18 11:14 07/28/18 11:14 General appearance: Present: A&O X 3, no acute distress Internal Med - H&P Results - Labs CBC & Chem 7: 07/28/18 04:32 07/28/18 11:37 Labs: Short CBC 07/28/18 Range/Units 04:32 WBC 13.5 H (4.3-11.1) K/mcL Hgb 10.4 L (11.5-15.4) g/dL Hct 30.9 L (35.3-44.9) % Plt Count 631 H (140-400) K/mcL Neutrophils # 11.7 H (1.6-8.9) K/mcL BMP 07/28/18 07/28/18 04:32 11:37 Sodium 132 L 130 L Potassium 4.5 4.6 Chloride 102 99 Carbon Dioxide 20 L 21 L BUN 27 H 30 H Creatinine 2.02 H 1.86 H Glucose 162 H 184 H Calcium 9.2 9.3 - Impressions ITS Impressions Chest X-Ray 07/25/18 13:07 IMPRESSION: No acute process. D/ / Joes Gomes MD / Jose Gomes MD Interpreting Provider: Jose Gomes MD - Assessment and plan (1) DVT prophylaxis Current Visit: No Status: Acute (2) CKD (chronic kidney disease) stage 3, GFR 30-59 ml/min Current Visit: Yes Status: Acute (3) Chest pain Current Visit: Yes Status: Acute Qualifiers: Chest pain type: unspecified Qualified Code(s): R07.9 - Chest pain, unspecified (4) Ischemic cardiomyopathy Current Visit: Yes Status: Acute (5) Acute exacerbation of COPD with asthma Current Visit: No Status: Acute (6) STEVEN (acute kidney injury) Current Visit: No Status: Acute (7) Hyponatremia Current Visit: Yes Status: Acute - Time Spent With Patient Total time spent is greater than 50% in coordination of care (as documented) at patient's floor/unit and/or counseling patient:
--- NOTE | 2018-07-28 13:54 | Discharge Summary ---
- NOTES TO OUTPATIENT PROVIDER Notes to Outpatient Provider: Follow-up with psychiatry as outpatient and continue with Zoloft given steroid burst as well as antibiotic and inhaler- monitor chemistry for AK I- I did hold spironolactone Orders not resulted at time of discharge: Pending orders 07/25/18 05:30 NM berkley perf SPECT multi [NM] Routine Date of Encounter: 07/28/18 Time of Encounter: 13:52 - Discharge Diagnosis (1) CKD (chronic kidney disease) stage 3, GFR 30-59 ml/min Priority: Secondary Status: Acute (2) Chest pain Priority: Primary Status: Acute Qualifiers: Chest pain type: unspecified Qualified Code(s): R07.9 - Chest pain, unspecified (3) Ischemic cardiomyopathy Priority: Secondary Status: Acute (4) Acute exacerbation of COPD with asthma Priority: Secondary Status: Acute (5) STEVEN (acute kidney injury) Priority: Secondary Status: Acute (6) Hyponatremia Priority: Secondary Status: Acute Hospital course: Ms. Gallardo is a 77 year old female Ms. Gallardo is a 77 year old female PMH of CAD GERD HLD HTN CKD3 COPD, ischemic heart disease Presented to [facility] with complaints of CP Cardiac workup was negative Cardiac stress test negative for any ischemia or infarct - she did have wheezing and a cough-I suspect the cough is contributing to her chest pain since she says pain is worse when she is coughing She was steroid burst as well as azithromycin wheezing did improve. During admission patient did experience episodes of anxiety and stated that she wanted to kill herself she was placed on suicide precautions and was evaluated by psychiatry. Patient was placed on antidepressant advised to follow-up with psychiatry as an outpatient. She also had a slight increase in her creatinine and some hyponatremia. Her diuretics were held and she was given gentle IV fluids and her creatinine returned to baseline. Advised patient to follow-up with primary care provider since this provider knows her best and can adjust medications accordingly also advised to follow-up with mental health and she was given contact information. Patient was given a prescription for steroid azithromycin as well as Zoloft. She is hemodynamically stable this time and is ready for discharge. - Time Spent with Patient Total time spent providing and/or coordinating discharge services: - Discharge Medications Prescriptions: Albuterol Sulfate [Albuterol Inhaler] 2 puff IH Q6HR PRN #1 inhaler PRN Reason: Wheezing Ipratropium/Albuterol Neb [Duoneb] 3 ml IH [id number] PRN #30 inhsol PRN Reason: Wheezing Azithromycin [Zithromax] 500 mg PO DAILY #1 tablet predniSONE [PredniSONE] 10 mg PO DAILY #30 tablet Sertraline [Zoloft] 25 mg PO DAILY #30 tablet Home Medications: Fenofibrate Nanocrystallized [Tricor] 48 mg PO DAILY 12/16/16 [History] Atorvastatin [Lipitor] 40 mg PO DAILY 03/20/17 [History] Docusate Sodium [Dok] 100 mg PO DAILY PRN 03/20/17 [History] cloNIDine HCl [CloNIDine HCl] 0.1 mg PO DAILY 03/20/17 [History] Omeprazole [PriLOSEC] 40 mg PO DAILY 11/25/17 [History] Valsartan [Diovan] 320 mg PO DAILY #30 tablet 11/27/17 [Rx] Carvedilol [Coreg] 6.25 mg PO DAILY 04/02/18 [History] Furosemide [Lasix] 40 mg PO DAILY 04/02/18 [History] Levothyroxine Sodium 100 mcg PO DAILY 04/02/18 [History] hydrALAZINE [HydrALAZINE] 25 mg PO DAILY 04/02/18 [History] Ipratropium/Albuterol Neb [Duoneb] 3 ml IH [id number] PRN #30 inhsol 04/08/18 [Rx] Benzonatate 100 mg PO BID PRN 07/26/18 [History] Meclizine HCl [Verticalm] 25 mg PO Q8H PRN 07/26/18 [History] Albuterol Sulfate [Albuterol Inhaler] 2 puff IH Q6HR PRN #1 inhaler 07/28/18 [Rx] Azithromycin [Zithromax] 500 mg PO DAILY #1 tablet 07/28/18 [Rx] Ipratropium/Albuterol Neb [Duoneb] 3 ml IH [id number] PRN #30 inhsol 07/28/18 [Rx] Sertraline [Zoloft] 25 mg PO DAILY #30 tablet 07/28/18 [Rx] predniSONE [PredniSONE] 10 mg PO DAILY #30 tablet 07/28/18 [Rx] Allergies/Adverse Reactions: Allergy/AdvReac Type Severity Reaction Status Date / Time metronidazole [From Flagyl] Allergy Severe Swelling Verified 07/26/18 11:31 of Lip/Tongue/Throat Iodinated Contrast- Oral and Allergy Rash Verified 07/26/18 11:31 IV Dye [Iodinated Contrast Media - IV Dye] Date of admission: 07/25/18 14:38 Primary care physician: Homa Mary CNP Consults: 07/26/18 14:36 Consult to Nurse Navigator [CONS] Routine Comment: COPD 07/26/18 19:56 Consult to Psychiatry [CONS] Routine Consulting Provider: Psychiatry Maylin Reason consult: Other Other reason and/or additional details: Called to patient's room by nurse. Pt. was anxious and crying stating that she was tired of being sick and wanted to hurt herself. I asked if she has a dx of anxiety and depression but she stated no. She stated she called her son and told him she wanted to hurt herself which upset him very much. She la ter texted him and told him she was just feeling sorry for herself. Pt. wants to talk to someone and needs assessed for official anxiety/depression scale/dx. Sitter and suicide precautions ordered. Will give low dose of Valium to help with anxiety and monitor closely. Time Notified: 19:55 Call Completed: Yes Discharging clinician: Mala Guzman Anticipated date of discharge: 07/28/18 - Constitutional Vitals: Temp Pulse Resp BP Pulse Ox 97.6 F 82 16 181/92 96 07/28/18 11:14 07/28/18 11:14 07/28/18 11:14 07/28/18 11:14 07/28/18 11:14 General appearance: Present: A&O X 3, no acute distress Exam: . - Head Head exam: Present: atraumatic, normocephalic - Eye Eye exam: Present: PERRL, conjuntiva pink, sclera anicteric Pupils: Present: PERRL - Neck Neck exam general surgery: Present: supple, trachea midline. Absent: lymphadenopathy - Respiratory Respiratory exam: Present: CTAB. Absent: accessory muscle use, rales, rhonchi, wheezes - Cardiovascular Cardiovascular exam: Present: RRR, +S1, +S2. Absent: diastolic murmur, gallop, rubs, systolic murmur - GI/Abdominal GI/Abdominal exam: Present: normal bowel sounds, soft, no peritoneal signs. Absent: distended, tenderness - Extremities Exam Extremities exam: Present: warm, radial pulses palpable and symmetrical. Absent: calf tenderness, cyanotic, pedal edema - Neurological Exam Neurological exam: Present: CN II-XII intact, oriented X3, no focal deficits. Absent: pronater drift, facial droop, speech deficit - Skin Skin exam: Present: dry, intact - Patient Status Disposition: Home, Self-Care Condition: Fair Functional capacity at discharge: independent ambulation Overall status at discharge: patient is back to baseline - Discharge Instructions Follow Up With: [facility] [Outside] (Unable to make appointment due to office being closed on the weekend. Please call Monday to schedule appointment. ) Jw Post MD [Partnered Physician] - 09/25/18 1:00 pm Torsten Sanderson MD [Partnered Physician] - 09/19/18 2:00 pm Homa Mary CNP [Primary Care Provider] - 08/03/18 3:00 pm - Diet and Activity Activity: as per physical therapy
[2018-07-28 14:53] VITALS: BP 154/76
== END 2018-07-28 15:33 | disposition home or self-care (01) ==
LOC: EMEROOARM 12:38 → 3BNU 12:38
PROVIDERS: ADMIT Hospitalist; ATTEND Hospitalist

== ENCOUNTER 2019-06-20 17:16 | Observation (INO) ==
[2019-06-20 18:07] LABS: Basophils % 0.5 %; Eosinophils # 0.2 K/mcL (0.0-0.6); Eosinophils % 3.5 %; Hematocrit 32.1 % (35.3-44.9); Hemoglobin 10.1 g/dL (11.5-15.4); Immature Granulocytes % 0.2 % (0-4); Lymphocytes # 1.3 K/mcL (0.6-4.6); Lymphocytes % 22.5 %; Mean Corpuscular HGB Conc 31.5 g/dL (31.6-35.5); Mean Corpuscular Hemoglobin 29.4 pg (28.0-33.3); Mean Corpuscular Volume 93.6 fL (83.0-100.0); Mean Platelet Volume 8.7 fL (9.4-12.4); Monocytes # 0.7 K/mcL (0.0-1.3); Monocytes % 12.5 %; Neutrophils # 3.6 K/mcL (1.6-8.9); Platelet Count 577 K/mcL (140-400); Red Blood Count 3.43 M/mcL (3.82-4.97); Red Cell Distribution Width 13.7 % (11.5-14.5); Segmented Neutrophils % 60.8 %; White Blood Count 5.9 K/mcL (4.3-11.1)
[2019-06-20 18:12] LABS: Prothrombin Time 11.8 Seconds (9.4-12.1)
[2019-06-20 18:15] LABS: Activated Partial Thrombo Time 37.2 Seconds (26.0-36.0)
[2019-06-20 18:29] LABS: Calcium 9.1 mg/dL (8.6-10.3); Potassium 4.4 mEq/L (3.5-5.1); Troponin I 0.03 ng/mL (< 0.04)
[2019-06-20 18:44] LABS: Bilirubin,Urine Negative (Negative); Blood,Urine Small (Negative); Clarity,Urine Clear (Clear); Color,Urine Yellow (Yellow); Glucose,Urine (UA) Normal (Normal); Ketones,Urine Negative (Negative); Leukocyte Esterase,Urine Negative (Negative); Nitrite,Urine Negative (Negative); PH,Urine 6.5 pH Units (5.0-8.0); Protein,Urine >=300 mg/dL (Neg-Trace); Specific Gravity,Urine 1.011 (1.010-1.025); Urobilinogen,Urine Normal (Normal)
[2019-06-20 18:47] LABS: Bacteria,Urine None Seen per hpf (None-Few); Hyaline Casts,Urine None Seen per lpf (None-Few); RBC,Urine 0-3 per hpf (0-3); Squamous Epithelial Cell,Urine Moderate per lpf (None-Few)
[2019-06-20] MEDS ORDERED: 0.9 % Sodium Chloride 1,000 ML IV ONE ×2 (19:35→22:21)
[2019-06-20] MEDS ORDERED: Prochlorperazine 10 MG/2 ML VIAL IVP PRN (19:35)
[2019-06-20] MEDS ORDERED: cefTRIAXone 1,000 MG in Water for inj. (sterile) 10 ML IVP ONE (22:15)
[2019-06-20] MEDS ORDERED: Azithromycin 500 MG in 0.9 % Sodium Chloride 250 ML IVPB ONE (22:23)
[2019-06-20] MEDS ORDERED: Naloxone 0.4 MG/ML INJ IVP PRN (23:17)
[2019-06-20] MEDS ORDERED: Albuterol 2.5 MG/3 ML NEBULIZER IH PRN (23:19)
[2019-06-21 00:59] LABS: Basophils % 0.7 %; Eosinophils # 0.2 K/mcL (0.0-0.6); Eosinophils % 4.3 %; Immature Granulocytes % 0.4 % (0-4); Immature Reticulocyte % 10.7 % (11.0-38.0); Lymphocytes # 1.2 K/mcL (0.6-4.6); Lymphocytes % 21.7 %; Mean Corpuscular HGB Conc 32.3 g/dL (31.6-35.5); Mean Corpuscular Hemoglobin 29.5 pg (28.0-33.3); Mean Corpuscular Volume 91.4 fL (83.0-100.0); Mean Platelet Volume 8.8 fL (9.4-12.4); Monocytes # 0.7 K/mcL (0.0-1.3); Monocytes % 12.1 %; Neutrophils # 3.4 K/mcL (1.6-8.9); Platelet Count 564 K/mcL (140-400); Red Blood Count 3.39 M/mcL (3.82-4.97); Red Cell Distribution Width 13.9 % (11.5-14.5); Retculocyte # 0.06 M/mcL (0.05-0.10); Reticulocyte % 1.7 % (1.6-2.8); Segmented Neutrophils % 60.8 %; White Blood Count 5.6 K/mcL (4.3-11.1)
[2019-06-21 01:36] LABS: Folate 10.8 ng/mL (3.0-16.0)
[2019-06-21] MEDS: GuaiFENesin/Dextromethorphan TABLET PO SCH ×3 (01:39→20:38)
[2019-06-21 01:44] LABS: Albumin 3.4 g/dL (3.5-5.7); Albumin/Globulin Ratio 1.1 (1.1-2.2); Bilirubin,Total 0.3 mg/dL (0.3-1.0); Calcium 8.6 mg/dL (8.6-10.3); Chol/HDL Ratio 3.4 (0-4.9); Magnesium 2.3 mg/dL (1.6-2.6); Phosphorous 4.5 mg/dL (2.7-4.5); Potassium 4.1 mEq/L (3.5-5.1); Total Protein 6.4 g/dL (6.4-8.9)
[2019-06-21] MEDS: Acetaminophen 325 MG TABLET PO PRN ×2 (01:55→13:25)
[2019-06-21] MEDS ORDERED: hydrALAZINE 25 MG TABLET PO SCH (08:00)
[2019-06-21] MEDS: 0.9 % Sodium Chloride 1,000 ML IVC SCH (08:59)
[2019-06-21] MEDS ORDERED: cloNIDine HCl 0.1 MG TABLET PO SCH (09:00)
[2019-06-21] MEDS ORDERED: Valsartan 160 MG TABLET PO SCH (09:00)
[2019-06-21] MEDS ORDERED: carvediloL 6.25 MG TABLET PO SCH (09:00)
[2019-06-21 09:14] LABS: Protein/Creatinine Ratio,Urine 1.63 mg/mg (0.00-0.20); Sodium, Urine 85.5 mEq/L
[2019-06-21] MEDS ORDERED: *HR* LORazepam 2 MG/ML VIAL IVP ONE (09:36)
[2019-06-21] MEDS ORDERED: *HR* LORazepam 2 MG/ML VIAL IVP PRN (14:04)
[2019-06-21 18:41] LABS: Complement C3 155 mg/dL (87-200)
[2019-06-22] MEDS: 0.9 % Sodium Chloride 1,000 ML IVC SCH (00:25)
[2019-06-22 05:53] LABS: Basophils % 0.6 %; Eosinophils # 0.3 K/mcL (0.0-0.6); Eosinophils % 4.8 %; Hematocrit 28.4 % (35.3-44.9); Hemoglobin 9.3 g/dL (11.5-15.4); Immature Granulocytes % 0.2 % (0-4); Lymphocytes # 1.3 K/mcL (0.6-4.6); Lymphocytes % 24.9 %; Mean Corpuscular HGB Conc 32.7 g/dL (31.6-35.5); Mean Corpuscular Hemoglobin 29.7 pg (28.0-33.3); Mean Corpuscular Volume 90.7 fL (83.0-100.0); Monocytes # 0.7 K/mcL (0.0-1.3); Monocytes % 12.6 %; Neutrophils # 3.1 K/mcL (1.6-8.9); Platelet Count 556 K/mcL (140-400); Red Blood Count 3.13 M/mcL (3.82-4.97); Red Cell Distribution Width 14.1 % (11.5-14.5); Segmented Neutrophils % 56.9 %; White Blood Count 5.4 K/mcL (4.3-11.1)
[2019-06-22 06:17] LABS: Calcium 8.3 mg/dL (8.6-10.3); Potassium 4.5 mEq/L (3.5-5.1)
[2019-06-22 08:30] LABS: Creatinine,Urine 78 mg/dL; Microalbumin,Urine > 1350 mg/L
[2019-06-22] MEDS: GuaiFENesin/Dextromethorphan TABLET PO SCH (08:42)
[2019-06-22] MEDS ORDERED: Aspirin Enteric Coated 81 MG Tablet PO SCH (09:00)
[2019-06-22] MEDS: Acetaminophen 325 MG TABLET PO PRN ×2 (09:19→16:13)
[2019-06-22] MEDS ORDERED: Valsartan 160 MG TABLET PO SCH (10:08)
[2019-06-22] MEDS ORDERED: carvediloL 6.25 MG TABLET PO SCH (10:09)
[2019-06-22] MEDS ORDERED: Spironolactone 25 MG TABLET PO SCH (10:15)
[2019-06-22] MEDS ORDERED: hydrALAZINE 25 MG TABLET PO SCH (10:15)
[2019-06-22 11:26] LABS: Triiodothyronine (T3) Free 2.39 pg/mL (2.50-3.90)
[2019-06-22] MEDS ORDERED: cloNIDine HCl 0.1 MG TABLET PO SCH (15:44)
[2019-06-22] MEDS ORDERED: NIFEdipine XL (24 HR) 60 MG TAB.ER.24 PO SCH (15:45)
[2019-06-22 17:49] VITALS: BP 182/94
[2019-06-23] MEDS ORDERED: Fenofibrate 54 MG TABLET PO SCH (09:00)
[2019-06-24 13:25] LABS: Serine Protease-3 Antibody 3 AU/mL (0-19)
[2019-06-25 09:57] LABS: Alpha 2 Globulin (PEP) 0.92 g/dL (0.48-1.05); Beta Globulin (PEP) 0.88 g/dL (0.48-1.10)
[2019-06-25 12:31] LABS: GBM IgG Multiplex Bead Assay 0 AU/mL (0-19); Glomerular Basement Memb IgG NEGATIVE (Negative)
[2019-06-25 12:34] LABS: ANA IgG by ELISA NONE DETECTED (None Detected)
[2019-06-25 12:38] LABS: IFE Reflexed NOT DONE
[2019-06-25 17:01] LABS: Metanephrine, Plasma 0.19 nmol/L (0.00-0.49)
[2019-06-25 19:45] LABS: Urine Collection Volume RANDOM mL
== END 2019-06-22 18:50 | disposition home or self-care (01) ==
LOC: EMEROOARM 17:16 → 3ANU 17:16 → SUATTDRO 06-21 00:41 → 3ANU 06-21 01:19
PROVIDERS: ADMIT Family Medicine; ATTEND Internal Medicine

== ENCOUNTER 2020-10-10 16:15 | Inpatient (IN) ==
[2020-10-10 17:30] LABS: Basophils # 0.1 K/mcL (0.0-0.2); Basophils % 0.5 %; Eosinophils # 0.4 K/mcL (0.0-0.6); Eosinophils % 3.3 %; Hematocrit 30.4 % (35.3-44.9); Hemoglobin 9.6 g/dL (11.5-15.4); Immature Granulocytes % 0.4 % (0-4); Lymphocytes % 7.6 %; Mean Corpuscular HGB Conc 31.6 g/dL (31.6-35.5); Mean Corpuscular Hemoglobin 29.3 pg (28.0-33.3); Mean Corpuscular Volume 92.7 fL (83.0-100.0); Mean Platelet Volume 9.7 fL (9.4-12.4); Monocytes % 7.8 %; Neutrophils # 10.3 K/mcL (1.6-8.9); Platelet Count 415 K/mcL (140-400); Red Blood Count 3.28 M/mcL (3.82-4.97); Red Cell Distribution Width 14.2 % (11.5-14.5); Segmented Neutrophils % 80.4 %; White Blood Count 12.8 K/mcL (4.3-11.1)
[2020-10-10 17:52] LABS: Calcium 8.2 mg/dL (8.6-10.3); Magnesium 2.6 mg/dL (1.6-2.6); Potassium 4.7 mEq/L (3.5-5.1)
[2020-10-10 18:02] LABS: Troponin I 0.04 ng/mL (< 0.04)
[2020-10-10] MEDS ORDERED: *HR* HYDROcodone/Acet 5/325 mg TABLET PO ONE (19:13)
[2020-10-10 19:40] LABS: Bacteria,Urine Few per hpf (None-Few); Bilirubin,Urine Negative (Negative); Blood,Urine Small (Negative); Clarity,Urine Clear (Clear); Color,Urine Yellow (Yellow); Glucose,Urine (UA) 100 mg/dL (Normal); Hyaline Casts,Urine Many per lpf (None Seen); Ketones,Urine Negative (Negative); Leukocyte Esterase,Urine Trace (Negative); Mucus,Urine Few per lpf (None-Few); Nitrite,Urine Negative (Negative); Protein,Urine >=600 mg/dL (Neg-Trace); Renal Epithelial Cells,Urine Few per hpf (None-Few); Specific Gravity,Urine 1.028 (1.010-1.025); Squamous Epithelial Cell,Urine Few per hpf (None-Few); Urobilinogen,Urine Normal (Normal); WBC,Urine 15-30 per hpf (0-3)
[2020-10-10 20:16] LABS: Adenovirus Not Detected (Not Detect); Bordetella Pertussis Not Detected (Not Detect); Chlamydophila pneumoniae Not Detected (Not Detect); Coronavirus 229E Not Detected (Not Detect); Coronavirus HKU1 Not Detected (Not Detect); Coronavirus NL63 Not Detected (Not Detect); Coronavirus OC43 Not Detected (Not Detect); Human Metapneumovirus Not Detected (Not Detect); Human Rhinovirus/Enterovirus DETECTED (Not Detect); Influenza A Subtype 2009 H1 Not Detected (Not Detect); Influenza B Not Detected (Not Detect); Mycoplasma pneumoniae Not Detected (Not Detect); Parainfluenza Virus 1 Not Detected (Not Detect); Parainfluenza Virus 2 Not Detected (Not Detect); Parainfluenza Virus 3 Not Detected (Not Detect); Parainfluenza Virus 4 Not Detected (Not Detect); Respiratory Syncytial Virus Not Detected (Not Detect); SARS-CoV-2 Not Detected (Not Detect)
[2020-10-10] MEDS ORDERED: *HR* Heparin 5,000 UNIT/ML VIAL IVP ONE (20:30)
[2020-10-10] MEDS: Heparin 25,000UNIT/250ML 1/2NS 25,000 UNIT/250 ML IV.SOLN IVC SCH (21:03)
[2020-10-10] MEDS ORDERED: Albuterol 2.5 MG/3 ML NEBULIZER IH PRN (21:22)
[2020-10-10] MEDS ORDERED: Ondansetron 4 MG/2 ML VIAL IVP PRN (21:27)
[2020-10-10] MEDS ORDERED: Acetaminophen 325 MG TABLET PO PRN (21:27)
[2020-10-10] MEDS ORDERED: Melatonin 3 MG TABLET PO PRN (21:27)
[2020-10-10] MEDS ORDERED: Naloxone 0.4 MG/ML INJ IVP PRN (21:27)
[2020-10-10] MEDS: 0.9 % Sodium Chloride 1,000 ML IVC SCH (22:00)
[2020-10-10] MEDS: hydrALAZINE 25 MG TABLET PO SCH (22:05)
[2020-10-10 22:20] LABS: INR 1.3; Prothrombin Time 14.7 Seconds (9.4-12.1)
[2020-10-10 22:25] LABS: Heparin anti-factor XA UFH 1.22 IU/mL (0.30-0.70)
[2020-10-10] MEDS ORDERED: Benzonatate 100 MG CAPSULE PO PRN (22:27)
[2020-10-10] MEDS: Albuterol 2.5 MG/3 ML NEBULIZER IH SCH (23:23)
[2020-10-11] MEDS: Albuterol 2.5 MG/3 ML NEBULIZER IH SCH ×5 (03:22→20:00)
[2020-10-11] MEDS: 0.9 % Sodium Chloride 1,000 ML IVC SCH (07:44)
[2020-10-11] MEDS: hydrALAZINE 25 MG TABLET PO SCH ×2 (07:44→20:06)
[2020-10-11] MEDS: Aspirin Enteric Coated 81 MG Tablet PO SCH (07:44)
[2020-10-11] MEDS: cloNIDine HCL 0.1 MG TABLET PO SCH ×2 (07:44→20:06)
[2020-10-11] MEDS: Valsartan 160 MG TABLET PO SCH (07:44)
[2020-10-11] MEDS ORDERED: NIFEdipine XL (24 HR) 60 MG TAB.ER.24 PO SCH (09:00)
[2020-10-11] MEDS: *HR* HYDROcodone/Acet 5/325 mg TABLET PO PRN ×2 (10:04→20:06)
[2020-10-11 11:36] LABS: Basophils # 0.1 K/mcL (0.0-0.2); Basophils % 0.6 %; Eosinophils # 0.4 K/mcL (0.0-0.6); Eosinophils % 4.5 %; Hematocrit 25.7 % (35.3-44.9); Immature Granulocytes % 0.3 % (0-4); Lymphocytes # 1.2 K/mcL (0.6-4.6); Lymphocytes % 13.8 %; Mean Corpuscular HGB Conc 31.1 g/dL (31.6-35.5); Mean Corpuscular Hemoglobin 29.1 pg (28.0-33.3); Mean Corpuscular Volume 93.5 fL (83.0-100.0); Mean Platelet Volume 9.9 fL (9.4-12.4); Monocytes # 0.9 K/mcL (0.0-1.3); Monocytes % 9.8 %; Neutrophils # 6.3 K/mcL (1.6-8.9); Platelet Count 332 K/mcL (140-400); Red Blood Count 2.75 M/mcL (3.82-4.97); Red Cell Distribution Width 14.5 % (11.5-14.5); White Blood Count 8.9 K/mcL (4.3-11.1)
[2020-10-11 11:47] LABS: Calcium 7.4 mg/dL (8.6-10.3); Potassium 4.2 mEq/L (3.5-5.1)
[2020-10-11] MEDS ORDERED: *HR* Heparin 5,000 UNIT/ML VIAL IVP PRN ×2 (12:18)
[2020-10-11] MEDS ORDERED: tiZANidine 4 MG TABLET PO PRN (12:25)
[2020-10-11] MEDS ORDERED: Perflutren Lipid Microsphere 1.3 ML in 0.9 % Sodium Chloride 8.7 ML IVP PRN (12:27)
[2020-10-11 13:39] LABS: Hematocrit 25.6 % (35.3-44.9); Hemoglobin 7.9 g/dL (11.5-15.4)
[2020-10-11] MEDS ORDERED: 0.9 % Sodium Chloride 250 ML IVC SCH (14:30)
[2020-10-11 15:57] LABS: Ferritin 172 ng/mL (10-120); Iron < 10 mcg/dL (50-170); Transferrin 112 mg/dL (203-362)
[2020-10-11] MEDS: carvediloL 25 MG TABLET PO SCH (16:15)
[2020-10-11] MEDS ORDERED: Bumetanide 1 MG TABLET PO ONE (20:00)
[2020-10-11 20:39] LABS: Hematocrit 31.8 % (35.3-44.9)
[2020-10-11 20:40] LABS: Hemoglobin 9.8 g/dL (11.5-15.4)
[2020-10-11] MEDS: Heparin 25,000UNIT/250ML 1/2NS 25,000 UNIT/250 ML IV.SOLN IVC SCH (20:52)
[2020-10-12] MEDS: Albuterol 2.5 MG/3 ML NEBULIZER IH SCH ×7 (00:15→23:14)
[2020-10-12 03:40] LABS: Basophils % 0.6 %; Eosinophils # 0.4 K/mcL (0.0-0.6); Eosinophils % 5.8 %; Hematocrit 28.6 % (35.3-44.9); Hemoglobin 8.7 g/dL (11.5-15.4); Immature Granulocytes % 0.3 % (0-4); Lymphocytes # 1.9 K/mcL (0.6-4.6); Lymphocytes % 27.1 %; Mean Corpuscular HGB Conc 30.4 g/dL (31.6-35.5); Mean Corpuscular Hemoglobin 28.2 pg (28.0-33.3); Mean Corpuscular Volume 92.9 fL (83.0-100.0); Monocytes # 0.8 K/mcL (0.0-1.3); Monocytes % 11.8 %; Neutrophils # 3.8 K/mcL (1.6-8.9); Platelet Count 304 K/mcL (140-400); Red Blood Count 3.08 M/mcL (3.82-4.97); Red Cell Distribution Width 14.5 % (11.5-14.5); Segmented Neutrophils % 54.4 %; White Blood Count 7.1 K/mcL (4.3-11.1)
[2020-10-12 03:55] LABS: Calcium 7.6 mg/dL (8.6-10.3); Potassium 4.1 mEq/L (3.5-5.1)
[2020-10-12] MEDS: Heparin 25,000UNIT/250ML 1/2NS 25,000 UNIT/250 ML IV.SOLN IVC SCH (04:32)
[2020-10-12] MEDS: *HR* HYDROcodone/Acet 5/325 mg TABLET PO PRN (09:32)
[2020-10-12] MEDS: hydrALAZINE 25 MG TABLET PO SCH ×2 (09:33→20:39)
[2020-10-12] MEDS: cloNIDine HCL 0.1 MG TABLET PO SCH ×2 (09:33→20:39)
[2020-10-12] MEDS: Valsartan 160 MG TABLET PO SCH (09:33)
[2020-10-12] MEDS: Aspirin Enteric Coated 81 MG Tablet PO SCH (09:33)
[2020-10-12] MEDS: NIFEdipine XL (24 HR) 30 MG TAB.ER.24 PO SCH ×2 (09:33→20:40)
[2020-10-12] MEDS: carvediloL 25 MG TABLET PO SCH ×2 (09:33→17:12)
[2020-10-12] MEDS ORDERED: Ipratropium/Albuterol Neb 3 ML IH PRN (13:16)
[2020-10-13 00:49] LABS: Basophils % 0.6 %; Eosinophils # 0.5 K/mcL (0.0-0.6); Eosinophils % 8.1 %; Hematocrit 28.7 % (35.3-44.9); Hemoglobin 9.1 g/dL (11.5-15.4); Immature Granulocytes % 0.2 % (0-4); Lymphocytes # 1.4 K/mcL (0.6-4.6); Lymphocytes % 23.1 %; Mean Corpuscular HGB Conc 31.7 g/dL (31.6-35.5); Mean Corpuscular Hemoglobin 29.3 pg (28.0-33.3); Mean Corpuscular Volume 92.3 fL (83.0-100.0); Mean Platelet Volume 9.9 fL (9.4-12.4); Monocytes # 0.8 K/mcL (0.0-1.3); Monocytes % 13.1 %; Neutrophils # 3.4 K/mcL (1.6-8.9); Platelet Count 320 K/mcL (140-400); Red Blood Count 3.11 M/mcL (3.82-4.97); Red Cell Distribution Width 14.4 % (11.5-14.5); Segmented Neutrophils % 54.9 %; White Blood Count 6.2 K/mcL (4.3-11.1)
[2020-10-13 01:08] LABS: Calcium 7.7 mg/dL (8.6-10.3); Magnesium 2.4 mg/dL (1.6-2.6); Phosphorous 5.2 mg/dL (2.7-4.5)
[2020-10-13] MEDS: Albuterol 2.5 MG/3 ML NEBULIZER IH SCH ×6 (04:40→23:55)
[2020-10-13] MEDS: carvediloL 25 MG TABLET PO SCH ×2 (09:20→17:26)
[2020-10-13] MEDS: cefTRIAXone 1,000 MG in Water for inj. (sterile) 10 ML IVP SCH (09:20)
[2020-10-13] MEDS: Valsartan 160 MG TABLET PO SCH (09:32)
[2020-10-13] MEDS: hydrALAZINE 25 MG TABLET PO SCH ×2 (09:32→20:11)
[2020-10-13] MEDS: NIFEdipine XL (24 HR) 30 MG TAB.ER.24 PO SCH ×2 (09:32→20:11)
[2020-10-13] MEDS: cloNIDine HCL 0.1 MG TABLET PO SCH ×2 (09:32→20:11)
[2020-10-13] MEDS: Aspirin Enteric Coated 81 MG Tablet PO SCH (09:32)
[2020-10-13] MEDS ORDERED: Lidocaine -MPF 2% 5 ML VIAL SQ ONE (12:59)
[2020-10-13] MEDS ORDERED: *HR* Propofol 500 MG/50 ML BOTTLE IVP ONE (12:59)
[2020-10-13] MEDS: *HR* HYDROcodone/Acet 5/325 mg TABLET PO PRN ×2 (17:26→23:54)
[2020-10-14] MEDS: Albuterol 2.5 MG/3 ML NEBULIZER IH SCH ×3 (03:05→11:07)
[2020-10-14] MEDS: Heparin 25,000UNIT/250ML 1/2NS 25,000 UNIT/250 ML IV.SOLN IVC SCH (04:15)
[2020-10-14 06:40] LABS: Basophils % 0.6 %; Eosinophils # 0.4 K/mcL (0.0-0.6); Eosinophils % 6.7 %; Hematocrit 26.4 % (35.3-44.9); Hemoglobin 8.4 g/dL (11.5-15.4); Immature Granulocytes % 0.5 % (0-4); Lymphocytes # 1.6 K/mcL (0.6-4.6); Lymphocytes % 24.6 %; Mean Corpuscular HGB Conc 31.8 g/dL (31.6-35.5); Mean Corpuscular Hemoglobin 28.9 pg (28.0-33.3); Mean Corpuscular Volume 90.7 fL (83.0-100.0); Mean Platelet Volume 9.8 fL (9.4-12.4); Monocytes # 0.7 K/mcL (0.0-1.3); Monocytes % 10.4 %; Neutrophils # 3.7 K/mcL (1.6-8.9); Platelet Count 314 K/mcL (140-400); Red Blood Count 2.91 M/mcL (3.82-4.97); Red Cell Distribution Width 14.4 % (11.5-14.5); Segmented Neutrophils % 57.2 %; White Blood Count 6.4 K/mcL (4.3-11.1)
[2020-10-14 07:06] LABS: Calcium 7.9 mg/dL (8.6-10.3); Potassium 3.8 mEq/L (3.5-5.1)
[2020-10-14] MEDS: Aspirin Enteric Coated 81 MG Tablet PO SCH (07:33)
[2020-10-14] MEDS: Valsartan 160 MG TABLET PO SCH (07:33)
[2020-10-14] MEDS: NIFEdipine XL (24 HR) 30 MG TAB.ER.24 PO SCH (07:34)
[2020-10-14] MEDS: cefTRIAXone 1,000 MG in Water for inj. (sterile) 10 ML IVP SCH (07:34)
[2020-10-14] MEDS: hydrALAZINE 25 MG TABLET PO SCH ×2 (07:34→09:19)
[2020-10-14] MEDS: cloNIDine HCL 0.1 MG TABLET PO SCH ×2 (07:35→09:19)
[2020-10-14] MEDS: carvediloL 25 MG TABLET PO SCH ×2 (07:35→09:19)
[2020-10-14 09:58] LABS: Hematocrit 30.8 % (35.3-44.9); Hemoglobin 9.7 g/dL (11.5-15.4)
[2020-10-14] MEDS: *HR* HYDROcodone/Acet 5/325 mg TABLET PO PRN (10:14)
[2020-10-14 10:40] VITALS: BP 126/74
[2020-10-14] MEDS ORDERED: Apixaban 5 MG TABLET PO SCH (11:00)
== END 2020-10-14 13:00 | disposition home health service (06) | DRG 175 ==
LOC: 3BNU 16:15 → EMEROOARM 16:15 → SUATTDRO 20:52 → 3BNU 21:28
PROVIDERS: ADMIT Family Medicine; ATTEND Internal Medicine
PROC: ENDOEBX (2020-10-13 14:00)

== ENCOUNTER 2022-01-06 14:27 | Inpatient (IN) ==
[2022-01-06] MEDS ORDERED: Iopamidol - 370 500 ML MLS IVP ONE (14:44)
[2022-01-06] MEDS ORDERED: methylPREDNISolone 125 MG/2 ML VIAL IVP ONE (14:47)
[2022-01-06 15:18] LABS: Basophils % 0.6 %; Eosinophils # 0.4 K/mcL (0.0-0.6); Eosinophils % 5.5 %; Hematocrit 35.4 % (35.3-44.9); Immature Granulocytes % 0.1 % (0-4); Lymphocytes # 1.2 K/mcL (0.6-4.6); Lymphocytes % 16.4 %; Mean Corpuscular HGB Conc 31.1 g/dL (31.6-35.5); Mean Corpuscular Hemoglobin 28.9 pg (28.0-33.3); Mean Corpuscular Volume 92.9 fL (83.0-100.0); Monocytes # 0.6 K/mcL (0.0-1.3); Monocytes % 8.7 %; Neutrophils # 4.9 K/mcL (1.6-8.9); Platelet Count 360 K/mcL (140-400); Red Blood Count 3.81 M/mcL (3.82-4.97); Red Cell Distribution Width 15.6 % (11.5-14.5); Segmented Neutrophils % 68.7 %; White Blood Count 7.2 K/mcL (4.3-11.1)
[2022-01-06 15:31] LABS: INR 1.9; Prothrombin Time 20.7 Seconds (9.4-12.1)
[2022-01-06] MEDS ORDERED: Morphine Sulfate 2 MG/ML SYRINGE IVP ONE ×2 (16:24→19:05)
[2022-01-06 17:03] LABS: Alanine Aminotransferase 16 Units/L (7-52); Albumin 3.4 g/dL (3.5-5.7); Albumin/Globulin Ratio 0.9 (1.1-2.2); Alkaline Phosphatase 58 Units/L (34-104); Aspartate Amino Transferase 17 Units/L (13-39); BUN/Creatinine Ratio 12 (6-26); Bilirubin,Direct 0.1 mg/dL (0.0-0.2); Bilirubin,Indirect 0.2 mg/dL (0.0-1.0); Bilirubin,Total 0.3 mg/dL (0.3-1.0); Blood Urea Nitrogen 47 mg/dL (8-23); Calcium 8.5 mg/dL (8.6-10.3); Carbon Dioxide 23 mEq/L (23-29); Chloride 108 mEq/L (98-107); Globulin 3.6 g/dL (2.4-3.5); Glucose 135 mg/dL (70-105); Lipase 8 Units/L (11-82); Osmolality,Calculated 302 (280-300); Potassium 5.3 mEq/L (3.5-5.1); Sodium 139 mEq/L (136-145); Troponin I < 0.03 ng/mL (< 0.04); eGFR For African Americans 13 (> 60); eGFR For Non-African Americans 11 (> 60)
[2022-01-06] MEDS ORDERED: 0.9 % Sodium Chloride 1,000 ML IV ONE (19:05)
[2022-01-06] MEDS ORDERED: Metoclopramide 10 MG/2 ML VIAL IVP ONE (19:06)
[2022-01-06] MEDS ORDERED: Naloxone 0.4 MG/ML INJ IVP PRN (22:21)
[2022-01-06] MEDS ORDERED: 0.9 % Sodium Chloride 1,000 ML IVC SCH (22:30)
[2022-01-06 23:13] LABS: Chol/HDL Ratio 3.4 (0-4.9)
[2022-01-06 23:30] LABS: Bilirubin,Urine Negative (Negative); Blood,Urine Negative (Negative); Clarity,Urine Clear (Clear); Color,Urine Light-Yellow (Yellow); Glucose,Urine (UA) 70 mg/dL (Normal); Hyaline Casts,Urine Few per lpf (None Seen); Ketones,Urine Negative (Negative); Leukocyte Esterase,Urine Negative (Negative); Nitrite,Urine Negative (Negative); PH,Urine 6.5 pH Units (5.0-8.0); Protein,Urine >=600 mg/dL (Neg-Trace); RBC,Urine 0-3 per hpf (0-3); Specific Gravity,Urine 1.018 (1.010-1.025); Squamous Epithelial Cell,Urine Few per hpf (None-Few); Urobilinogen,Urine Normal (Normal); WBC,Urine 0-3 per hpf (0-3)
[2022-01-07 03:53] LABS: Hematocrit 35.2 % (35.3-44.9); Hemoglobin 10.9 g/dL (11.5-15.4); Mean Corpuscular Hemoglobin 29.1 pg (28.0-33.3); Mean Corpuscular Volume 93.9 fL (83.0-100.0); Mean Platelet Volume 9.8 fL (9.4-12.4); Platelet Count 317 K/mcL (140-400); Red Blood Count 3.75 M/mcL (3.82-4.97); Red Cell Distribution Width 15.6 % (11.5-14.5); White Blood Count 8.5 K/mcL (4.3-11.1)
[2022-01-07 04:13] LABS: Calcium 8.5 mg/dL (8.6-10.3); Potassium 5.5 mEq/L (3.5-5.1)
[2022-01-07] MEDS: SODIUM ZIRCONIUM CYCLOSILICATE 5 GM POWD.PACK PO SCH (10:48)
[2022-01-07] MEDS: cloNIDine HCL 0.1 MG TABLET PO SCH ×2 (11:49→21:37)
[2022-01-07] MEDS: NIFEdipine XL (24 HR) 60 MG TAB.ER.24 PO SCH (11:49)
[2022-01-07] MEDS: hydrALAZINE 25 MG TABLET PO SCH ×2 (14:01→21:37)
[2022-01-07] MEDS: Apixaban 5 MG TABLET PO SCH ×2 (14:01→21:37)
[2022-01-07] MEDS: carvediloL 25 MG TABLET PO SCH (16:29)
[2022-01-07] MEDS: tiZANidine 4 MG TABLET PO SCH ×2 (16:29→21:37)
[2022-01-07] MEDS ORDERED: carvediloL 25 MG TABLET PO SCH (21:00)
[2022-01-08 02:24] LABS: Basophils % 0.2 %; Eosinophils # 0.1 K/mcL (0.0-0.6); Eosinophils % 1.5 %; Hematocrit 31.5 % (35.3-44.9); Hemoglobin 9.7 g/dL (11.5-15.4); Immature Granulocytes % 0.2 % (0-4); Lymphocytes # 1.5 K/mcL (0.6-4.6); Mean Corpuscular HGB Conc 30.8 g/dL (31.6-35.5); Mean Corpuscular Hemoglobin 28.9 pg (28.0-33.3); Mean Corpuscular Volume 93.8 fL (83.0-100.0); Mean Platelet Volume 10.3 fL (9.4-12.4); Monocytes # 0.7 K/mcL (0.0-1.3); Monocytes % 7.3 %; Neutrophils # 6.9 K/mcL (1.6-8.9); Platelet Count 313 K/mcL (140-400); Red Blood Count 3.36 M/mcL (3.82-4.97); Red Cell Distribution Width 15.6 % (11.5-14.5); Segmented Neutrophils % 74.8 %; White Blood Count 9.2 K/mcL (4.3-11.1)
[2022-01-08 02:45] LABS: Albumin/Globulin Ratio 0.9 (1.1-2.2); Bilirubin,Total 0.3 mg/dL (0.3-1.0); Calcium 8.1 mg/dL (8.6-10.3); Globulin 3.2 g/dL (2.4-3.5); Potassium 5.4 mEq/L (3.5-5.1); Total Protein 6.2 g/dL (6.4-8.9)
[2022-01-08] MEDS: SODIUM ZIRCONIUM CYCLOSILICATE 5 GM POWD.PACK PO SCH (07:44)
[2022-01-08] MEDS: Spironolactone 25 MG TABLET PO SCH (07:47)
[2022-01-08] MEDS: NIFEdipine XL (24 HR) 60 MG TAB.ER.24 PO SCH (07:47)
[2022-01-08] MEDS: cloNIDine HCL 0.1 MG TABLET PO SCH ×2 (07:47→20:17)
[2022-01-08] MEDS: hydrALAZINE 25 MG TABLET PO SCH ×3 (07:48→20:17)
[2022-01-08] MEDS: tiZANidine 4 MG TABLET PO SCH ×4 (07:48→20:17)
[2022-01-08] MEDS: carvediloL 25 MG TABLET PO SCH ×2 (07:49→16:35)
[2022-01-08] MEDS: Apixaban 5 MG TABLET PO SCH ×2 (07:49→20:18)
[2022-01-08] MEDS ORDERED: SODIUM ZIRCONIUM CYCLOSILICATE 10 GM PO SCH (09:00)
[2022-01-09 06:06] LABS: Basophils % 0.5 %; Eosinophils # 0.4 K/mcL (0.0-0.6); Eosinophils % 5.6 %; Hemoglobin 10.3 g/dL (11.5-15.4); Immature Granulocytes % 0.1 % (0-4); Lymphocytes # 1.5 K/mcL (0.6-4.6); Lymphocytes % 20.2 %; Mean Corpuscular HGB Conc 31.2 g/dL (31.6-35.5); Mean Corpuscular Hemoglobin 28.9 pg (28.0-33.3); Mean Corpuscular Volume 92.7 fL (83.0-100.0); Monocytes # 0.8 K/mcL (0.0-1.3); Monocytes % 10.2 %; Neutrophils # 4.6 K/mcL (1.6-8.9); Platelet Count 340 K/mcL (140-400); Red Blood Count 3.56 M/mcL (3.82-4.97); Red Cell Distribution Width 15.2 % (11.5-14.5); Segmented Neutrophils % 63.4 %; White Blood Count 7.3 K/mcL (4.3-11.1)
[2022-01-09 06:37] LABS: Albumin 3.2 g/dL (3.5-5.7); Albumin/Globulin Ratio 1.1 (1.1-2.2); Bilirubin,Total 0.3 mg/dL (0.3-1.0); Potassium 5.1 mEq/L (3.5-5.1); Total Protein 6.2 g/dL (6.4-8.9)
[2022-01-09] MEDS: Apixaban 5 MG TABLET PO SCH ×2 (08:33→19:50)
[2022-01-09] MEDS: tiZANidine 4 MG TABLET PO SCH ×5 (08:34→19:50)
[2022-01-09] MEDS: NIFEdipine XL (24 HR) 60 MG TAB.ER.24 PO SCH (08:34)
[2022-01-09] MEDS: Spironolactone 25 MG TABLET PO SCH (08:34)
[2022-01-09] MEDS: Sucralfate 1 GM TABLET PO SCH ×5 (08:34→19:50)
[2022-01-09] MEDS: carvediloL 25 MG TABLET PO SCH ×3 (08:35→17:54)
[2022-01-09] MEDS: SODIUM ZIRCONIUM CYCLOSILICATE 5 GM POWD.PACK PO SCH (08:36)
[2022-01-09] MEDS: Ringers Solution, Lactated 1,000 ML IVC SCH ×2 (08:37→18:10)
[2022-01-09] MEDS: hydrALAZINE 25 MG TABLET PO SCH ×3 (08:48→19:50)
[2022-01-09] MEDS: cloNIDine HCL 0.1 MG TABLET PO SCH ×2 (08:48→19:50)
[2022-01-09] MEDS ORDERED: GuaiFENesin/Dextromethorphan TABLET PO PRN (14:00)
[2022-01-09] MEDS: Ondansetron 4 MG/2 ML VIAL IVP PRN (17:54)
[2022-01-10 01:10] LABS: Basophils % 0.3 %; Eosinophils # 0.3 K/mcL (0.0-0.6); Eosinophils % 3.9 %; Hematocrit 30.5 % (35.3-44.9); Hemoglobin 9.6 g/dL (11.5-15.4); Immature Granulocytes % 0.3 % (0-4); Lymphocytes # 0.9 K/mcL (0.6-4.6); Lymphocytes % 12.9 %; Mean Corpuscular HGB Conc 31.5 g/dL (31.6-35.5); Mean Corpuscular Hemoglobin 29.4 pg (28.0-33.3); Mean Corpuscular Volume 93.3 fL (83.0-100.0); Mean Platelet Volume 9.6 fL (9.4-12.4); Monocytes # 0.7 K/mcL (0.0-1.3); Platelet Count 293 K/mcL (140-400); Red Blood Count 3.27 M/mcL (3.82-4.97); Red Cell Distribution Width 14.9 % (11.5-14.5); Segmented Neutrophils % 72.6 %; White Blood Count 6.9 K/mcL (4.3-11.1)
[2022-01-10 01:39] LABS: Albumin 2.6 g/dL (3.5-5.7); Bilirubin,Total 0.3 mg/dL (0.3-1.0); Calcium 7.6 mg/dL (8.6-10.3); Globulin 2.7 g/dL (2.4-3.5); Potassium 4.8 mEq/L (3.5-5.1); Total Protein 5.3 g/dL (6.4-8.9)
[2022-01-10] MEDS: Ringers Solution, Lactated 1,000 ML IVC SCH ×2 (04:52→18:28)
[2022-01-10] MEDS: NIFEdipine XL (24 HR) 60 MG TAB.ER.24 PO SCH (09:59)
[2022-01-10] MEDS: Apixaban 5 MG TABLET PO SCH ×2 (09:59→21:55)
[2022-01-10] MEDS: Sucralfate 1 GM TABLET PO SCH ×4 (10:00→21:54)
[2022-01-10] MEDS: cloNIDine HCL 0.1 MG TABLET PO SCH ×2 (10:00→21:55)
[2022-01-10] MEDS: tiZANidine 4 MG TABLET PO SCH ×4 (10:00→21:55)
[2022-01-10] MEDS: Spironolactone 25 MG TABLET PO SCH (10:00)
[2022-01-10] MEDS: hydrALAZINE 25 MG TABLET PO SCH ×3 (10:00→21:54)
[2022-01-10] MEDS: carvediloL 25 MG TABLET PO SCH ×2 (10:02→17:17)
[2022-01-10] MEDS: Piperacillin/Tazobactam 3.375 GM in 0.9 % Sodium Chloride Mini Bag 100 ML IVPB SCH ×2 (10:03→21:53)
[2022-01-11 01:54] LABS: Basophils % 0.2 %; Eosinophils # 0.4 K/mcL (0.0-0.6); Eosinophils % 4.8 %; Hematocrit 31.4 % (35.3-44.9); Hemoglobin 9.8 g/dL (11.5-15.4); Immature Granulocytes % 0.2 % (0-4); Lymphocytes # 1.4 K/mcL (0.6-4.6); Lymphocytes % 17.3 %; Mean Corpuscular HGB Conc 31.2 g/dL (31.6-35.5); Mean Corpuscular Hemoglobin 28.9 pg (28.0-33.3); Mean Corpuscular Volume 92.6 fL (83.0-100.0); Mean Platelet Volume 10.1 fL (9.4-12.4); Monocytes # 0.7 K/mcL (0.0-1.3); Monocytes % 9.1 %; Neutrophils # 5.5 K/mcL (1.6-8.9); Platelet Count 290 K/mcL (140-400); Red Blood Count 3.39 M/mcL (3.82-4.97); Segmented Neutrophils % 68.4 %; White Blood Count 8.1 K/mcL (4.3-11.1)
[2022-01-11 02:21] LABS: Albumin 2.8 g/dL (3.5-5.7); Bilirubin,Total 0.4 mg/dL (0.3-1.0); Calcium 7.8 mg/dL (8.6-10.3); Globulin 2.9 g/dL (2.4-3.5); Potassium 4.4 mEq/L (3.5-5.1); Total Protein 5.7 g/dL (6.4-8.9)
[2022-01-11] MEDS ORDERED: Dextrose Gel 15 GM/37.5 ML TUBE PO PRN ×2 (05:30)
[2022-01-11] MEDS ORDERED: *HR* Dextrose 50 % in Water (Syg) 50 ML SYRINGE IVP PRN (05:30)
[2022-01-11] MEDS ORDERED: D5% in Water 1,000 ML IVC PRN (05:30)
[2022-01-11] MEDS: Sucralfate 1 GM TABLET PO SCH ×4 (05:46→20:20)
[2022-01-11] MEDS: Ringers Solution, Lactated 1,000 ML IVC SCH ×4 (07:45→17:06)
[2022-01-11] MEDS: Apixaban 5 MG TABLET PO SCH ×2 (07:53→20:20)
[2022-01-11] MEDS: carvediloL 25 MG TABLET PO SCH ×2 (07:53→17:06)
[2022-01-11] MEDS: NIFEdipine XL (24 HR) 60 MG TAB.ER.24 PO SCH (07:53)
[2022-01-11] MEDS: tiZANidine 4 MG TABLET PO SCH ×4 (07:54→20:20)
[2022-01-11] MEDS: hydrALAZINE 25 MG TABLET PO SCH ×3 (07:54→20:20)
[2022-01-11] MEDS: Spironolactone 25 MG TABLET PO SCH (07:54)
[2022-01-11] MEDS: cloNIDine HCL 0.1 MG TABLET PO SCH ×2 (08:00→20:20)
[2022-01-12 05:00] LABS: Basophils % 0.5 %; Eosinophils # 0.5 K/mcL (0.0-0.6); Hematocrit 30.7 % (35.3-44.9); Hemoglobin 9.7 g/dL (11.5-15.4); Immature Granulocytes % 0.5 % (0-4); Lymphocytes % 14.6 %; Mean Corpuscular HGB Conc 31.6 g/dL (31.6-35.5); Mean Corpuscular Hemoglobin 28.7 pg (28.0-33.3); Mean Corpuscular Volume 90.8 fL (83.0-100.0); Mean Platelet Volume 9.7 fL (9.4-12.4); Monocytes # 0.8 K/mcL (0.0-1.3); Monocytes % 11.6 %; Neutrophils # 4.3 K/mcL (1.6-8.9); Platelet Count 297 K/mcL (140-400); Red Blood Count 3.38 M/mcL (3.82-4.97); Red Cell Distribution Width 14.7 % (11.5-14.5); Segmented Neutrophils % 64.8 %; White Blood Count 6.6 K/mcL (4.3-11.1)
[2022-01-12 05:21] LABS: Albumin 2.9 g/dL (3.5-5.7); Bilirubin,Total 0.3 mg/dL (0.3-1.0); Calcium 7.9 mg/dL (8.6-10.3); Globulin 2.8 g/dL (2.4-3.5); Total Protein 5.7 g/dL (6.4-8.9)
[2022-01-12] MEDS: carvediloL 25 MG TABLET PO SCH ×2 (09:03→16:33)
[2022-01-12] MEDS: tiZANidine 4 MG TABLET PO SCH ×4 (09:03→21:16)
[2022-01-12] MEDS: Sucralfate 1 GM TABLET PO SCH ×4 (09:03→21:16)
[2022-01-12] MEDS: cloNIDine HCL 0.1 MG TABLET PO SCH ×2 (09:03→21:16)
[2022-01-12] MEDS: NIFEdipine XL (24 HR) 60 MG TAB.ER.24 PO SCH (09:04)
[2022-01-12] MEDS: Apixaban 5 MG TABLET PO SCH ×2 (09:04→21:16)
[2022-01-12] MEDS: Spironolactone 25 MG TABLET PO SCH (09:04)
[2022-01-12] MEDS: hydrALAZINE 25 MG TABLET PO SCH ×3 (09:04→21:16)
[2022-01-12] MEDS: Ringers Solution, Lactated 1,000 ML IVC SCH (12:29)
[2022-01-12] MEDS: Ondansetron 4 MG/2 ML VIAL IVP PRN (21:17)
[2022-01-13 01:37] LABS: Hematocrit 30.9 % (35.3-44.9); Hemoglobin 9.7 g/dL (11.5-15.4); Mean Corpuscular HGB Conc 31.4 g/dL (31.6-35.5); Mean Corpuscular Hemoglobin 28.3 pg (28.0-33.3); Mean Corpuscular Volume 90.1 fL (83.0-100.0); Mean Platelet Volume 10.1 fL (9.4-12.4); Platelet Count 337 K/mcL (140-400); Red Blood Count 3.43 M/mcL (3.82-4.97); Red Cell Distribution Width 14.8 % (11.5-14.5)
[2022-01-13 01:55] LABS: Calcium 7.7 mg/dL (8.6-10.3); Potassium 3.8 mEq/L (3.5-5.1)
[2022-01-13] MEDS: Sucralfate 1 GM TABLET PO SCH ×4 (06:20→21:12)
[2022-01-13] MEDS: carvediloL 25 MG TABLET PO SCH ×2 (08:31→16:15)
[2022-01-13] MEDS: hydrALAZINE 25 MG TABLET PO SCH ×3 (08:31→21:11)
[2022-01-13] MEDS: cloNIDine HCL 0.1 MG TABLET PO SCH ×2 (08:31→21:13)
[2022-01-13] MEDS: Apixaban 5 MG TABLET PO SCH ×2 (08:31→21:13)
[2022-01-13] MEDS: NIFEdipine XL (24 HR) 60 MG TAB.ER.24 PO SCH (08:31)
[2022-01-13] MEDS: tiZANidine 4 MG TABLET PO SCH ×4 (08:32→21:11)
[2022-01-13] MEDS: Ringers Solution, Lactated 1,000 ML IVC SCH ×3 (08:37→18:28)
[2022-01-13] MEDS: Ondansetron 4 MG/2 ML VIAL IVP PRN ×2 (13:02→20:18)
[2022-01-13 16:38] LABS: Campylobacter by PCR Not detected (Not detect)
[2022-01-13 16:45] LABS: Adenovirus F 40/41 PCR Not detected (Not detect); Astrovirus PCR Not detected (Not detect); C.difficile Toxin A/B Gene PCR DETECTED (Not detect); Cryptosporidium by PCR Not detected (Not detect); Cyclospora cayetanensis PCR Not detected (Not detect); Entamoeba histolytica PCR Not detected (Not detect); Enteroaggregative E.coli(EAEC) Not detected (Not detect); Enteropathogenic E.coli(EPEC) DETECTED (Not detect); Enterotoxigenic E.coli (ETEC) Not detected (Not detect); Giardia lamblia PCR Not detected (Not detect); Norovirus GI/GII PCR Not detected (Not detect); Plesiomonas shigelloides PCR Not detected (Not detect); Rotavirus A PCR Not detected (Not detect); Salmonella PCR Not detected (Not detect); Sapovirus PCR Not detected (Not detect); Shig/EnteroinvasiveE coli EIEC Not detected (Not detect); Shigalike tox-prod E coli STEC Not detected (Not detect); Vibrio PCR Not detected (Not detect); Vibrio cholerae PCR Not detected (Not detect); Yersinia enterocolitica PCR Not detected (Not detect)
[2022-01-13] MEDS: Vancomycin Oral Soln 125 MG/2.5 ML UDC PO SCH ×3 (18:26→21:31)
[2022-01-14 02:59] LABS: Hematocrit 31.4 % (35.3-44.9); Hemoglobin 9.7 g/dL (11.5-15.4); Mean Corpuscular HGB Conc 30.9 g/dL (31.6-35.5); Mean Corpuscular Hemoglobin 28.3 pg (28.0-33.3); Mean Corpuscular Volume 91.5 fL (83.0-100.0); Mean Platelet Volume 9.9 fL (9.4-12.4); Platelet Count 349 K/mcL (140-400); Red Blood Count 3.43 M/mcL (3.82-4.97); Red Cell Distribution Width 14.7 % (11.5-14.5); White Blood Count 6.4 K/mcL (4.3-11.1)
[2022-01-14 03:19] LABS: Albumin 2.9 g/dL (3.5-5.7); Albumin/Globulin Ratio 1.1 (1.1-2.2); Bilirubin,Indirect 0.3 mg/dL (0.0-1.0); Bilirubin,Total 0.3 mg/dL (0.3-1.0); Calcium 7.5 mg/dL (8.6-10.3); Globulin 2.6 g/dL (2.4-3.5); Potassium 3.9 mEq/L (3.5-5.1); Total Protein 5.5 g/dL (6.4-8.9)
[2022-01-14] MEDS: Ringers Solution, Lactated 1,000 ML IVC SCH ×2 (04:48→12:42)
[2022-01-14] MEDS: Sucralfate 1 GM TABLET PO SCH ×4 (06:28→20:23)
[2022-01-14] MEDS: Apixaban 5 MG TABLET PO SCH ×2 (08:50→20:23)
[2022-01-14] MEDS: hydrALAZINE 25 MG TABLET PO SCH ×3 (08:50→20:22)
[2022-01-14] MEDS: tiZANidine 4 MG TABLET PO SCH ×4 (08:50→20:21)
[2022-01-14] MEDS: NIFEdipine XL (24 HR) 60 MG TAB.ER.24 PO SCH (08:50)
[2022-01-14] MEDS: cloNIDine HCL 0.1 MG TABLET PO SCH ×2 (08:50→20:23)
[2022-01-14] MEDS: carvediloL 25 MG TABLET PO SCH ×2 (08:52→17:11)
[2022-01-14] MEDS: Vancomycin Oral Soln 125 MG/2.5 ML UDC PO SCH ×4 (08:52→20:24)
[2022-01-14] MEDS: Ondansetron 4 MG/2 ML VIAL IVP PRN ×2 (10:24→21:46)
[2022-01-15 03:17] LABS: Hematocrit 30.2 % (35.3-44.9); Hemoglobin 9.9 g/dL (11.5-15.4); Mean Corpuscular HGB Conc 32.8 g/dL (31.6-35.5); Mean Corpuscular Hemoglobin 29.6 pg (28.0-33.3); Mean Corpuscular Volume 90.1 fL (83.0-100.0); Mean Platelet Volume 9.9 fL (9.4-12.4); Platelet Count 324 K/mcL (140-400); Red Blood Count 3.35 M/mcL (3.82-4.97); Red Cell Distribution Width 14.6 % (11.5-14.5); White Blood Count 6.4 K/mcL (4.3-11.1)
[2022-01-15 03:41] LABS: Phosphorous 3.5 mg/dL (2.7-4.5)
[2022-01-15 03:43] LABS: Calcium 7.8 mg/dL (8.6-10.3); Potassium 3.5 mEq/L (3.5-5.1)
[2022-01-15] MEDS: Ringers Solution, Lactated 1,000 ML IVC SCH ×2 (04:41→21:05)
[2022-01-15] MEDS: tiZANidine 4 MG TABLET PO SCH ×4 (08:04→21:21)
[2022-01-15] MEDS: cloNIDine HCL 0.1 MG TABLET PO SCH ×2 (08:05→21:22)
[2022-01-15] MEDS: Sucralfate 1 GM TABLET PO SCH ×4 (08:05→21:21)
[2022-01-15] MEDS: Vancomycin Oral Soln 125 MG/2.5 ML UDC PO SCH ×4 (08:05→21:21)
[2022-01-15] MEDS: NIFEdipine XL (24 HR) 60 MG TAB.ER.24 PO SCH (08:05)
[2022-01-15] MEDS: hydrALAZINE 25 MG TABLET PO SCH ×3 (08:05→21:21)
[2022-01-15] MEDS: Apixaban 5 MG TABLET PO SCH ×2 (08:05→21:21)
[2022-01-15] MEDS: carvediloL 25 MG TABLET PO SCH ×2 (08:06→16:32)
[2022-01-15] MEDS: Ondansetron 4 MG/2 ML VIAL IVP PRN (08:35)
[2022-01-16 02:26] LABS: Hematocrit 31.6 % (35.3-44.9); Hemoglobin 10.2 g/dL (11.5-15.4); Mean Corpuscular HGB Conc 32.3 g/dL (31.6-35.5); Mean Corpuscular Volume 89.8 fL (83.0-100.0); Mean Platelet Volume 9.9 fL (9.4-12.4); Platelet Count 353 K/mcL (140-400); Red Blood Count 3.52 M/mcL (3.82-4.97); Red Cell Distribution Width 14.6 % (11.5-14.5); White Blood Count 7.9 K/mcL (4.3-11.1)
[2022-01-16 02:47] LABS: Calcium 7.8 mg/dL (8.6-10.3); Magnesium 1.9 mg/dL (1.6-2.6); Phosphorous 2.9 mg/dL (2.7-4.5); Potassium 3.6 mEq/L (3.5-5.1)
[2022-01-16] MEDS: NIFEdipine XL (24 HR) 60 MG TAB.ER.24 PO SCH (08:04)
[2022-01-16] MEDS: Vancomycin Oral Soln 125 MG/2.5 ML UDC PO SCH ×4 (08:04→19:35)
[2022-01-16] MEDS: tiZANidine 4 MG TABLET PO SCH ×4 (08:04→19:34)
[2022-01-16] MEDS: Apixaban 5 MG TABLET PO SCH ×2 (08:05→19:34)
[2022-01-16] MEDS: carvediloL 25 MG TABLET PO SCH ×2 (08:05→16:39)
[2022-01-16] MEDS: Sucralfate 1 GM TABLET PO SCH ×3 (08:05→16:39)
[2022-01-16] MEDS: cloNIDine HCL 0.1 MG TABLET PO SCH ×2 (08:05→19:35)
[2022-01-16] MEDS: hydrALAZINE 25 MG TABLET PO SCH ×3 (08:05→19:34)
[2022-01-16] MEDS: Ondansetron 4 MG/2 ML VIAL IVP PRN (09:29)
[2022-01-16] MEDS ORDERED: Ondansetron 4 MG/2 ML VIAL IVP PRN ×2 (15:38→15:42)
[2022-01-17] MEDS: Sucralfate 1 GM TABLET PO SCH ×2 (03:15→08:43)
[2022-01-17 07:34] LABS: Pancreatic Elastase, Fecal 11 ug/g (>=100)
[2022-01-17] MEDS: hydrALAZINE 25 MG TABLET PO SCH (08:43)
[2022-01-17] MEDS: NIFEdipine XL (24 HR) 60 MG TAB.ER.24 PO SCH (08:43)
[2022-01-17] MEDS: Vancomycin Oral Soln 125 MG/2.5 ML UDC PO SCH (08:43)
[2022-01-17] MEDS: cloNIDine HCL 0.1 MG TABLET PO SCH (08:43)
[2022-01-17] MEDS: carvediloL 25 MG TABLET PO SCH (08:43)
[2022-01-17] MEDS: Apixaban 5 MG TABLET PO SCH (08:43)
[2022-01-17] MEDS: tiZANidine 4 MG TABLET PO SCH (08:43)
[2022-01-17 11:13] VITALS: BP 150/66; PULSE 58; TEMP 98.8; O2SAT 94
== END 2022-01-17 12:18 | disposition home health service (06) | DRG 439 ==
LOC: 3ANU 14:27 → EMEROOARM 14:27 → 3ANU 21:36 → SUATTDRO 01-10 10:37 → 3ANU 01-12 17:46
PROVIDERS: ADMIT Student in an Organized Health Care Education/Training Program; ATTEND Internal Medicine